=== PATIENT | male | born 1955 | race Caucasian/White ===

== ENCOUNTER → 2017-06-07 15:40 | Outpatient (CLI) | payer OTHER, SELFPAY ==
[2017-06-07 17:47] LABS: Absolute Lymphocyte Count 2.72 X10^3/ul (0.83-4.51); Absolute Neutrophil Count 3.9 X10^3/uL (2.0-7.7); Basophil# 0.05 X10^3/uL; Basophil% 0.7 % (0-1); Eosinophil# 0.15 X10^3/uL; Hemoglobin 14.8 g/dl (13.0-16.5); Lymphocyte # 2.72 X10^3/ul (4.0); Lymphocyte % 36.7 % (19-41); Mean Corp Hgb Conc 35.2 g/gl (32-36); Mean Corpuscular Hgb 32.8 pg (27.0-32.0); Mean Corpuscular Volume 93.1 fL (80-94); Mean Platelet Vol. 10.8 fl (6.2-12.0); Monocyte# 0.61 X10^3/uL; Monocyte% 8.2 % (0-10); Neutrophil # 3.88 X10^3/uL (2.7-7.7); Neutrophil % 52.3 % (47-70); POSITIVE COUNT NO; POSITIVE DIFFERENTIAL NO; POSITIVE MORPHOLOGY NO; Platelet Count 234 K/mm3 (150-450); RBC Distribution Width CV 12.1 % (11.6-14.6); RBC Distribution Width SD 40.3 fl (35.1-43.9); Red Blood Count 4.51 M/mm3 (4.6-6.2); White Blood Count 7.4 K/mm3 (4.4-11.0)
[2017-06-07 18:27] LABS: CRP < 2.90 mg/L (0.0-3.0)
== END ==
PROVIDERS: Family Provider Family Medicine Geriatric Medicine; PCP Family Medicine Geriatric Medicine; Visit Provider Internal Medicine Gastroenterology
DX: R10.9 Unspecified abdominal pain (principal)
CPT/HCPCS: 36415; 85025; 86140

== ENCOUNTER → 2017-06-25 11:41 | Outpatient (CLI) | payer OTHER, SELFPAY ==
--- NOTE | 2017-06-25 11:49 | CT_ITS ---
STUDY: CT ABDOMEN AND PELVIS WITH CONTRAST REASON FOR EXAM: Male, 62 years old. Chronic epigastric pain. RADIATION DOSAGE (If Supplied By Facility): CTDIvol = ( 13.48 ) mGy, DLP = ( 874.89 ) mGycm TECHNIQUE: Transaxial images were obtained from the dome of the diaphragm to the symphysis pubis with oral contrast. 100 ml of Isovue 300 contrast was administered. Sagittal and coronal images were reconstructed. Individualized dose optimization techniques were used for this CT. COMPARISON: Comparison is made with prior examination of January 09, 2017. FINDINGS: The visualized lung bases are unremarkable. The visualized portions of the heart are within normal limits. There is decreased attenuation of the liver consistent with steatosis. Normal gallbladder and extrahepatic biliary system. Normal spleen. Normal pancreas. Normal bilateral adrenal glands. Normal right kidney. Normal left kidney. There is a small hiatal hernia. Normal small intestine. There are multiple colonic diverticula consistent with diverticulosis. The appendix is visualized and appears normal. Normal abdominal aorta. Normal inferior vena cava. Normal retroperitoneum. Normal urinary bladder. There is a right-sided inguinal hernia containing adipose tissue. There are diffuse degenerative changes of the visualized lumbar spine. CT/Abdomen/Pelvis WITH Contrast IMPRESSION: Sigmoid diverticulosis. Fatty infiltration of the liver. Electronically Signed: Anderson Graham MD at 14:40 EST Tel [phone], Service support ,
[2017-06-25 13:16] LABS: Absolute Lymphocyte Count 2.56 X10^3/ul (0.83-4.51); Absolute Neutrophil Count 3.5 X10^3/uL (2.0-7.7); Basophil# 0.03 X10^3/uL; Basophil% 0.5 % (0-1); Eosinophil# 0.14 X10^3/uL; Eosinophils% 2.1 % (0-5); Hematocrit 46.3 % (40-54); Hemoglobin 15.8 g/dl (13.0-16.5); Lymphocyte # 2.56 X10^3/ul (4.0); Lymphocyte % 38.6 % (19-41); Mean Corp Hgb Conc 34.1 g/gl (32-36); Mean Corpuscular Hgb 32.2 pg (27.0-32.0); Mean Corpuscular Volume 94.3 fL (80-94); Mean Platelet Vol. 10.7 fl (6.2-12.0); Monocyte# 0.44 X10^3/uL; Monocyte% 6.6 % (0-10); Neutrophil # 3.46 X10^3/uL (2.7-7.7); Neutrophil % 52.2 % (47-70); Platelet Count 257 K/mm3 (150-450); RBC Distribution Width CV 12.4 % (11.6-14.6); RBC Distribution Width SD 42.5 fl (35.1-43.9); Red Blood Count 4.91 M/mm3 (4.6-6.2); White Blood Count 6.6 K/mm3 (4.4-11.0)
[2017-06-25 13:17] LABS: POSITIVE COUNT NO; POSITIVE DIFFERENTIAL NO; POSITIVE MORPHOLOGY NO
[2017-06-25 13:41] LABS: ALB/GLOB Ratio 1.2 RATIO (0.9-2.4); AST(SGOT) 23 U/L (15-37); Alanine Aminotransfer ALT/SGPT 33 U/L (16-61); Albumin, Serum 4.3 g/dL (3.2-5.0); Alkaline Phosphatase 51 U/L (45-117); Anion Gap 8 (5-15); BUN 6 mg/dL (7-18); BUN/Creat Ratio 6.7 RATIO (10-20); Calcium,Total 9.1 mg/dL (8.5-10.1); Chloride 101 mmol/L (98-107); Creatinine, Serum 0.89 mg/dL (0.70-1.30); EST Glomerular Filtration Rate 92 mL/min (>60); Est Glom Filt Rate - Afr Amer 111 mL/min (>60); Globulin 3.7 g/dL (2.2-4.2); Glucose 74 mg/dL (74-106); Sodium Level 138 mmol/L (136-145); Thyroid Stim Hormone (TSH) 2.19 uIU/mL (0.358-3.74)
== END ==
PROVIDERS: Family Provider Family Medicine Geriatric Medicine; PCP Family Medicine Geriatric Medicine; Visit Provider Family Medicine Geriatric Medicine
DX: R10.9 Unspecified abdominal pain (principal); I10 Essential (primary) hypertension
CPT/HCPCS: 36415; 74177; 80053; 84443; 85025; Q9967

== ENCOUNTER 2017-10-03 13:00 | Outpatient (RCR) | payer OTHER, SELFPAY ==
--- NOTE | 2017-06-03 13:52 | HP.PTEVAL_ITS ---
Patient's Visit Information RITCHIE ECHEVERRIA is a 62 year old M referred to Physical Therapy by Sixto CHUA with a diagnosis of cervical DJD, disc herniation, shoulder pain. Date of Evaluation: 05/31/17 Physical Therapist: Matt Leyva - Visit Plan Frequency: 2x /Week Duration: 4-6 Weeks Plan: Start with manual techniques, DN to bilateral UT/levator scapulea, mechanical traction. Postural education, postural strengthening/strengthening. - Subjective Subjective: Pt. is here today for his initial evaluation with diagnosis of cervical DJD, shoulder pain and cervical disc herniation, with recommendation for dry needling and traction. He is a plesant 62 y.o. male who reports having neck and bilateral shoulder pain for many years. He had a L SAD with minimal relief. He reprots pain into shoulders, and bilateral hands. He is also noticing increased pain in joints of fingers with work activities. 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 He reports occassional numbness (did not know exact locations), but mostly pain throughout shoulders and neck. Pt. reports doing most physical activities increase bilateral arm pain and pain in his neck. He reports having minimal relief with OTC pain medications. Pt. has had an MRI: Multilevel degenerative disc disease with posterior disc osteophyte complex formation, with cord compression or spinal canal stenosis at C3-4, C4-5 and C5-6 , associated with focal area of myelomalacia at C3-4. Pt. has trialed PT previously with DN with mild success and has done postural/shoulder strengthening with mild success. he reports increased pain with sleeping and all ADls. 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 Pt. is hopeful to get back to all recreational activities without issues. - Pain B shoulders Pain Intensity (Out of 10): 4 Pain Intensity Range: 2, 6 Cervical spine Pain Intensity (Out of 10): 5 Pain Intensity Range: 2, 8 - Objective POSTURE: PT. has FH postioning, rounded shoulders. Pt. is able to correct with Vcing, but difficult to maintain. Pt. has increased pain with cervical retraction. PALPATION: Pt. has increased tenderness with palpation of bilateral levator scapulea, bilateral UT, bilateral cervical erector spinea and sub occipitals bilaterally. No pain at clavical bilaterally, bilaterally SCM. Pt. did also report soreness at CT junction. NEUROLOGICAL: Pt. has normal sensation to light and sharp touch bilaterally. Pt. has 2+ biceps and triceps bilaterally. Pt. has mild increase in symptoms with median nerve tension testing. ROM: CERVICAL SPINE: flexion min/nil loss tight, ext mod loss increase NW, SB min loss bilat increase NW, rotation min loss bilat increase NW. Pt. has full shoulder ROM, but has increased pain with last 20-30deg of overhead mobility. MMT: RUE- wrist 5/5 throughout mild increase in wrist pain; elbow- 5/5 throughout NE, shoulder- flexion 4/5, abd 4+/5, ext 5/5, ER 4+/5, IR 5/5. LUE- wrist 5/5 throughout; elbow- 5/5 throughout NE; shoulder- flexion 4+/ 5, abd 4/5, ext 5/5, ER 4+/5, IR 5/5. Pt. has 5/5 cervical isometrics, but has increased pain with all motions of testing. - Special Tests C/S Radiculapathy - Left Spurlings: Negative C/S Radiculapathy - Right Spurlings: Negative C/S Radiculapathy - Left Cervical distraction: Negative C/S Radiculapathy - Right Cervical distraction: Negative C/S Radiculapathy - Left Relief test: Positive C/S Radiculapathy - Right Relief test: Positive Sharp Emanuel: Negative Vertebral Artery Test: Negative Alar Ligament Test: Negative Cervical Sitting: Protrusion - Mechanical Response: No effect Cervical Sitting: Protrusion - Symptoms During Testing: No effect Cervical Sitting: Protrusion - Symptoms After Testing: No effect Cervical Sitting: Retraction - Mechanical Response: No effect Cervical Sitting: Retraction - Symptoms During Testing: Increases Cervical Sitting: Retraction - Symptoms After Testing: No worse Cervical Sitting: Retraction-Extension - Mechanical Response: No effect Cerv Sitting: Retraction-Extension - Symptoms During Testing: Increases Cerv Sitting: Retraction-Extension - Symptoms After Testing: No worse Cervical Sitting: Sidebend Right - Mechanical Response: No effect Cervical Sitting: Sidebend Right - Symptoms During Testing: Increases Cervical Sitting: Sidebend Right - Symptoms After Testing: No worse Cervical Sitting: Sidebend Left - Mechanical Response: No effect Cervical Sitting: Sidebend Left - Symptoms During Testing: Increases Cervical Sitting: Sidebend Left - Symptoms After Testing: No worse Cervical Sitting: Rotation Right - Mechanical Response: No effect Cervical Sitting: Rotation Right - Symptoms During Testing: Increases Cervical Sitting: Rotation Right - Symptoms After Testing: No worse Cervical Sitting: Rotation Left - Mechanical Response: No effect Cervical Sitting: Rotation Left - Symptoms During Testing: Increases Cervical Sitting: Rotation Left - Symptoms After Testing: No worse Cervical Sitting: Flexion - Mechanical Response: No effect Cervical Sitting: Flexion - Symptoms During Testing: Increases Cervical Sitting: Flexion - Symptoms After Testing: No worse Cervical Lying: Retraction - Mechanical Response: No effect Cervical Lying: Retraction - Symptoms During Testing: No effect Cervical Lying: Retraction - Symptoms After Testing: No effect - Goals Goal 1:: Pt. to be I with HEP. Goal Time Frame: 4-6 Weeks Goal 2:: Pt. to have increased cervical ROM in all directions by 25% allowing increased tolerance to all functional activities. Goal Time Frame: 4-6 Weeks Goal 3:: Pt. to have sleep throughout the night without increase in symptoms allowing for increased quality of life. Goal Time Frame: 4-6 Weeks Goal 4:: Pt. to have increased BUE strength by 1/2 grade of all effected musculature allowing pt. to maintain improved posture. Goal Time Frame: 4-6 Weeks Goal 5:: Pt. to be able to complete all work related activties with 2-3/10 pain in neck and bilateral shoulders. Goal Time Frame: 4-6 Weeks - Rehabilitation Potential Physical Therapy Diagnosis: Pt. has signs and symptoms consistent with neck pain and shoulder pain. He did not have positive testing with radiculopathy testing this date, but has marked weakness in bilatearl shoulders. Pt. has increased pain with retraction, but did not radiate into either uE. Pt. has cervical hypombility, cervical muscle tension and increased pain and would benefit from Pt at address above limitations. Rehabilitation Potential: Good - Anticipated Interventions Patient/Client Instruction: Educate patient on: Condition, Plan of Care, Risk Factors, Benefits of Fitness Program For the Purpose of:: To improve safety, To improve health and function, To foster healthy habits, To improve decision making, To facilitate caregiver knowledge, To improve self management, To prevent re-injury, To improve ability to perform tasks related to life management, To improve tolerance to ADL's Therapeutic Exercise to Include: Strength training, Power training, Endurance training, Postural training, Passive ROM, Active ROM For the Purpose of:: To decrease pain, To increase ROM, To improve nutrient delivery to tissue, To increase oxygenation perfusion, To improve muscle performance and motor function, To improve ability to perform ADL's, To improve ability of physical actions for home/community/work/leisure, To decrease soft tissue restriction, To increase flexibility/ROM Manual Therapy Techniques to Include: Mobilization, Passive ROM, Functional dry needling, Soft tissue mobilization For the Purpose of:: To decrease pain, To increase ROM, To improve nutrient delivery to tissue, To increase oxygenation perfusion, To improve muscle performance and motor function, To improve ability to perform ADL's, To improve health of tissue, To decrease soft tissue restriction, To increase flexibility/ ROM Intermittent cervical traction: Yes For the Purpose of:: To decrease pain, To decrease swelling/inflammation, To increase ROM Thank you for the opportunity to evaluate your patient. For Medicare and Medicare HMO plans, please review the plan of care and approve it. It will need to be FAXED BACK to us at [phone] for Medicare purposes. Please let me know if there are questions or concerns regarding this plan of care. Physician Signature: Date:
--- NOTE | 2017-10-09 10:26 | HP.PTDCSUM_ITS ---
HP - PT D/C Summary It has been my pleasure to treat RITCHIE ECHEVERRIA under orders from Sixto Griffin , for the diagnosis of cervical DJD, disc herniation, shoulder pain for a total of 27 visit(s). Discharge Date: 10/03/17 Please see the following information for a summary of their discharge status. - Subjective Subjective: Pt. reports I really think this has kept my symptoms at bay. Pt. reports being 50% better overall. Pt. reports no muscle spasming, but continues to have neck and shoulder pain that increases with activities, especially lifting and overhead. - Pain B shoulders Pain Intensity (Out of 10): 2 Cervical spine Pain Intensity (Out of 10): 2 - Overall Improvement % Improvement: 50 - Objective Objective/Function: Pt. tolerated all PT without adverse reaction. Pt. has progressed with PT, but has hit a platuea over the last few weeks. Pt. has close to full cervcal spine with mild increase in symptoms with ext and retraction. Pt. has no pain with shoulder motions, but has radiating symptoms into B UT R worse than L. Pt. is able to complete all work activities, but does continue to have increased symptoms. - Goals Goal 1:: Pt. to be I with HEP. Goal Progress: Goal Met Goal 2:: Pt. to have increased cervical ROM in all directions by 25% allowing increased tolerance to all functional activities. Goal Progress: Goal Met Goal 3:: Pt. to have sleep throughout the night without increase in symptoms allowing for increased quality of life. Goal Progress: Progressing Goal 4:: Pt. to have increased BUE strength by 1/2 grade of all effected musculature allowing pt. to maintain improved posture. Goal Progress: Goal Met Goal 5:: Pt. to be able to complete all work related activties with 2-3/10 pain in neck and bilateral shoulders. Goal Progress: Goal Met - Plan Plan: Pt. to be DC to HEP at this point in time. - D/C Information Discharge Comments: Pt. was treated for his neck and shoulder pain with tranction, manual ther ext, strengthening and dry needling. Pt. made decent progress, but was recommended to have surgery by spinal specialist. Pt. reported having positive effect with PT. He continues to have symptoms, but they have improved. He will be DC to HEP at this point in time. If there are questions or concerns regarding this patient's physical therapy, please feel free to call me at [phone]. Thank you for the referral of this patient. Sincerely, Matt Leyva
== END 2017-10-03 19:00 | disposition home or self-care (01) ==
LOC: PT 13:00
PROVIDERS: Family Provider Family Medicine Geriatric Medicine; PCP Family Medicine Geriatric Medicine; Visit Provider Anesthesiology
DX: M54.2 Cervicalgia (principal); M48.02 Spinal stenosis, cervical region; M47.9 Spondylosis, unspecified
CPT/HCPCS: 97012; 97014; 97140; 97162; G0283

== ENCOUNTER → 2018-02-12 07:26 | Outpatient (CLI) | payer OTHER, SELFPAY ==
[2018-02-12 08:27] LABS: Cholesterol 171 mg/dL (200); High Density Lipoprotein 83 mg/dL; PSA,Total - Annual Screen 0.54 ng/mL (0.00-4.00); Triglycerides 54 mg/dL; Very Low Density Lipoprotein 11 mg/dL (5-40)
== END ==
PROVIDERS: Family Provider Family Medicine; PCP Family Medicine; Referring Provider Family Medicine; Visit Provider Family Medicine
DX: Z00.00 Encounter for general adult medical examination without abnormal findings (principal); Z12.5 Encounter for screening for malignant neoplasm of prostate
CPT/HCPCS: 36415; 80061; 84153; G0103

== ENCOUNTER 2018-02-27 12:00 | Outpatient (RCR) | payer OTHER, SELFPAY ==
--- NOTE | 2018-02-27 12:08 | HP.PTEVAL ---
Patient's Visit Information RITCHIE ECHEVERRIA is a 62 year old M referred to Physical Therapy by Gloria Puente, with a diagnosis of S/P cervical spinal fusion. Date of Evaluation: 01/07/18 Physical Therapist: Matt Leyva - Visit Plan Frequency: 2x /Week Duration: 4 Weeks Plan: Begin with isometric exercises then progress strengthening as tolerated. - Subjective Subjective: pt reported to physical therapy following cervical spinal fusion. prior to surgery, pt reported feeling numbness, tingling, and bilaterally down to fingers. following surgery, pt's reports no pain through arms but pain in shoulders has remained. pt reports having good and bad days where pain is either more or less than normal but pt reports on normal days there is a constant 6/10 throughout the day. Greatest complaint of pain is in the shoulders, especially the right with pain along the posterior neck as well. 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 pt reports slight sleep disturbance especially when turning on side. pt hopes to be able to return to work. - Pain Neck Pain Intensity (Out of 10): 0 Right Shoulder Pain Intensity (Out of 10): 3 Left Shoulder Pain Intensity (Out of 10): 3 - Objective POSTURE: up right posture with limited cervical range of motion, guarded posture. NEURO: normal sensation and reflexes. no numbness or tingling. ROM: Shoulder bilat: flexion - 50% limited, abduction - 50% limited; cervical: flexion -75% limited, extension - 100% limited, lateral flexion bilat - 75% limited, rotation right - 75% limited, rotation left - 50% limited. limited shoulder motion was limited due to pain. MMT: UE: right shoulder: abduction - 4/5, flexion - 4/5; left shoulder: abduction - 3/5, flexino 4-/5; cervical: 5/5. limited moitions were limited due to pain - Goals Goal 1:: pt reports 2/10 shoulder pain in active flexion and abduction Goal Time Frame: 4-6 Weeks Goal 2:: pt reports 0/10 cervical pain at rest Goal Time Frame: 4-6 Weeks Goal 3:: pt is able to obtain 75% of full cervical ROM in all directions. Goal Time Frame: 4-6 Weeks Goal 4:: pt is able to obtain full shoulder range of motion in all directions. Goal Time Frame: 4-6 Weeks Goal 5:: pt reports being able to sleep undisturbed Goal Time Frame: 4-6 Weeks Goal 6:: pt is able to return to work Goal Time Frame: 2-4 Weeks - Rehabilitation Potential Physical Therapy Diagnosis: pt resents with symptoms assocaited with s/p cervical spinal fusion. pt presents with limited cervical range of motion and cervical and bilat shoulder pain. pt would benefit from physical therapy in order to promot increased cervical range of motion and decreased cervical and shoulder pain. Rehabilitation Potential: Excellent - Anticipated Interventions Patient/Client Instruction: Educate patient on: Condition, Plan of Care, Risk Factors, Benefits of Fitness Program For the Purpose of:: To decrease pain, To increase ROM, To improve muscle performance and motor function, To increase tolerance to activity/condition/position Therapeutic Exercise to Include: Strength training, Power training, Postural training, Passive ROM, Active ROM For the Purpose of:: To decrease pain, To increase ROM, To improve muscle performance and motor function, To increase tolerance to activity/condition/position, To improve ability of physical actions for home/community/work/leisure, To increase flexibility/ROM Functional electric stimulation: Yes Cryotherapy (ice pack, ice massage): Yes Thermo therapy (hot pack): Yes Ultrasound (thermal/non thermal): Yes For the Purpose of:: To decrease pain, To increase ROM, To increase flexibility/ROM Thank you for the opportunity to evaluate your patient. For Medicare and Medicare HMO plans, please review the plan of care and approve it. It will need to be FAXED BACK to us at [phone] for Medicare purposes. Please let me know if there are questions or concerns regarding this plan of care. Physician Signature: Date:
--- NOTE | 2018-07-25 09:08 | HP.PT.NRP ---
HP - Discharge Summary (1) - Patient Information RITCHIE ECHEVERRIA was seen in my office for initial evaluation on 01/07/18. The following Plan of Care was established for this patient: Initial Frequency: 2x /Week Initial Duration: 4 Weeks - Anticipated Interventions Patient/Client Instruction: Educate patient on: Condition, Plan of Care, Risk Factors, Benefits of Fitness Program For the Purpose of:: To decrease pain, To increase ROM, To improve muscle performance and motor function, To increase tolerance to activity/condition/position Therapeutic Exercise to Include: Strength training, Power training, Postural training, Passive ROM, Active ROM For the Purpose of:: To decrease pain, To increase ROM, To improve muscle performance and motor function, To increase tolerance to activity/condition/position, To improve ability of physical actions for home/community/work/leisure, To increase flexibility/ROM Functional electric stimulation: Yes Cryotherapy (ice pack, ice massage): Yes Thermo therapy (hot pack): Yes Ultrasound (thermal/non thermal): Yes For the Purpose of:: To decrease pain, To increase ROM, To increase flexibility/ROM This patient was last seen in our office 02/27/18. Pertinent comments regarding their Physical therapy will appear below: Pt. was seen for her his cervical spineal fusion. Pt. was treated with postural strengthening, ROM and functional exercises. Pt. was doing well, but was still having pain in his shoulder. Pt. did not attend his last few visits and has not been seen in several months. Pt. will be DC from PT at this point in time. At this point I will be discontinuing this patient from physical therapy. I would be happy to see this patient again in the future if found appropriate by the physician. Thank you! Matt Leyva, ANYI
== END 2018-02-27 19:00 | disposition home or self-care (01) ==
LOC: PT 12:00
PROVIDERS: Family Provider Family Medicine Geriatric Medicine; PCP Family Medicine Geriatric Medicine; Visit Provider Nurse Practitioner Acute Care
DX: Z98.1 Arthrodesis status (principal)
CPT/HCPCS: 97110; 97140; 97162

== ENCOUNTER → 2018-02-27 14:52 | Outpatient (CLI) | payer OTHER, SELFPAY ==
--- NOTE | 2018-02-27 14:54 | RAD_ITS ---
STUDY: X-RAY - RIGHT HAND, ATTENTION THIRD FINGER REASON FOR EXAM: Male, 62 years old. Pain. No known injury. TECHNIQUE: 3 view(s) of the finger were obtained. COMPARISON: None. FINDINGS: Normal metacarpal head. Normal metacarpophalangeal joint. Normal proximal phalanx. Normal middle phalanx. Normal distal phalanx. Normal proximal interphalangeal joint. Normal distal interphalangeal joint. RAD/Finger(s) Min 2 Views IMPRESSION: Normal x-ray examination of the finger. Electronically Signed: Anderson Graham MD at 14:42 EST Tel [phone], Service support ,
== END ==
PROVIDERS: Family Provider Family Medicine; PCP Family Medicine; Referring Provider Physician Assistant; Visit Provider Physician Assistant
DX: M79.646 Pain in unspecified finger(s) (principal)
CPT/HCPCS: 73140

== ENCOUNTER → 2018-06-02 11:00 | Outpatient (CLI) | payer OTHER, SELFPAY ==
--- NOTE | 2018-06-02 11:08 | RAD_ITS ---
STUDY: X-RAY - LEFT SHOULDER REASON FOR EXAM: Male, 63 years old. Pain. TECHNIQUE: 4 view(s) of the shoulder. COMPARISON: 03/28/2017 FINDINGS: There is a 1 x 0.4 cm crescentic calcification adjacent to the inferior-posterior rim of the glenoid fossa, with a corresponding defect in the glenoid rim. This can also be seen retrospectively 2017 exam. It may represent nonunion of an old avulsion fracture. Otherwise normal glenohumeral articulation. Normal acromioclavicular joint. Normal acromion. Normal humeral head and visualized proximal humerus. The soft tissue structures are unremarkable. Normal visualized pulmonary apex. 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 Otherwise, normal exam. Electronically Signed: Lionel Becker MD at 3:31 EST , Service support ,
--- NOTE | 2018-06-02 11:08 | RAD_ITS ---
STUDY: X-RAY - RIGHT SHOULDER REASON FOR EXAM: Male, 63 years old. Pain TECHNIQUE: 4 view(s) of the shoulder. COMPARISON: February 11, 2017 right shoulder x-ray FINDINGS: Normal glenohumeral articulation. As seen on the prior study there is a angulated mildly foreshortened possibly resected or eroded appearance of the right distal clavicle. There is no evidence of an acute fracture. Normal acromion. Normal humeral head and visualized proximal humerus. The soft tissue structures are unremarkable. Normal visualized pulmonary apex. RAD/Shoulder min 2 Views IMPRESSION: Recommend correlation with musculoskeletal surgical history. There is a widened appearance of the right side acromioclavicular joint most consistent with probable prior resection of the distal right clavicle however erosive changes of the distal clavicle can be associated with rheumatoid arthritis. Electronically Signed: Ester Gregory MD at 17:13 EST Tel , Service support ,
== END ==
PROVIDERS: Family Provider Family Medicine; PCP Family Medicine; Visit Provider Anesthesiology Pain Medicine
DX: M25.511 Pain in right shoulder (principal); M25.512 Pain in left shoulder
CPT/HCPCS: 73030

== ENCOUNTER → 2018-07-15 11:42 | Outpatient (CLI) | payer OTHER, SELFPAY ==
[2018-07-15 13:57] LABS: CRP < 2.90 mg/L (0.0-3.0); Rheumatoid Factor < 10.0 IU/mL (<15); Uric Acid 5.2 mg/dL (3.5-7.2)
[2018-07-15 14:16] LABS: Erythrocyte Sedimentation Rate 2 mm/hr (0-20)
[2018-07-15 14:17] LABS: Absolute Lymphocyte Count 2.27 X10^3/ul (0.83-4.51); Absolute Neutrophil Count 3.6 X10^3/uL (2.0-7.7); Basophil# 0.06 X10^3/uL; Basophil% 0.9 % (0-1); Eosinophil# 0.19 X10^3/uL; Eosinophils% 2.9 % (0-5); Hematocrit 43.8 % (40-54); Hemoglobin 14.6 g/dl (13.0-16.5); Lymphocyte # 2.27 X10^3/ul (4.0); Lymphocyte % 34.9 % (19-41); Mean Corp Hgb Conc 33.3 g/gl (32-36); Mean Corpuscular Volume 96.1 fL (80-94); Mean Platelet Vol. 11.1 fl (6.2-12.0); Monocyte% 6.2 % (0-10); Neutrophil # 3.57 X10^3/uL (2.7-7.7); Neutrophil % 54.9 % (47-70); POSITIVE COUNT NO; POSITIVE DIFFERENTIAL NO; POSITIVE MORPHOLOGY NO; Platelet Count 276 K/mm3 (150-450); RBC Distribution Width CV 12.3 % (11.6-14.6); RBC Distribution Width SD 42.3 fl (35.1-43.9); Red Blood Count 4.56 M/mm3 (4.6-6.2); White Blood Count 6.5 K/mm3 (4.4-11.0)
[2018-07-18 17:24] LABS: ANTINUCLEAR ANTIBODIES DIRECT Negative (Negative)
== END ==
PROVIDERS: Family Provider Family Medicine; PCP Family Medicine; Referring Provider Orthopaedic Surgery; Visit Provider Orthopaedic Surgery
DX: M75.52 Bursitis of left shoulder (principal); M75.51 Bursitis of right shoulder
CPT/HCPCS: 36415; 84550; 85025; 85652; 86038; 86140; 86431

== ENCOUNTER 2018-11-22 16:14 | Emergency (ER) | payer OTHER, SELFPAY ==
[2018-11-22 16:15] VITALS: BP 137/96; PULSE 115; RESP 18; TEMP 36.8; O2SAT 96; BMI 25.2
--- NOTE | 2018-11-22 18:31 | ED.VISSUMM ---
- ER Visit Summary Date of Service: 11/22/18 Chief Complaint: Headache History of Present Illness: The patient is a 63 M presenting with headache. He states this started yesterday. It was gradual in onset. Feels similar to his previous headaches. He sees Dr. García, pain management for his neck. He states Dr. Giraldo feels that his headaches are related to his neck. He tried Excedrin this morning. He has nausea with no vomiting. He denies trauma. Denies fever. Denies other complaints. Physical Examination: Vitals are stable. Patient is afebrile. Alert no acute distress. HEENT exam is unremarkable. Neck is supple. No meningismus Lungs are clear and equal bilaterally. Heart is regular rate and rhythm. Abdomen is soft nontender nondistended. Extremities are unremarkable. Skin is warm and dry. No focal neurologic deficit. Remainder of exam is unremarkable. Emergency Department Course and Treatment: Patient was given Reglan, Benadryl with improvement. He was then given morphine Zofran and is resting comfortably. Repeat blood pressure is 161/99. He is advised to monitor his blood pressure at home and follow-up with his primary care physician. Advised to return to the ED for worsening complaints. Disposition: Discharge home Impression: Headache This note was generated with [employer] dictation software. It may contain incorrect words, spelling, and punctuation that were not noted in review of the chart prior to signing ED Disposition - Plan for ED Patient: Referrals: Valeria Parkinson MD [Primary Care Provider] -
[2018-11-22 18:40] VITALS: BP 172/123; PULSE 82; RESP 16; O2SAT 95
[2018-11-22] MEDS: Metoclopramide 10 MG/2 ML Vial 5 MG IV (18:43)
[2018-11-22] MEDS: DiphenhydrAMINE 50 MG/ML Syringe 25 MG IV (18:44)
[2018-11-22] MEDS: Morphine 4 MG/ML Syringe IV (20:10)
[2018-11-22 20:11] VITALS: BP 161/99; PULSE 98; RESP 17; O2SAT 94
[2018-11-22] MEDS: Ondansetron 4 MG/2 ML Vial IV (20:11)
--- NOTE | 2018-11-22 20:59 | ED.DEP ---
ED Disposition - Plan for ED Patient: Instructions: HEADACHE, Unspecified Referrals: Valeria Parkinson MD [Primary Care Provider] -
[2018-11-22 21:15] VITALS: BP 168/98; PULSE 75; RESP 16; O2SAT 97
== END 2018-11-22 21:16 | disposition home or self-care (01) ==
LOC: ED 18:53
PROVIDERS: Emergency Provider Emergency Medicine; Family Provider Family Medicine; PCP Family Medicine
DX: R51 Headache (principal); I10 Essential (primary) hypertension; Z79.899 Other long term (current) drug therapy
CPT/HCPCS: 96374; 96375; 99283; A4216; J2405

== ENCOUNTER → 2018-12-09 | Outpatient (CLI) | payer OTHER, SELFPAY ==
[2018-11-22 16:15] VITALS: BMI 25.2
[2018-12-09 10:56] LABS: Bacteria 0 SEEN /hpf (None Seen); Mucous, Urine 0 SEEN /hpf (<or=2+); Red Blood Cells-Urine 0 SEEN /hpf (0-5); White Blood Cells 0 SEEN /hpf (0-5)
[2018-12-09 12:40] LABS: Color, Urine Yellow (Yellow); Glucose, Dipstick Normal (Normal); Ketone-Dipstick Negative (Negative); Leukocyte Esterase-Dipstick Negative /ul (Negative); Nitrite-Dipstick Negative (Negative); Occult Blood-Urine Negative /ul (Negative); Protein-Dipstick Negative (Negative); Specific Gravity, Urine 1.005 (1.002-1.030); Urine Bilirubin Dipstick Negative (Negative); Urine Clarity Sl. Cloudy (Clear); Urine Urobilinogen Normal (Normal)
[2018-12-09 12:42] LABS: Absolute Lymphocyte Count 3.89 X10^3/uL (0.83-4.51); Absolute Neutrophil Count 5.3 X10^3/uL (2.0-7.7); Basophil# 0.05 X10^3/uL; Basophil% 0.5 % (0-1); Eosinophil# 0.01 X10^3/uL; Eosinophils% 0.1 % (0-5); Hematocrit 43.8 % (40-54); Hemoglobin 14.7 g/dL (13.0-16.5); Lymphocyte # 3.89 X10^3/ul (4.0); Lymphocyte % 38.6 % (19-41); Mean Corp Hgb Conc 33.6 g/dL (32-36); Mean Corpuscular Hgb 32.1 pg (27.0-32.0); Mean Corpuscular Volume 95.6 fL (80-94); Mean Platelet Vol. 10.5 fl (6.2-12.0); Monocyte# 0.82 X10^3/uL; Monocyte% 8.1 % (0-10); NRBC Flagged by Analyzer 0 % (0-5); Neutrophil # 5.28 X10^3/uL (2.7-7.7); Neutrophil % 52.4 % (47-70); Platelet Count 251 K/mm3 (150-450); RBC Distribution Width SD 45.3 fl (35.1-43.9); Red Blood Count 4.58 M/mm3 (4.6-6.2); White Blood Count 10.1 K/mm3 (4.4-11.0)
[2018-12-09 12:50] LABS: Squamous Epithelial Cells - UA 0-5 SEEN /hpf (0-5)
[2018-12-09 13:01] LABS: ALB/GLOB Ratio 1.1 RATIO (0.9-2.4); AST(SGOT) 17 U/L (15-37); Alanine Aminotransfer ALT/SGPT 36 U/L (16-61); Albumin, Serum 3.9 g/dL (3.2-5.0); Alkaline Phosphatase 48 U/L (45-117); Anion Gap 6 (5-15); BUN 15 mg/dL (7-18); BUN/Creat Ratio 15.1 RATIO (10-20); Calcium,Total 9.3 mg/dL (8.5-10.1); Chloride 103 mmol/L (98-107); EST Glomerular Filtration Rate 81 mL/min (>60); Est Glom Filt Rate - Afr Amer 98 mL/min (>60); Globulin 3.7 g/dL (2.2-4.2); Glucose 77 mg/dL (74-106); Potassium 3.3 mmol/L (3.5-5.1); Protein, Total 7.6 g/dL (6.4-8.2); Sodium Level 140 mmol/L (136-145)
== END | disposition home or self-care (01) ==
LOC: BFHLAB 10:54
PROVIDERS: Family Provider Family Medicine; PCP Family Medicine; Visit Provider Family Medicine
DX: I10 Essential (primary) hypertension (principal)
CPT/HCPCS: 36415; 80053; 81001; 85025

== ENCOUNTER → 2019-01-26 | Outpatient (CLI) | payer OTHER, SELFPAY ==
--- NOTE | 2019-01-26 09:21 | MRI_ITS ---
STUDY: MRI BRAIN WITH AND WITHOUT CONTRAST REASON FOR EXAM: Male, 63 years old. Headache TECHNIQUE: Standardized multiplanar fat and water weighted pulse sequences were obtained. IV Dotarem 15 was administered for the contrast portion of the examination. COMPARISON: 01/21/2015 FINDINGS: Normal size of the ventricles and extra-axial spaces for the patient's age. Normal white matter tracts of the supratentorial brain. There is no evidence for recent intracranial ischemia or other cause of cytotoxic edema on diffusion weighted imaging (DWI). Normal T2* images of the brain without demonstrated susceptibility artifact. There is no demonstrated hemosiderin stain. Normal bilateral basal ganglia. Normal thalami. There is no extra-axial fluid accumulation. Normal flow voids within the major intracranial circulation suggesting patency by spin echo criteria. Normal venous enhancement. There is no enhancing intra-axial or extra-axial abnormality. Normal sella turcica, pituitary gland, infundibular stalk, optic chiasm and hypothalamus. Normal tectal plate and pineal gland. Normal midbrain, donte and medulla. Normal cerebellum. Normal basal cisterns. Normal bilateral temporal bones. Normal bilateral internal auditory canals. No demonstrated orbital abnormality, within the constraints of a routine brain study. Normal visualized paranasal sinuses. Normal calvarium and skull base. Normal visualized soft tissue structures. Normal visualized upper cervical spine. MRI/Brain W/WO Contrast IMPRESSION: Normal unenhanced and enhanced MRI of the brain. Electronically Signed: Kyle Begum MD at 16:11 EDT Tel , Service support ,
[2019-01-26 09:38] LABS: Creatinine, Serum 0.98 mg/dL (0.70-1.30); EST Glomerular Filtration Rate 82 mL/min (>60); Est Glom Filt Rate - Afr Amer 100 mL/min (>60)
== END | disposition home or self-care (01) ==
LOC: MRI 09:09
PROVIDERS: Family Provider Family Medicine; PCP Family Medicine; Referring Provider Family Medicine; Visit Provider Family Medicine
DX: Z01.812 Encounter for preprocedural laboratory examination (principal); G44.009 Cluster headache syndrome, unspecified, not intractable
CPT/HCPCS: 36415; 70553; 82565; A9575

== ENCOUNTER → 2019-02-24 | Outpatient (CLI) | payer OTHER, SELFPAY ==
[2019-02-24 09:55] LABS: Erythrocyte Sedimentation Rate < 1 mm/hr (0-20)
== END | disposition home or self-care (01) ==
PROVIDERS: Family Provider Family Medicine; PCP Family Medicine; Referring Provider Psychiatry & Neurology Neurology; Visit Provider Psychiatry & Neurology Neurology
DX: G43.909 Migraine, unspecified, not intractable, without status migrainosus (principal)
CPT/HCPCS: 36415; 85652

== ENCOUNTER → 2019-06-29 | Outpatient (CLI) | payer OTHER, SELFPAY ==
[2019-06-29 09:14] VITALS: BMI 25.2
--- NOTE | 2019-06-29 09:20 | RAD_ITS ---
STUDY: X-RAY - RIGHT HAND REASON FOR EXAM: Male, 64 years old. Dog bite to the posterior hand surface, red and swollen TECHNIQUE: 3 view(s) of the hand. COMPARISON: None. FINDINGS: Normal radiocarpal articulation. Normal distal radioulnar joint. Normal visualized carpal bones. Normal carpal articulations Normal carpometacarpal articulation of the thumb. Normal second through fifth carpometacarpal joints. Normal metacarpi. Normal metacarpophalangeal joint of the thumb. Normal interphalangeal joint of the thumb. Normal proximal and distal phalanges of the thumb. Normal metacarpophalangeal joints of the second through fifth fingers. Normal proximal and distal interphalangeal joints of the second through fifth fingers. Normal phalanges of the second through fifth fingers. The soft tissue structures are unremarkable. RAD/Hand Min 3 Views IMPRESSION: Normal x-ray examination of the hand. Electronically Signed: Anderson Graham, at 10:14 EDT , Service support ,
== END | disposition home or self-care (01) ==
LOC: HPRAD 09:20
PROVIDERS: PCP Family Medicine; Referring Provider Physician Assistant; Visit Provider Physician Assistant
DX: S61.451A Open bite of right hand, initial encounter (principal); W54.0XXA Bitten by dog, initial encounter
CPT/HCPCS: 73130

== ENCOUNTER → 2019-10-15 | Outpatient (CLI) | payer OTHER, SELFPAY ==
[2019-08-28 14:58] VITALS: BMI 25.2
== END | disposition home or self-care (01) ==
LOC: LABSPEC 11:49
PROVIDERS: PCP Family Medicine; Referring Provider Internal Medicine Gastroenterology; Visit Provider Internal Medicine Gastroenterology
DX: Z11.59 Encounter for screening for other viral diseases (principal)
CPT/HCPCS: 87635; G2023; U0003

== ENCOUNTER → 2020-09-16 16:18 | Outpatient (CLI) | payer OTHER, SELFPAY ==
[2019-08-28 14:58] VITALS: BMI 25.2
[2020-09-16 17:40] LABS: Absolute Lymphocyte Count 2.02 X10^3/uL (0.83-4.51); Absolute Neutrophil Count 3.9 X10^3/uL (2.0-7.7); Basophil# 0.06 X10^3/uL; Basophil% 0.9 % (0-1); Eosinophil# 0.04 X10^3/uL; Eosinophils% 0.6 % (0-5); Hematocrit 41.2 % (40-54); Hemoglobin 13.8 g/dL (13.0-16.5); Lymphocyte # 2.02 X10^3/ul (0.83-4.51); Lymphocyte % 30.5 % (19-41); Mean Corp Hgb Conc 33.5 g/dL (32-36); Mean Corpuscular Hgb 33.3 pg (27.0-32.0); Mean Corpuscular Volume 99.3 fL (80-94); Mean Platelet Vol. 10.3 fl (6.2-12.0); Monocyte# 0.54 X10^3/uL; Monocyte% 8.2 % (0-10); NRBC Flagged by Analyzer 0 % (0-5); Neutrophil # 3.94 X10^3/uL (2.7-7.7); Neutrophil % 59.5 % (47-70); Platelet Count 270 K/mm3 (150-450); RBC Distribution Width CV 12.9 % (11.6-14.6); RBC Distribution Width SD 47.4 fl (35.1-43.9); Red Blood Count 4.15 M/mm3 (4.6-6.2); White Blood Count 6.6 K/mm3 (4.4-11.0)
[2020-09-16 17:48] LABS: ALB/GLOB Ratio 1.2 RATIO (0.9-2.4); AST(SGOT) 39 U/L (15-37); Alanine Aminotransfer ALT/SGPT 55 U/L (16-61); Albumin, Serum 4.3 g/dL (3.2-5.0); Alkaline Phosphatase 47 U/L (45-117); Anion Gap 5 (5-15); BUN 21 mg/dL (7-18); Calcium,Total 9.5 mg/dL (8.5-10.1); Chloride 102 mmol/L (98-107); Color, Urine Yellow (Yellow); EST Glomerular Filtration Rate 80 mL/min (>60); Est Glom Filt Rate - Afr Amer 97 mL/min (>60); Globulin 3.7 g/dL (2.2-4.2); Glucose 127 mg/dL (74-106); Glucose, Dipstick Normal (Normal); Ketone-Dipstick 15 mg/dl (Negative); Leukocyte Esterase-Dipstick Negative /ul (Negative); Nitrite-Dipstick Negative (Negative); Occult Blood-Urine Negative /ul (Negative); Potassium 4.2 mmol/L (3.5-5.1); Protein-Dipstick Negative (Negative); Sodium Level 138 mmol/L (136-145); Urine Bilirubin Dipstick Negative (Negative); Urine Clarity Clear (Clear); Urine Urobilinogen Normal (Normal)
== END ==
PROVIDERS: PCP Family Medicine; Referring Provider Family Medicine; Visit Provider Family Medicine
DX: I10 Essential (primary) hypertension (principal)
CPT/HCPCS: 36415; 80053; 81002; 85025

== ENCOUNTER 2020-12-03 10:23 | Emergency (ER) | payer OTHER, SELFPAY ==
[2019-08-28 14:58] VITALS: BMI 25.2
[2020-12-03 10:24] VITALS: BP 142/113; PULSE 107; RESP 18; TEMP 36.6; O2SAT 100; BMI 25.5
--- NOTE | 2020-12-03 11:00 | EDS_ITS ---
HPI History of Present Illness Chief Complaint: Lower Extremity Injury Informant: patient Onset/Context/Timing Onset: Yesterday Timing: Continuous Quality: Sharp Location: Lumbar, Buttock and Right Leg Worsened by: improves with Nothing Relieved by: Medications (Patient had mild relief with Tylenol) Associated Symptoms Associated Symptoms: Radiation to Right Leg; Negative for Numbness, Tingling, Radiation to Left Leg, Fever, Abdominal Pain, Dysuria, Unable to Ambulate, Unable to Transfer, Urinary Retention, Urinary Incontinence, Constipation and Fecal Incontinence Narrative Narrative: Patient presents with pain in his lower lumbar area that radiates down his right leg. Patient states this became worse last night. Patient has a history of sciatica. Patient states he was only recent long car ride was caused it to flareup. Patient denies any bowel or bladder changes. Patient denies any saddle anesthesia. Patient denies any trauma or injury. Patient states the pain radiates down his right lower leg. Patient denies any paresthesias or weakness. [facility] Medical History (Updated 12/03/20 @ 11:[address] Sixto Mcgowan DO) Diverticulosis Hypertension Leg fracture, right Home Medications hydrochlorothiazide 25 mg PO DAILY 01/12/14 [History Last Taken 01/24/14] amlodipine 5 mg PO DAILY 12/30/16 [History Last Taken Unknown] pantoprazole 40 mg PO DAILY 12/30/16 [History Last Taken Unknown] losartan 25 mg tablet 100 mg PO DAILY tab 03/28/17 [History Last Taken Unknown] multivitamin 1 tab PO QAM 03/28/17 [History Last Taken Unknown] omega-3 fatty acids 1,000 mg capsule 1,000 mg PO QDAY 03/28/17 [History Last Taken Unknown] cyclobenzaprine 10 mg PO QHS PRN PRN #20 tablet 12/03/20 [Rx Last Taken Unknown] oxycodone-acetaminophen 1 tab PO Q6H PRN PRN 3 Days #12 tablet 12/03/20 [Rx Last Taken Unknown] Allergy/AdvReac Type Severity Reaction Status Date / Time tramadol Allergy Mild flushed Verified 12/03/20 10:24 Family History Mother Brain cancer Surgical History History of knee replacement procedure of left knee Social History Smoking Status: Never smoker alcohol intake: current details: 3-4 per week ROS ROS ED Constitutional Constitutional ED: Denies chills or fever(s) Eyes Eyes: Denies blurry vision or change in vision ENT ENT ED: Denies rhinorrhea or sore throat Cardiovascular Cardiovascular: Denies chest pain or palpitations Respiratory/Chest Respiratory/Chest: Denies cough or dyspnea Gastrointestinal Gastrointestinal: Denies nausea or vomiting Genitourinary Genitourinary ED: Denies dysuria or hematuria Musculoskeletal Musculoskeletal: Reports back pain and neck pain Integumentary Denies abscess or rash Neurologic Neurologic: Denies headache(s) or weakness Allergic/Immunologic Allergic/Immunologic ED: Denies mouth swelling or urticaria EXAM Physical Exam Const Vital Signs: 12/03/20 10:24 Temperature 97.8 F Temperature Source Temporal Pulse Rate 107 H Respiratory Rate 18 Blood Pressure 142/113 H Blood Pressure Mean 122 Pulse Ox 100 Positive well nourished HEENT Reports moist mucous membranes Neck supple and no JVD Back/Spine Back/Spine Narrative: There is tenderness and spasm over the right lower lumbar paraspinal muscles. There is no midline tenderness. There is no bony crepitance or step-off. Range of motion was limited in all motions of the lumbar spine secondary to pain. There is also tenderness over the sciatic notch. This did reproduce his pain down his right leg. Strength is 5/5 bilaterally. There are no sensory deficits. Deep tendon reflexes are 2/4 bilaterally. Extremity General Extremety ED: Negative for edema or tenderness General Extremity: Negative for edema Neuro oriented x3 and no sensory deficits noted Sensorium / Orientation: alert Motor Exam: strength 5/5 throughout Deep Tendon Reflexes: Rt Patellar (L4): 2+, Lt Patellar (L4): 2+, Rt Ankle (S1): 2+ and Lt Ankle (S1): 2+ Deep Tendon Reflexes Back: Rt Patellar (L4): 2+, Lt Patellar (L4): 2+, Rt Ankle (S1): 2+ and Lt Ankle (S1): 2+ Psych mental status grossly normal MDM MDM MDM Narrative Medical decision making narrative: Patient was given injections of morphine and Norflex here. Patient was given a prescription for Percocet and Norflex. Patient was instructed to use ice to the area. Patient was instructed to follow-up with his primary care physician in 3 to 5 days. Patient was also instructed to follow-up with his pain management physician in 3 to 5 days. Patient understood and was agreeable with the plan. All questions were answered. Discharge Plan Triage Chief Complaint: Lower Extremity Injury ED Provider: Sixto Mcgowan Dx/Rx/DC Orders Clinical Impression: Sciatica of right side Instructions: ED Sciatica Prescriptions: New cyclobenzaprine [cyclobenzaprine] 10 MG tablet 10 mg PO QHS PRN PRN (Reason: Muscle Spasm) Qty: 20 RF: 0 oxycodone-acetaminophen [oxycodone-acetaminophen] 1 TABLET tablet 1 tab PO Q6H PRN PRN (Reason: Pain) 3 Days Qty: 12 RF: 0 No Action multivitamin tablet 1 tab PO QAM RF: 0 omega-3 fatty acids [Fish Oil Concentrate] 1,000 mg capsule 1,000 mg PO QDAY RF: 0 hydrochlorothiazide 25 MG tablet 25 mg PO DAILY RF: 0 losartan 25 MG tablet 100 mg PO DAILY RF: 0 amlodipine 5 MG tablet 5 mg PO DAILY RF: 0 pantoprazole 40 MG tablet 40 mg PO DAILY RF: 0 Primary Care Provider: Valeria Parkinson Referrals: Valeria Parkinson MD [Primary Care Provider] -
[2020-12-03] MEDS: Orphenadrine 60 MG/2 ML Ampul IM (11:10)
[2020-12-03] MEDS: Morphine 4 MG/ML Syringe IM (11:10)
== END 2020-12-03 11:51 | disposition home or self-care (01) ==
LOC: ED 11:40
PROVIDERS: Emergency Provider Emergency Medicine; PCP Family Medicine
DX: M54.41 Lumbago with sciatica, right side (principal); I10 Essential (primary) hypertension; Z79.899 Other long term (current) drug therapy
CPT/HCPCS: 96372; 99282

== ENCOUNTER 2021-05-18 17:00 | Outpatient (RCR) | payer OTHER, SELFPAY ==
--- NOTE | 2021-04-07 07:30 | HP.PTEVAL ---
Patient's Visit Information RITCHIE ECHEVERRIA is a 66 year old M referred to Physical Therapy by LIV Antonio with a diagnosis of B shoulder pain and LBP. Date of Evaluation: 04/06/21 Physical Therapist: Daniel Gerardo, PT, ATC - Visit Plan Frequency: 2-3x /Week Duration: 4-6 Weeks Plan: B shoulders: rot cuff strengthening, scap stab ex's, UBE, and HEP. L/S: SKTC/DKTC, L/S stab ex's, nustep, and HEP - Subjective Pt reports he has had LBP for decades. Pt reports his pain used to be intermittent by nature, but now is constant. Pt reports he just had xrays a few hours ago, so he doesnt have the results at this time. Pt notes he has no surgical history in his L/S. Pt reports no tingling or numbness in his LE's at this time, but reports intermittent R LE radiculopathy which will extend to his foot. 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 Pt also notes that prolonged ambulation and driving in a car also increases his pain. Pt reports sleep difficulty at this time secondary to shoulder pain. Pt is R hand dominant. 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 Pt also notes he has had B shoulder pain for 5-6 years. Pt notes he has had surgery on his R shoulder in 2014 to remove spurs. Pt is R hand dominant. Occasional UE tingling and numbness. Pt reports he had C/S surgery 3 years ago because the doctor believed the pain was coming from his neck. Pt reports the pain did not subside following the surgery. Pt notes he is limited with all overhead activity secondary to pain. 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 Pt reports his goal is to get ex's which will allow his LB and shoulder to tolerate him returning to work without so much limitation - Pain LBP Pain Intensity (Out of 10): 2 Pain Intensity Range: 9 B shoulder pain Pain Intensity (Out of 10): 6 Pain Intensity Range: 9 - Objective Neuro: L L5 dermatone is hyposensitive to light touch. All other B UE/LE sensation is WNL. B UE/LE reflexes 1/3 throughout. MMT: B UE's 3+/5 throughout. B LE's are grossly 4+/5 throughout. Shoulder ROM: R shoulder flex= 110, abd= 65, ER= 35, IR= ; L shoulder flex= 75, abd= 90, ER= 50. L/S ROM: severely limited with ext. Special tests: Pos empty can, HK tests - Balance/Special Test Scores Oswestry Low Back Score: 26 - Goals Goal 1:: Decrease B shoulder and LBP x 50% to aid with sleep Goal Time Frame: 4-6 Weeks Goal 2:: Increase B shoulder flex and abd x 30 degrees to aid with overhead lifting Goal Time Frame: 4-6 Weeks Goal 3:: Decrease the frequency and intensity of R LE radiculopathy x 50% to aid with ambulation Goal Time Frame: 4-6 Weeks Goal 4:: Increase B shoulder strength x 1 grade to aid with work tolerance Goal Time Frame: 4-6 Weeks Goal 5:: I with HEP - Rehabilitation Potential Physical Therapy Diagnosis: Pt has LBP and B shoulder pain secondary to degenerative changes in both regions Rehabilitation Potential: Good - Anticipated Interventions Patient/Client Instruction: Educate patient on: Condition, Plan of Care For the Purpose of:: To facilitate caregiver knowledge Therapeutic Exercise to Include: Strength training, Endurance training, Gait and locomotor training, Active ROM, Dynamic Lumbar Stabilization, Scapular Strength/Stabilization For the Purpose of:: To decrease pain, To increase ROM, To improve muscle performance and motor function Cryotherapy (ice pack, ice massage): Yes For the Purpose of:: To decrease pain Thank you for the opportunity to evaluate your patient. For Medicare and Medicare HMO plans, please review the plan of care and approve it. It will need to be FAXED BACK to us at [phone] for Medicare purposes. For Medicare only, by signing this I certify the plan of care. Please let me know if there are questions or concerns regarding this plan of care. Physician Signature: Date:
--- NOTE | 2021-09-20 10:57 | HP.PT.NRP ---
RITCHIE ECHEVERRIA was seen in my office for initial evaluation on 04/06/21. The following Plan of Care was established for this patient: Initial Frequency: 2-3x /Week Initial Duration: 4-6 Weeks Patient/Client Instruction: Educate patient on: Condition, Plan of Care For the Purpose of:: To facilitate caregiver knowledge Therapeutic Exercise to Include: Strength training, Endurance training, Gait and locomotor training, Active ROM, Dynamic Lumbar Stabilization, Scapular Strength/Stabilization For the Purpose of:: To decrease pain, To increase ROM, To improve muscle performance and motor function Cryotherapy (ice pack, ice massage): Yes For the Purpose of:: To decrease pain This patient was last seen in our office . Pertinent comments regarding their Physical therapy will appear below: Pt was treated for 8 physical therapy visits for a B shoulder and LBP through the date of 05/18/21. Pt has not returned through this date and discontinued at this time. At this point I will be discontinuing this patient from physical therapy. I would be happy to see this patient again in the future if found appropriate by the physician. Thank you! Daniel Gerardo, PT, ATC Balance/Gait/Functional tests - Balance/Special Test Scores Oswestry Low Back Score: 26
== END 2021-05-18 19:00 | disposition home or self-care (01) ==
LOC: PT 17:00
PROVIDERS: PCP Family Medicine; Referring Provider Nurse Practitioner Family; Visit Provider Nurse Practitioner Family
DX: M25.511 Pain in right shoulder (principal); M25.512 Pain in left shoulder
CPT/HCPCS: 97110; 97161

== ENCOUNTER 2021-06-16 08:45 | Outpatient (CLI) | payer OTHER, SELFPAY ==
--- NOTE | 2021-06-16 08:54 | US_ITS ---
STUDY: ABDOMINAL ULTRASOUND - RIGHT UPPER QUADRANT REASON FOR VISIT: Male, 66 years old RUQ PAIN/NAUSEA TECHNIQUE: Ultrasound evaluation of the right upper quadrant was performed with real-time and static grey-scale imaging. TECHNICAL QUALITY: Adequate. COMPARISON: None. FINDINGS: Liver: The liver measures 17.4 cm. There is increased echogenicity consistent with fatty infiltration. The bile ducts are within normal limits. There is hepatic color flow. The direction of portal flow is hepatopetal. There is no demonstrated mass lesion. Gallbladder: Normal distended gallbladder. The gallbladder wall measures 2.1 mm. There is a negative sonographic Khan''s sign. There is no pericholecystic fluid. There are no gallstones. Common Bile Duct (C.B.D.): The common bile duct measures 3.3 mm. Pancreas: Normal size of the head, body and tail of the pancreas. There is normal echogenicity of the pancreas. There is no demonstrated pancreatic mass or cyst. Right Kidney: Normal size of the right kidney. The right kidney measures 10.9 cm x 5.3 cm x 5.3 cm. Normal renal cortex. The right cortex measures 1.3 cm. There is no demonstrated renal mass or cyst. There is no right hydronephrosis. US/Abdomen Limited IMPRESSION: Fatty infiltration of the liver. Electronically Signed: Anderson Graham MD at 11:00 EST ,
== END 2021-06-16 23:59 | disposition home or self-care (01) ==
PROVIDERS: PCP Family Medicine; Visit Provider Internal Medicine Gastroenterology
DX: R10.11 Right upper quadrant pain (principal); R11.0 Nausea
CPT/HCPCS: 76705

== ENCOUNTER 2021-12-09 13:58 | Emergency (ER) | payer OTHER, SELFPAY ==
[2021-12-09 14:00] VITALS: PULSE 93; RESP 16; TEMP 37.2; O2SAT 95; BMI 28.0
--- NOTE | 2021-12-09 14:03 | EX.ED.DYSGE1 ---
HPI History of Present Illness Chief Complaint: Allergic Reaction Detail of Chief Complaint: Allergic reaction to bee sting Informant: patient Narrative Narrative: Patient presents to the emergency department with allergic reaction to a bee sting. Patient states that he was stung on the right foot approximately an hour ago. Patient's given Benadryl followed by a second dose of Benadryl. He still complaining of feeling itchy and some throat swelling. and friend brought him to the emergency department for evaluation. Patient has not had a problem with allergic reactions in the past. Patient has history of hypertension. Prior similar symptoms: No [facility] Medical History (Updated 12/09/21 @ 15:[address] Nelson Lorenzo, DO) Diverticulosis Hypertension Leg fracture, right Home Medications hydrochlorothiazide 25 mg tablet 25 mg PO DAILY 01/12/14 [History Last Taken 01/24/14] amlodipine 5 mg tablet 5 mg PO DAILY 12/30/16 [History Last Taken Unknown] pantoprazole 40 mg tablet,delayed release 40 mg PO DAILY 12/30/16 [History Last Taken Unknown] losartan 25 mg tablet 100 mg PO DAILY 03/28/17 [History Last Taken Unknown] multivitamin 1 tab PO QAM 03/28/17 [History Last Taken Unknown] omega-3 fatty acids 1,000 mg capsule (Fish Oil Concentrate) 1,000 mg PO QDAY 03/28/17 [History Last Taken Unknown] cyclobenzaprine 10 mg tablet 10 mg PO QHS PRN PRN Muscle Spasm #20 TABLETS 12/03/20 [Rx Last Taken Unknown] oxycodone-acetaminophen 5 mg-325 mg tablet 1 tab PO Q6H PRN PRN Pain 3 days #12 TABLETS 12/03/20 [Rx Last Taken Unknown] epinephrine 0.3 mg/0.3 mL injection, auto-injector (EpiPen 2-Vincenzo) 0.3 mg (0.3 mL) IM Q4H PRN anaphylaxis #2 ea 12/09/21 [Rx Last Taken Unknown] prednisone 20 mg tablet 20 mg PO BID #6 tabs 12/09/21 [Rx Last Taken Unknown] Allergy/AdvReac Type Severity Reaction Status Date / Time tramadol Allergy Mild flushed Verified 12/03/20 10:24 Family History Mother Brain cancer Surgical History History of knee replacement procedure of left knee Social History Smoking Status: Never smoker alcohol intake: current details: 3-4 per week ROS ROS ED ROS Narrative Itching Review of Systems ROS Unobtainable: other Constitutional Constitutional ED: Reports lethargy; Denies chills, fever(s), sweats or weight loss Eyes Eyes: Denies blurry vision, change in vision or diplopia ENT ENT ED: Reports other Details: Throat tightness ; Denies rhinorrhea or sore throat Cardiovascular Cardiovascular: Reports chest pain and racing heartbeat; Denies orthopnea Respiratory/Chest Respiratory/Chest: Reports dyspnea and dyspnea on exertion; Denies cough, orthopnea or sputum Gastrointestinal Gastrointestinal: Denies abdominal pain, diarrhea, nausea or vomiting Genitourinary Genitourinary ED: Denies dysuria, hematuria or urinary frequency Musculoskeletal Musculoskeletal: Denies arthralgias, back pain, myalgias or neck pain Integumentary Denies abscess, Abrasions or rash Neurologic Neurologic: Denies headache(s) or weakness Psychiatric Psychiatric: Denies anxiety, depression or suicidal thoughts Endocrine Endocrinology: Denies polydipsia, polyphagia or polyuria Hematologic/Lymphatic Hematologic/Lymphatic: Denies easy bleeding, easy bruising or lymphadenopathy Allergic/Immunologic Allergic/Immunologic ED: Reports urticaria; Denies mouth swelling or tongue swelling EXAM Physical Exam Const Vital Signs: 12/09/21 14:00 Temperature 98.9 F Temperature Source Temporal Pulse Rate 93 Respiratory Rate 16 Pulse Ox 95 Oxygen Delivery Method Room Air Positive well nourished and well developed General Appearance ED: well developed and NAD HEENT Reports TM's clear and moist mucous membranes HEENT Narrative: No significant tongue angioedema or angioedema of the oropharynx noted. normocephalic and atraumatic; Negative for trauma or tenderness Tympanic Membrane ED: Yes TM's clear Eyes PERRL and EOMs intact bilaterally General Eye ED: Negative for pale conjunctiva or scleral icterus Neck no lymphadenopathy, supple and no JVD General: Negative for tenderness Chest Wall inspection of chest normal and palpation of chest normal Chest: Negative for tenderness Resp normal respiratory effort and clear to auscultation bilaterally Effort and Inspection: Negative for respiratory distress or pain with movement Auscultation: Negative for rhonchi, wheezes or diminished lung sounds Cardio regular rate, regular rhythm, S1 normal heart sound, S2 normal heart sound and no murmurs Peripheral Pulses: pulses 2+ throughout GI normal to inspection, nondistended, normoactive bowel sounds, soft to palpation, non-tender, non-distended and no masses Back/Spine no CVA tenderness and no thoracic nor lumbar tenderness Extremity normal to inspection General Extremety ED: Negative for edema General Extremity: Negative for edema Neuro oriented x3, CN's II-XII intact bilaterally, no sensory deficits noted and gait normal Sensorium / Orientation: awake, alert, oriented to person, oriented to place and oriented to time Motor Exam: strength 5/5 throughout and strength abnormal Psych mental status grossly normal Skin no rashes or lesions noted and no wounds Skin Narrative: Patient has a fine erythematous rash that is diffuse. MDM MDM MDM Narrative Medical decision making narrative: IV line established on arrival. Patient was given EpiPen IM 0.3 mg of epi. Patient was started on Solu-Medrol 125 mg IV and given 50 mg of Benadryl and 20 mg of Pepcid IV. Patient had good resolution of symptoms. His rash mostly resolved. Patient will be observed for 4 hours and will be discharged if symptoms do not recur. Patient will be given a prescription for an EpiPen. Patient advised to return if increased difficulty breathing or condition should worsen anyway. Discharge Plan Triage Chief Complaint: Allergic Reaction ED Provider: Nelson Lorenzo Dx/Rx/DC Orders Clinical Impression: Allergic reaction to bee sting Instructions: ED BEE STING General Allergic Rxn Prescriptions: New epinephrine [EpiPen 2-Vincenzo] 0.3 mg/0.3 mL auto-injector 0.3 mg IM Q4H PRN (Reason: anaphylaxis) Qty: 2 0RF prednisone 20 mg tablet 20 mg PO BID Qty: 6 0RF No Action multivitamin tablet 1 tab PO QAM omega-3 fatty acids [Fish Oil Concentrate] 1,000 mg capsule 1,000 mg PO QDAY hydrochlorothiazide 25 MG tablet 25 mg PO DAILY Label Comments: BLOOD PRESSURE losartan 25 MG tablet 100 mg PO DAILY Label Comments: BLOOD PRESSURE amlodipine 5 MG tablet 5 mg PO DAILY pantoprazole 40 MG tablet 40 mg PO DAILY cyclobenzaprine [cyclobenzaprine] 10 MG tablet 10 mg PO QHS PRN PRN (Reason: Muscle Spasm) Qty: 20 0RF oxycodone-acetaminophen [oxycodone-acetaminophen] 1 TABLET tablet 1 tab PO Q6H PRN PRN (Reason: Pain) 3 Days Qty: 12 0RF Primary Care Provider: Valeria Parkinson Referrals: Valeria Parkinson MD [Primary Care Provider] - 3-5 Days Disposition Disposition: Home, Self Care
[2021-12-09] MEDS: Epi Pen (EQUIV) 0.3 MG Syringe IM (14:04)
[2021-12-09] MEDS: MethylPREDNISolone 125 MG/2 ML Vial IV (14:06)
[2021-12-09] MEDS: DiphenhydrAMINE 50 MG/ML Syringe IV (14:06)
[2021-12-09] MEDS: Famotidine 200 MG/20 ML MDV 20 MG in 0.9% Normal Saline (Pres. free 8 ML 300 MG IV (14:13)
[2021-12-09] MEDS: Ondansetron 4 MG/2 ML Vial IV (14:13)
[2021-12-09 15:00] VITALS: BP 145/65; PULSE 85; RESP 16; O2SAT 95
[2021-12-09 16:00] VITALS: BP 145/79; PULSE 97; RESP 14; O2SAT 98
[2021-12-09 17:00] VITALS: BP 158/69; PULSE 94; RESP 14; O2SAT 96
[2021-12-09 18:04] VITALS: BP 140/85; RESP 16; O2SAT 98
== END 2021-12-09 18:05 | disposition home or self-care (01) ==
PROVIDERS: Emergency Provider Emergency Medicine; PCP Family Medicine; Visit Provider Emergency Medicine
DX: T63.441A Toxic effect of venom of bees, accidental (unintentional), initial encounter (principal); I10 Essential (primary) hypertension; Z79.899 Other long term (current) drug therapy
CPT/HCPCS: 96374; 96375; 99283; J7030; J2405; J3490

== ENCOUNTER → 2022-02-20 | Outpatient (CLI) | payer OTHER, SELFPAY ==
[2022-02-20 11:53] LABS: Absolute Lymphocyte Count 2.28 X10^3/uL (0.83-4.51); Absolute Neutrophil Count 1.9 X10^3/uL (2.0-7.7); Basophil# 0.07 X10^3/uL; Basophil% 1.4 % (0-1); Eosinophil# 0.17 X10^3/uL; Eosinophils% 3.4 % (0-5); Hematocrit 34.2 % (40-54); Hemoglobin 11.9 g/dL (13.0-16.5); Lymphocyte # 2.28 X10^3/ul (0.83-4.51); Lymphocyte % 46.1 % (19-41); Mean Corp Hgb Conc 34.8 g/dL (32-36); Mean Corpuscular Hgb 34.5 pg (27.0-32.0); Mean Corpuscular Volume 99.1 fL (80-94); Mean Platelet Vol. 9.6 fl (6.2-12.0); Monocyte# 0.48 X10^3/uL; Monocyte% 9.7 % (0-10); NRBC Flagged by Analyzer 0 % (0-5); Neutrophil # 1.94 X10^3/uL (2.7-7.7); Neutrophil % 39.2 % (47-70); Platelet Count 240 K/mm3 (150-450); RBC Distribution Width CV 13.7 % (11.6-14.6); RBC Distribution Width SD 49.7 fl (35.1-43.9); Red Blood Count 3.45 M/mm3 (4.6-6.2)
[2022-02-20 12:22] LABS: AST(SGOT) 53 U/L (15-37); Alanine Aminotransfer ALT/SGPT 67 U/L (16-61); Albumin, Serum 3.6 g/dL (3.2-5.0); Alkaline Phosphatase 65 U/L (45-117); Anion Gap 7 (5-15); BUN 24 mg/dL (7-18); BUN/Creat Ratio 12.9 RATIO (10-20); Chloride 109 mmol/L (98-107); Cholesterol 202 mg/dL (200); Creatinine, Serum 1.86 mg/dL (0.70-1.30); EST Glomerular Filtration Rate 39 mL/min (>60); Est Glom Filt Rate - Afr Amer 47 mL/min (>60); Globulin 3.7 g/dL (2.2-4.2); Glucose 72 mg/dL (74-106); High Density Lipoprotein 109 mg/dL; Potassium 4.4 mmol/L (3.5-5.1); Protein, Total 7.3 g/dL (6.4-8.2); Sodium Level 141 mmol/L (136-145); Triglycerides 94 mg/dL; Very Low Density Lipoprotein 19 mg/dL (5-40)
== END | disposition home or self-care (01) ==
LOC: LAB 11:17
PROVIDERS: PCP Family Medicine; Referring Provider Family Medicine; Visit Provider Family Medicine
DX: Z00.00 Encounter for general adult medical examination without abnormal findings (principal); I10 Essential (primary) hypertension; K76.0 Fatty (change of) liver, not elsewhere classified
CPT/HCPCS: 36415; 80053; 80061; 85025

== ENCOUNTER → 2022-06-21 | Outpatient (CLI) | payer OTHER, SELFPAY ==
[2022-06-21 17:51] LABS: Absolute Lymphocyte Count 2.51 X10^3/uL (0.83-4.51); Absolute Neutrophil Count 2.7 X10^3/uL (2.0-7.7); Basophil# 0.06 X10^3/uL; Eosinophil# 0.14 X10^3/uL; Eosinophils% 2.4 % (0-5); Hematocrit 40.4 % (40-54); Hemoglobin 13.2 g/dL (13.0-16.5); Lymphocyte # 2.51 X10^3/ul (0.83-4.51); Lymphocyte % 42.3 % (19-41); Mean Corp Hgb Conc 32.7 g/dL (32-36); Mean Corpuscular Hgb 32.6 pg (27.0-32.0); Mean Corpuscular Volume 99.8 fL (80-94); Mean Platelet Vol. 10.7 fl (6.2-12.0); Monocyte% 8.4 % (0-10); NRBC Flagged by Analyzer 0 % (0-5); Neutrophil # 2.72 X10^3/uL (2.7-7.7); Neutrophil % 45.7 % (47-70); Platelet Count 278 K/mm3 (150-450); RBC Distribution Width CV 13.9 % (11.6-14.6); RBC Distribution Width SD 50.8 fl (35.1-43.9); Red Blood Count 4.05 M/mm3 (4.6-6.2); White Blood Count 5.9 K/mm3 (4.4-11.0)
[2022-06-21 18:03] LABS: Ferritin 526 ng/mL (26-388); Iron 141 ug/dL (65-175); Iron Binding Capacity,Total 323 ug/dL (250-450); PERCENT IRON SATURATION 43.7 % (15.0-55.0)
[2022-06-21 18:10] LABS: Vitamin B12 > 2000 pg/mL (211-911); Vitamin D,25 Hydroxy 28.2 ng/mL
== END | disposition home or self-care (01) ==
LOC: BFHLAB 14:13
PROVIDERS: PCP Family Medicine; Visit Provider Family Medicine
DX: R74.8 Abnormal levels of other serum enzymes (principal); D64.9 Anemia, unspecified; U09.9 Post COVID-19 condition, unspecified; K76.0 Fatty (change of) liver, not elsewhere classified
CPT/HCPCS: 36415; 82306; 82607; 82728; 83540; 83550; 85025

== ENCOUNTER → 2022-07-05 | Outpatient (CLI) | payer OTHER, SELFPAY ==
--- NOTE | 2022-07-05 15:24 | PFTCOMP_ITS ---
COMPLETE PULMONARY FUNCTION TEST INTERPRETATION Brief HPI: Patient is a 67-year-old male, currently under the care of Dr. Parkinson, who presents to [facility] for complete pulmonary function tests secondary to diagnosis of dyspnea. Respiratory therapist reports good effort and reproducible results. Interpretation: Forced expiration spirometry shows no large airways obstructive ventilatory defect with an FEV1 of 101% predicted. There is no significant bronchodilator response by strict ATS criteria. Spirograms are of good quality and plateau normally. The respiratory flow volume loop shows a normal pattern. Lung volumes by body plethysmography show a normal total lung capacity at 6.52 L, 99% predicted. All other lung volumes are within normal limits. Diffusion capacity by carbon monoxide is normal at 93% predicted. The airway resistance is slightly elevated. No previous pulmonary function tests were available for review. Impression: Grossly normal pulmonary function tests
== END | disposition home or self-care (01) ==
PROVIDERS: PCP Family Medicine; Visit Provider Family Medicine
DX: U09.9 Post COVID-19 condition, unspecified (principal)
CPT/HCPCS: 94060; 94726; 94729

== ENCOUNTER → 2022-08-09 | Outpatient (CLI) | payer OTHER, SELFPAY ==
[2022-08-09 14:31] LABS: Hematocrit 42.5 % (40-54); Hemoglobin 14.2 g/dL (13.0-16.5); Mean Corp Hgb Conc 33.4 g/dL (32-36); Mean Corpuscular Volume 98.8 fL (80-94); Mean Platelet Vol. 10.1 fl (6.2-12.0); Platelet Count 267 K/mm3 (150-450); RBC Distribution Width CV 13.8 % (11.6-14.6); RBC Distribution Width SD 49.9 fl (35.1-43.9); White Blood Count 7.2 K/mm3 (4.4-11.0)
[2022-08-09 15:18] LABS: Vitamin B12 > 2000 pg/mL (211-911); Vitamin D,25 Hydroxy 49.8 ng/mL
[2022-08-09 15:26] LABS: AST(SGOT) 81 U/L (15-37); Alanine Aminotransfer ALT/SGPT 81 U/L (16-61); Albumin, Serum 4.3 g/dL (3.2-5.0); Alkaline Phosphatase 72 U/L (45-117); Anion Gap 6 (5-15); BUN 29 mg/dL (7-18); BUN/Creat Ratio 16.5 RATIO (10-20); Calcium,Total 10.2 mg/dL (8.5-10.1); Chloride 100 mmol/L (98-107); Creatinine, Serum 1.76 mg/dL (0.70-1.30); EST Glomerular Filtration Rate 41 mL/min (>60); Est Glom Filt Rate - Afr Amer 50 mL/min (>60); Globulin 4.3 g/dL (2.2-4.2); Glucose 104 mg/dL (74-106); Potassium 4.1 mmol/L (3.5-5.1); Protein, Total 8.6 g/dL (6.4-8.2); Sodium Level 133 mmol/L (136-145); Thyroid Stim Hormone (TSH) 3.19 uIU/mL (0.358-3.74)
== END | disposition home or self-care (01) ==
LOC: LAB 13:49
PROVIDERS: PCP Family Medicine; Referring Provider Nurse Practitioner Family; Visit Provider Nurse Practitioner Family
DX: R25.1 Tremor, unspecified (principal)
CPT/HCPCS: 36415; 80053; 82175; 82306; 82390; 82607; 83655; 83825; 84207; 84425; 84443; 85027

== ENCOUNTER → 2022-08-21 | Outpatient (CLI) | payer OTHER, SELFPAY ==
--- NOTE | 2022-08-21 17:11 | MRI_ITS ---
STUDY: MRI BRAIN WITH AND WITHOUT CONTRAST REASON FOR EXAM: Male, 67 years old. TREMORS TECHNIQUE: Multiplanar multisequence imaging of the brain was performed without and following the administration of intravenous contrast. COMPARISON: 01/26/2019 FINDINGS: The ventricles, cisterns, and sulci are within normal limits for patients age. There is no restricted diffusion to suggest acute ischemia or infarction. No succeptibility artifict to suggest intracranial hemorrhage or mineralization. Major intracranial signal voids are preserved. There is no midline shift, mass effect, or extra axial fluid collections are seen. No CP angle or IAC mass is seen. The orbits are unremarkable. The sella turcica and craniovertebral junction are within normal limits. Mild mucoperiosteal thickening left maxillary sinus. The mastoid air cells are clear. No abnormal enhancement is seen. MRI/Brain W/WO Contrast IMPRESSION: No intracranial hemorrhage, acute infarct, or space occupying lesion seen. Electronically Signed: Roger Kennedy MD at 0:10 EDT ,
== END | disposition home or self-care (01) ==
LOC: MRI 17:08
PROVIDERS: PCP Family Medicine; Referring Provider Nurse Practitioner Family; Visit Provider Nurse Practitioner Family
DX: R25.1 Tremor, unspecified (principal)
CPT/HCPCS: 70553; A9575

== ENCOUNTER → 2022-08-30 | Outpatient (CLI) | payer OTHER, SELFPAY ==
[2022-09-06 07:08] LABS: Arsenic 7245 2 ug/L (0-9); Lead, Blood 3.8 ug/dL (0.0-3.4); Mercury, Blood 85324 1.5 ug/L (0.0-14.9)
== END | disposition home or self-care (01) ==
LOC: LAB 10:20
PROVIDERS: PCP Family Medicine; Referring Provider Nurse Practitioner Family; Visit Provider Nurse Practitioner Family
DX: R25.1 Tremor, unspecified (principal)
CPT/HCPCS: 82175; 83655; 83825

== ENCOUNTER → 2022-09-14 | Outpatient (CLI) | payer OTHER, SELFPAY ==
[2022-09-14 17:33] LABS: Absolute Lymphocyte Count 2.37 X10^3/uL (0.83-4.51); Absolute Neutrophil Count 3.6 X10^3/uL (2.0-7.7); Basophil# 0.08 X10^3/uL; Basophil% 1.2 % (0-1); Eosinophils% 2.9 % (0-5); Hematocrit 38.4 % (40-54); Hemoglobin 12.6 g/dL (13.0-16.5); Lymphocyte # 2.37 X10^3/ul (0.83-4.51); Lymphocyte % 34.3 % (19-41); Mean Corp Hgb Conc 32.8 g/dL (32-36); Mean Corpuscular Hgb 33.1 pg (27.0-32.0); Mean Corpuscular Volume 100.8 fL (80-94); Mean Platelet Vol. 10.6 fl (6.2-12.0); Monocyte# 0.63 X10^3/uL; Monocyte% 9.1 % (0-10); NRBC Flagged by Analyzer 0 % (0-5); Neutrophil # 3.61 X10^3/uL (2.7-7.7); Neutrophil % 52.2 % (47-70); Platelet Count 295 K/mm3 (150-450); RBC Distribution Width CV 12.6 % (11.6-14.6); RBC Distribution Width SD 47.3 fl (35.1-43.9); Red Blood Count 3.81 M/mm3 (4.6-6.2); White Blood Count 6.9 K/mm3 (4.4-11.0)
[2022-09-14 17:52] LABS: Protein:Creat Ratio 78 mg/g CRE (0-200)
[2022-09-14 17:59] LABS: ALB/GLOB Ratio 0.9 RATIO (0.9-2.4); AST(SGOT) 62 U/L (15-37); Alanine Aminotransfer ALT/SGPT 62 U/L (16-61); Albumin, Serum 3.8 g/dL (3.2-5.0); Alkaline Phosphatase 62 U/L (45-117); Anion Gap 7 (5-15); BUN 16 mg/dL (7-18); BUN/Creat Ratio 11.9 RATIO (10-20); Calcium,Total 9.1 mg/dL (8.5-10.1); Chloride 105 mmol/L (98-107); Creatinine, Serum 1.35 mg/dL (0.70-1.30); EST Glomerular Filtration Rate 56 mL/min (>60); Est Glom Filt Rate - Afr Amer 68 mL/min (>60); Globulin 4.4 g/dL (2.2-4.2); Glucose 106 mg/dL (74-106); Potassium 3.9 mmol/L (3.5-5.1); Protein, Total 8.2 g/dL (6.4-8.2); Sodium Level 139 mmol/L (136-145)
[2022-09-20 15:09] LABS: Ceruloplasmin 28.5 mg/dL (16.0-31.0); Immunoglobulin A 268 mg/dL (61-437); Immunoglobulin G 1028 mg/dL (603-1613); Immunoglobulin M 63 mg/dL (20-172); PROEL- A/G Ratio 1.3 (0.7-1.7); PROEL- Alpha-1 Globulin 0.3 g/dL (0.0-0.4); PROEL- Alpha-2 Globulin 0.9 g/dL (0.4-1.0); PROEL- Globulin, Total 3.1 g/dL (2.2-3.9); PROEL- TOTAL PROTEIN 7.1 g/dL (6.0-8.5); PROELU- Albumin, Urine 26.1 % (.); PROELU- Alpha-1-Globulin,Ur 2.6 % (.); PROELU- Alpha-2-Globulin,Ur 17.9 % (.); PROELU- Gamma Globulin, Ur 23.5 % (.); Total Protein, Ur 5.5 mg/dL (Not Estab.)
== END | disposition home or self-care (01) ==
LOC: BFHLAB 14:48
PROVIDERS: PCP Family Medicine; Referring Provider Family Medicine; Visit Provider Family Medicine
DX: M89.9 Disorder of bone, unspecified (principal); N17.9 Acute kidney failure, unspecified; K76.0 Fatty (change of) liver, not elsewhere classified
CPT/HCPCS: 36415; 80053; 82232; 82390; 82570; 82784; 84156; 84165; 84166; 85025; 86334

== ENCOUNTER 2022-09-20 15:30 | Outpatient (RCR) | payer OTHER, SELFPAY ==
--- NOTE | 2022-08-28 16:30 | HP.PTEVAL_ITS ---
Patient's Visit Information RITCHIE ECHEVERRIA is a 67 year old M referred to Physical Therapy by JAYJAY EMMANUEL with a diagnosis of Lumbar degenerative disc disease.. Date of Evaluation: 08/28/22 Physical Therapist: Sixto Nuñez, DPT, OCS, CSCS - Visit Plan Frequency: 2x /Week Duration: 4-6 Weeks Plan: 2x/week x 4-6 weeks for aquatic therapy for LB ROM with NS emphasis, HS and quad and psoas stretches, core adn postural strength. - Subjective LBP is chronic since HS. Now worse and almost collapses with pain getting out of truck. Standing up is hard. Sitting is OK, getting up hurts. Walking too far is a problem. Can't walk full length with one mile, has to stop after half mile. R leg hurts down to knee. Numby at times. Treatments help including injections but none in [address] dobbs. Will see Dr. Mora for MRI. 09/04 is MRI. H/o neck pain also. Extension seems to help. Remodels kitchen for living and trim. Has to limit and it takes a lot longer. Worse after work. NOt much trouble sleeping, hips hurt at night. Basic ADLS are getting done slowly. - Pain LBP Pain Intensity (Out of 10): 0 Pain Intensity Range: 0, 8 Comment: ok sitting. - Objective Walks hunched over and slow and painful transitions. Painful R LB when goes to stand and keeps weight off of it in sitting leaning L. Haard to get last bit of extension standing. can stand tall if given time though and walks well. stiff in LE. flexibility is poor in HS and psoas and quads. pain with hip extension R until post pelvic tilt held. LB AROM ext poor, flexion poor, R SB painful, L SB OK. hips, knees and ankles WFL. strength LE 4/5 without pain. core strength 3+ abs and ext. reflexes 2/3 patella and achilles. Sensation WNL to gross light touch in LE. - SLR, + slump R. - Balance/Special Test Scores Oswestry Low Back Score: 17 - Goals Goal 1:: stand from chair without evidence of pain Goal Time Frame: 4-6 Weeks Goal 2:: oswestry score 10 or better Goal Time Frame: 4-6 Weeks Goal 3:: I appropr HEP to minimize future problems Goal Time Frame: 4-6 Weeks Goal 4:: Pain 0-2/10 at allt imes and 50% improved. Goal Time Frame: 4-6 Weeks - Rehabilitation Potential Physical Therapy Diagnosis: degeneration lumbar spine. Rehabilitation Potential: Good - Anticipated Interventions Patient/Client Instruction: Educate patient on: Condition, Plan of Care For the Purpose of:: To decrease pain, To decrease swelling/inflammation, To increase ROM, To improve muscle performance and motor function, To increase tolerance to activity/condition/position, To improve gait and locomotor functions Therapeutic Exercise to Include: Strength training, Postural training, Flexibilty training, Passive ROM, Active ROM, Dynamic Lumbar Stabilization For the Purpose of:: To decrease pain, To increase ROM, To improve nutrient delivery to tissue, To improve muscle performance and motor function, To increase tolerance to activity/condition/position, To improve ability of physical actions for home/community/work/leisure, To improve gait and locomotor functions Cryotherapy (ice pack, ice massage): Yes For the Purpose of:: To decrease pain, To increase ROM, To improve nutrient delivery to tissue Thank you for the opportunity to evaluate your patient. For Medicare and Medicare HMO plans, please review the plan of care and approve it. It will need to be FAXED BACK to us at [phone] for Medicare purposes. For Medicare only, by signing this I certify the plan of care. Please let me know if there are questions or concerns regarding this plan of care. Physician Signature: Date:
--- NOTE | 2022-09-20 15:40 | HP.PTDCSUM ---
It has been my pleasure to treat RITCHIE ECHEVERRIA referred by JAYJAY EMMANUEL, with the diagnosis of Lumbar degenerative disc disease. for a total of 8 visit(s). Discharge Date: 09/20/22 Please see the following information for a summary of their discharge status. Subjective: Will have surgery on 10/15, lots of degeneration in lumbar region. Gets relief for the day of therapy but right back to painful after that. Will have a clean out procedure and possible laminectomy to help with pain 50% in LB and leg pain. No better overall. LBP Pain Intensity (Out of 10): 8 RUE Pain Intensity (Out of 10): 9 % Improvement: 0 Objective/Function: oswestry is worse. AROM lumbar is painful to attempt ext, stiff in flexiona dn SB. ext causes leg pain L. Walks very stiff and antalgic L. Hard time getting up out of chair needing to use arms and extens slowly. No better overall than day one. Goal 1:: stand from chair without evidence of pain Goal Progress: Not Progressing Goal 2:: oswestry score 10 or better Goal Progress: Not Progressing Goal 3:: I appropr HEP to minimize future problems Goal Progress: frustrated Goal 4:: Pain 0-2/10 at allt imes and 50% improved. Goal Progress: Not Progressing Plan: d/c, pt to have surgery later in month Discharge Comments: Pt to have surgery on 10/15 If there are questions or concerns regarding this patient's physical therapy, please feel free to call me at [phone]. Thank you for the referral of this patient. Sincerely, Sixto Nuñez, DPT, OCS, CSCS Balance/Gait/Functional tests - Balance/Special Test Scores Oswestry Low Back Score: 20
== END 2022-09-20 19:00 | disposition home or self-care (01) ==
LOC: PT 15:30
PROVIDERS: PCP Family Medicine
DX: M51.36 Other intervertebral disc degeneration, lumbar region (principal)
CPT/HCPCS: 97113; 97161; 97164

== ENCOUNTER → 2022-09-21 | Outpatient (CLI) | payer OTHER, SELFPAY ==
--- NOTE | 2022-09-21 15:15 | US_ITS ---
INDICATION: ACUTE KIDNEY FAILURE EXAMINATION: Ultrasound US Kidney(s) complete (eg, kidneys and bladder) TECHNIQUE: Ren scale and color doppler images were obtained of the kidneys. COMPARISON: None. FINDINGS: RIGHT KIDNEY: 9.3 x 5.8 x 5.8 cm. There is no hydronephrosis. No shadowing calculus, focal lesion or perinephric collection is demonstrated. LEFT KIDNEY: 9.5 x 5.6 x 5.2 cm. There is no hydronephrosis. No shadowing calculus, focal lesion or perinephric collection is demonstrated. URINARY BLADDER: No acute abnormality. US/Kidney and Bladder IMPRESSION: No hydronephrosis. Electronically Signed: Roger Kenndey MD at 18:26 EDT ,
== END | disposition home or self-care (01) ==
PROVIDERS: PCP Family Medicine; Referring Provider Family Medicine; Visit Provider Family Medicine
DX: K76.0 Fatty (change of) liver, not elsewhere classified (principal); N17.9 Acute kidney failure, unspecified
CPT/HCPCS: 76770

== ENCOUNTER → 2022-10-12 | Outpatient (CLI) | payer OTHER, SELFPAY ==
--- NOTE | 2022-10-12 10:12 | US_ITS ---
STUDY: ABDOMINAL ULTRASOUND - RIGHT UPPER QUADRANT; ELASTOGRAPHY REASON FOR VISIT: Male, 67 years old. Fatty infiltration of the liver. Elevated liver function tests. TECHNIQUE: Ultrasound evaluation of the right upper quadrant was performed with real-time and static grey-scale imaging. Point quantification shear wave elastography was performed ([employer]). TECHNICAL QUALITY: Adequate. COMPARISON: Comparison is made with prior study dated June 16, 2021. FINDINGS: Liver: The liver measures 17.3 cm. There is increased echogenicity consistent with fatty infiltration. The bile ducts are within normal limits. There is hepatic color flow. The direction of portal flow is hepatopetal. There is no demonstrated mass lesion. Median liver stiffness measured 6.5 kPa. Gallbladder: Normal distended gallbladder. The gallbladder wall measures 2.5 mm. There is a negative sonographic Khan''s sign. There is no pericholecystic fluid. There are no gallstones. Common Bile Duct (C.B.D.): The common bile duct measures 3.5 mm. Pancreas: There is normal echogenicity of the visualized pancreas. There is no demonstrated pancreatic mass or cyst. Right Kidney: Normal size of the right kidney. The right kidney measures 10.8 cm x 5 cm x 5.9 cm. Normal renal cortex. The right cortex measures 2.0 cm. There is no demonstrated renal mass or cyst. There is no right hydronephrosis. US/Abdomen Limited IMPRESSION: 1. Liver stiffness measures 6.5 kPa compatible with F2-F3 (Mild to moderate liver fibrosis) Metavir score. Electronically Signed: Anderson Graham MD at 8:22 EDT ,
== END | disposition home or self-care (01) ==
PROVIDERS: PCP Family Medicine; Referring Provider Family Medicine; Visit Provider Family Medicine
DX: N17.9 Acute kidney failure, unspecified (principal)
CPT/HCPCS: 76705; 76981

== ENCOUNTER 2022-10-20 23:35 | Emergency (ER) | payer OTHER, SELFPAY ==
[2022-10-20 23:36] VITALS: BP 116/88; PULSE 89; RESP 18; TEMP 36.8; O2SAT 97; BMI 28.8
--- NOTE | 2022-10-21 00:54 | EDS_ITS ---
HPI History of Present Illness Chief Complaint: Syncope Informant: patient, spouse/S.O. and family Onset/Context/Timing Onset: Today Context: Sudden Onset Timing: Intermittent and Lasts (4-5 minutes) Quality: Altered mental status Location: Generalized Worsened by: Nothing Relieved by: Nothing Narrative Narrative: Patient presents with a syncopal episode that occurred today. Family states that the patient had an unwitnessed fall. When the family was just able to ch diane on him, family states that he was out of it. Family states she was not really responsive. Family states the patient had some incontinence of urine. Family states patient was confused for a few minutes after this episode. Family states this lasted approximately 4 to 5 minutes. Patient had back surgery 6 days ago. Patient did stop drinking alcohol prior to his back surgery. Patient started drinking alcohol again today. Patient states he is a daily alcohol drinker. [facility] Medical History (Updated 10/21/22 @ 04:[address] Sixto Mcgowan, DO) Diverticulosis Hypertension Leg fracture, right Home Medications hydrochlorothiazide 25 mg tablet 25 mg PO DAILY 01/12/14 [History Last Taken 01/24/14] amlodipine 5 mg tablet 5 mg PO DAILY 12/30/16 [History Last Taken Unknown] pantoprazole 40 mg tablet,delayed release 40 mg PO DAILY 12/30/16 [History Last Taken Unknown] losartan 25 mg tablet 100 mg PO DAILY 03/28/17 [History Last Taken Unknown] multivitamin 1 tab PO QAM 03/28/17 [History Last Taken Unknown] omega-3 fatty acids 1,000 mg capsule (Fish Oil Concentrate) 1,000 mg PO QDAY 03/28/17 [History Last Taken Unknown] cyclobenzaprine 10 mg tablet 10 mg PO QHS PRN PRN Muscle Spasm #20 TABLETS 12/03/20 [Rx Last Taken Unknown] oxycodone-acetaminophen 5 mg-325 mg tablet 1 tab PO Q6H PRN PRN Pain 3 days #12 TABLETS 12/03/20 [Rx Last Taken Unknown] epinephrine 0.3 mg/0.3 mL injection, auto-injector (EpiPen 2-Vincenzo) 0.3 mg (0.3 mL) IM Q4H PRN anaphylaxis #2 ea 12/09/21 [Rx Last Taken Unknown] prednisone 20 mg tablet 20 mg PO BID #6 tabs 12/09/21 [Rx Last Taken Unknown] docusate sodium 100 mg capsule 100 mg PO DAILY 10/20/22 [History Last Taken Unknown] duloxetine 60 mg capsule,delayed release 60 mg PO DAILY 10/20/22 [History Last Taken Unknown] gabapentin 300 mg capsule 300 mg PO Q12H 10/20/22 [History Last Taken Unknown] losartan 100 mg tablet 100 mg PO DAILY 10/20/22 [History Last Taken Unknown] metoprolol succinate 50 mg tablet,extended release 24 hr 50 mg PO DAILY 10/20/22 [History Last Taken Unknown] oxycodone 5 mg tablet 5 mg PO Q6H PRN pain 10/20/22 [History Last Taken Unknown] primidone 50 mg tablet 100 mg PO DAILY 10/20/22 [History Last Taken Unknown] Allergy/AdvReac Type Severity Reaction Status Date / Time tramadol Allergy Mild flushed Verified 10/20/22 23:36 Family History Mother Brain cancer Surgical History (Updated 10/21/22 @ 00:[address] Sixto Mcgowan DO) History of knee replacement procedure of left knee S/P cervical spinal fusion S/P ORIF (open reduction internal fixation) fracture Status post lumbar surgery Social History Smoking Status: Never smoker alcohol intake: current details: 3-4 per week ROS ROS ED Constitutional Constitutional ED: Denies chills or fever(s) Eyes Eyes: Denies blurry vision or change in vision ENT ENT ED: Denies rhinorrhea or sore throat Cardiovascular Cardiovascular: Denies chest pain or palpitations Respiratory/Chest Respiratory/Chest: Denies cough or dyspnea Gastrointestinal Gastrointestinal: Denies nausea or vomiting Genitourinary Genitourinary ED: Reports urinary frequency; Denies dysuria or hematuria Musculoskeletal Musculoskeletal: Reports back pain; Denies neck pain Integumentary Denies abscess or rash Neurologic Neurologic: Denies headache(s) or weakness Allergic/Immunologic Allergic/Immunologic ED: Denies mouth swelling or urticaria EXAM Physical Exam Const Vital Signs: 10/20/22 23:36 10/20/22 23:36 10/21/22 01:58 Temperature 98.2 F Temperature Source Temporal Pulse Rate 89 74 Respiratory Rate 18 18 Respiratory Effort Normal Respiratory Pattern Normal Blood Pressure 116/88 H 138/88 H Blood Pressure Mean 97 104 Pulse Ox 97 99 Positive well nourished and well developed General Appearance ED: well developed and NAD HEENT Reports moist mucous membranes Neck supple and no JVD Resp normal respiratory effort and clear to auscultation bilaterally Cardio regular rate, regular rhythm and no murmurs GI normal to inspection, nondistended, normoactive bowel sounds and non-tender Palpation: soft Extremity normal to inspection General Extremety ED: Negative for edema or tenderness General Extremity: Negative for edema Neuro oriented x3, CN's II-XII intact bilaterally and no sensory deficits noted Sensorium / Orientation: alert Motor Exam: strength 5/5 throughout Psych mental status grossly normal Skin no rashes or lesions noted MDM MDM MDM Narrative Medical decision making narrative: Differential diagnosis includes syncope, cardiac dysrhythmia, cardiac ischemia, electrolyte abnormality, alcohol withdrawal seizure, new onset seizure, and intracranial bleeding. EKG will be obtained to assess for cardiac dysrhythmia and cardiac ischemia. CT scan of the brain will be obtained to assess for intracranial bleeding. CBC will be obtained to assess for anemia and leukocytosis. Comprehensive metabolic profile will be obtained to assess for hepatic function, renal function, and electrolyte abnormality. High-sensitivity troponin will be obtained to assess for cardiac ischemia. 2-hour repeat high- sensitivity troponin will be obtained to assess for ongoing cardiac ischemia. Lab Data Attestation: I reviewed the patient's lab results. Lab results narrative: CBC was reviewed. There is a mild anemia with a hemoglobin of 10.9 hematocrit 33.4. Comprehensive metabolic profile was reviewed. Creatinine was slightly elevated at 1.41. BUN was normal. PT with INR and PTT were reviewed and were within normal limits. High-sensitivity troponin was reviewed and was normal at 4. 2-hour repeat high-sensitivity troponin was reviewed and was normal at 3. Labs: Laboratory Results - last 24 hr 10/21/22 10/21/22 00:35 02:58 WBC 9.7 RBC 3.25 L Hgb 10.9 L Hct 33.4 L MCV 102.8 H MCH 33.5 H MCHC 32.6 RDW Std Deviation 46.5 H RDW Coeff of Lary 12.2 Plt Count 244 MPV 10.7 Immature Gran % (Auto) 0.300 Neut % (Auto) 45.1 L Lymph % (Auto) 39.4 [place] % (Auto) 12.4 H Eos % (Auto) 2.3 Baso % (Auto) 0.5 Absolute Neuts (auto) 4.4 Absolute Lymphs (auto) 3.81 Nucleated RBC % 0 PT 13.6 INR 1.0 APTT 32.8 Sodium 138 Potassium 3.8 Chloride 107 Carbon Dioxide 23.0 Anion Gap 8 BUN 18 Creatinine 1.41 H Estim Creat Clear Calc 53.21 Est GFR (MDRD) Af Amer 65 Est GFR (MDRD) Non-Af 53 L BUN/Creatinine Ratio 12.8 Glucose 79 Calcium 8.6 Total Bilirubin 0.30 AST 30 ALT 41 Alkaline Phosphatase 49 Troponin I High Sens 4 3 Total Protein 6.8 Albumin 3.2 Globulin 3.6 Albumin/Globulin Ratio 0.9 Radiography Diagnostic Testing: Clinical Impression(s) from Imaging Studies Brain CT 10/21/22 01:09 IMPRESSION: Negative Brain CT without contrast. Electronically Signed: Cedric Rosales MD at 2:03 EDT Reading Location ID and State: [facility] / [place] Tel , Service support , CT scan of the brain was obtained. There is no acute intracranial abnormality. This was interpreted by the radiologist and was also independently reviewed by myself. EKG Initial EKG: Attestation: I personally reviewed and interpreted this EKG as follows: Interpretation: Sinus Rhythm (81) and No Acute Injury Pattern Comments: EKG was obtained. On my independent interpretation, it showed a normal sinus rhythm with a rate of 81. NE interval, QRS interval, and QTc intervals were all normal. [place] was normal. There are no acute ST or T wave changes. Prior EKG tracings: available for review Prior: Unchanged (05/04/2016) Treatment and Re-Evaluation :: Patient was advised of his findings. Patient was advised that this could have been a seizure. Patient was instructed to follow-up with his primary care physician in 5 to 7 days for reevaluation. Patient was advised that further testing may not need to be done in order to determine the cause of his syncope. Patient was instructed to return if worse in any way. Patient and family u nderstood and were agreeable with the plan. All questions were answered. Discharge Plan Triage Chief Complaint: Syncope ED Provider: Sixto Mcgowan Dx/Rx/DC Orders Clinical Impression: Syncope and collapse Instructions: ED Fainting, Uncertain Cause Prescriptions: No Action multivitamin tablet 1 tab PO QAM omega-3 fatty acids [Fish Oil Concentrate] 1,000 mg capsule 1,000 mg PO QDAY hydrochlorothiazide 25 MG tablet 25 mg PO DAILY Patient Comments: BLOOD PRESSURE losartan 25 MG tablet 100 mg PO DAILY Patient Comments: BLOOD PRESSURE amlodipine 5 MG tablet 5 mg PO DAILY pantoprazole 40 MG tablet 40 mg PO DAILY cyclobenzaprine [cyclobenzaprine] 10 MG tablet 10 mg PO QHS PRN PRN (Reason: Muscle Spasm) Qty: 20 0RF oxycodone-acetaminophen [oxycodone-acetaminophen] 1 TABLET tablet 1 tab PO Q6H PRN PRN (Reason: Pain) 3 Days Qty: 12 0RF epinephrine [EpiPen 2-Vincenzo] 0.3 mg/0.3 mL auto-injector 0.3 mg IM Q4H PRN (Reason: anaphylaxis) Qty: 2 0RF prednisone 20 mg tablet 20 mg PO BID Qty: 6 0RF primidone 50 mg tablet 100 mg PO DAILY Patient Comments: take 2 tablets by mouth once daily metoprolol succinate 50 mg tablet extended release 24 hr 50 mg PO DAILY docusate sodium 100 mg capsule 100 mg PO DAILY Patient Comments: take 1 capsule by mouth twice a day if needed for constipation gabapentin 300 mg capsule 300 mg PO Q12H Patient Comments: take 1 capsule by mouth twice a day losartan 100 mg tablet 100 mg PO DAILY oxycodone 5 mg tablet 5 mg PO Q6H PRN (Reason: pain) Patient Comments: take 1 tablet by mouth every 6 hours NEEDED FOR PAIN for 7 days duloxetine 60 mg capsule,delayed release(DR/EC) 60 mg PO DAILY Primary Care Provider: Valeria Parkinson Referrals: Valeria Parkinson MD [Primary Care Provider] - 5-7 Days Disposition Disposition: Home, Self Care
--- NOTE | 2022-10-21 01:09 | CT_ITS ---
INDICATION: Syncope EXAMINATION: CT BRAIN - CT Head or Brain W/O Contrast Injection TECHNIQUE: Multiple axial images were obtained of the head without intravenous contrast. A radiation dose optimization technique was used for this scan. IV Contrast dosage and agent: None. COMPARISON: MRI brain August 21, 2022 FINDINGS: BRAIN PARENCHYMA: No intra- or extra-axial hemorrhage. No evidence of acute infarct. No intracranial mass or mass effect. Unremarkable white matter for age. There is preservation of the grey/white matter interface. Posterior fossa structures are unremarkable. Mild carotid atherosclerosis. CSF SPACES: Cerebral volume appropriate for age. No hydrocephalus. Basal cisterns are patent. CALVARIUM, SKULL BASE, PARANASAL SINUSES AND MASTOID AIR CELLS: No acute osseous finding. [place]al sinuses are clear. Mastoid air cells are clear. ORBITS: Both globes, extraocular muscles, optic nerves and retrobulbar fat appear unremarkable. ASPECTS Score for Acute Strokes: 10 CT/Brain/Head without Contrast IMPRESSION: Negative Brain CT without contrast. Electronically Signed: Cedric Rosales MD at 2:03 EDT ,
--- NOTE | 2022-10-21 01:09 | EKG12_ITS ---
Test Reason : DYSRHYTHMIA Blood Pressure : / mmHG Vent. Rate : 081 BPM Atrial Rate : 081 BPM P-R Int : 178 ms QRS Dur : 086 ms QT Int : 364 ms P-R-T Axes : 047 025 018 degrees QTc Int : 422 ms Normal sinus rhythm Normal ECG Confirmed by BRIDGET NOEL, ANGELA ([id number]), brands editor VANGIE REICH ([id number]) on 10/22/2022 12:43:00 PM Referred By: Confirmed By:ANGELA GILL MD
[2022-10-21] MEDS: 0.9% Normal Saline 1,000 ML 1000 ML IV (01:27)
[2022-10-21 01:32] LABS: Absolute Lymphocyte Count 3.81 X10^3/uL (0.83-4.51); Absolute Neutrophil Count 4.4 X10^3/uL (2.0-7.7); Basophil# 0.05 X10^3/uL; Basophil% 0.5 % (0-1); Eosinophil# 0.22 X10^3/uL; Eosinophils% 2.3 % (0-5); Hematocrit 33.4 % (40-54); Hemoglobin 10.9 g/dL (13.0-16.5); Lymphocyte # 3.81 X10^3/ul (0.83-4.51); Lymphocyte % 39.4 % (19-41); Mean Corp Hgb Conc 32.6 g/dL (32-36); Mean Corpuscular Hgb 33.5 pg (27.0-32.0); Mean Corpuscular Volume 102.8 fL (80-94); Mean Platelet Vol. 10.7 fl (6.2-12.0); Monocyte% 12.4 % (0-10); NRBC Flagged by Analyzer 0 % (0-5); Neutrophil # 4.35 X10^3/uL (2.7-7.7); Neutrophil % 45.1 % (47-70); Platelet Count 244 K/mm3 (150-450); RBC Distribution Width CV 12.2 % (11.6-14.6); RBC Distribution Width SD 46.5 fl (35.1-43.9); Red Blood Count 3.25 M/mm3 (4.6-6.2); White Blood Count 9.7 K/mm3 (4.4-11.0)
[2022-10-21 01:40] LABS: Prothrombin Time (Protime)PT. 13.6 SECONDS (11.7-14.9)
[2022-10-21 01:41] LABS: Partial Thromboplast Time 32.8 Seconds (24.1-36.2)
[2022-10-21 01:51] LABS: ALB/GLOB Ratio 0.9 RATIO (0.9-2.4); AST(SGOT) 30 U/L (15-37); Alanine Aminotransfer ALT/SGPT 41 U/L (16-61); Albumin, Serum 3.2 g/dL (3.2-5.0); Alkaline Phosphatase 49 U/L (45-117); Anion Gap 8 (5-15); BUN 18 mg/dL (7-18); BUN/Creat Ratio 12.8 RATIO (10-20); Calcium,Total 8.6 mg/dL (8.5-10.1); Chloride 107 mmol/L (98-107); Creatinine, Serum 1.41 mg/dL (0.70-1.30); EST Glomerular Filtration Rate 53 mL/min (>60); Est Glom Filt Rate - Afr Amer 65 mL/min (>60); Estimated Creatinine Clearance 53.21 ml/min; Globulin 3.6 g/dL (2.2-4.2); Glucose 79 mg/dL (74-106); Potassium 3.8 mmol/L (3.5-5.1); Protein, Total 6.8 g/dL (6.4-8.2); Sodium Level 138 mmol/L (136-145); Troponin-I HS (w/2H Reflex) 4 pg/mL (3.0-78.0)
[2022-10-21 01:58] VITALS: BP 138/88; PULSE 74; RESP 18; O2SAT 99
[2022-10-21 03:00] VITALS: BP 132/79; PULSE 76; RESP 16; O2SAT 99
[2022-10-21 03:22] LABS: Reflex Troponin-HS? (from REC) Y
[2022-10-21 04:00] LABS: Troponin-I HS 3 pg/mL (3.0-78.0)
[2022-10-21 04:26] VITALS: BP 148/84; PULSE 76; RESP 16; O2SAT 100
== END 2022-10-21 04:26 | disposition home or self-care (01) ==
PROVIDERS: Emergency Provider Emergency Medicine; PCP Family Medicine; Visit Provider Emergency Medicine
DX: R55 Syncope and collapse (principal); I10 Essential (primary) hypertension; R41.82 Altered mental status, unspecified; Z98.890 Other specified postprocedural states; R35.0 Frequency of micturition
CPT/HCPCS: 70450; 80053; 84484; 85025; 85610; 85730; 93005; 96360; 99285; A4216

== ENCOUNTER 2022-12-17 15:30 | Outpatient (RCR) | payer OTHER, SELFPAY ==
--- NOTE | 2022-11-07 10:00 | HP.PTREVAL ---
Re-Evaluation Intro: KATHIE EMMANUEL, It has been my pleasure to treat RITCHIE ECHEVERRIA over the last 1 visits for lumbar discectomy of R L3-L4 and L4-L5. DOS: 10/15/22. Please see the progress note below for an update on the physical therapy plan of care! Plan Plan Plan: Start with neutral spine core strengthening and manual to B erector spinae to decrease muscle gaurding. Wean from brace and progress ROM in 3 weeks (starting week of November 19). Balance/Gait/Functional tests Balance/Special Test Scores Oswestry Low Back Score: 20 Goals Goals Goal 1:: LTG: Pt. to be I with HEP for neutral spine core stability. Goal Time Frame: 4-6 Weeks Goal 2:: STG: Pt. to sleep throughout the night without increase in symptoms. Goal Time Frame: 2-4 Weeks Goal 3:: STG: pt. to demonstrate good upright posture throughout PT session. Goal Time Frame: 2-4 Weeks Goal 4:: LTG: Pt. to have increased B hip and core strength to 5/5 throughout without increase in symptoms. Goal Time Frame: 4-6 Weeks Goal 5:: LTG: Pt. to have at least 80deg of HS length in 90/90 positioning. Goal 6:: LTG: pt. to be able to walk for 20 minutes with 0-1/10 low back pain. Goal Time Frame: 4-6 Weeks Anticipated Interventions Anticipated Interventions Patient/Client Instruction: Educate patient on: Condition, Plan of Care, Risk Factors and Benefits of Fitness Program For the Purpose of:: To foster healthy habits, To improve decision making, To facilitate caregiver knowledge, To improve self management, To prevent re-injury and To improve ability to perform tasks related to life management Therapeutic Exercise to Include: Strength training, Power training, Body mechanics, Postural training, Flexibilty training, Passive ROM and Active ROM For the Purpose of:: To decrease pain, To increase ROM, To improve nutrient delivery to tissue, To increase oxygenation perfusion, To improve muscle performance and motor function, To improve ability to perform ADL's, To increase tolerance to activity/condition/position and To improve performance and independence with ADL's Manual Therapy Techniques to Include: Soft tissue mobilization For the Purpose of:: To decrease pain, To increase ROM, To improve nutrient delivery to tissue, To improve health of tissue and To decrease soft tissue restriction Cryotherapy (ice pack, ice massage): Yes Thermo therapy (hot pack): Yes For the Purpose of:: To decrease pain, To increase ROM, To improve gait and locomotor functions, To improve health of tissue and To decrease soft tissue restriction Re-Evaluation Ending Re-evaluation ending: Please do not hesitate to contact me at [phone] by phone or if you have questions or concerns regarding this new plan of care! Sincerely, KIM RevelesT
--- NOTE | 2022-12-03 09:54 | HP.PTEVAL ---
Patient's Visit Information Visit Information Visit Information: RITCHIE ECHEVERRIA is a 67 year old M referred to Physical Therapy by KATHIE EMMANUEL with a diagnosis of lumbar discectomy of R L3-L4 and L4-L5. DOS: 10/15/22. Date of Evaluation: 11/06/22 Physical Therapist: Matt Leyva DPT Visit Plan Frequency: 2x /Week Duration: 6 Weeks Plan: I am recerting Refugio for another month x2 per week. Cont. to work on ROM of B hips and lumbar spine as tolerated. Add in progressive walking program and core stability. Subjective Subjective: Pt. is here today for his initial evaluation with diagnosis of lumbar discectomy of R L3-L4 and L4-L5. DOS: 10/15/22. Pt: reports having high levels of leg pain prior to surgery, but is doing much better now. He is still having pain in his lumbar spine, but no leg pain. Pt. denies N/T in either LE. Pt. reports walking ~250feet x2 per day and icing for pain control. Pt. is wearing his brace as prescribed. Pt. reports overall doing better, but is still having soreness in his back. pt. does feel better with walking. Pt. has not tried any exercises yet. 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 He is hopeful to increase his strength, improve his ROM and get back to all work and recreational activities without limitations. Pain Lumbar spine: Pain Intensity (Out of 10): 3 Pain Intensity Range: 2 and 6 Comment: more sore and tight Objective Objective: POSTURE: pt. has a slight general flexed posture in stance. Pt. is able to correct with VCing. PALPATION: Pt. has well healing incision without signs of infection. Pt. has mild redness near incision, but minimal. Pt. has tenderness along lumbar erector spinae. NEURO: Normal throughout BLEs. ROM: Pt has. tight HS and hip flexors noted. Normal B hip ROM. Pt. has limited trunk mobility into all directions mod loss throughout, did not stress pushing through pain. MMT: 5/5 strength throughout distal BLEs. Pt. has 4/5 throughout B hips. Poor core strength. Difficulty with TA contraction. Needs VCing to properly complete. GAIT: Pt. has minimal arm swing with gait. Pt. has slight flexed posture with gait. Pt. reports no increase in symptoms. Erect posture improves with increased walking. STAIRS: BHR with reciprocal, but tends to pull him self up. Balance/Special Test Scores Oswestry Low Back Score: 17 Goals Goal 1:: LTG: Pt. to be I with HEP for neutral spine core stability. Goal Time Frame: 4-6 Weeks Goal 2:: STG: Pt. to sleep throughout the night without increase in symptoms. Goal Time Frame: 2-4 Weeks Goal 3:: STG: pt. to demonstrate good upright posture throughout PT session. Goal Time Frame: 2-4 Weeks Goal 4:: LTG: Pt. to have increased B hip and core strength to 5/5 throughout without increase in symptoms. Goal Time Frame: 4-6 Weeks Goal 5:: LTG: Pt. to have at least 80deg of HS length in 90/90 positioning. Goal 6:: LTG: pt. to be able to walk for 20 minutes with 0-1/10 low back pain. Goal Time Frame: 4-6 Weeks Rehabilitation Potential Physical Therapy Diagnosis: Pt. has signs and symptoms consistent with lumbar discectomy of R L3-L4 and L4-L5. DOS: 10/15/22. Pt. has marked hypomobility, weakness, increased pain and difficulty with ADLs. Pt. would benefit from PT to increase his ROM of lumbar spine, wean from his brace and increase core stability in neutral spine positioning. Rehabilitation Potential: Excellent Anticipated Interventions Patient/Client Instruction: Educate patient on: Condition, Plan of Care, Risk Factors and Benefits of Fitness Program For the Purpose of:: To foster healthy habits, To improve decision making, To facilitate caregiver knowledge, To improve self management, To prevent re-injury and To improve ability to perform tasks related to life management Therapeutic Exercise to Include: Strength training, Power training, Body mechanics, Postural training, Flexibilty training, Passive ROM and Active ROM For the Purpose of:: To decrease pain, To increase ROM, To improve nutrient delivery to tissue, To increase oxygenation perfusion, To improve muscle performance and motor function, To improve ability to perform ADL's, To increase tolerance to activity/condition/position and To improve performance and independence with ADL's Manual Therapy Techniques to Include: Soft tissue mobilization For the Purpose of:: To decrease pain, To increase ROM, To improve nutrient delivery to tissue, To improve health of tissue and To decrease soft tissue restriction Cryotherapy (ice pack, ice massage): Yes Thermo therapy (hot pack): Yes For the Purpose of:: To decrease pain, To increase ROM, To improve gait and locomotor functions, To improve health of tissue and To decrease soft tissue restriction Text: Thank you for the opportunity to evaluate your patient. For Medicare and Medicare HMO plans, please review the plan of care and approve it. It will need to be FAXED BACK to us at [phone] for Medicare purposes. For Medicare only, by signing this I certify the plan of care. Please let me know if there are questions or concerns regarding this plan of care. Physician Signature: Date:
== END 2022-12-17 19:00 | disposition home or self-care (01) ==
LOC: PT 15:30
PROVIDERS: PCP Family Medicine
DX: M51.36 Other intervertebral disc degeneration, lumbar region (principal)
CPT/HCPCS: 97110; 97140; 97161; 97164

== ENCOUNTER → 2023-01-21 | Outpatient (CLI) | payer OTHER, SELFPAY ==
[2023-01-21 15:21] LABS: Absolute Lymphocyte Count 2.27 X10^3/uL (0.83-4.51); Absolute Neutrophil Count 6.9 X10^3/uL (2.0-7.7); Basophil# 0.06 X10^3/uL; Basophil% 0.6 % (0-1); Eosinophil# 0.08 X10^3/uL; Eosinophils% 0.8 % (0-5); Hematocrit 46.5 % (40-54); Hemoglobin 14.8 g/dL (13.0-16.5); Lymphocyte # 2.27 X10^3/ul (0.83-4.51); Lymphocyte % 21.9 % (19-41); Mean Corp Hgb Conc 31.8 g/dL (32-36); Mean Corpuscular Hgb 31.8 pg (27.0-32.0); Mean Corpuscular Volume 99.8 fL (80-94); Mean Platelet Vol. 10.9 fl (6.2-12.0); Monocyte# 0.97 X10^3/uL; Monocyte% 9.4 % (0-10); NRBC Flagged by Analyzer 0 % (0-5); Neutrophil # 6.93 X10^3/uL (2.7-7.7); Neutrophil % 66.7 % (47-70); Platelet Count 363 K/mm3 (150-450); RBC Distribution Width CV 13.1 % (11.6-14.6); RBC Distribution Width SD 48.4 fl (35.1-43.9); Red Blood Count 4.66 M/mm3 (4.6-6.2); White Blood Count 10.4 K/mm3 (4.4-11.0)
[2023-01-21 15:34] LABS: Internal QC Validated? YES +Cl - CLEAR BKGD; Record Kit Lot#, Mono 13231163
[2023-01-21 15:35] LABS: Monotest Negative (Negative)
[2023-01-21 15:41] LABS: ALB/GLOB Ratio 0.8 RATIO (0.9-2.4); AST(SGOT) 20 U/L (15-37); Alanine Aminotransfer ALT/SGPT 23 U/L (16-61); Albumin, Serum 3.9 g/dL (3.2-5.0); Alkaline Phosphatase 79 U/L (45-117); Anion Gap 11 (5-15); BUN 18 mg/dL (7-18); BUN/Creat Ratio 13.2 RATIO (10-20); Calcium,Total 9.8 mg/dL (8.5-10.1); Chloride 100 mmol/L (98-107); Cholesterol 154 mg/dL (200); Creatinine, Serum 1.36 mg/dL (0.70-1.30); EST Glomerular Filtration Rate 56 mL/min (>60); Est Glom Filt Rate - Afr Amer 67 mL/min (>60); Globulin 4.9 g/dL (2.2-4.2); Glucose 61 mg/dL (74-106); High Density Lipoprotein 51 mg/dL; Lipase 35 U/L (13-75); Potassium 4.4 mmol/L (3.5-5.1); Protein, Total 8.8 g/dL (6.4-8.2); Sodium Level 135 mmol/L (136-145); Thyroid Stim Hormone (TSH) 1.98 uIU/mL (0.358-3.74); Triglycerides 83 mg/dL; Very Low Density Lipoprotein 17 mg/dL (5-40)
[2023-01-21 15:42] LABS: Erythrocyte Sedimentation Rate 23 mm/hr (0-20); Vitamin B12 1657 pg/mL (211-911); Vitamin D,25 Hydroxy 38.9 ng/mL
== END | disposition home or self-care (01) ==
LOC: BFHLAB 11:39
PROVIDERS: PCP Nurse Practitioner Family; Referring Provider Nurse Practitioner Family; Visit Provider Nurse Practitioner Family
DX: R53.83 Other fatigue (principal); E78.5 Hyperlipidemia, unspecified; I10 Essential (primary) hypertension; K76.0 Fatty (change of) liver, not elsewhere classified
CPT/HCPCS: 36415; 80053; 80061; 82306; 82607; 83690; 84403; 84443; 85025; 85652; 86140; 86308; 87633; 87635

== ENCOUNTER 2023-02-25 08:26 | Day surgery (SDC) | payer OTHER, SELFPAY ==
[2023-02-25 09:02] VITALS: BP 130/84; PULSE 88; RESP 18; TEMP 36.1; O2SAT 100; BMI 26.5
--- NOTE | 2023-02-25 09:26 | RAD_ITS ---
PROCEDURE: Right hip injection. DATE OF EXAMINATION: February 25, 2023 INDICATION: Male, 67 years old. Chronic right hip pain. FLUOROSCOPY TIME (if supplied): (2 seconds) minutes/seconds. 0.49 mGy. One image was submitted. RAD/Fluoro Guided Needle Placement IMPRESSION: Fluoroscopic services provided for right hip injection. Electronically Signed: Anderson Graham MD at 11:01 EST ,
[2023-02-25] MEDS: MethylPREDNISolone Acetate 80 MG/ML Vial (09:31)
[2023-02-25] MEDS: Lidocaine 1% (5 ml sdv) 5 ML Vial (09:32)
--- NOTE | 2023-02-25 09:34 | PCM.OPRPT ---
Report of Operation Date of Procedure: 02/25/23 Description of Surgical Findings:: PREOPERATIVE DIAGNOSIS: Osteoarthritis of the right hip POSTOPERATIVE DIAGNOSIS: Osteoarthritis of the right hip PROCEDURE PERFORMED: Right hip intraarticular steroid injection under fluoroscopy guidance. ANESTHESIA: MAC. BLOOD LOSS: Minimal. COMPLICATIONS: None. DESCRIPTION OF PROCEDURE: History and physical of today was reviewed. Risks and benefits of the procedure were explained. The patient understood and agreed to proceed. Informed consent was obtained. IV inserted per routine protocol. The patient was taken to the operating room and placed in the supine position. The right hip area was prepped and draped in a sterile fashion using iodine x3. Under fluoroscopy guidance on AP view, the right hip joint was visualized. The skin and subcutaneous tissue was anesthetized with approximately 3 mL of 1% lidocaine using a 25-gauge regular needle approximately 3 cm cephalad to the right greater trochanter. Under direct visualization with fluoroscopy on an AP view, using a 22-gauge 5-inch spinal needle, the needle was advanced via the skin using the lateral approach. The tip of the needle was maneuvered and directed towards the superiormost aspect of the hip joint. Once the tip of the needle was at the vicinity of the joint, after negative aspiration for blood and positive aspiration of synovial fluid, a total of 1 mL of contrast was injected to confirm correct placement of the needle as well as halo spread around the hip joint. After repeated negative aspiration for blood and confirmation on AP as well as oblique view, a total of 10 mL of preservative-free 0.25% Marcaine with 80 mg of Depo-Medrol was injected easily. The needle was then removed intact. The patient experienced no sign or symptoms of intrathecal or intravascular injection. The patient experienced no paresthesia. The procedure was completed without any apparent difficulty or any complications. The patient appeared to tolerate it well. ASSESSMENT AND PLAN: This is a 67-year-old male with osteoarthritis of the right hip status post right hip intra-articular steroid injection under fluoroscopic guidance, patient will continue his current medications, patient will follow approximately 2 weeks for reevaluation.
[2023-02-25 09:46] VITALS: BP 123/85; BP 130/84; PULSE 85; RESP 16; TEMP 36.4; O2SAT 100
== END 2023-02-25 09:49 | disposition home or self-care (01) ==
LOC: SDC 08:29 → AC 08:32
PROVIDERS: PCP Family Medicine; Referring Provider Anesthesiology Pain Medicine; Visit Provider Anesthesiology Pain Medicine
PROC: 3E0U3GC Introduction of Other Therapeutic Substance into Joints, Percutaneous Approach (ICD-10-PCS; CPT 20610; principal; 2023-02-25 09:55)
DX: M16.11 Unilateral primary osteoarthritis, right hip (principal); I10 Essential (primary) hypertension; M47.812 Spondylosis without myelopathy or radiculopathy, cervical region; M50.30 Other cervical disc degeneration, unspecified cervical region; M96.1 Postlaminectomy syndrome, not elsewhere classified; M48.02 Spinal stenosis, cervical region; M54.50 Low back pain, unspecified; M25.511 Pain in right shoulder; M25.512 Pain in left shoulder; K21.9 Gastro-esophageal reflux disease without esophagitis; Z79.891 Long term (current) use of opiate analgesic; Z79.899 Other long term (current) drug therapy; Z96.652 Presence of left artificial knee joint
CPT/HCPCS: 20610; 01991; 76000; 77002; J7120

== ENCOUNTER → 2023-03-19 | Outpatient (CLI) | payer OTHER, SELFPAY ==
--- NOTE | 2023-03-19 13:15 | RAD_ITS ---
STUDY: X-RAY - LEFT SHOULDER REASON FOR EXAM: Male, 68 years old. Pain. TECHNIQUE: 4 view(s) of the shoulder. COMPARISON: None. FINDINGS: Osteopenia. Mild arthrosis of the glenohumeral joint. Mild arthrosis of the AC joint. Normal acromion. Sclerosis of the greater tuberosity. Normal soft tissues. Normal visualized pulmonary apex. RAD/Shoulder min 2 Views IMPRESSION: Osteopenia with osteoarthritic changes as described. No acute abnormality or erosive changes. Electronically Signed: Sumit Davison MD at 12:06 EST ,
--- NOTE | 2023-03-19 13:15 | RAD_ITS ---
STUDY: X-RAY - CERVICAL SPINE REASON FOR EXAM: Male, 68 years old. Follow-up of ORIF of cervical spine. TECHNIQUE: 5 view(s) of the cervical spine were obtained on 6 images. COMPARISON: March 2017. FINDINGS: Osteopenia. Normal anterior atlantoaxial articulation. Normal odontoid process. Normal cervical lordosis. Diffuse moderate uncovertebral and facet sclerosis. Anterior fusion from C3-4 to C5-6 with intervertebral disc prostheses at C3-4, C4-5 and C5-6, new since the prior study. Anterior bony neural foraminal encroachment at C3-4 through C5-6 bilaterally. Normal soft tissues. RAD/Cerv Spine 4 or 5 Views IMPRESSION: Osteopenia with new anterior fusion from C3-4 to C5-6 as described. No complications. Bony neural foraminal encroachment at C3-4 through C5-6 bilaterally. Electronically Signed: Sumit Davison MD at 9:45 EST ,
--- NOTE | 2023-03-19 13:15 | RAD_ITS ---
STUDY: X-RAY - RIGHT SHOULDER REASON FOR EXAM: Male, 68 years old. OSTEOARTHRITIS TECHNIQUE: 4 view(s) of the shoulder. COMPARISON: None. FINDINGS: Mildly narrowed glenohumeral articulation. Normal acromioclavicular joint. Normal acromion. Normal humeral head and visualized proximal humerus. The soft tissue structures are unremarkable. Normal visualized pulmonary apex. RAD/Shoulder min 2 Views IMPRESSION: Degenerative osteoarthritic changes. No acute fracture or other significant bony pathology. Electronically Signed: Mynor Petersen MD at 22:49 EST ,
== END | disposition home or self-care (01) ==
PROVIDERS: PCP Family Medicine; Visit Provider Clinical Nurse Specialist Adult Health
DX: M19.011 Primary osteoarthritis, right shoulder (principal); M19.012 Primary osteoarthritis, left shoulder; M50.30 Other cervical disc degeneration, unspecified cervical region; M47.812 Spondylosis without myelopathy or radiculopathy, cervical region
CPT/HCPCS: 72050; 73030

== ENCOUNTER → 2023-05-17 | Outpatient (CLI) | payer OTHER, SELFPAY ==
--- NOTE | 2023-05-17 15:00 | LES_PTH ---
PATHOLOGY RESULTS PATIENT: RITCHIE ECHEVERRIA LOC: [facility] U#:[id number] AGE/SX: 68/M ROOM: RE05/17/[address]: Dr. Valeria Parkinson MD : [id number] BED: DIS: 05/17/2023 SPEC #: [id number] RECD: 05/20/23 10:12 STATUS: LAURO YOSEF #: [id number] PAMELA: 05/17/23 15:[address]: Valeria Parkinson DEPT: SURGICAL PATHOLOGY RECD BY: Miriam Silva ENTERED: 05/20/23 10:12 SP TYPE: Lesion Tissues: Skin of upper extremity and shoulder Procedures: Surgery Specimen Level IV HEADER OPERATION: 4 mm punch biopsy PRE-OP DIAGNOSIS: Changing lesion TISSUE SUBMITTED: Left shoulder MICROSCOPIC DIAGNOSIS Left shoulder lesion, punch/shave biopsy: Actinic keratosis with severe atypia. See comment. KIMBER:suzanne 05/21/2023 COMMENT Clinical correlation and appropriate follow up are necessary. Complete excision of the lesion is suggested if clinically indicated. Case has been reviewed in consultation with Dr. Martinez who concurs with the above diagnosis. IDC:AM MICROSCOPIC DESCRIPTION Slides are reviewed. GROSS DESCRIPTION Received is one container labeled with the patient's name and not further designated. The specimen consists of a shave biopsy of roberts-white skin measuring 0.4 x 0.1 x 0.1 cm. The specimen is totally submitted in one cassette. / KIMBER:suzanne 05/20/2023 TC:5 CPT: 57093
--- OUTSIDE RECORDS SUMMARY | 2023-05-17 18:36 | XMS RPT_ITS | CCD ---
Author Name Unknown Address [id number] [place] [address] Organization [facility] Care Team Providers Care Assistant To The Ceo Name Role Phone Steven Altamirano PA-C Unavailable [phone] RUTHY RAMIREZ Attending Unavailable JAMESRUTHY VIVEROS Primary Care Unavailable RUTHY RAMIREZ Admitting Unavailable RUTHY RAMIREZ Attending Unavailable RUTHY RAMIREZ Primary Care Unavailable JAMESRUTHY VIVEROS Admitting Unavailable TU GRADY Attending Unavailable TUCKER LÓPEZ Referring Unavailable TU GRADY Attending Unavailable Medications Completed/Discontinued Medications Medication Drug Class(es) Dates Sig (Normalized) Sig (Original) amoxicillin 500 mg oral tablet (2 sources) Penicillin-class Antibacterial Start: 09-16-19 17 End: 09-26-19 17 AMOXICILLIN 500 MG TABS Take one tab every 12 hours AMOXICILLIN [id number] Steven Altamirano PA-C budesonide 3 mg delayed release oral capsule (2 sources) Corticosteroid Start: 09-16-19 17 BUDESONIDE 3 MG CPEP BUDESONIDE [id number] Steven Altamirano PA-C hydroCHLOROthiazide 25 mg oral tablet (2 sources) Thiazide Diuretic Start: 09-16-19 17 HYDROCHLOROTHIAZIDE 25 MG TABS as directed HYDROCHLOROTHIAZIDE [id number] Steven Altamirano PA-C losartan potassium 100 mg oral tablet (2 sources) Angiotensin 2 Receptor Josh Start: 09-16-19 17 LOSARTAN POTASSIUM 100 MG TABS as directed LOSARTAN POTASSIUM [id number] Steven Altamirano PA-C nadolol 40 mg oral tablet (2 sources) beta-Adrenergic Josh Start: 09-16-19 17 NADOLOL 40 MG TABS as directed NADOLOL [id number] Steven Altamirano YAKELIN omeprazole 20 mg delayed release oral tablet (2 sources) Proton Pump Inhibitor Start: 09-16-19 17 OMEPRAZOLE 20 MG TBEC as directed OMEPRAZOLE [id number] Steven Altamirano YAKELIN sertraline 100 mg oral tablet (2 sources) Serotonin Reuptake Inhibitor Start: 09-16-19 17 SERTRALINE HCL 100 MG TABS as directed SERTRALINE HCL [id number] Steven Cervantes Adarsh HAMLIN Problems Problem Classification Problem Date Documented Da te Episodic/Chronic Other upper respiratory disease (2 sources) Pain in throat; Translations: [Acute pharyngitis, unspecified] Onset: 09-15-2016 09-15-2016 Episodic Results Test Name Value Interpretation Reference Range Facil ity Vital Signs Date Time Vital Sign Value Performing Clinician Faci lity 09-15-2016 08:45-0400 BMI (Body Mass Index) 27.12 kg/m2 Steven Altamirano PA-C [facility] Work Phone: 09-15-2016 08:45-0400 Body Temperature 98.7 [degF] Steven Altamirano PA-C [facility] Work Phone: 09-15-2016 08:45-0400 BP Diastolic 76 mm[Hg] Steven Altamirano PA-C [facility] Work Phone: 09-15-2016 08:45-0400 BP Systolic 128 mm[Hg] Steven Altamirano PA-C [facility] Work Phone: 09-15-2016 08:45-0400 Height 177.8 cm Steven Altamirano PA-C [facility] Work Phone: 09-15-2016 08:45-0400 Pulse (Heart Rate) 74 /min Steven Altamirano PA-C [facility] Work Phone: 09-15-2016 08:45-0400 Pulse Oximetry 97 % Steven Altamirano PA-C [facility] Work Phone: 09-15-2016 08:45-0400 Respiratory Rate 17 /min Steven Altamirano PA-C [facility] Work Phone: 09-15-2016 08:45-0400 Weight 85.73 kg Steven Altamirano PA-C [facility] Work Phone: Encounters Encounter Date Encounter Type Care Provider Facility Start: 04-01-2023 End: 04-01-2023 ambulatory T[facility] GRADY Not Available Start: 03-21-2023 End: 03-21-2023 ambulatory T[facility] GRAD[facility] Not Available Start: 07-21-2020 End: 07-21-2020 Patient encounter procedure [facility] Start: 07-21-2020 End: 07-21-2020 Patient encounter procedure [facility] Plan of Treatment Date Care Activity Detail Author Start: 09-15-2016 End: 09-15-2016 Appointment Appointment [facility] Work Phone: [facility] Work Phone: Payers Date Payer Category Payer Unknown [id number] 1955 Unknown [id number] 1955 Unknown [id number] 1955 Unknown [id number] 1955 Unknown [id number] Summary Purpose Family History No Family History Records FoundNo Family History Records Found Advance Directives No Advanced Directives Records FoundNo Advanced Directives Records Found Additional Source Comments (unrecognized sect ion and content) No Status Records FoundNo Status Records Found INFORMATION SOURCE (unrecogn ized section and content) DATE CREATED AUTHOR AUTHOR'S RON ISNGLETON 04/02/2023 [facility] EPIC FOR RECORDS PERTAINING TO PATIENTS WHO ARE OR HAVE BEEN ENROLLED IN A CHEMICAL DEPENDENCY/SUBSTANCEABUSE PROGRAM, SOME INFORMATION MAY BE OMITTED. This clinical summary was aggregated from multiple sources. Caution should be exercised in using it in the provision of clinical care. This summary normalizes information from multiple sources, and as a consequence, information in this document may materially change the coding, format and clinical context of patient data. In addition, data may be omitted in some cases. CLINICAL DECISIONS SHOULD BE BASED ON THE PRIMARY CLINICAL RECORDS. [facility]. provides no warranty or guarantee of the accuracy or completeness of information in this document.
== END | disposition home or self-care (01) ==
LOC: LABSPEC 18:22
PROVIDERS: PCP Family Medicine; Visit Provider Family Medicine
DX: L57.0 Actinic keratosis (principal)
CPT/HCPCS: 88305

== ENCOUNTER → 2023-09-18 | Outpatient (CLI) | payer OTHER, MEDICARE, SELFPAY ==
--- NOTE | 2023-09-18 09:39 | US_ITS ---
STUDY: ABDOMINAL ULTRASOUND - RIGHT UPPER QUADRANT; ELASTOGRAPHY REASON FOR VISIT: Male, 68 years old. Fatty infiltration of the liver. Cirrhosis. TECHNIQUE: Ultrasound evaluation of the right upper quadrant was performed with real-time and static grey-scale imaging. Point quantification shear wave elastography was performed ([employer] in [employer]). TECHNICAL QUALITY: Adequate. COMPARISON: Comparison is made with prior study October 12, 2022. FINDINGS: Liver: The liver measures 16.1 cm. There is increased echogenicity consistent with fatty infiltration. The bile ducts are within normal limits. There is hepatic color flow. The direction of portal flow is hepatopetal. There is no demonstrated mass lesion. Median liver stiffness measured 9.8 kPa. Gallbladder: Normal distended gallbladder. The gallbladder wall measures 1.5 mm. There is a negative sonographic Khan''s sign. There is no pericholecystic fluid. There are no gallstones. Common Bile Duct (C.B.D.): The common bile duct measures 3.3 mm. Pancreas: There is increased echogenicity of the pancreas. There is no demonstrated pancreatic mass or cyst. Right Kidney: Normal size of the right kidney. The right kidney measures 10.7 cm x 4.7 cm x 5.5 cm. Normal renal cortex. The right cortex measures 1.4 cm. There is no demonstrated renal mass or cyst. There is no right hydronephrosis. US/ABD Limited w/ Elastography IMPRESSION: 1. Liver stiffness measures 9.8 kPa compatible with F2-F3 (Mild to moderate liver fibrosis) Metavir score. Electronically Signed: Anderson Graham MD at 13:32 EDT ,
== END | disposition home or self-care (01) ==
PROVIDERS: PCP Family Medicine; Referring Provider Family Medicine; Visit Provider Family Medicine
DX: K76.0 Fatty (change of) liver, not elsewhere classified (principal)
CPT/HCPCS: 76705; 76981

== ENCOUNTER → 2023-10-18 | Outpatient (CLI) | payer MEDICARE, SELFPAY ==
[2023-10-18 12:55] LABS: Absolute Lymphocyte Count 1.97 X10^3/uL (0.83-4.51); Absolute Neutrophil Count 3.7 X10^3/uL (2.0-7.7); Basophil# 0.05 X10^3/uL; Basophil% 0.8 % (0-1); Eosinophil# 0.08 X10^3/uL; Eosinophils% 1.2 % (0-5); Hematocrit 41.9 % (40-54); Hemoglobin 14.4 g/dL (13.0-16.5); Lymphocyte # 1.97 X10^3/ul (0.83-4.51); Mean Corp Hgb Conc 34.4 g/dL (32-36); Mean Corpuscular Hgb 32.4 pg (27.0-32.0); Mean Corpuscular Volume 94.2 fL (80-94); Mean Platelet Vol. 8.8 fl (6.2-12.0); Monocyte# 0.69 X10^3/uL; Monocyte% 10.5 % (0-10); NRBC Flagged by Analyzer 0 % (0-5); Neutrophil # 3.73 X10^3/uL (2.7-7.7); Neutrophil % 56.9 % (47-70); Platelet Count 273 K/mm3 (150-450); RBC Distribution Width CV 13.2 % (11.6-14.6); RBC Distribution Width SD 45.3 fl (35.1-43.9); Red Blood Count 4.45 M/mm3 (4.6-6.2); White Blood Count 6.6 K/mm3 (4.4-11.0)
[2023-10-18 13:22] LABS: ALB/GLOB Ratio 0.9 RATIO (0.9-2.4); AST(SGOT) 28 U/L (15-37); Alanine Aminotransfer ALT/SGPT 27 U/L (16-61); Albumin, Serum 3.8 g/dL (3.2-5.0); Alkaline Phosphatase 89 U/L (45-117); Anion Gap 8 (5-15); BUN 9 mg/dL (7-18); BUN/Creat Ratio 7.9 RATIO (10-20); Calcium,Total 9.2 mg/dL (8.5-10.1); Chloride 97 mmol/L (98-107); Creatinine, Serum 1.14 mg/dL (0.70-1.30); EST Glomerular Filtration Rate 68 mL/min (>60); Est Glom Filt Rate - Afr Amer 82 mL/min (>60); Globulin 4.2 g/dL (2.2-4.2); Glucose 118 mg/dL (74-106); Potassium 4.1 mmol/L (3.5-5.1); Sodium Level 132 mmol/L (136-145)
== END | disposition home or self-care (01) ==
LOC: LAB 12:40
PROVIDERS: PCP Family Medicine; Referring Provider Family Medicine; Visit Provider Family Medicine
DX: K76.0 Fatty (change of) liver, not elsewhere classified (principal); I10 Essential (primary) hypertension
CPT/HCPCS: 36415; 80053; 85025

== ENCOUNTER 2023-12-04 13:30 | Outpatient (RCR) | payer OTHER, SELFPAY ==
--- NOTE | 2023-10-10 12:21 | HP.PTEVAL_ITS ---
Patient's Visit Information Visit Information Visit Information: RITCHIE ECHEVERRIA is a 68 year old M referred to Physical Therapy by Dr. Teodoro White MD with a diagnosis of Pain in the L shoulder and R shoulder too. Date of Evaluation: 10/10/23 Physical Therapist: DENILSON Dave Visit Plan Frequency: 2x /Week Duration: 2 Months Plan: 2X/ week for 8 weeks for postural and scapular strength, PROM/AAROM to end range stretching, RC strength with HEP HEP: supine wand flexion Subjective Subjective: Pt has had pain in his shoulders for a long time. He saw Dr at [facility] and had a neck fusion but it did nothing for the shoulder pain. He put cortisone in both shoulders about 6 weeks ago and it worked but he can tell the pain is starting to come back. His L shoulder is slightly worse than the R. The Dr said he needs to build strength. He does not have arthritis in his shoulders that he knows about. He is R handed. He can lay on his shoulders at night. He has pain with overhead activities or other activities around the house. He has some tingling in the L hand prior to cortisone but it is fine now. Pain L shoulder pain: Pain Intensity (Out of 10): 7 R shoulder pain: Pain Intensity (Out of 10): 7 Objective Objective: R handed R 64# and L 50# Shoulder AROM: R shoulder flexion 102 and L 100 R shoulder abd 103 and L 93 R IR T12 and L T8 R ER 34 and L 31 Shoulder MMT: R shoulder flex 7.1 and L 5.4 R shoulder ABD 5.8 and L 4.3 R shoulder ER 11 and L 10.2 R shoulder IR 9.1 and L 8.9 Bicep reflex: 1+/3 B PROM Able to get to almost full ROM in all planes but some pain at end range but pt describes it as good hurt Posture: rounded shoulders Balance/Special Test Scores Quick DASH Score: 50.0000 Goals Goal 1:: I HEP Goal Time Frame: 6-8 Weeks Goal 2:: Increase B shoulder AROM (at the time of the eval: R shoulder flexion 102 and L 100 R shoulder abd 103 and L 93 R IR T12 and L T8 R ER 34 and L 31) Goal Time Frame: 6-8 Weeks Goal 3:: Increase B shoulder strength (at the time of eval: R shoulder flex 7.1 and L 5.4 R shoulder ABD 5.8 and L 4.3 R shoulder ER 11 and L 10.2 R shoulder IR 9.1 and L 8.9) Goal Time Frame: 6-8 Weeks Goal 4:: Decrease overall shoulder pain by 50% Goal Time Frame: 6-8 Weeks Goal 5:: Be able to sit with upright posture in waiting room, at home, and during PT Goal Time Frame: 6-8 Weeks Rehabilitation Potential Rehabilitation Potential: Good Anticipated Interventions Patient/Client Instruction: Educate patient on: Condition and Plan of Care For the Purpose of:: To decrease pain, To increase ROM, To improve nutrient delivery to tissue, To improve muscle performance and motor function, To improve ability to perform ADL's, To increase tolerance to activity/condition/position, To improve performance and independence with ADL's, To improve health of tissue, To decrease soft tissue restriction and To increase flexibility/ROM Therapeutic Exercise to Include: Strength training, Postural training, Flexibilty training, Neuromotor development, Passive ROM, Active ROM and Scapular Strength/Stabilization For the Purpose of:: To decrease pain, To increase ROM, To improve nutrient delivery to tissue, To increase oxygenation perfusion, To improve muscle performance and motor function, To improve ability of physical actions for home/community/work/leisure, To decrease soft tissue restriction and To increase flexibility/ROM Manual Therapy Techniques to Include: Mobilization, Passive ROM and Soft tissue mobilization For the Purpose of:: To decrease pain, To increase ROM, To improve nutrient delivery to tissue, To improve muscle performance and motor function, To improve health of tissue, To decrease soft tissue restriction and To increase flexibility/ROM Cryotherapy (ice pack, ice massage): Yes Thermo therapy (hot pack): Yes For the Purpose of:: To decrease pain, To decrease swelling/inflammation, To increase ROM and To improve nutrient delivery to tissue Text: Thank you for the opportunity to evaluate your patient. For Medicare and Medicare HMO plans, please review the plan of care and approve it. It will need to be FAXED BACK to us at [phone] for Medicare purposes. For Medicare only, by signing this I certify the plan of care. Please let me know if there are questions or concerns regarding this plan of care. Physician Signature: Date:
--- NOTE | 2023-11-06 14:05 | HP.PTREVAL ---
Re-Evaluation Intro: Dr. Teodoro White MD, It has been my pleasure to treat RITCHIE ECHEVERRIA over the last 8 visits for Pain in the L shoulder and R shoulder too. Please see the progress note below for an update on the physical therapy plan of care! Subjective Subjective: He reports that he is sore but he feels that he is getting somewhere with his strength. He would like to continue PT as he feels that it is helping Objective Objective/Function: R shoulder flexion 126 and L 124 R shoulder abd 135 and L 142 R IR T8 and L T8 R ER 56 and L 50 R shoulder flex 8.7 and L 12.5 R shoulder ABD 9.3and L 9 R shoulder ER 12.7 and L 12.8 R shoulder IR 9.1 and L 8.9) Plan Plan Plan: 2X/ week for 8 weeks for postural and scapular strength, PROM/AAROM to end range stretching, RC strength with HEP HEP: supine wand flexion Balance/Gait/Functional tests Balance/Special Test Scores Quick DASH Score: 40.0000 Goals Goals Goal 1:: I HEP Goal Time Frame: 6-8 Weeks Goal Progress: Progressing Goal 2:: Increase B shoulder AROM (at the time of the eval: R shoulder flexion 102 and L 100 R shoulder abd 103 and L 93 R IR T12 and L T8 R ER 34 and L 31) Goal Time Frame: 6-8 Weeks Goal Progress: Progressing Goal 3:: Increase B shoulder strength (at the time of eval: R shoulder flex 7.1 and L 5.4 R shoulder ABD 5.8 and L 4.3 R shoulder ER 11 and L 10.2 R shoulder IR 9.1 and L 8.9) Goal Time Frame: 6-8 Weeks Goal Progress: Progressing Goal 4:: Decrease overall shoulder pain by 50% Goal Time Frame: 6-8 Weeks Goal Progress: Progressing Goal 5:: Be able to sit with upright posture in waiting room, at home, and during PT Goal Time Frame: 6-8 Weeks Goal Progress: Progressing Anticipated Interventions Anticipated Interventions Patient/Client Instruction: Educate patient on: Condition and Plan of Care For the Purpose of:: To decrease pain, To increase ROM, To improve nutrient delivery to tissue, To improve muscle performance and motor function, To improve ability to perform ADL's, To increase tolerance to activity/condition/position, To improve performance and independence with ADL's, To improve health of tissue, To decrease soft tissue restriction and To increase flexibility/ROM Therapeutic Exercise to Include: Strength training, Postural training, Flexibilty training, Neuromotor development, Passive ROM, Active ROM and Scapular Strength/Stabilization For the Purpose of:: To decrease pain, To increase ROM, To improve nutrient delivery to tissue, To increase oxygenation perfusion, To improve muscle performance and motor function, To improve ability of physical actions for home/community/work/leisure, To decrease soft tissue restriction and To increase flexibility/ROM Manual Therapy Techniques to Include: Mobilization, Passive ROM and Soft tissue mobilization For the Purpose of:: To decrease pain, To increase ROM, To improve nutrient delivery to tissue, To improve muscle performance and motor function, To improve health of tissue, To decrease soft tissue restriction and To increase flexibility/ROM Cryotherapy (ice pack, ice massage): Yes Thermo therapy (hot pack): Yes For the Purpose of:: To decrease pain, To decrease swelling/inflammation, To increase ROM and To improve nutrient delivery to tissue Re-Evaluation Ending Re-evaluation ending: Please do not hesitate to contact me at [phone] by phone or if you have questions or concerns regarding this new plan of care! Sincerely, DENILSON Dave
--- NOTE | 2023-12-04 13:59 | HP.PTDCSUM ---
Discharge Summary D/C summary: It has been my pleasure to treat RITCHIE ECHEVERRIA referred by Dr. Teodoro White MD, with the diagnosis of Pain in the L shoulder and R shoulder too for a total of 12 visit(s). Discharge Date: 12/04/23 Please see the following information for a summary of their discharge status. Subjective Subjective: Pt feels that the injections helped a lot. His ROM is better but the pain is still there. He has a sharp burning pain in both shoulders. He will make an appt with his Dr to look at possible MRI Pain L shoulder pain: Pain Intensity (Out of 10): 8 R shoulder pain: Pain Intensity (Out of 10): 7 Overall Improvement % Improvement: 60 Objective Objective/Function: R shoulder flex 10.4 and L 10.7 R shoulder ABD 8.4 and L 8.5 R shoulder ER 12.8 and L 12.1 R shoulder IR 12.6 and L 13.8 R shoulder flexion 131 and L 140 R shoulder abd 145 and L 146 R IR T12 and L T8 R ER 62 and L 64 Goals Goal 1:: I HEP Goal Progress: Goal Met Goal 2:: Increase B shoulder AROM (at the time of the eval: R shoulder flexion 102 and L 100 R shoulder abd 103 and L 93 R IR T12 and L T8 R ER 34 and L 31) Goal Progress: Goal Met Goal 3:: Increase B shoulder strength (at the time of eval: R shoulder flex 7.1 and L 5.4 R shoulder ABD 5.8 and L 4.3 R shoulder ER 11 and L 10.2 R shoulder IR 9.1 and L 8.9) Goal Progress: Goal Met Goal 4:: Decrease overall shoulder pain by 50% Goal Progress: Progressing Goal 5:: Be able to sit with upright posture in waiting room, at home, and during PT Goal Progress: Progressing Plan Plan: 2X/ week for 8 weeks for postural and scapular strength, PROM/AAROM to end range stretching, RC strength with HEP HEP: supine wand flexion D/C Information Discharge Comments: DC PT back to Dr d/c sentence: If there are questions or concerns regarding this patient's physical therapy, please feel free to call me at [phone]. Thank you for the referral of this patient. Sincerely, Eleanor Driscoll, MPT Balance/Gait/Functional tests Balance/Special Test Scores Quick DASH Score: 43.1800 Improvement % Improvement: 60
== END 2023-12-04 14:52 | disposition home or self-care (01) ==
LOC: PT 13:30
PROVIDERS: PCP Family Medicine; Referring Provider Orthopaedic Surgery; Visit Provider Orthopaedic Surgery
DX: M25.512 Pain in left shoulder (principal)
CPT/HCPCS: 97110; 97161; 97530

== ENCOUNTER → 2024-05-08 | Outpatient (CLI) | payer MEDICARE, SELFPAY ==
--- NOTE | 2024-05-08 09:19 | RAD_ITS ---
HISTORY: HIP PAIN. TECHNIQUE: XR Hips Bilateral with Pelvis when performed; 2 Views. COMPARISON: 08/10/2020. FINDINGS: OSSEOUS STRUCTURES: No acute displaced fracture identified. Note that overlapping bowel shadows may obscure osseous detail. Mineralization unremarkable. JOINT SPACES: No dislocation. Mild degenerative changes of both hips. RAD/Hips B/L min 2 views w/ Pelvis IMPRESSION: No acute displaced fracture or dislocation identified. Electronically Signed: Thao Walker MD at 9:28 EST ,
[2024-05-08 10:30] LABS: Absolute Lymphocyte Count 2.95 X10^3/uL (0.83-4.51); Absolute Neutrophil Count 4.1 X10^3/uL (2.0-7.7); Basophil# 0.06 X10^3/uL; Basophil% 0.7 % (0-1); Eosinophil# 0.35 X10^3/uL; Eosinophils% 4.3 % (0-5); Hematocrit 36.3 % (40-54); Lymphocyte # 2.95 X10^3/ul (0.83-4.51); Mean Corp Hgb Conc 33.1 g/dL (32-36); Mean Corpuscular Hgb 32.3 pg (27.0-32.0); Mean Corpuscular Volume 97.8 fL (80-94); Mean Platelet Vol. 10.6 fl (6.2-12.0); Monocyte% 8.5 % (0-10); NRBC Flagged by Analyzer 0 % (0-5); Neutrophil # 4.11 X10^3/uL (2.7-7.7); Neutrophil % 50.1 % (47-70); Platelet Count 316 K/mm3 (150-450); RBC Distribution Width SD 46.6 fl (35.1-43.9); Red Blood Count 3.71 M/mm3 (4.6-6.2); White Blood Count 8.2 K/mm3 (4.4-11.0)
[2024-05-08 11:28] LABS: ALB/GLOB Ratio 0.9 RATIO (0.9-2.4); AST(SGOT) 14 U/L (15-37); Alanine Aminotransfer ALT/SGPT 14 U/L (16-61); Albumin, Serum 3.4 g/dL (3.2-5.0); Alkaline Phosphatase 69 U/L (45-117); Anion Gap 7 (5-15); BUN 16 mg/dL (7-18); BUN/Creat Ratio 16.8 RATIO (10-20); Calcium,Total 9.3 mg/dL (8.5-10.1); Chloride 108 mmol/L (98-107); Cholesterol 183 mg/dL (200); Creatinine, Serum 0.95 mg/dL (0.70-1.30); EST Glomerular Filtration Rate 84 mL/min (>60); Est Glom Filt Rate - Afr Amer 101 mL/min (>60); Globulin 3.8 g/dL (2.2-4.2); Glucose 86 mg/dL (74-106); High Density Lipoprotein 74 mg/dL; Potassium 4.1 mmol/L (3.5-5.1); Protein, Total 7.2 g/dL (6.4-8.2); Sodium Level 139 mmol/L (136-145); Triglycerides 86 mg/dL; Very Low Density Lipoprotein 17 mg/dL (5-40)
== END | disposition home or self-care (01) ==
LOC: MTLAB 09:16
PROVIDERS: PCP Family Medicine; Referring Provider Family Medicine; Visit Provider Family Medicine
DX: M25.551 Pain in right hip (principal); M25.552 Pain in left hip; K76.0 Fatty (change of) liver, not elsewhere classified; I10 Essential (primary) hypertension
CPT/HCPCS: 36415; 73521; 80053; 80061; 85025

== ENCOUNTER → 2024-09-03 | Outpatient (CLI) | payer MEDICARE, SELFPAY | END | disposition home or self-care (01) | LOC: SL 12:37 | PROVIDERS: PCP Family Medicine; Referring Provider Family Medicine; Visit Provider Family Medicine | DX: G47.33 Obstructive sleep apnea (adult) (pediatric) (principal) | CPT/HCPCS: 95806 ==

== ENCOUNTER → 2024-10-20 | Outpatient (CLI) | payer MEDICARE, SELFPAY ==
[2024-10-20 15:51] LABS: Hematocrit 38.0 % (40-54); Hemoglobin 12.3 g/dL (13.0-16.5); Immature Granulocytes Count 0.020 X10^3/uL (0.0-0.0); Mean Corp Hgb Conc 32.4 g/dL (32-36); Mean Corpuscular Volume 90.5 fL (80-94); Mean Platelet Vol. 10.7 fl (6.2-12.0); NRBC Flagged by Analyzer 0 % (0-5); Platelet Count 305 K/mm3 (150-450); RBC Distribution Width CV 15.8 % (11.6-14.6); RBC Distribution Width SD 51.6 fl (35.1-43.9); Red Blood Count 4.20 M/mm3 (4.6-6.2); White Blood Count 7.6 K/mm3 (4.4-11.0)
[2024-10-20 16:58] LABS: AST(SGOT) 21 U/L (<=37); Alanine Aminotransfer ALT/SGPT 15 U/L (<=46); Albumin, Serum 4.6 g/dL (3.4-4.8); Alkaline Phosphatase 71 U/L (40-129); Anion Gap 13 (5-15); BUN 12 mg/dL (4-19); BUN/Creat Ratio 10.8 RATIO (10-20); Calcium,Total 9.6 mg/dL (7.6-11.0); Carbon Dioxide 22.3 mmol/L (21.0-32.0); Chloride 101 mmol/L (98-108); Globulin 3.1 g/dL (2.2-4.2); Glucose 75 mg/dL (70-99); Potassium 5.8 mmol/L (3.3-5.1)
[2024-10-20 17:01] LABS: PSA,Total - Annual Screen 0.53 ng/mL (0.02-4.00)
== END | disposition home or self-care (01) ==
PROVIDERS: PCP Family Medicine; Visit Provider Family Medicine
DX: K76.0 Fatty (change of) liver, not elsewhere classified (principal); I10 Essential (primary) hypertension; N40.0 Benign prostatic hyperplasia without lower urinary tract symptoms; Z12.5 Encounter for screening for malignant neoplasm of prostate
CPT/HCPCS: 36415; 80053; 84153; 85025; G0103

== ENCOUNTER 2024-10-28 12:30 | Outpatient (RCR) | payer MEDICARE, SELFPAY ==
--- NOTE | 2024-05-14 17:03 | HP.PTEVAL ---
Patient's Visit Information Visit Information Visit Information: RITCHIE ECHEVERRIA is a 69 year old M referred to Physical Therapy by Dr. Valeria Parkinson MD with a diagnosis of BILATERAL HIP PAIN. Date of Evaluation: 05/14/24 Physical Therapist: Morales De Santiago, PT, Cert MDT, OCS Visit Plan Frequency: 1-2x /Week Plan: PT INTERVENTIONS MODALITIES , MANUAL THERAPY IT BAND/HIP FLEXOR (STICK), STRENGTHENING QUADS/HAMS/HIP,CORE STRENGTHENING AND FLEXABILITY Subjective Subjective: This 69 y/o male presents to physical therapy with with bilateral hip pain right worse left. Patient has had many years but last 10 weeks pain has worse and past 3 weeks really bad. Seen DR recommended PT and had x-rays mild DJD. Prescribed celebrex. Pain located lateral to groin right and left . Aggravating squatting ,kneeling ,stairs ,extended walking/Standing . Alleviating factors sitting. Pain affects sleeps . Denies paresthesia/tingling. Coughing /sneezing-. No orthopedic consult. No injections. Patient condition affects QOL and function/ housework. SOCIAL: VOCATION: retired Pain Bilateral Hip: Pain Intensity (Out of 10): 9 Pain Intensity Range: 10 Objective Objective: POSTURE: mild forward posture NEURO: denies paresthesia/tingling ,reflexes L3-4,L4-5,L5-S1 1/3 PALAPTION: TTP greater trochanter ,IT band ,hip flexor GAIT: reciprocal pattern antalgic gait left right side PROM:right Hip flexion 100 flexion pain ,hip IR 10 degrees pain in right groin ,hip abduction 35 pain MMT: quads /hamstrings 4/5 ( peak force) hip flexion right 18.2 ,left 29.9,hip abd 10.7,ankle 4/5 FLEXABILITY: hamstrings min/mod tight ,piriformis min right LUMBAR ROM: flexion min loss ,extension min loss,side glides min loss Special Tests L/S Slump test left side: Negative L/S Slump test right side: Negative L/S Left Straight Leg Raise: Negative L/S Right Straight Leg Raise: Negative Lumbar Standing: Flexion - Mechanical Response: No effect Lumbar Standing: Flexion - Symptoms During Testing: No effect Lumbar Standing: Flexion - Symptoms After Testing: No effect Lumbar Standing: Extension - Mechanical Response: No effect Lumbar Standing: Extension - Symptoms During Testing: No effect Lumbar Standing: Extension - Symptoms After Testing: No effect Lumbar Standing: Right Side Glides - Mechanical Response: No effect Lumbar Standing: Right Side [place] - Symptoms During Testing: No effect Lumbar Standing: Right Side [place] - Symptoms After Testing: No effect Lumbar Standing: Left Side [place] - Mechanical Response: No effect Lumbar Standing: Left Side [place] - Symptoms During Testing: No effect Lumbar Standing: Left Side [place] - Symptoms After Testing: No effect R Hip Scour: Negative R Hip CHARLIE - Intraarticular Pathology: Positive R Hip FADDIR - Labrum: Positive R Hip Impingement Provocation - Labrum: Positive R Hip Trendelenberg - Glut Medius: Positive Balance/Special Test Scores Lower Extremity Functional Score: 30 Goals Goal 1:: Patient to be I with HEP for hip Goal Time Frame: 4-6 Weeks Goal 2:: Patient normalize gait pattern Goal Time Frame: 4-6 Weeks Goal 3:: Patient to demonstrate 50% improvement with less pain and improved function Goal Time Frame: 4-6 Weeks Goal 4:: Patient to peak force hip by 5-10 # to improve function with gait Goal Time Frame: 4-6 Weeks Goal 5:: Patient to improve LFES score by 5 points to improve function and QOL Rehabilitation Potential Physical Therapy Diagnosis: This patient has hip pain worse right > left with pain with motion ,TTP lateral hip ,weakness hip impairs walking and stranding and housework tasks thus benefit from skilled PT Rehabilitation Potential: Good Anticipated Interventions Patient/Client Instruction: Educate patient on: Condition and Plan of Care For the Purpose of:: To decrease pain, To increase ROM, To improve muscle performance and motor function, To increase tolerance to activity/condition/position, To improve ability of physical actions for home/community/work/leisure, To improve gait and locomotor functions, To improve health of tissue, To decrease soft tissue restriction, To increase flexibility/ROM, To reduce risk of recurrence, To prevent re-injury and To improve tolerance to ADL's Therapeutic Exercise to Include: Strength training, Endurance training, Postural training, Active ROM and Dynamic Lumbar Stabilization Comment: HIP For the Purpose of:: To decrease pain, To increase ROM, To improve muscle performance and motor function, To improve ability to perform ADL's, To increase tolerance to activity/condition/position, To improve ability of physical actions for home/community/work/leisure, To improve gait and locomotor functions, To improve health of tissue, To decrease soft tissue restriction, To increase flexibility/ROM and To improve endurance Manual Therapy Techniques to Include: Soft tissue mobilization Comment: STICK IT BAND For the Purpose of:: To decrease pain, To increase ROM, To improve muscle performance and motor function, To improve ability to perform ADL's, To increase tolerance to activity/condition/position, To improve ability of physical actions for home/community/work/leisure, To improve health of tissue, To decrease soft tissue restriction, To increase flexibility/ROM, To reduce risk of recurrence and To improve tolerance to ADL's TENS: Yes IF ES: Yes Cryotherapy (ice pack, ice massage): Yes Thermo therapy (hot pack): Yes Ultrasound (thermal/non thermal): Yes For the Purpose of:: To decrease pain, To improve nutrient delivery to tissue, To increase oxygenation perfusion, To improve health of tissue and To decrease soft tissue restriction Text: Thank you for the opportunity to evaluate your patient. For Medicare and Medicare HMO plans, please review the plan of care and approve it. It will need to be FAXED BACK to us at [phone] for Medicare purposes. For Medicare only, by signing this I certify the plan of care. Please let me know if there are questions or concerns regarding this plan of care. Physician Signature: Date:
--- NOTE | 2024-06-12 14:31 | HP.PTREVAL ---
Re-Evaluation Intro: Dr. Valeria Parkinson MD, It has been my pleasure to treat RITCHIE ECHEEVRRIA over the last 7 visits for BILATERAL HIP PAIN. Please see the progress note below for an update on the physical therapy plan of care! Subjective Subjective: Doing better ,doing alot better ascending/descending stairs Objective Objective/Function: Patient will benefit from skilled PT with progressing towards goals with increasing strength and decreasing thus goals appropriate POSTURE: mild forward posture NEURO: denies paresthesia/tingling ,reflexes L3-4,L4-5,L5-S1 1/3 PALAPTION: mild greater trochanter ,IT band ,hip flexor GAIT: reciprocal pattern mild forward posture PROM:right Hip flexion 110 flexion pain ,hip IR 10 degrees pain in right groin ,hip abduction 40 degrees MMT: quads /hamstrings 4/5 ( peak force) hip flexion right 37.5 ,left 29.9,hip abd 27.5,ankle 4/5 FLEXABILITY: hamstrings min/mod tight ,piriformis min right LUMBAR ROM: flexion min loss ,extension min loss,side glides min loss Plan Plan Plan: PT INTERVENTIONS MODALITIES, MANUAL THERAPY IT BAND/HIP FLEXOR (STICK), STRENGTHENING QUADS/HAMS/HIP,CORE STRENGTHENING AND FLEXABILITY Balance/Gait/Functional tests Balance/Special Test Scores Lower Extremity Functional Score: 30 Goals Goals Goal 1:: Patient to be I with HEP for hip Goal Time Frame: 4-6 Weeks Goal Progress: Progressing Goal 2:: Patient normalize gait pattern Goal Time Frame: 4-6 Weeks Goal Progress: Progressing Goal 3:: Patient to demonstrate 80% improvement with less pain and improved function( new goal) Goal Time Frame: 4-6 Weeks Goal Progress: Progressing Goal 4:: Patient to peak force hip by 5-10 # to improve function with gait ( new goal) Goal Time Frame: 4-6 Weeks Goal Progress: Progressing Goal 5:: Patient to improve LFES score by 5 points to improve function and QOL Anticipated Interventions Anticipated Interventions Patient/Client Instruction: Educate patient on: Condition and Plan of Care For the Purpose of:: To decrease pain, To increase ROM, To improve muscle performance and motor function, To increase tolerance to activity/condition/position, To improve ability of physical actions for home/community/work/leisure, To improve gait and locomotor functions, To improve health of tissue, To decrease soft tissue restriction, To increase flexibility/ROM, To reduce risk of recurrence, To prevent re-injury and To improve tolerance to ADL's Therapeutic Exercise to Include: Strength training, Endurance training, Postural training, Active ROM and Dynamic Lumbar Stabilization Comment: HIP For the Purpose of:: To decrease pain, To increase ROM, To improve muscle performance and motor function, To improve ability to perform ADL's, To increase tolerance to activity/condition/position, To improve ability of physical actions for home/community/work/leisure, To improve gait and locomotor functions, To improve health of tissue, To decrease soft tissue restriction, To increase flexibility/ROM and To improve endurance Manual Therapy Techniques to Include: Soft tissue mobilization Comment: STICK IT BAND For the Purpose of:: To decrease pain, To increase ROM, To improve muscle performance and motor function, To improve ability to perform ADL's, To increase tolerance to activity/condition/position, To improve ability of physical actions for home/community/work/leisure, To improve health of tissue, To decrease soft tissue restriction, To increase flexibility/ROM, To reduce risk of recurrence and To improve tolerance to ADL's TENS: Yes IF ES: Yes Cryotherapy (ice pack, ice massage): Yes Thermo therapy (hot pack): Yes Ultrasound (thermal/non thermal): Yes For the Purpose of:: To decrease pain, To improve nutrient delivery to tissue, To increase oxygenation perfusion, To improve health of tissue and To decrease soft tissue restriction Re-Evaluation Ending Re-evaluation ending: Please do not hesitate to contact me at [phone] by phone or if you have questions or concerns regarding this new plan of care! Sincerely, Morales De Santiago, PT, Cert MDT, OCS
--- NOTE | 2024-09-02 14:01 | HP.PTREVAL ---
Re-Evaluation Intro: Dr. Valeria Parkinson MD, It has been my pleasure to treat RITCHIE ECHEVERRIA over the last 19 visits for BILATERAL HIP PAIN. Please see the progress note below for an update on the physical therapy plan of care! Subjective Subjective: Pt. reports cleaning out his gutters and haivng increased R lateral and medial hip pain. Pt. did PT prior to this and is feeling better. Objective Objective/Function: ROM: R hip: flexion 100deg increase NW, abd 405deg increase NW, IR 30deg increase NW, ER 45deg increase NW. Pt. has increased groin pain with all R hip movements. MMT: R hip fleion 8# increase NW, abd 14# NE, ext 10#, ER 12#, IR 8#. GAIT: pt. has a general flexed posture. Pt. lacks hip extension with gait on R side, resulting in decreased L step length. He does flex fwrd to compensate for this. Pt. had been doing better, but have increased pain for the past few days after working out side. He reports that he is now back to where he started. He had been having relief with PT. I would suggest going back to some of the manual and stretching activities to calm his symptoms. Once calmed add back in the strengthening activities as tolerated. He had a little set back with his R hip. I would like to get him back to minimal pain. Plan Plan Plan: I would suggest going back to some of the manual and stretching activities to calm his symptoms. Once calmed add back in the strengthening activities as tolerated. x1 visits per week for 4 weeks. Balance/Gait/Functional tests Balance/Special Test Scores Lower Extremity Functional Score: 31 Goals Goals Goal 1:: Patient to be I with HEP for hip Goal Time Frame: 4-6 Weeks Goal Progress: Progressing Goal 2:: Patient normalize gait pattern Goal Time Frame: 4-6 Weeks Goal Progress: Progressing Goal 3:: Patient to demonstrate 80% improvement with less pain and improved function( new goal) Goal Time Frame: 4-6 Weeks Goal Progress: Progressing Goal 4:: Patient to peak force hip by 5-10 # to improve function with gait ( new goal) Goal Time Frame: 4-6 Weeks Goal Progress: Progressing Goal 5:: Patient to improve LFES score by 5 points to improve function and QOL Goal Progress: Progressing Anticipated Interventions Anticipated Interventions Patient/Client Instruction: Educate patient on: Condition and Plan of Care For the Purpose of:: To decrease pain, To increase ROM, To improve muscle performance and motor function, To increase tolerance to activity/condition/position, To improve ability of physical actions for home/community/work/leisure, To improve gait and locomotor functions, To improve health of tissue, To decrease soft tissue restriction, To increase flexibility/ROM, To reduce risk of recurrence, To prevent re-injury and To improve tolerance to ADL's Therapeutic Exercise to Include: Strength training, Endurance training, Postural training, Active ROM and Dynamic Lumbar Stabilization Comment: HIP For the Purpose of:: To decrease pain, To increase ROM, To improve muscle performance and motor function, To improve ability to perform ADL's, To increase tolerance to activity/condition/position, To improve ability of physical actions for home/community/work/leisure, To improve gait and locomotor functions, To improve health of tissue, To decrease soft tissue restriction, To increase flexibility/ROM and To improve endurance Manual Therapy Techniques to Include: Soft tissue mobilization Comment: STICK IT BAND For the Purpose of:: To decrease pain, To increase ROM, To improve muscle performance and motor function, To improve ability to perform ADL's, To increase tolerance to activity/condition/position, To improve ability of physical actions for home/community/work/leisure, To improve health of tissue, To decrease soft tissue restriction, To increase flexibility/ROM, To reduce risk of recurrence and To improve tolerance to ADL's TENS: Yes IF ES: Yes Cryotherapy (ice pack, ice massage): Yes Thermo therapy (hot pack): Yes Ultrasound (thermal/non thermal): Yes For the Purpose of:: To decrease pain, To improve nutrient delivery to tissue, To increase oxygenation perfusion, To improve health of tissue and To decrease soft tissue restriction Re-Evaluation Ending Re-evaluation ending: Please do not hesitate to contact me at [phone] by phone or if you have questions or concerns regarding this new plan of care! Sincerely, Matt Leyva DPT
--- NOTE | 2024-09-30 13:57 | HP.PTREVAL ---
Re-Evaluation Intro: Dr. Valeria Parkinson MD, It has been my pleasure to treat RITCHIE ECHEVERRIA over the last 24 visits for BILATERAL HIP PAIN. Please see the progress note below for an update on the physical therapy plan of care! Subjective Subjective: Patient states walking makes symptoms worse Symptoms worse om side Objective Objective/Function: Patient will benefit from skilled PT with progressing towards goals with increasing strength and decreasing thus goals appropriate POSTURE: mild forward posture NEURO: denies paresthesia/tingling ,reflexes L3-4,L4-5,L5-S1 1/3 PALAPTION: mild greater trochanter ,IT band ,hip flexor GAIT: reciprocal pattern mild forward posture antalgic gait PROM:right Hip flexion 110 flexion pain ,hip IR 10 degrees pain in right groin ,hip abduction 40 degrees MMT: quads /hamstrings 4/5 ( peak force) hip flexion right 42.9 ,left 48.9 ,hip abd 22.5 left ,right 21.8 ,ankle 4/5 FLEXABILITY: hamstrings min/mod tight ,piriformis min right LUMBAR ROM: flexion min loss ,extension mod loss,side glides min loss Plan Plan Plan: 1 visits per week for 4 weeks. PT INTERVENTIONS MODALITIES, MANUAL THERAPY IT BAND/HIP FLEXOR (STICK), STRENGTHENING QUADS/HAMS/HIP, CORE STRENGTHENING AND FLEXABILITY Balance/Gait/Functional tests Balance/Special Test Scores Lower Extremity Functional Score: 31 Goals Goals Goal 1:: Patient to be I with HEP for hip Goal Time Frame: 4-6 Weeks Goal Progress: Progressing Goal 2:: Patient normalize gait pattern Goal Time Frame: 4-6 Weeks Goal Progress: Progressing Goal 3:: Patient to demonstrate 80% improvement with less pain and improved function( new goal) Goal Time Frame: 4-6 Weeks Goal Progress: Progressing Goal 4:: Patient to peak force hip by 5-10 # to improve function with gait ( new goal) Goal Time Frame: 4-6 Weeks Goal Progress: Progressing Goal 5:: Patient to improve LFES score by 5 points to improve function and QOL Goal Progress: Progressing Anticipated Interventions Anticipated Interventions Patient/Client Instruction: Educate patient on: Condition and Plan of Care For the Purpose of:: To decrease pain, To increase ROM, To improve muscle performance and motor function, To increase tolerance to activity/condition/position, To improve ability of physical actions for home/community/work/leisure, To improve gait and locomotor functions, To improve health of tissue, To decrease soft tissue restriction, To increase flexibility/ROM, To reduce risk of recurrence, To prevent re-injury and To improve tolerance to ADL's Therapeutic Exercise to Include: Strength training, Endurance training, Postural training, Active ROM and Dynamic Lumbar Stabilization Comment: HIP For the Purpose of:: To decrease pain, To increase ROM, To improve muscle performance and motor function, To improve ability to perform ADL's, To increase tolerance to activity/condition/position, To improve ability of physical actions for home/community/work/leisure, To improve gait and locomotor functions, To improve health of tissue, To decrease soft tissue restriction, To increase flexibility/ROM and To improve endurance Manual Therapy Techniques to Include: Soft tissue mobilization Comment: STICK IT BAND For the Purpose of:: To decrease pain, To increase ROM, To improve muscle performance and motor function, To improve ability to perform ADL's, To increase tolerance to activity/condition/position, To improve ability of physical actions for home/community/work/leisure, To improve health of tissue, To decrease soft tissue restriction, To increase flexibility/ROM, To reduce risk of recurrence and To improve tolerance to ADL's TENS: Yes IF ES: Yes Cryotherapy (ice pack, ice massage): Yes Thermo therapy (hot pack): Yes Ultrasound (thermal/non thermal): Yes For the Purpose of:: To decrease pain, To improve nutrient delivery to tissue, To increase oxygenation perfusion, To improve health of tissue and To decrease soft tissue restriction Re-Evaluation Ending Re-evaluation ending: Please do not hesitate to contact me at [phone] by phone or if you have questions or concerns regarding this new plan of care! Sincerely, Morales De Santiago, PT, Cert MDT, OCS
--- NOTE | 2024-10-28 13:18 | HP.PTDCSUM ---
Discharge Summary D/C summary: It has been my pleasure to treat RITCHIE ECHEVERRIA referred by Dr. Valeria Parkinson MD, with the diagnosis of BILATERAL HIP PAIN for a total of 27 visit(s). Discharge Date: 10/28/24 Please see the following information for a summary of their discharge status. Subjective Subjective: Doing well ,no walking good Seen DR Pain Bilateral Hip: Pain Intensity (Out of 10): 0 Overall Improvement % Improvement: 100 Objective Objective/Function: POSTURE: mild forward posture NEURO: denies paresthesia/tingling ,reflexes L3-4,L4-5,L5-S1 1/3 PALAPTION: mild greater trochanter ,IT band ,hip flexor GAIT: reciprocal pattern mild forward posture antalgic gait PROM:right Hip flexion 150 flexion pain ,hip IR 20 degrees ,hip abduction 40 degrees MMT: quads /hamstrings 4/5 ( peak force) hip flexion right 42.9 ,left 48.9 ,hip abd 22.5 left ,right 21.8 ,ankle 4/5 FLEXABILITY: hamstrings min/mod tight ,piriformis min right LUMBAR ROM: flexion min loss ,extension mod loss,side glides min loss Goals Goal 1:: Patient to be I with HEP for hip Goal Progress: Goal Met Goal 2:: Patient normalize gait pattern Goal Progress: Goal Met Goal 3:: Patient to demonstrate 80% improvement with less pain and improved function( new goal) Goal Progress: Goal Met Goal 4:: Patient to peak force hip by 5-10 # to improve function with gait ( new goal) Goal Progress: Goal Met Goal 5:: Patient to improve LFES score by 5 points to improve function and QOL Goal Progress: Goal Met Plan Plan: D/C D/C Information Discharge Comments: hep d/c sentence: If there are questions or concerns regarding this patient's physical therapy, please feel free to call me at [phone]. Thank you for the referral of this patient. Sincerely, Morales De Santiago, PT, Cert MDT, OCS Balance/Gait/Functional tests Balance/Special Test Scores Lower Extremity Functional Score: 53 Improvement % Improvement: 100
== END 2024-10-28 19:00 | disposition home or self-care (01) ==
LOC: PT 12:30
PROVIDERS: PCP Family Medicine; Referring Provider Family Medicine; Visit Provider Family Medicine
DX: M25.551 Pain in right hip (principal); M25.552 Pain in left hip
CPT/HCPCS: 97110; 97140; 97162; 97530

== ENCOUNTER → 2024-10-30 | Outpatient (CLI) | payer MEDICARE, SELFPAY | END | disposition home or self-care (01) | LOC: SL 14:15 | PROVIDERS: PCP Family Medicine; Referring Provider Family Medicine; Visit Provider Family Medicine | DX: Z46.89 Encounter for fitting and adjustment of other specified devices (principal) ==

== ENCOUNTER 2025-04-15 23:22 | Emergency (ER) | payer MEDICARE, SELFPAY ==
[2025-04-15 23:22] VITALS: BP 164/98; PULSE 103; RESP 18; TEMP 36.5; O2SAT 80; O2SAT 93; BMI 29.0
[2025-04-15 23:41] VITALS: O2SAT 93
[2025-04-15] MEDS: Lidocaine 1% /Epi 1:100 (20ml) 20 ML Vial INFILT (23:41)
--- NOTE | 2025-04-15 23:57 | EKG12_ITS ---
Test Reason : DYSRHYTHMIA Blood Pressure : */* mmHG Vent. Rate : 93 BPM Atrial Rate : 93 BPM P-R Int : 210 ms QRS Dur : 78 ms QT Int : 352 ms P-R-T Axes : 55 56 33 degrees QTcB Int : 437 ms Sinus rhythm with 1st degree A-V block Otherwise normal ECG Confirmed by Kunal Pederson ([id number]), news assignment editor VANGIE REICH ([id number]) on 04/16/2025 8:25:05 AM Referred By: Confirmed By: Kunal Pederson
[2025-04-16] VITALS (9 sets, daily range): BP systolic 96–133; BP diastolic 59–93; PULSE 95–110; RESP 17–18; TEMP 36.9; O2SAT 92–95
[2025-04-16] MEDS: 0.9% Normal Saline (1000mL) 1,000 ML 1000 ML IV (00:07)
--- OUTSIDE RECORDS SUMMARY | 2025-04-16 00:08 | XMS RPT_ITS | CCD ---
Author Organization [facility] Care Team Providers Care T[employer] Servicer Name Role Phone Adarsh HAMLIN, Steven Cervantes Unavailable [phone] JAMESRUTHY Attending Unavailable JAMESRUTHY Primary Care Unavailable JAMESRUTHY Admitting Unavailable JAMESRUTHY Attending Unavailable JAMESRUTHY BERGMAN Primary Care Unavailable JAMESRUTHY BERGMAN Admitting Unavailable Dr. Valeria Parkinson Primary Care Provider Dr. Valeria Parkinson Other Provider [phone] Dr. Tony Dye Attending Provider Dr. Tony Dye Referring Provider Valeria Parkinson MD Primary Care Provider WEYGANDT, VANDANA S Attending Unavailable OBDULIO STEARNS Referring Unavailable WEYGANDT, VANDANA S Attending Unavailable OBDULIO STEARNS Referring Unavailable WEYGNYT, VANDANA S Attending Unavailable VALERIA PARKINSON Referring Unavailable WEYGANDT, VANDANA S Attending Unavailable OBDULIO STEARNS Referring Unavailable WEYGANDT, VANDANA S Attending Unavailable OBDULIO STEARNS Referring Unavailable WEYGANDT, VANDANA S Attending Unavailable Unavailable Primary Care Provider UnavailDr. Valeria Aiken MD Primary Care Provider Dr. Valeria Parkinson MD Attending Provider Dr. Valeria Parkinson MD Referring Provider Dany Echeverria Attending Provider Dr. Valeria Parkinson MD Primary Care Provider Dr. Valeria Parkinson MD Referring Provider [phone] Dr. Valeria Parkinson MD Attending Provider Valeria Parkinson MD [place] Primary Care Provider Migustavo, Valeria Attending Unavailable Miedel, Valeria Referring Unavailable Miedel, Valeria Primary Care Unavailable Miedel, Valeria Attending Unavailable Miedel, Valeria Primary Care Unavailable Miedel, Valeria Attending Unavailable Miedel, Valeria Referring Unavailable Miedel, [place] Primary Care Unavailable Miedel, Valeria Attending Unavailable Miedel, Valeria Referring Unavailable Miedel, [place] Primary Care Unavailable Dany Echeverria Attending Unavailable Miedel, Valeria Referring Unavailable Miedel, Valeria Primary Care Unavailable Okedel, Valeria Primary Care Unavailable Teodoro White Attending Unavailable Teodoro White Referring Unavailable Miedel, Valeria Attending Unavailable Miedel, Valeria Referring Unavailable Miedel, Valeria Primary Care Unavailable WEYGANDT, VANDANA S Attending Unavailable WEYGANDT, VANDANA S Referring Unavailable [facility], [facility] Primary Care Unavailabl e WEYGANDT, VANDANA S Attending Unavailable WEYGANDT, VANDANA S Referring Unavailable [facility], [facility] Primary Care Unavailabl e WEYGANDT, VANDANA S Attending Unavailable [facility], [facility] Primary Care Unavailabl e WEYGANDT, VANDANA S Referring Unavailable DIANE DE JESUS L Attending Unavailable LIZAROSALIODIANE L Attending Unavailable LIZA DIANE L Referring Unavailable WEYGANDT, VANDANA S Attending Unavailable [facility] Primary Care Unavailabl e WEYGANDT, VANDANA S Referring Unavailable Allergies Allergy Classification Reported Allergen(s) Allergy Type Date of Onset Reaction(s) Facility (20 sources) traMADol; Translations: [TRAMADOL] Drug Allergy 12-03-2020 Dizziness [facility] (9 sources) bee venom protein (honey bee) Allergy to substance 02-25-2023 Anaphylaxis [facility] (1 source) traMADol Drug Allergy 09-02-2024 [facility] (1 source) bee venom protein (honey bee) Drug allergy (disorder) 09-02-2024 [facility] Medications Current Medications Medication Drug Class(es) Dates Sig (Normalized) Sig (Original) acetaminophen 325 mg / HYDROcodone bitartrate 5 mg oral tablet (20 sources) Opioid Agonist Start: 09-13-2022 take 1-2 tablets by mouth twice daily as needed HYDROcodone-aceta minophen ([place]) 5-325 MG tablet Take 1-2 tablets by mouth 2 (two) times a day as needed. 09/13/2022 Active Start: 12-30-2016 End: 03-28-2017 Hydrocodone-Acetaminophen 1 TABLET tablet Discontinued 1 - 2 {tbl} PO EVERY 4 HOURS NEEDED as needed for Pain 8 0 December 30, 2016 12:00am March 28, 2017 2:11pm Start: 12-30-2016 End: 03-28-2017 take 1 tablet by mouth every four hours as needed Hydrocodone-Acetaminophen Discontinued 1 - 2 TABLET PO EVERY 4 HOURS NEEDED 8 December 29, 2016 11:00pm March 28, 2017 1:11pm Start: 01-12-2014 End: 01-27-2014 Hydrocodone-Acetaminophen 1 TABLET tablet Discontinued 1 {tbl} PO EVERY 6 HOURS NEEDED as needed for Pain January 12, 2014 12:00am January 27, 2014 1:46pm Start: 01-12-2014 End: 01-27-2014 take 1 tablet by mouth every six hours as needed Hydrocodone-Acetaminophen Discontinued 1 TABLET PO EVERY 6 HOURS NEEDED January 11, 2014 11:00pm January 27, 2014 12:46pm acetaminophen 325 mg / oxyCODONE hydrochloride 5 mg oral tablet (20 sources) Opioid Agonist Start: 12-03-2020 take 1 tablet by mouth every six hours as needed Oxycodone-Acetaminophen Active 1 TABLET PO EVERY 6 HOURS NEEDED 03 24December 03, 2020 Start: 01-27-2014 End: 03-28-2017 Oxycodone-Acetaminophen 1 TA BLET tablet Discontinued 1 - 2 {tbl} PO EVERY 6 HOURS NEEDED as needed for PAIN 90 0 January 27, 2014 12:00am March 28, 2017 2:11pm Start: 01-27-2014 End: 03-28-2017 take 1 tablet by mouth every six hours as needed Oxycodone-Acetaminophen Discontinued 1 - 2 TABLET PO EVERY 6 HOURS NEEDED 90 January 26, 2014 11:00pm March 28, 2017 1:11pm amLODIPine 5 mg oral tablet (13 sources) Dihydropyridine Calcium Channel Josh Start: 12-30-2016 take 5 mg by mouth once daily Amlodipine Active 5 MG PO DAILY December 30, 2016 12:00am onabotulinumtoxina 100 unt injection (19 sources) Acetylcholine Release Inhibitor Start: 12-31-2024 End: 12-31-2024 onabotulinumtoxinA (Botox) injection 155 Units Start: 12-31-2024 End: 12-31-2024 inject 155 [IU] by intramuscular injection once 155 Units, intramuscular, Once, On Sat12/31/24 at 1215, For 1 dose Start: 10-08-2024 End: 10-08-2024 onabotulinumtoxinA (Botox) i njection 155 Units Start: 10-08-2024 End: 10-08-2024 inject 155 [IU] by intramuscular injection once 155 Units, intramuscular, Once, On Sat10/08/24 at 1145, For 1 dose Start: 07-08-2024 End: 07-08-2024 onabotulinumtoxinA (Botox) i njection 155 Units Start: 07-08-2024 End: 07-08-2024 inject 155 [IU] by intramuscular injection once 155 Units, intramuscular, Once, On Sat07/08/24 at 1415, For 1 dose Start: 03-03-2024 End: 03-03-2024 onabotulinumtoxinA (Botox) i njection 155 Units Start: 03-03-2024 End: 03-03-2024 inject 155 [IU] by intramuscular injection once 155 Units, Intramuscular, Once, On Sat03/03/24 at 1330, For 1 dose, Charging context for this clinic-administered medication: Medically Necessary/Insurance onabotulinumtoxi nA (Botox) 200 unit injection Inject 200 Units into the muscle every 3 months. Active celecoxib 100 mg oral capsule (4 sources) Nonsteroidal Anti-inflammatory Drug Start: 07-09-2024 celecoxib (CeleBREX) 100 mg capsule 07/09/2024 Active cyclobenzaprine hydrochloride 10 mg oral tablet (20 sources) Muscle Relaxant Start: 12-03-2020 take 1 tablet by mouth at bedtime as needed for muscle spasms Cyclobenzaprine 10 MG tablet Active 10 mg PO AT BEDTIME NEEDED as needed for Muscle Spasm 20 0 December 03, 2020 11:06am [place] 0-Lyr-Vxq-Fish Oil (5 sources) Start: 09-02-2024 [place] 4-Kzk-Zry-Fish Oil (Fish Oil) 300-1,000 mg capsule Active 1 NMA PO daily September 02, 2024 12:00am DULoxetine 60 mg delayed release oral capsule (14 sources) Serotonin and Norepinephrine Reuptake Inhibitor Start: 11-24-2024 End: 12-09-2025 take 1 capsule by mouth once daily DULoxetine (Cymbalta) [address] capsule Indications: Intractable chronic migraine with aura with status migrainosus Take 1 capsule (60 mg) by mouth once daily. Do not crush or chew. 90 capsule 3 12/14/2024 12/09/2025 Active Start: 05-24-2023 End: 04-02-2024 DULoxetine (Cymbalta) [address] capsule Indications: Anxiety TAKE 1 CAPSULE DAILY 90 capsule 08/16/2023 04/02/2024 Discontinued [id number] 0.3 ml EPINEPHrine 1 mg/ml auto-injector (19 sources) alpha-Adrenergic Agonist, beta-Adrenergic Agonist, Catecholamine Start: 12-09-2021 Epinephrine (Epipen 2-Vincenzo) 0.3 mg/0.3 mL auto-injector Active 0.3 mg IM Q4H as needed for anaphylaxis 2 0 December 09, 2021 12:00am fluorouracil 50 mg/ml topical cream (4 sources) Nucleoside Metabolic Inhibitor Start: 03-12-2024 fluorouracil (Efudex) 5 % cream cream 03/12/2024 Active hydroCHLOROthiazide 25 mg oral tablet (20 sources) Thiazide Diuretic Start: 01-12-2014 take 1 tablet by mouth once daily Hydrochlorothiazide 25 MG tablet Active 25 mg PO DAILY January 12, 2014 12:00am losartan potassium 100 mg oral tablet (20 sources) Angiotensin 2 Receptor Josh Start: 03-28-2017 take 100 mg by mouth once daily Losartan Active 100 MG PO DAILY March 28, 2017 1:44pm Start: 09-15-2016 take 1 tablet by kristofer once daily Losartan 100 mg tablet Active 100 mg PO DAILY October 20, 2022 12:00am Start: 01-25-2014 End: 03-28-2017 take 1 tablet by mouth once daily Losartan 25 MG tablet Discontinued 25 mg PO DAILY January 25, 2014 12:00am March 28, 2017 1:45pm Magnesium (5 sources) Start: 09-02-2024 take 1 tablet by mouth once daily Magnesium 200 mg tablet Active 200 mg PO daily September 02, 2024 12:00am 24 hr metoprolol succinate 50 mg extended release oral tablet (6 sources) beta-Adrenergic Josh Start: 04-20-2024 metoprolol succinate XL (Toprol-XL) 50 mg 24 hr tablet 04/20/2024 Active Multiple Vitamin (Multi Vitamin) tablet (5 sources) take 1 tablet by mouth once daily Multiple Vitamin (Multi Vitamin) tablet Take 1 tablet by mouth 1 (one) time each day at the same time. Active Multivitamin preparation (13 sources) Start: 03-28-2017 take 1 tablet by mouth once daily in the morning Multivitamin Active 1 TABLET PO EVERY MORNING March 28, 2017 1:46pm Start: 03-28-2017 take 1 tablet by kristofer th once daily in the morning Multivitamin Active 1 TABLET PO EVERY MORNING March 28, 2017 12:00am Start: 03-28-2017 take 1 tablet by kristofer th once daily in the morning Multivitamin Active 1 TABLET PO EVERY MORNING March 28, 2017 1:00am nattokinase 100 mg oral capsule (5 sources) take 1 capsule by mouth in the morning Nattokinase 100 MG capsule Take 100 mg by mouth in the morning. Active [place]-3 Fatty Acids (Fish Oil Concentrate) 1,000 mg capsule (13 sources) Start: 03-28-2017 take 1 capsule by mouth once daily [place]-3 Fatty Acids (Fish Oil Concentrate) 1,000 mg capsule Active 1000 MG PO daily March 28, 2017 1:46pm Start: 03-28-2017 take 1 capsule by mo uth once daily [place]-3 Fatty Acids (Fish Oil Concentrate) 1,000 mg capsule Active 1000 MG PO daily March 28, 2017 12:00am Start: 03-28-2017 take 1 capsule by mo uth once daily [place]-3 Fatty Acids (Fish Oil Concentrate) 1,000 mg capsule Active 1000 MG PO daily March 28, 2017 1:00am pantoprazole 40 mg delayed release oral tablet (20 sources) Proton Pump Inhibitor Start: 08-28-2019 End: 09-27-2019 take 1 tablet by mouth twice daily Pantoprazole (Protonix) 20 mg tablet,delayed release (DR/EC) Discontinued 20 mg PO TWICE A DAY 60 30 0 August 28, 2019 12:00am September 26, 2019 12:00am September 27, 2019 12:02am Start: 12-30-2016 pantoprazole ( ProtoNix) 40 mg EC tablet 04/20/2024 Active predniSONE 20 mg oral tablet (10 sources) Start: 12-09-2021 take 20 mg by mouth twice daily Prednisone Active 20 MG PO TWICE A DAY December 09, 2021 12:00am primidone 50 mg oral tablet (12 sources) Anti-epileptic Agent Start: 11-24-2024 End: 02-23-2025 primidone (Mysoline) 50 mg tablet Indications: Tremor Take 3 tablets in the morning and 1 tablet in the afternoon 360 tablet 3 12/14/2024 Active Start: 10-17-2023 End: 10-11-2024 take 3 tablets by mouth once daily primidone (Mysoline) 50 mg tablet Take 3 tablets (150 mg) by mouth once daily. 10/17/2023 10/11/2024 Active rimegepant 75 mg disintegrating oral tablet (13 sources) Start: 10-30-2021 End: 05-02-2024 take 1 tablet by mouth once daily as needed, then take 1 tablet by mouth once daily as needed, then take 1 tablet by mouth every twenty-four hours as needed Rimegepant Sulfate (Nurtec) 75 MG tablet dispersible Indications: Chronic migraine without aura, intractable, without status migrainosus (CMS/HCC) Take 1 tablet by mouth Daily as needed (Take 1 tablet daily as needed for onset of migraine. Max 1 dose in 24 hours) 8 tablet 1 04/02/2024 05/02/2024 Active take 1 tablet by kristofer th every other day rimegepant (Nurtec ODT) 75 mg tablet,disintegrating Dissolve 1 tablet (75 mg) in the mouth every other day. Active ubrogepant 100 mg oral tablet (5 sources) Start: 09-10-2024 take 1 tablet by kristofer th once daily as needed, then take 1 tablet by mouth every two hours as needed, then take 2 tablets by mouth every twenty-four hours as needed ubrogepant (Ubrelvy) 100 mg tablet Indications: migraine Take 1 tablet (100 mg) by mouth once daily as needed (for migraine, may repeat dose in 2 hours if needed, no more than 2 doses in 24 hours). 16 tablet 11 12/12/2024 8:45 AM EDT 09/10/2024 Active Start: 07-08-2024 take 1 tablet by kristofer th once daily as needed, then take 1 tablet by mouth every two hours as needed, then take 2 tablets by mouth every twenty-four hours as needed ubrogepant (Ubrelvy) 100 mg tablet tablet Indications: migraine Take 1 tablet (100 mg) by mouth once daily as needed (for migraine, may repeat dose in 2 hours if needed, no more than 2 doses in 24 hours). 16 tablet 11 07/08/2024 Active vitamin e 100 unt oral capsule (5 sources) Start: 09-02-2024 take 1 capsule by mouth once daily Vitamin E (Dl, Acetate) 45 mg (100 unit) capsule Active 45 mg PO daily September 02, 2024 12:00am Completed/Discontinued Medications Medication Drug Class(es) Dates Sig (Normalized) Sig (Original) amoxicillin 500 mg oral tablet (2 sources) Penicillin-class Antibacterial Start: 09-15-2016 End: 09-25-2016 AMOXICILLIN 500 MG TABS Take one tab every 12 hours AMOXICILLIN [id number] Steven Altamirano PA-C amoxicillin 875 mg / clavulanate 125 mg oral tablet (20 sources) Penicillin-class Antibacterial Start: 06-29-2019 End: 08-28-2019 Amoxicillin-Pot Clavulanate 875-125 mg tablet Discontinued 1 {tbl} PO TWICE A DAY June 29, 2019 12:00am August 28, 2019 2:58pm Start: 06-29-2019 End: 08-28-2019 take 1 tablet by mouth twice daily Amoxicillin-Pot Clavulanate Discontinued 1 TABLET PO TWICE A DAY June 28, 2019 11:00pm August 28, 2019 1:58pm budesonide 3 mg delayed release oral capsule (2 sources) Corticosteroid Start: 09-15-2016 BUDESONIDE 3 M G CPEP BUDESONIDE [id number] Steven Altamirano PA-C dicyclomine hydrochloride 10 mg oral capsule (20 sources) Anticholinergic Start: 12-30-2016 End: 03-28-2017 take 2 capsules by mouth three times daily before mealtime Dicyclomine 10 MG capsule Discontinued 20 mg PO THREE TIMES DAILY BEFORE MEALS 20 0 December 30, 2016 12:00am March 28, 2017 2:12pm Start: 12-30-2016 End: 03-28-2017 take 20 mg by mouth three times daily before mealtime Dicyclomine Discontinued 20 MG PO THREE TIMES DAILY BEFORE MEALS December 29, 2016 11:00pm March 28, 2017 1:12pm Immune Glob-Plasma Fra Bovine (17 sources) Start: 12-30-2016 End: 03-28-2017 take 5 g by mouth twice daily Immune Glob-Plasma Fra Bovine Discontinued 5 GM PO TWICE A DAY December 30, 2016 9:39pm March 28, 2017 1:45pm Start: 12-30-2016 End: 03-28-2017 take 5 g by mouth twice daily Immune Glob-Plasma Fra B ovine Discontinued 5 GM PO TWICE A DAY December 29, 2016 11:00pm March 28, 2017 12:45pm Start: 12-30-2016 End: 03-28-2017 take 5 g by mouth twice daily Immune Glob-Plasma Fra B ovine Discontinued 5 GM PO TWICE A DAY December 30, 2016 12:00am March 28, 2017 1:45pm Immune Glob-Plasma Fra Bovine 5 GM powder in packet (5 sources) Start: 12-30-2016 End: 03-28-2017 take 5 g by mouth twice daily Immune Glob-Plasma Fra Bovine 5 GM powder in packet Discontinued 5 g PO TWICE A DAY December 30, 2016 12:00am March 28, 2017 1:45pm nadolol 40 mg oral tablet (2 sources) beta-Adrenergic Josh Start: 09-15-2016 NADOLOL 40 MG TABS as directed NADOLOL [id number] Steven Altamirano PA-C omeprazole 20 mg delayed release oral tablet (2 sources) Proton Pump Inhibitor Start: 09-15-2016 OMEPRAZOLE 20 MG TBEC as directed OMEPRAZOLE [id number] Steven Altamirano PA-C sertraline 100 mg oral tablet (2 sources) Serotonin Reuptake Inhibitor Start: 09-15-2016 SERTRALINE HCL 100 MG TABS as directed SERTRALINE HCL [id number] Steven Altamirano PA-C triamcinolone acetonide 40 mg/ml injectable suspension (2 sources) Corticosteroid Start: 02-27-2018 End: 02-27-2018 inject 20 mg by intramuscular injection once Kenalog (triamcinolone acetonide) 40 mg/mL suspension for injection Discontinued 20 MG IM ONCE 0.5 February 27, 2018 3:27pm February 27, 2018 4:50pm Problems Active Problems Problem Classification Problem Date Documented Da te Episodic/Chronic Gastritis and duodenitis (20 sources) Bile-induced gastritis; Translations: [Other gastritis without bleeding] 08-28-2019 Episodic Headache; including migraine (16 sources) Chronic intractable migraine without aura; Translations: [Chronic migraine without aura, intractable, without status migrainosus] 03-03-2024 Chronic Open wounds of extremities (20 sources) Dog bite of hand; Translations: [Open bite of right hand, initial encounter] 06-29-2019 Episodic Other ear and sense organ disorders (10 sources) Impacted cerumen; Translations: [Impacted cerumen, bilateral] 09-02-2024 Episodic Other liver diseases (1 source) Fatty (change of) liver, not elsewhere classified; Translations: [Fatty (change of) liver, not elsewhere classified] Onset: 10-26-2024 Chronic Other nervous system disorders (4 sources) Tremor; Translations: [Tremor, unspecified] 04-02-2024 Episodic Other nervous system disorders (2 sources) Tremor, unspecified; Translations: [Tremor, unspecified] Onset: 12-07-2024 Episodic Other non-traumatic joint disorders (20 sources) Shoulder pain; Translations: [Pain in right shoulder] 03-28-2017 Episodic Poisoning by nonmedicinal substances (19 sources) Allergic reaction to bee sting; Translations: [Toxic effect of venom of bees, accidental (unintentional), initial encounter] 12-17-2021 Episodic Rehabilitation care; fitting of prostheses; and adjustment of devices (1 source) Encounter for fitting and adjustment of other specified devices; Translations: [Encounter for fitting and adjustment of other specified devices] Onset: 11-04-2024 Chronic Residual codes; unclassified (1 source) Obstructive sleep apnea (adult) (pediatric); Translations: [Obstructive sleep apnea (adult) (pediatric)] Onset: 09-08-2024 Chronic Residual codes; unclassified (2 sources) Obstructive sleep apnea syndrome; Translations: [Obstructive sleep apnea (adult) (pediatric)] 12-08-2024 Chronic Spondylosis; intervertebral disc disorders; other back problems (20 sources) Cervical spondylosis; Translations: [Spondylosis without myelopathy or radiculopathy, cervical region] 03-28-2017 Chronic Spondylosis; intervertebral disc disorders; other back problems (20 sources) Sciatica; Translations: [Sciatica, right side] 12-03-2020 Episodic Syncope (9 sources) Syncope and collapse; Translations: [Syncope and collapse] 10-29-2022 Episodic Unclassified (2 sources) Chronic migraine with aura, intractable, with status migrainosus; Translations: [Chronic migraine with aura, intractable, with status migrainosus] Onset: 12-07-2024 Past or Other Problems Problem Classification Problem Date Documented Da te Episodic/Chronic Other non-traumatic joint disorders (1 source) Pain in right hip; Translations: [Pain in right hip] Onset: 05-28-2024 Episodic Other upper respiratory disease (2 sources) Pain in throat; Translations: [Acute pharyngitis, unspecified] Onset: 09-15-2016 09-15-2016 Episodic Unclassified (4 sources) Onset: 10-08-2024 10-08-2024 Unclassified (2 sources) Chronic migraine with aura, intractable, with status migrainosus; Translations: [Chronic migraine with aura, intractable, with status migrainosus] Onset: 12-07-2024 Results Test Name Value Interpretation Reference Range Facility Head/Face/Jaw Botulinum Inje ctionon 12-31-2024 CHIQUI Richmond 12/31/2024 12:00 PM Head/Face/Jaw Botulinum Injection Date/Time: 12/31/2024 11:43 AM Performed by: CHIQUI Richmond Authorized by: CHIQUI Richmond Consent: Consent obtained: Verbal (Verified patient has not received Botox from any other healthcare provider or 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 Alternatives discussed: No treatment [place] protocol: Relevant documents present and verified: Yes Site/side verified: Yes Immediately prior to procedure a time out was called: Yes Patient identity confirmed: Verbally with patient Procedure details: EMG used? No Electrical stimulation used? No Diluted by: Preservative free saline Total units available: 200 Right frontalis: 10 units divided amongst 2 site(s) Left frontalis: 10 units divided amongst 2 site(s) Right energy audit advisor: 5 units divided amongst 1 site(s) Left energy audit advisor: 5 units divided amongst 1 site(s) Procerus (midline): 5 units divided amongst 1 site(s) Right occipitalis: 15 units divided amongst 3 site(s) Left occipitalis: 15 units divided amongst 3 site(s) Right cervical paraspinal: 10 units divided amongst 2 site(s) Left cervical paraspinal: 10 units divided amongst 2 site(s) Right trapezius: 15 units divided amongst 3 site(s) Left trapezius: 15 units divided amongst 3 site(s) Right temporalis: 20 units divided amongst 4 site(s) Left temporalis: 20 units divided amongst 4 site(s) Total units injected: 155 Total units wasted: 45 Post-procedure details: Patient tolerance of procedure: Tolerated well, no immediate complications Comments: You had Botox injections for migraine prevention today: Please do not rub injection sites for 24 hours. Avoid pressure above eyebrows for 24 hours, including massage; use of helmets, headlamps, headbands, or goggles. If there is discomfort, ice for 20 minutes at a time for the first 24 hours. After 24 hours, you many use heat for discomfort (please limit to 15-20 minutes). Headaches may worsen, or you may experience neck stiffness. If this occurs use your usual headache medication or a mild anti inflammatory such as Advil or Aleve. Please call if you have difficulty swallowing. [facility] Work Phone: [facility] Work Phone: PT D/C Summary (1)on 025 PT D/C Summary (1) [facility] Physical Therapy Health[address] [place] [address] / REHABILITATION SERVICES DISCHARGE SUMMARY MR#: [id number] Acct: [id number] Name: BIMAL ECHEVERRIA Rep #: [id number] : [id number] From: [facility] De Santiago PT, Cert. T, [facility] Referring Dr.: Dr. Valeria Parkinson MD Status: RE G RCR Insurance: [facility] SELF PAY INSURANCE Discharge Summary D/C summary: It has been my pleasure to treat BIMAL ECHEVERRIA referred by Dr. Valeria Parkinson MD, with the diagnosis of BILATERAL HIP PAIN for a total of 27 visit(s). Discharge Date: 10/28/24 Please see the following information for a summary of their discharge status. Subjective Subjective: Doing well ,no walking good Seen DR Pain Bilateral Hip: Pain Intensity (Out of 10): 0 Overall Improvement % Improvement: 100 Objective Objective/Function: POSTURE: mild forward posture NEURO: denies paresthesia/tingling ,reflexes L3-4,L4-5,L5-S1 1/3 PALAPTION: mild greater trochanter ,IT band ,hip flexor GAIT: reciprocal pattern mild forward posture antalgic gait PROM:right Hip flexion 150 flexion pain ,hip IR 20 degrees ,hip abduction 40 degrees MMT: quads /hamstrings 4/5 ( peak force) hip flexion right 42.9 ,left 48.9 ,hip abd 22.5 left ,right 21.8 ,ankle 4/5 FLEXABILITY: hamstrings min/mod tight ,piriformis min right LUMBAR ROM: flexion min loss ,extension mod loss,side glides min loss Goals Goal 1:: Patient to be I with HEP for hip Goal Progress: Goal Met Goal 2:: Patient normalize gait pattern Goal Progress: Goal Met Goal 3:: Patient to demonstrate 80% improvement with less pain and improved function( new goal) Goal Progress: Goal Met Goal 4:: Patient to peak force hip by 5-10 # to improve function with gait ( new goal) Goal Progress: Goal Met Goal 5:: Patient to improve LFES score by 5 points to improve function and QOL Goal Progress: Goal Met Plan Plan: D/C D/C Information Discharge Comments: hep d/c sentence: If there are questions or concerns regarding this patient's physical therapy, please feel free to call me at [phone]. Thank you for the referral of this patient. Sincerely, Morales De Santiago, PT, Cert MDT, OCS Balance/Gait/Functional tests Balance/Special Test Scores Lower Extremity Functional Score: 53 Improvement % Improvement: 100 10/28/24 1522 CC: Dr. Valeria Parkinson MD DEBRA Signed Normal [facility] Absolute lymphocyte countOrd ered By: Valeria Parkinson on 10-20-2024 Lymphocytes Auto (Unsp spec) [#/Vol] 3.32 10*3/uL 0.83-4.51 [facility] Absolute neutrophil countOrd ered By: Valeria Parkinson on 10-20-2024 Neutrophils (Bld) [#/Vol] 3.2 10*3/uL 2.0-7.7 [facility] Anion gap in Serum or Plasma Ordered By: Valeria Parkinson on 10-20-2024 Anion gap [Moles/Vol] 13 mmol/L 5-15 [facility] Automated lymphocyte count a s percentage of total leukocytesOrdered By: Valeria Parkinson on 10-20-2024 Lymphocytes/100 WBC Auto (Unsp spec) 43.8 % High 19-41 [facility] BUN/creatinine ratioOrdered By: Valeria Parkinson on 10-20-2024 Urea nitrogen/Creatinine [Mass ratio] 10.8 mg/mg 10-20 [facility] Basophil percentageOrdered B y: Valeria Parkinson on 10-20-2024 Basophils/100 WBC (Bld) 1.1 % High 0-1 [facility] Bilirubin, totalOrdered By: Valeria Parkinson on 10-20-2024 Bilirubin [Mass/Vol] 0.19 mg/dL 0.00-1.30 [facility] CBC W/Diff, Automatedon Absolute Lymph 3.32 X10 3/uL Normal 0.83-4.51 [facility] Comment on above: Performed By: #### L 500.4050, L501.9910, L100.0100 #### [facility] [address] [place], [place], [id number] Absolute Neut 3.2 X10 3/uL Normal 2.0-7.7 [facility] Comment on above: Performed By: #### L 500.4050, L501.9910, L100.0100 #### [facility] [address] [place], [address] Basophils/100 WBC (Bld) 1.1 % High 0-1 [facility] Comment on above: Performed By: #### L 500.4050, L501.9910, L100.0100 #### [facility] [address] [place], [address] Eosinophils/100 WBC (Bld) 6.1 % High 0-5 [facility] Comment on above: Performed By: #### L 500.4050, L501.9910, L100.0100 #### [facility] [address] [place], [address] Erythrocyte distribution width (RBC) [Ratio] 15.8 % High 11.6-14.6 [facility] Comment on above: Performed By: #### L 500.4050, L501.9910, L100.0100 #### [facility] [address] [place], [address] Hematocrit (Bld) [Volume fraction] 38.0 % Low 40-54 [facility] Comment on above: Performed By: #### L 500.4050, L501.9910, L100.0100 #### [facility] [address] [place], [address] Hemoglobin (Bld) [Mass/Vol] 12.3 g/dL Low 13.0-16.5 [facility] Comment on above: Performed By: #### L 500.4050, L501.9910, L100.0100 #### [facility] [address] [place], [address] IG% 0.300 Normal 0.0-0.9 [facility] Comment on above: Result Comment: IG% - Immature Granulocytes (promyelocytes, myelocytes and metamyelocytes) > 1% indicates that a LEFT SHIFT is Present. Performed By: #### L 500.4050, L501.9910, L100.0100 #### [facility] [address] [place], [address] Lymphocytes/100 WBC (Bld) 43.8 % High 19-41 [facility] Comment on above: Performed By: #### L 500.4050, L501.9910, L100.0100 #### [facility] [address] [place], [address] MCH (RBC) [Entitic mass] 29.3 pg Normal 27.0-32.0 [facility] Comment on above: Performed By: #### L 500.4050, L501.9910, L100.0100 #### [facility] [address] [place], [address] MCHC (RBC) [Mass/Vol] 32.4 g/dL Normal 32-36 [facility] Comment on above: Performed By: #### L 500.4050, L501.9910, L100.0100 #### [facility] [address] [place], [address] MCV (RBC) [Entitic vol] 90.5 fL Normal 80-94 [facility] Comment on above: Performed By: #### L 500.4050, L501.9910, L100.0100 #### [facility] [address] [place], [address] Monocytes/100 WBC (Bld) 6.6 % Normal 0-10 [facility] Comment on above: Performed By: #### L 500.4050, L501.9910, L100.0100 #### [facility] [address] [place], [address] Neutrophils/100 WBC (Bld) 42.1 % Low 47-70 [facility] Comment on above: Performed By: #### L 500.4050, L501.9910, L100.0100 #### [facility] [address] [place], [address] Nucleated RBC (Bld) [#/Vol] 0 10*3/uL Normal 0-5 [facility] Comment on above: Performed By: #### L 500.4050, L501.9910, L100.0100 #### [facility] [address] [place], [address] Platelet mean volume (Bld) [Entitic vol] 10.7 fL Normal 6.2-12.0 [facility] Comment on above: Performed By: #### L 500.4050, L501.9910, L100.0100 #### [facility] [address] [place], [address] Platelets (Bld) [#/Vol] 305 10*3/uL Normal 150-450 [facility] Comment on above: Performed By: #### L 500.4050, L501.9910, L100.0100 #### [facility] [address] [place], [address] RBC (Bld) [#/Vol] 4.20 10*6/uL Low 4.6-6.2 [facility] Comment on above: Performed By: #### L 500.4050, L501.9910, L100.0100 #### [facility] [address] [place], [address] RDW SD 51.6 fl High 35.1-43.9 [facility] Comment on above: Performed By: #### L 500.4050, L501.9910, L100.0100 #### [facility] [address] [place], [address] WBC (Bld) [#/Vol] 7.6 10*3/uL Normal 4.4-11.0 [facility] Comment on above: Performed By: #### L 500.4050, L501.9910, L100.0100 #### [facility] [address] [place], [address] Carbon dioxide, total [Moles /volume] in Central venous bloodOrdered By: Valeria Parkinson on 10-20-2024 CO2 [Moles/Vol] 22.3 mmol/L 21.0-32.0 [facility] Chloride assayOrdered By: Arden Parkinson on 10-20-2024 Chloride [Moles/Vol] 101 mmol/L 98-108 [facility] Comprehensive Metabolic Prof ilon 10-20-2024 Albumin [Mass/Vol] 4.6 g/dL Normal 3.4-4.8 [facility] Comment on above: Performed By: #### L 500.4050, L501.9910, L100.0100 #### [facility] [address] [place], [address] Albumin/Globulin [Mass ratio] 1.5 {ratio} Normal 0.9-2.4 [facility] Comment on above: Performed By: #### L 500.4050, L501.9910, L100.0100 #### [facility] [address] [place], [address] ALK PHOS 71 U/L Normal 40-129 [facility] Comment on above: Performed By: #### L 500.4050, L501.9910, L100.0100 #### [facility] [address] [place], [address] ALT [Catalytic activity/Vol] 15 U/L Normal <=46 [facility] Comment on above: Performed By: #### L 500.4050, L501.9910, L100.0100 #### [facility] [address] [place], [address] AST [Catalytic activity/Vol] 21 U/L Normal <=37 [facility] Comment on above: Performed By: #### L 500.4050, L501.9910, L100.0100 #### [facility] [address] [place], [address] Bilirubin [Mass/Vol] 0.19 mg/dL Normal 0.00-1.30 [facility] Comment on above: Performed By: #### L 500.4050, L501.9910, L100.0100 #### [facility] [address] [place], [address] BUN/CRE 10.8 RATIO Normal 10-20 [facility] Comment on above: Performed By: #### L 500.4050, L501.9910, L100.0100 #### [facility] [address] [place], [address] Calcium [Mass/Vol] 9.6 mg/dL Normal 7.6-11.0 [facility] Comment on above: Performed By: #### L 500.4050, L501.9910, L100.0100 #### [facility] [address] [place], [address] Chloride [Moles/Vol] 101 mmol/L Normal 98-108 [facility] Comment on above: Performed By: #### L 500.4050, L501.9910, L100.0100 #### [facility] [address] [place], [address] CO2 [Moles/Vol] 22.3 mmol/L Normal 21.0-32.0 [facility] Comment on above: Performed By: #### L 500.4050, L501.9910, L100.0100 #### [facility] [address] [place], [address] Creatinine [Mass/Vol] 1.06 mg/dL Normal 0.70-1.20 [facility] Comment on above: Performed By: #### L 500.4050, L501.9910, L100.0100 #### [facility] [address] [place], [address] GAP 13 Normal 5-15 [facility] Comment on above: Performed By: #### L 500.4050, L501.9910, L100.0100 #### [facility] [address] [place], [address] GFR/1.73 sq M.predicted among non-blacks MDRD (S/P/Bld) [Vol rate/Area] 76 mL/min/{1.73_m2} Normal >60 [facility] Comment on above: Result Comment: mL/m in/1.73m2 CKD-EPI Creatinine Equation (2020) Performed By: #### L 500.4050, L501.9910, L100.0100 #### [facility] [address] [place], [address] Globulin (S) [Mass/Vol] 3.1 g/dL Normal 2.2-4.2 [facility] Comment on above: Performed By: #### L 500.4050, L501.9910, L100.0100 #### [facility] [address] [place], [address] Glucose [Mass/Vol] 75 mg/dL Normal 70-99 [facility] Comment on above: Performed By: #### L 500.4050, L501.9910, L100.0100 #### [facility] [address] [place], [address] Potassium [Moles/Vol] 5.8 mmol/L High 3.3-5.1 [facility] Comment on above: Performed By: #### L 500.4050, L501.9910, L100.0100 #### [facility] [address] [place], [address] Sodium [Moles/Vol] 136 mmol/L Normal 133-145 [facility] Comment on above: Performed By: #### L 500.4050, L501.9910, L100.0100 #### [facility] [address] [place], [address] T PROT 7.7 g/dL Normal 5.9-8.4 [facility] Comment on above: Performed By: #### L 500.4050, L501.9910, L100.0100 #### [facility] [address] [place], [address] Urea nitrogen [Mass/Vol] 12 mg/dL Normal 4-19 [facility] Comment on above: Performed By: #### L 500.4050, L501.9910, L100.0100 #### [facility] [address] [place], [address] Eosinophil percentageOrdered By: Valeria Parkinson on 10-20-2024 Eosinophils/100 WBC (Bld) 6.1 % High 0-5 [facility] Erythrocyte distribution wid th ratioOrdered By: Valeria Parkinson on 10-20-2024 Erythrocyte distribution width (RBC) [Ratio] 15.8 % High 11.6-14.6 [facility] Erythrocyte distribution wid th standard deviationOrdered By: Valeria Parkinson on 10-20-2024 Erythrocyte distribution width (RBC) [Ratio] 51.6 fl High 35.1-43.9 [facility] Glomerular filtration rate ( GFR) estimation/1.73 sq m using serum, plasma, or whole bOrdered By: Valeria Parkinson on 10-20-2024 GFR/1.73 sq M.predicted among non-blacks MDRD (S/P/Bld) [Vol rate/Area] 76 mL/min/{1.73_m2} >60 [facility] Comment on above: mL/min/1.73m2 CKD-EP I Creatinine Equation (2020) Hematocrit Auto (Bld) [Volum e fraction]Ordered By: Valeria Parkinson on 10-20-2024 Hematocrit (Bld) [Volume fraction] 38.0 % Low 40-54 [facility] Hemoglobin measurementOrdere d By: Valeria Parkinson on 10-20-2024 Hemoglobin (Bld) [Mass/Vol] 12.3 g/dL Low 13.0-16.5 [facility] Immature granulocytes/100 WB C Auto (Bld)Ordered By: Valeria Parkinson on 10-20-2024 Immature granulocytes/100 WBC (Bld) 0.300 % 0.0-0.9 [facility] Comment on above: IG% - Immature Granu locytes (promyelocytes, myelocytes and metamyelocytes) > 1% indicates that a LEFT SHIFT is Present. Laboratory - Chemistry and C hemistry - challengeOrdered By: Valeria Parkinson on 10-20-2024 AST [Catalytic activity/Vol] 21 U/L <38 [facility] MCV (mean corpuscular volume ) determinationOrdered By: Valeria Parkinson on 10-20-2024 MCV (RBC) [Entitic vol] 90.5 fL 80-94 [facility] Mean corpuscular hemoglobin (MCH) determinationOrdered By: Valeria Parkinson on 10-20-2024 MCH (RBC) [Entitic mass] 29.3 pg 27.0-32.0 [facility] Mean corpuscular hemoglobin concentration (MCHC) determinationOrdered By: Valeria Parkinson on 10-20-2024 MCHC (RBC) [Mass/Vol] 32.4 g/dL 32-36 [facility] Mean platelet volume determi nationOrdered By: Valeria Parkinson on 10-20-2024 Platelet mean volume (Bld) [Entitic vol] 10.7 fL 6.2-12.0 [facility] Monocyte percentageOrdered B y: Valeria Parkinson on 10-20-2024 Monocytes/100 WBC (Bld) 6.6 % 0-10 [facility] Neutrophil percentageOrdered By: Valeria Parkinson on 10-20-2024 Neutrophils/100 WBC (Bld) 42.1 % Low 47-70 [facility] Nucleated red blood cell per centageOrdered By: Valeria Parkinson on 10-20-2024 Nucleated RBC/100 WBC (Bld) [Ratio] 0 % 0-5 [facility] PSA,Total - Annual Screenon 10-20-2024 PSA,TOT SCREEN 0.53 ng/mL Normal 0.02-4.00 [facility] Comment on above: Result Comment: This test was performed using the [employer] tPSA method. Measured values of a patient??sample can vary depending on the testing procedure used. PSA values determined on patient samples by different testing procedures cannot be used interchangeably. If there is a change in PSA assays while monitoring therapy, sequential testing should be performed to confirm baseline values. Performed By: #### L 500.4050, L501.9910, L100.0100 #### [facility] [address] [place], [address] Platelet countOrdered By: Arden Parkinson on 10-20-2024 Platelets (Bld) [#/Vol] 305 10*3/uL 150-450 [facility] Potassium measurement (mass/ volume)Ordered By: Valeria Parkinson on 10-20-2024 Potassium (Unsp spec) [Mass/Vol] 5.8 mmol/L High 3.3-5.1 [facility] RBC Auto (Bld) [#/Vol]Ordere d By: Valeria Parkinson on 10-20-2024 RBC (Bld) [#/Vol] 4.20 10*6/uL Low 4.6-6.2 [facility] Serum creatinine measurement (mass/volume)Ordered By: Valeria Parkinson on 10-20-2024 Creatinine [Mass/Vol] 1.06 mg/dL 0.70-1.20 [facility] Serum globulin measurementOr dered By: Valeria Parkinson on 10-20-2024 Globulin (S) [Mass/Vol] 3.1 g/dL 2.2-4.2 [facility] Serum glucose measurement (m ass/volume)Ordered By: Valeria Parkinson on 10-20-2024 Glucose [Mass/Vol] 75 mg/dL 70-99 [facility] Serum or plasma alanine aguilar otransferase (ALT) measurementOrdered By: Valeria Parkinson on 10-20-2024 ALT [Catalytic activity/Vol] 15 U/L <47 [facility] Serum or plasma albumin is[place] urement (mass/volume)Ordered By: Valeria Parkinson on 10-20-2024 Albumin [Mass/Vol] 4.6 g/dL 3.4-4.8 [facility] Serum or plasma albumin/glob ulin mass ratioOrdered By: Valeria Parkinson on 10-20-2024 Albumin/Globulin [Mass ratio] 1.5 {ratio} 0.9-2.4 [facility] Serum or plasma alkaline [place] sphatase measurementOrdered By: Valeria Parkinson on 10-20-2024 ALP [Catalytic activity/Vol] 71 U/L 40-129 [facility] Serum or plasma calcium israel urement (mass/volume)Ordered By: Valeria Parkinson on 10-20-2024 Calcium [Mass/Vol] 9.6 mg/dL 7.6-11.0 [facility] Serum or plasma urea nitroge n measurement (mass/volume)Ordered By: Valeria Parkinson on 10-20-2024 Urea nitrogen [Mass/Vol] 12 mg/dL 4-19 [facility] Sodium levelOrdered By: Yuly Parkinson on 10-20-2024 Sodium [Moles/Vol] 136 mmol/L 133-145 [facility] Total proteinOrdered By: Amadou Parkinson on 10-20-2024 Protein [Mass/Vol] 7.7 g/dL 5.9-8.4 [facility] White blood cell (WBC) count Ordered By: Valeria Parkinson on 10-20-2024 WBC (Bld) [#/Vol] 7.6 10*3/uL 4.4-11.0 [facility] Botulinum Injection - Head/F joan/Jawon 10-08-2024 CHIQUI Richmond 10/08/2024 11:29 AM Botulinum Injection - Head/Face/Jaw Date/Time: 10/08/2024 11:26 AM Performed by: CHIQUI Richmond Authorized by: CHIQUI Richmond Consent: Consent obtained: Verbal (Verified patient has not received Botox from any other healthcare provider or 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 Alternatives discussed: No treatment [place] protocol: Relevant documents present and verified: Yes Site/side verified: Yes Immediately prior to procedure a time out was called: Yes Patient identity confirmed: Verbally with patient Procedure details: EMG used? No Electrical stimulation used? No Diluted by: Preservative free saline Total units available: 200 Right frontalis: 10 units divided amongst 2 site(s) Left frontalis: 10 units divided amongst 2 site(s) Right energy audit advisor: 5 units divided amongst 1 site(s) Left energy audit advisor: 5 units divided amongst 1 site(s) Procerus (midline): 5 units divided amongst 1 site(s) Right occipitalis: 15 units divided amongst 3 site(s) Left occipitalis: 15 units divided amongst 3 site(s) Right cervical paraspinal: 10 units divided amongst 2 site(s) Left cervical paraspinal: 10 units divided amongst 2 site(s) Right trapezius: 15 units divided amongst 3 site(s) Left trapezius: 15 units divided amongst 3 site(s) Right temporalis: 20 units divided amongst 4 site(s) Left temporalis: 20 units divided amongst 4 site(s) Total units injected: 155 Total units wasted: 45 Post-procedure details: Patient tolerance of procedure: Tolerated well, no immediate complications Comments: You had Botox injections for migraine prevention today: Please do not rub injection sites for 24 hours. Avoid pressure above eyebrows for 24 hours, including massage; use of helmets, headlamps, headbands, or goggles. If there is discomfort, ice for 20 minutes at a time for the first 24 hours. After 24 hours, you many use heat for discomfort (please limit to 15-20 minutes). Headaches may worsen, or you may experience neck stiffness. If this occurs use your usual headache medication or a mild anti inflammatory such as Advil or Aleve. Please call if you have difficulty swallowing. [facility] Work Phone: [facility] Work Phone: Re-Evaluation - PT (1)on Re-Evaluation - PT (1) [facility] [address] [place] [address] / REEVALUATION / MEDICARE RECERTIFICATION PHYSICAL THERAPY MR#: [id number] Acct: [id number] Name: BIMAL ECHEVERRIA Rep #: [id number] : [id number] 69 From: Morales De Santiago PT, Cert. T, OCS Referring Dr.: Dr. Valeria Parkinson MD Status:REG RCR Insurance: [facility] SELF PAY INSURANCE Re-Evaluation Intro: Dr. Valeria Parkinson MD, It has been my pleasure to treat BIMAL ECHEVERRIA over the last 24 visits for BILATERAL HIP PAIN. Please see the progress note below for an update on the physical therapy plan of care! Subjective Subjective: Patient states walking makes symptoms worse Symptoms worse om side Objective Objective/Function: Patient will benefit from skilled PT with progressing towards goals with increasing strength and decreasing thus goals appropriate POSTURE: mild forward posture NEURO: denies paresthesia/tingling ,reflexes L3-4,L4-5,L5-S1 1/3 PALAPTION: mild greater trochanter ,IT band ,hip flexor GAIT: reciprocal pattern mild forward posture antalgic gait PROM:right Hip flexion 110 flexion pain ,hip IR 10 degrees pain in right groin ,hip abduction 40 degrees MMT: quads /hamstrings 4/5 ( peak force) hip flexion right 42.9 ,left 48.9 ,hip abd 22.5 left ,right 21.8 ,ankle 4/5 FLEXABILITY: hamstrings min/mod tight ,piriformis min right LUMBAR ROM: flexion min loss ,extension mod loss,side glides min loss Plan Plan Plan: 1 visits per week for 4 weeks. PT INTERVENTIONS MODALITIES, MANUAL THERAPY IT BAND/HIP FLEXOR (STICK), STRENGTHENING QUADS/HAMS/HIP, CORE STRENGTHENING AND FLEXABILITY Balance/Gait/Functional tests Balance/Special Test Scores Lower Extremity Functional Score: 31 Goals Goals Goal 1:: Patient to be I with HEP for hip Goal Time Frame: 4-6 Weeks Goal Progress: Progressing Goal 2:: Patient normalize gait pattern Goal Time Frame: 4-6 Weeks Goal Progress: Progressing Goal 3:: Patient to demonstrate 80% improvement with less pain and improved function( new goal) Goal Time Frame: 4-6 Weeks Goal Progress: Progressing Goal 4:: Patient to peak force hip by 5-10 # to improve function with gait ( new goal) Goal Time Frame: 4-6 Weeks Goal Progress: Progressing Goal 5:: Patient to improve LFES score by 5 points to improve function and QOL Goal Progress: Progressing Anticipated Interventions Anticipated Interventions Patient/Client Instruction: Educate patient on: Condition and Plan of Care For the Purpose of:: To decrease pain, To increase ROM, To improve muscle performance and motor function, To increase tolerance to activity/condition/positi on, To improve ability of physical actions for home/community/work/leisu re, To improve gait and locomotor functions, To improve health of tissue, To decrease soft tissue restriction, To increase flexibility/ROM, To reduce risk of recurrence, To prevent re-injury and To improve tolerance to ADL's Therapeutic Exercise to Include: Strength training, Endurance training, Postural training, Active ROM and Dynamic Lumbar Stabilization Comment: HIP For the Purpose of:: To decrease pain, To increase ROM, To improve muscle performance and motor function, To improve ability to perform ADL's, To increase tolerance to activity/condition/positi on, To improve ability of physical actions for home/community/work/leisu re, To improve gait and locomotor functions, To improve health of tissue, To decrease soft tissue restriction, To increase flexibility/ROM and To improve endurance Manual Therapy Techniques to Include: Soft tissue mobilization Comment: STICK IT BAND For the Purpose of:: To decrease pain, To increase ROM, To improve muscle performance and motor function, To improve ability to perform ADL's, To increase tolerance to activity/condition/positi on, To improve ability of physical actions for home/community/work/leisu re, To improve health of tissue, To decrease soft tissue restriction, To increase flexibility/ROM, To reduce risk of recurrence and To improve tolerance to ADL's TENS: Yes IF ES: Yes Cryotherapy (ice pack, ice massage): Yes Thermo therapy (hot pack): Yes Ultrasound (thermal/non thermal): Yes For the Purpose of:: To decrease pain, To improve nutrient delivery to tissue, To increase oxygenation perfusion, To improve health of tissue and To decrease soft tissue restriction Re-Evaluation Ending Re-evaluation ending: Please do not hesitate to contact me at [phone] by phone or if you have questions or concerns regarding this new plan of care! Sincerely, Morales De Santiago, PT, Cert MDT, OCS 09/30/24 1631 CC: Dr. Valeria Parkinson MD DEBRA Signed For Medicare only, by signing this I certify the plan of care. ___ (more content not included)... Normal [facility] Re-Evaluation - PT (1)on Re-Evaluation - PT (1) [facility] [address] [place] [id number] [address] [place] [address] / REEVALUATION / MEDICARE RECERTIFICATION PHYSICAL THERAPY MR#: [id number] Acct: [id number] Name: BIMAL ECHEVERRIA Rep #: [id number] : 1955 69 From: Matt Leyva DPT Referring Dr.: Dr. Valeria Parkinson MD Status:REG R Insurance: [facility] SELF PAY INSURANCE Re-Evaluation Intro: Dr. Valeria Parkinson MD, It has been my pleasure to treat BIMAL ECHEVERRIA over the last 19 visits for BILATERAL HIP PAIN. Please see the progress note below for an update on the physical therapy plan of care! Subjective Subjective: Pt. reports cleaning out his gutters and haivng increased R lateral and medial hip pain. Pt. did PT prior to this and is feeling better. Objective Objective/Function: ROM: R hip: flexion 100deg increase NW, abd 405deg increase NW, IR 30deg increase NW, ER 45deg increase NW. Pt. has increased groin pain with all R hip movements. MMT: R hip fleion 8# increase NW, abd 14# NE, ext 10#, ER 12#, IR 8#. GAIT: pt. has a general flexed posture. Pt. lacks hip extension with gait on R side, resulting in decreased L step length. He does flex fwrd to compensate for this. Pt. had been doing better, but have increased pain for the past few days after working out side. He reports that he is now back to where he started. He had been having relief with PT. I would suggest going back to some of the manual and stretching activities to calm his symptoms. Once calmed add back in the strengthening activities as tolerated. He had a little set back with his R hip. I would like to get him back to minimal pain. Plan Plan Plan: I would suggest going back to some of the manual and stretching activities to calm his symptoms. Once calmed add back in the strengthening activities as tolerated. x1 visits per week for 4 weeks. Balance/Gait/Functional tests Balance/Special Test Scores Lower Extremity Functional Score: 31 Goals Goals Goal 1:: Patient to be I with HEP for hip Goal Time Frame: 4-6 Weeks Goal Progress: Progressing Goal 2:: Patient normalize gait pattern Goal Time Frame: 4-6 Weeks Goal Progress: Progressing Goal 3:: Patient to demonstrate 80% improvement with less pain and improved function( new goal) Goal Time Frame: 4-6 Weeks Goal Progress: Progressing Goal 4:: Patient to peak force hip by 5-10 # to improve function with gait ( new goal) Goal Time Frame: 4-6 Weeks Goal Progress: Progressing Goal 5:: Patient to improve LFES score by 5 points to improve function and QOL Goal Progress: Progressing Anticipated Interventions Anticipated Interventions Patient/Client Instruction: Educate patient on: Condition and Plan of Care For the Purpose of:: To decrease pain, To increase ROM, To improve muscle performance and motor function, To increase tolerance to activity/condition/positi on, To improve ability of physical act ions for home/community/work/leisu re, To improve gait and locomotor functions, To improve health of tissue, To decrease soft tissue restriction, To increase flexibility/ROM, To reduce risk of recurrence, To prevent re-injury and To improve tolerance to ADL's Therapeutic Exercise to Include: Strength training, Endurance training, Postural training, Active ROM and Dynamic Lumbar Stabilization Comment: HIP For the Purpose of:: To decrease pain, To increase ROM, To improve muscle performance and motor function, To improve ability to perform ADL's, To increase tolerance to activity/condition/positi on, To improve ability of physical actions for home/community/work/leisu re, To improve gait and locomotor functions, To improve health of tissue, To decrease soft tissue restriction, To increase flexibility/ROM and To improve endurance Manual Therapy Techniques to Include: Soft tissue mobilization Comment: STICK IT BAND For the Purpose of:: To decrease pain, To increase ROM, To improve muscle performance and motor function, To improve ability to perform ADL's, To increase tolerance to activity/condition/positi on, To improve ability of physical actions for home/community/work/leisu re, To improve health of tissue, To decrease soft tissue restriction, To increase flexibility/ROM, To reduce risk of recurrence and To improve tolerance to ADL's TENS: Yes IF ES: Yes Cryotherapy (ice pack, ice massage): Yes Thermo therapy (hot pack): Yes Ultrasound (thermal/non thermal): Yes For the Purpose of:: To decrease pain, To improve nutrient delivery to tissue, To increase oxygenation perfusion, To improve health of tissue and To decrease soft tissue restriction Re-Evaluation Ending Re-evaluation ending: Please do not hesitate to contact me at [phone] by phone or if you have questions or concerns regarding this new plan of care! Sincerely, Matt Leyva DPT (more content not included)... Normal [facility] Urgent Care Visit Reporton 0 09-02-2024 Urgent Care Visit Report [facility] [address], [address] [place] [address] OFFICE VISIT Date of Service: 09/02/24 MR#: [id number] Acct: [id number] Name: BIMAL ECHEVERRIA Rep #: [id number] : 1955 Provider: FRANCIA Francis Age/Sex: 69/M Location: [facility] Status: Signed Intake Vital Signs 02/25/23 09:02 09/02/24 10:00 Height 5 ft 10 in 5 ft 10 in Weight: 185 lb 6 oz BMI 26.6 BP 120/86 H Position Sitting Pulse 82 Temp 98.1 F Temp Source Oral Pulse Oximetry (%) 100 Oxygen Delivery Method room air Intake Visit Reasons: BILAT EAR PLUGGED Accompanied by: Self Allergies tramadol Allergy (Mild, Verified 09/02/24 10:04) flushed bee venom protein (honey bee) Allergy (Verified 09/02/24 10:04) Anaphylaxis Medications ???Medication ???Instructions ???Recorded ???Confirmed ???Type hydrochlorothiazide 25 mg tablet 25 mg PO DAILY 01/12/14 09/02/24 H istory pantoprazole 40 mg tablet,delayed 40 mg PO DAILY 12/30/16 09/02/24 History release cyclobenzaprine 10 mg tablet 10 mg PO QHS PRN PRN Muscle Spasm 12/03/20 09/02/24 Rx #20 TABLETS epinephrine 0.3 mg/0.3 mL 0.3 mg (0.3 mL) IM Q4H PRN 2 09/02/24 Rx injection, auto-injector (EpiPen anaphylaxis #2 ea 2-Vincenzo) losartan 100 mg tablet 100 mg PO DAILY 10/20/22 09/02/24 History magnesium 200 mg tablet 200 mg PO QDAY 09/02/24 09/02/24 H istory omega 7-dtg-smi-fish oil 300 1 cap PO QDAY 09/02/24 09/02/24 Hi story mg-1,000 mg capsule (Fish Oil) vitamin E (dl, acetate) 45 mg (100 45 mg PO QDAY 09/02/24 09/02/24 History unit) capsule Have you fallen in the past year?: No Nurse's Note: Patient has Bilateral ear plugged. Patient is getting new hearing aides and he needs his ears flushed. [facility] Medical History (Updated 09/02/24 @ 10:24 by Dany FELDMAN, PA) Impacted cerumen of both ears Wears hearing aid Marijuana use Arthritis Migraine headache Back pain Gastric reflux Non-smoker Leg fracture, right Diverticulosis Hypertension Surgical History S/P ORIF (open reduction internal fixation) fracture Status post lumbar surgery S/P cervical spinal fusion History of knee replacement procedure of left knee Family History Mother Brain cancer Social History Smoking Status: Never smoker alcohol intake: current details: 3-4 per week HPI HPI Details: BIMAL ECHEVERRIA, is a 69 M who presents to the office today for cerumen impaction both ears, requesting have removed. No complaints of fever, chills, sweats, lightheadedness/dizziness , nausea/vomiting. PMH NC for history of chronic each ear hard of hearing and therefore each ear hearing aids. No other complaints at this time. ROS Const Constitutional: No other (As above) Exam Const General: cooperative, healthy appearing and no acute distress Nutritional Appearance: average body habitus Orientation: alert and awake HENMT Head: normal to inspection Ears: hearing grossly normal bilaterally, external ears normal, TM's normal bilaterally (After each ear cerumen impaction removed; see procedure) and EAC's normal Nose: external nose normal Eyes General: appearance normal, both eyes and all related structures Neck Neck: normal visual inspection and no meningeal signs Chest Chest palpation inspection: normal inspection of the chest Resp Effort Inspection: normal respiratory effort and able to speak in complete sentences Cardio Rate: regular rate Pulses: radial pulses present GI Inspection: normal to inspection Skin General: no rashes or lesions noted Neuro General: patient alert, patient awake and patient oriented x3 Cognition: normal cognition Speech: speech normal Psych Appearance: grossly normal Mental Status: mental status grossly normal Mood: congruent mood Affect: normal affect Speech and Movement: speech and movement normal Attitude: cooperative Office Procedures Cerumen Removal Procedure BMS Cerumen Removal Procedure Procedure performed by: Dany Christensen Method of removal: loop and irrigation From which ear canal was the cerumen removed: bilateral Amount of Cerumen: large Patient tolerated procedure: well Complications: none Coding Level of Care Code Attention Brady Diagnoses Impacted cerumen of both ears H61.23 Comment [id number], [id number] Assessment and Plan Assessment and Plan (1) Impacted cerumen of both ears: Status: Acute Plan: See procedure above. Educated on appropriate ear hygiene care. Follow-up with now clinic on an as-needed basis only. Patient states acknowledging understanding all the above. This note was (more content not included)... Normal [facility] Head/Face/Jaw Botulinum Inje ctionon 07-08-2024 Diane De Jesus, TEST DRIVER-SAMPLE BODY BUILDER 07/08/2024 2:00 PM Head/Face/Jaw Botulinum Injection Date/Time: 07/08/2024 1:51 PM Performed by: CHIQUI Allred Authorized by: CHIQUI Allred Consent: Consent obtained: Verbal (Verified patient has not received Botox from any other healthcare provider or 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 Alternatives discussed: No treatment [place] protocol: Relevant documents present and verified: Yes Site/side verified: Yes Immediately prior to procedure a time out was called: Yes Patient identity confirmed: Verbally with patient Procedure details: EMG used? No Electrical stimulation used? No Diluted by: Preservative free saline Total units available: 200 Right frontalis: 10 units divided amongst 2 site(s) Left frontalis: 10 units divided amongst 2 site(s) Right energy audit advisor: 5 units divided amongst 1 site(s) Left energy audit advisor: 5 units divided amongst 1 site(s) Procerus (midline): 5 units divided amongst 1 site(s) Right occipitalis: 15 units divided amongst 3 site(s) Left occipitalis: 15 units divided amongst 3 site(s) Right cervical paraspinal: 10 units divided amongst 2 site(s) Left cervical paraspinal: 10 units divided amongst 2 site(s) Right trapezius: 15 units divided amongst 3 site(s) Left trapezius: 15 units divided amongst 3 site(s) Right temporalis: 20 units divided amongst 4 site(s) Left temporalis: 20 units divided amongst 4 site(s) Total units injected: 155 Total units wasted: 45 Post-procedure details: Patient tolerance of procedure: Tolerated well, no immediate complications Comments: You had Botox injections for migraine prevention today: Please do not rub injection sites for 24 hours. Avoid pressure above eyebrows for 24 hours, including massage; use of helmets, headlamps, headbands, or goggles. If there is discomfort, ice for 20 minutes at a time for the first 24 hours. After 24 hours, you many use heat for discomfort (please limit to 15-20 minutes). Headaches may worsen, or you may experience neck stiffness. If this occurs use your usual headache medication or a mild anti inflammatory such as Advil or Aleve. Please call if you have difficulty swallowing. [facility] Work Phone: [facility] Work Phone: Re-Evaluation - PT (1)on Re-Evaluation - PT (1) [facility] Physical Therapy [facility] [address] [place] [address] / REEVALUATION / MEDICARE RECERTIFICATION PHYSICAL THERAPY MR#: [id number] Acct: [id number] Name: BIMAL ECHEVERRIA Rep #: [id number] : 1955 69 From: Morales De Santiago PT, Cert. T, OCS Referring Dr.: Dr. Valeria Parkinson MD Status:REG RCR Insurance: [facility] SELF PAY INSURANCE Re-Evaluation Intro: Dr. Valeria Parkinson MD, It has been my pleasure to treat BIMAL ECHEVERRIA over the last 7 visits for BILATERAL HIP PAIN. Please see the progress note below for an update on the physical therapy plan of care! Subjective Subjective: Doing better ,doing alot better ascending/descending stairs Objective Objective/Function: Patient will benefit from skilled PT with progressing towards goals with increasing strength and decreasing thus goals appropriate POSTURE: mild forward posture NEURO: denies paresthesia/tingling ,reflexes L3-4,L4-5,L5-S1 1/3 PALAPTION: mild greater trochanter ,IT band ,hip flexor GAIT: reciprocal pattern mild forward posture PROM:right Hip flexion 110 flexion pain ,hip IR 10 degrees pain in right groin ,hip abduction 40 degrees MMT: quads /hamstrings 4/5 ( peak force) hip flexion right 37.5 ,left 29.9,hip abd 27.5,ankle 4/5 FLEXABILITY: hamstrings min/mod tight ,piriformis min right LUMBAR ROM: flexion min loss ,extension min loss,side glides min loss Plan Plan Plan: PT INTERVENTIONS MODALITIES, MANUAL THERAPY IT BAND/HIP FLEXOR (STICK), STRENGTHENING QUADS/HAMS/HIP,CORE STRENGTHENING AND FLEXABILITY Balance/Gait/Functional tests Balance/Special Test Scores Lower Extremity Functional Score: 30 Goals Goals Goal 1:: Patient to be I with HEP for hip Goal Time Frame: 4-6 Weeks Goal Progress: Progressing Goal 2:: Patient normalize gait pattern Goal Time Frame: 4-6 Weeks Goal Progress: Progressing Goal 3:: Patient to demonstrate 80% improvement with less pain and improved function( new goal) Goal Time Frame: 4-6 Weeks Goal Progress: Progressing Goal 4:: Patient to peak force hip by 5-10 # to improve function with gait ( new goal) Goal Time Frame: 4-6 Weeks Goal Progress: Progressing Goal 5:: Patient to improve LFES score by 5 points to improve function and QOL Anticipated Interventions Anticipated Interventions Patient/Client Instruction: Educate patient on: Condition and Plan of Care For the Purpose of:: To decrease pain, To increase ROM, To improve muscle performance and motor function, To increase tolerance to activity/condition/positi on, To improve ability of physical actions for home/community/work/leisu re, To improve gait and locomotor functions, To improve health of tissue, To decrease soft tissue restriction, To increase flexibility/ROM, To reduce risk of recurrence, To prevent re-injury and To improve tolerance to ADL's Therapeutic Exercise to Include: Strength training, Endurance training, Postural training, Active ROM and Dynamic Lumbar Stabilization Comment: HIP For the Purpose of:: To decrease pain, To increase ROM, To improve muscle performance and motor function, To improve ability to perform ADL's, To increase tolerance to activity/condition/positi on, To improve ability of physical actions for home/community/work/leisu re, To improve gait and locomotor functions, To improve health of tissue, To decrease soft tissue restriction, To increase flexibility/ROM and To improve endurance Manual Therapy Techniques to Include: Soft tissue mobilization Comment: STICK IT BAND For the Purpose of:: To decrease pain, To increase ROM, To improve muscle performance and motor function, To improve ability to perform ADL's, To increase tolerance to activity/condition/positi on, To improve ability of physical actions for home/community/work/leisu re, To improve health of tissue, To decrease soft tissue restriction, To increase flexibility/ROM, To reduce risk of recurrence and To improve tolerance to ADL's TENS: Yes IF ES: Yes Cryotherapy (ice pack, ice massage): Yes Thermo therapy (hot pack): Yes Ultrasound (thermal/non thermal): Yes For the Purpose of:: To decrease pain, To improve nutrient delivery to tissue, To increase oxygenation perfusion, To improve health of tissue and To decrease soft tissue restriction Re-Evaluation Ending Re-evaluation ending: Please do not hesitate to contact me at [phone] by phone or if you have questions or concerns regarding this new plan of care! Sincerely, Morales De Santiago PT, Sekou JACQUES, OCS 06/12/24 [id number] CC: Dr. Valeria Parkinson MD MORENOBilly Signed For Medicare only, by signing this I certify the plan of care. ___ Physicians Signature Date Normal [facility] Inital Evaluation (1) - PTon 05-14-2024 Inital Evaluation (1) - PT [facility] Physical Therapy [facility] [address] [place] [address] / REHABILITATION SERVICES INITIAL EVALUATION MR#: [id number] Acct: [id number] Name: BIMAL ECHEVERRIA Rep #: [id number] : 1955 69 From: Sekou Tinajero PT. T, OCS Referring Dr.: Dr. Valeria Parkinson MD Status: RE [facility] Insurance: [facility] SELF PAY INSURANCE Patient's Visit Information Visit Information Visit Information: BIMAL ECHEVERRIA is a 69 year old M referred to Physical Therapy by Dr. Valeria Parkinson MD with a diagnosis of BILATERAL HIP PAIN. Date of Evaluation: 05/14/24 Physical Therapist: Morales De Santiago PT, Cert T, OCS Visit Plan Frequency: 1-2x /Week Plan: PT INTERVENTIONS MODALITIES , MANUAL THERAPY IT BAND/HIP FLEXOR (STICK), STRENGTHENING QUADS/HAMS/HIP,CORE STRENGTHENING AND FLEXABILITY Subjective Subjective: This 69 y/o male presents to physical therapy with with bilateral hip pain right worse left. Patient has had many years but last 10 weeks pain has worse and past 3 weeks really bad. Seen DR craven PT and had x-rays mild DJD. Prescribed celebrex. Pain located lateral to groin right and left . Aggravating squatting ,kneeling ,stairs ,extended walking/Standing . Alleviating factors sitting. Pain affects sleeps . Denies paresthesia/tingling. Coughing /sneezing-. No orthopedic consult. No injections. Patient condition affects QOL and function/ housework. SOCIAL: VOCATION: retired Pain Bilateral Hip: Pain Intensity (Out of 10): 9 Pain Intensity Range: 10 Objective Objective: POSTURE: mild forward posture NEURO: denies paresthesia/tingling ,reflexes L3-4,L4-5,L5-S1 1/3 PALAPTION: TTP greater trochanter ,IT band ,hip flexor GAIT: reciprocal pattern antalgic gait left right side PROM:right Hip flexion 100 flexion pain ,hip IR 10 degrees pain in right groin ,hip abduction 35 pain MMT: quads /hamstrings 4/5 ( peak force) hip flexion right 18.2 ,left 29.9,hip abd 10.7,ankle 4/5 FLEXABILITY: hamstrings min/mod tight ,piriformis min right LUMBAR ROM: flexion min loss ,extension min loss,side glides min loss Special Tests L/S Slump test left side: Negative L/S Slump test right side: Negative L/S Left Straight Leg Raise: Negative L/S Right Straight Leg Raise: Negative Lumbar Standing: Flexion - Mechanical Response: No effect Lumbar Standing: Flexion - Symptoms During Testing: No effect Lumbar Standing: Flexion - Symptoms After Testing: No effect Lumbar Standing: Extension - Mechanical Response: No effect Lumbar Standing: Extension - Symptoms During Testing: No effect Lumbar Standing: Extension - Symptoms After Testing: No effect Lumbar Standing: Right Side Glides - Mechanical Response: No effect Lumbar Standing: Right Side [place] - Symptoms During Testing: No effect Lumbar Standing: Right Side [place] - Symptoms After Testing: No effect Lumbar Standing: Left Side [place] - Mechanical Response: No effect Lumbar Standing: Left Side [place] - Symptoms During Testing: No effect Lumbar Standing: Left Side [place] - Symptoms After Testing: No effect R Hip Scour: Negative R Hip CHARLIE - Intraarticular Pathology: Positive R Hip FADDIR - Labrum: Positive R Hip Impingement Provocation - Labrum: Positive R Hip Trendelenberg - Glut Medius: Positive Balance/Special Test Scores Lower Extremity Functional Score: 30 Goals Goal 1:: Patient to be I with HEP for hip Goal Time Frame: 4-6 Weeks Goal 2:: Patient normalize gait pattern Goal Time Frame: 4-6 Weeks Goal 3:: Patient to demonstrate 50% improvement with less pain and improved function Goal Time Frame: 4-6 Weeks Goal 4:: Patient to peak force hip by 5-10 # to improve function with gait Goal Time Frame: 4-6 Weeks Goal 5:: Patient to improve LFES score by 5 points to improve function and QOL Rehabilitation Potential Physical Therapy Diagnosis: This patient has hip pain worse right > left with pain with motion ,TTP lateral hip ,weakness hip impairs walking and stranding and housework tasks thus benefit from skilled PT Rehabilitation Potential: Good Anticipated Interventions Patient/Client Instruction: Educate patient on: Condition and Plan of Care For the Purpose of:: To decrease pain, To increase ROM, To improve muscle performance and motor function, To increase tolerance to activity/condition/positi on, To improve ability of physical actions for home/community/work/leisu re, To improve gait and locomotor functions, To improve health of tissue, To decrease soft tissue restriction, To increase flexibility/ROM, To reduce risk of recurrence, To prevent re-injury and To improve tolerance to ADL's Therapeutic Exercise to Include: Strength training, Endurance training, Postural training, Active ROM and Dynamic Lumbar Stabilization Comment: HIP For the Purpose of:: To decrease pain, To increase ROM, To im (more content not included)... Normal [facility] Absolute lymphocyte countOrd ered By: Valeria Parkinson on 05-08-2024 Lymphocytes Auto (Unsp spec) [#/Vol] 2.95 10*3/uL 0.83-4.51 [facility] Absolute neutrophil countOrd ered By: Valeria Parkinson on 05-08-2024 Neutrophils (Bld) [#/Vol] 4.1 10*3/uL 2.0-7.7 [facility] Albumin to globulin ratioOrd ered By: Valeria Parkinson on 05-08-2024 Albumin/Globulin [Mass ratio] 0.9 {ratio} 0.9-2.4 [facility] Automated lymphocyte count a s percentage of total leukocytesOrdered By: Valeria Parkinson on 05-08-2024 Lymphocytes/100 WBC Auto (Unsp spec) 36.0 % 19-41 [facility] Basophil percentageOrdered B y: Valeria Iggy on 05-08-2024 Basophils/100 WBC (Bld) 0.7 % 0-1 [facility] Bilirubin, totalOrdered By: Valeria Newmangustavo on 05-08-2024 Bilirubin [Mass/Vol] 0.30 mg/dL 0.20-1.00 [facility] Comment on above: For patients on eltr ombopag therapy, use of Dimension [place] TBIL is not recommended. Blood urea nitrogen (BUN)/cr eatinine ratioOrdered By: Valeria Parkinson on 05-08-2024 Urea nitrogen/Creatinine [Mass ratio] 16.8 mg/mg 10-20 [facility] CBC W/Diff, Automatedon 04-22 Absolute Lymph 2.95 X10 3/uL Normal 0.83-4.51 [facility] Comment on above: Performed By: #### L 500.4100, L500.4050, L100.0100 #### [facility] [address] [place], [address] Absolute Neut 4.1 X10 3/uL Normal 2.0-7.7 [facility] Comment on above: Performed By: #### L 500.4100, L500.4050, L100.0100 #### [facility] [address] [place], [address] Basophils/100 WBC (Bld) 0.7 % Normal 0-1 [facility] Comment on above: Performed By: #### L 500.4100, L500.4050, L100.0100 #### [facility] [address] [place], [address] Eosinophils/100 WBC (Bld) 4.3 % Normal 0-5 [facility] Comment on above: Performed By: #### L 500.4100, L500.4050, L100.0100 #### [facility] [address] [place], [address] Erythrocyte distribution width (RBC) [Ratio] 13.0 % Normal 11.6-14.6 [facility] Comment on above: Performed By: #### L 500.4100, L500.4050, L100.0100 #### [facility] [address] [place], [address] Hematocrit (Bld) [Volume fraction] 36.3 % Low 40-54 [facility] Comment on above: Performed By: #### L 500.4100, L500.4050, L100.0100 #### [facility] [address] [place], [address] Hemoglobin (Bld) [Mass/Vol] 12.0 g/dL Low 13.0-16.5 [facility] Comment on above: Performed By: #### L 500.4100, L500.4050, L100.0100 #### [facility] [address] [place], [address] IG% 0.400 Normal 0.0-0.9 [facility] Comment on above: Result Comment: IG% - Immature Granulocytes (promyelocytes, myelocytes and metamyelocytes) > 1% indicates that a LEFT SHIFT is Present. Performed By: #### L 500.4100, L500.4050, L100.0100 #### [facility] [address] [place], [address] Lymphocytes/100 WBC (Bld) 36.0 % Normal 19-41 [facility] Comment on above: Performed By: #### L 500.4100, L500.4050, L100.0100 #### [facility] [address] [place], [address] MCH (RBC) [Entitic mass] 32.3 pg High 27.0-32.0 [facility] Comment on above: Performed By: #### L 500.4100, L500.4050, L100.0100 #### [facility] [address] [place], [address] MCHC (RBC) [Mass/Vol] 33.1 g/dL Normal 32-36 [facility] Comment on above: Performed By: #### L 500.4100, L500.4050, L100.0100 #### [facility] [address] [place], [address] MCV (RBC) [Entitic vol] 97.8 fL High 80-94 [facility] Comment on above: Performed By: #### L 500.4100, L500.4050, L100.0100 #### [facility] [address] [place], [address] Monocytes/100 WBC (Bld) 8.5 % Normal 0-10 [facility] Comment on above: Performed By: #### L 500.4100, L500.4050, L100.0100 #### [facility] [address] [place], [address] Neutrophils/100 WBC (Bld) 50.1 % Normal 47-70 [facility] Comment on above: Performed By: #### L 500.4100, L500.4050, L100.0100 #### [facility] [address] [place], [address] Nucleated RBC (Bld) [#/Vol] 0 10*3/uL Normal 0-5 [facility] Comment on above: Performed By: #### L 500.4100, L500.4050, L100.0100 #### [facility] [address] [place], [address] Platelet mean volume (Bld) [Entitic vol] 10.6 fL Normal 6.2-12.0 [facility] Comment on above: Performed By: #### L 500.4100, L500.4050, L100.0100 #### [facility] [address] [place], [address] Platelets (Bld) [#/Vol] 316 10*3/uL Normal 150-450 [facility] Comment on above: Performed By: #### L 500.4100, L500.4050, L100.0100 #### [facility] [address] [place], [address] RBC (Bld) [#/Vol] 3.71 10*6/uL Low 4.6-6.2 [facility] Comment on above: Performed By: #### L 500.4100, L500.4050, L100.0100 #### [facility] [address] [place], [address] RDW SD 46.6 fl High 35.1-43.9 [facility] Comment on above: Performed By: #### L 500.4100, L500.4050, L100.0100 #### [facility] [address] [place], [address] WBC (Bld) [#/Vol] 8.2 10*3/uL Normal 4.4-11.0 [facility] Comment on above: Performed By: #### L 500.4100, L500.4050, L100.0100 #### [facility] [address] [place], [address] Carbon dioxide measurementOr dered By: Valeria Parkinson on 05-08-2024 CO2 [Moles/Vol] 24.0 mmol/L 21.0-32.0 [facility] Chloride measurementOrdered By: Valeria Parkinson on 05-08-2024 Chloride [Moles/Vol] 108 mmol/L High 98-107 [facility] Comprehensive Metabolic Prof ilon 05-08-2024 Albumin [Mass/Vol] 3.4 g/dL Normal 3.2-5.0 [facility] Comment on above: Performed By: #### L 500.4100, L500.4050, L100.0100 #### [facility] [address] [place], [address] Albumin/Globulin [Mass ratio] 0.9 {ratio} Normal 0.9-2.4 [facility] Comment on above: Performed By: #### L 500.4100, L500.4050, L100.0100 #### [facility] [address] [place], [address] ALK P 69 U/L Normal 45-117 [facility] Comment on above: Performed By: #### L 500.4100, L500.4050, L100.0100 #### [facility] [address] [place], [address] ALT [Catalytic activity/Vol] 14 U/L Low 16-61 [facility] Comment on above: Performed By: #### L 500.4100, L500.4050, L100.0100 #### [facility] [address] [place], [address] AST [Catalytic activity/Vol] 14 U/L Low 15-37 [facility] Comment on above: Performed By: #### L 500.4100, L500.4050, L100.0100 #### [facility] [address] [place], [address] Bilirubin [Mass/Vol] 0.30 mg/dL Normal 0.20-1.00 [facility] Comment on above: Result Comment: For patients on eltrombopag therapy, use of Dimension [place] TBIL is not recommended. Performed By: #### L 500.4100, L500.4050, L100.0100 #### [facility] [address] [place], [address] BUN/CRE 16.8 RATIO Normal 10-20 [facility] Comment on above: Performed By: #### L 500.4100, L500.4050, L100.0100 #### [facility] [address] [place], [address] CA,Total 9.3 mg/dL Normal 8.5-10.1 [facility] Comment on above: Performed By: #### L 500.4100, L500.4050, L100.0100 #### [facility] [address] [place], [address] Chloride [Moles/Vol] 108 mmol/L High 98-107 [facility] Comment on above: Performed By: #### L 500.4100, L500.4050, L100.0100 #### [facility] [address] [place], [address] CO2 [Moles/Vol] 24.0 mmol/L Normal 21.0-32.0 [facility] Comment on above: Performed By: #### L 500.4100, L500.4050, L100.0100 #### [facility] [address] [place], [address] Creatinine [Mass/Vol] 0.95 mg/dL Normal 0.70-1.30 [facility] Comment on above: Result Comment: The validity of the calculated GFR GFRAA in patients over 70 years has not been determined. Clinical correlation is essential. Performed By: #### L 500.4100, L500.4050, L100.0100 #### [facility] [address] [place], [address] EST GFR - AA 101 mL/min Normal >60 [facility] Comment on above: Result Comment: Afri can Jordanian GFR Calc Performed By: #### L 500.4100, L500.4050, L100.0100 #### [facility] [address] [place], [address] GAP 7 Normal 5-15 [facility] Comment on above: Performed By: #### L 500.4100, L500.4050, L100.0100 #### [facility] [address] [place], [address] GFR/1.73 sq M.predicted among non-blacks MDRD (S/P/Bld) [Vol rate/Area] 84 mL/min/{1.73_m2} Normal >60 [facility] Comment on above: Result Comment: Non- GFR Calc Performed By: #### L 500.4100, L500.4050, L100.0100 #### [facility] [address] [place], [address] Globulin (S) [Mass/Vol] 3.8 g/dL Normal 2.2-4.2 [facility] Comment on above: Performed By: #### L 500.4100, L500.4050, L100.0100 #### [facility] [address] [place], [address] Glucose [Mass/Vol] 86 mg/dL Normal 74-106 [facility] Comment on above: Performed By: #### L 500.4100, L500.4050, L100.0100 #### [facility] [address] [place], [address] Potassium [Moles/Vol] 4.1 mmol/L Normal 3.5-5.1 [facility] Comment on above: Performed By: #### L 500.4100, L500.4050, L100.0100 #### [facility] [address] [place], [address] Sodium [Moles/Vol] 139 mmol/L Normal 136-145 [facility] Comment on above: Performed By: #### L 500.4100, L500.4050, L100.0100 #### [facility] [address] [place], [address] T PROT 7.2 g/dL Normal 6.4-8.2 [facility] Comment on above: Performed By: #### L 500.4100, L500.4050, L100.0100 #### [facility] [address] [place], [address] Urea nitrogen [Mass/Vol] 16 mg/dL Normal 7-18 [facility] Comment on above: Performed By: #### L 500.4100, L500.4050, L100.0100 #### [facility] [address] [place], [address] Eosinophil percentageOrdered By: Valeria Parkinson on 05-08-2024 Eosinophils/100 WBC (Bld) 4.3 % 0-5 [facility] Erythrocyte distribution wid th ratioOrdered By: Valeria Parkinson on 05-08-2024 Erythrocyte distribution width (RBC) [Ratio] 13.0 % 11.6-14.6 [facility] Erythrocyte distribution wid th standard deviationOrdered By: Valeria Parkinson on 05-08-2024 Erythrocyte distribution width (RBC) [Ratio] 46.6 fl High 35.1-43.9 [facility] Glomerular filtration rate ( GFR) estimationOrdered By: Valeria Parkinson on 05-08-2024 GFR/1.73 sq M.predicted among non-blacks MDRD (S/P/Bld) [Vol rate/Area] 84 mL/min/{1.73_m2} >60 [facility] Comment on above: Non- GFR Calc Glucose measurementOrdered B y: Valeria Parkinson on 05-08-2024 Glucose [Mass/Vol] 86 mg/dL 74-106 [facility] Hematocrit Auto (Bld) [Volum e fraction]Ordered By: Valeria Parkinson on 05-08-2024 Hematocrit (Bld) [Volume fraction] 36.3 % Low 40-54 [facility] Hemoglobin measurementOrdere d By: Valeria Parkinson on 05-08-2024 Hemoglobin (Bld) [Mass/Vol] 12.0 g/dL Low 13.0-16.5 [facility] High density lipoprotein (HD L) measurementOrdered By: Valeria Parkinson on 05-08-2024 Cholesterol in HDL [Mass/Vol] 74 mg/dL >40 [facility] Comment on above: The drugs N-Acetylcy steine and Metamizole may falsely depress this assay. Reference Range HDL <40 mg/dL Low HDL Cholesterol HDL >or= 60 mg/dL High HDL Cholesterol Hips B/L min 2 views w/ Pelv elsa 05-08-2024 Hips B/L min 2 views w/ Pelvis [facility] [address] [place], [place] [address] Hips B/L min 2 views w/ Pelvis MR#: [id number] Acct: [id number] Name: BIMAL ECHEVERRIA Rep #: [id number] : 1955 M 69 From: Thao hines MD PCP: Dr. Valeria Parkinson MD Status: REG CLI Study: Hips B/L min 2 views w/ Pelvis Date of Exam: 0 05/08/24 Exam# [id number] Ordering Dr: Valeria Parkinson MD [id number] HISTORY: HIP PAIN. TECHNIQUE: XR Hips Bilateral with Pelvis when performed; 2 Views. COMPARISON: 08/10/2020. FINDINGS: OSSEOUS STRUCTURES: No acute displaced fracture identified. Note that overlapping bowel shadows may obscure osseous detail. Mineralization unremarkable. JOINT SPACES: No dislocation. Mild degenerative changes of both hips. RAD/Hips B/L min 2 views w/ Pelvis IMPRESSION: No acute displaced fracture or dislocation identified. Electronically Signed: Thao Walker MD at 9:28 EST , CC: Dr. 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 Laboratory - Chemistry and C hemistry - challengeOrdered By: Valeria Parkinson on 05-08-2024 AST [Catalytic activity/Vol] 14 U/L Low 15-37 [facility] Lipid Profileon 05-08-2024 Cholesterol [Mass/Vol] 183 mg/dL Normal 200 [facility] Comment on above: Result Comment: <200 mg/dL Desirable 200-240 mg/dL Borderline >240 mg/dL High Risk Performed By: #### L 500.4100, L500.4050, L100.0100 #### [facility] [address] [place], [address] Cholesterol in HDL [Mass/Vol] 74 mg/dL Normal [facility] Comment on above: Result Comment: The drugs N-Acetylcysteine and Metamizole may falsely depress this assay. Reference Range HDL <40 mg/dL Low HDL Cholesterol HDL >or= 60 mg/dL High HDL Cholesterol Performed By: #### L 500.4100, L500.4050, L100.0100 #### [facility] [address] [place], [address] Cholesterol in LDL [Mass/Vol] 92 mg/dL Normal 0-130 [facility] Comment on above: Performed By: #### L 500.4100, L500.4050, L100.0100 #### [facility] [address] [place], [address] Cholesterol in VLDL [Mass/Vol] 17 mg/dL Normal 5-40 [facility] Comment on above: Performed By: #### L 500.4100, L500.4050, L100.0100 #### [facility] [address] [place], [address] Triglyceride [Mass/Vol] 86 mg/dL Normal [facility] Comment on above: Result Comment: The drugs N-Acetylcysteine and Metamizole may falsely depress this assay. Serum Triglycerides Reference Interval Normal <150 mg/dL Borderline high 150 - 199 mg/dL High 200 - 499 mg/dL Very High > or = 500 mg/dL Performed By: #### L 500.4100, L500.4050, L100.0100 #### [facility] [address] [place], [address] Low density lipoprotein (LDL ) cholesterol measurementOrdered By: Valeria Parkinson on 05-08-2024 Cholesterol in LDL [Mass/Vol] 92 mg/dL 0-130 [facility] MCV (mean corpuscular volume ) determinationOrdered By: Valeria Parkinson on 05-08-2024 MCV (RBC) [Entitic vol] 97.8 fL High 80-94 [facility] Mean corpuscular hemoglobin (MCH) determinationOrdered By: Valeria Parkinson on 05-08-2024 MCH (RBC) [Entitic mass] 32.3 pg High 27.0-32.0 [facility] Mean corpuscular hemoglobin concentration (MCHC) determinationOrdered By: Valeria Parkinson on 05-08-2024 MCHC (RBC) [Mass/Vol] 33.1 g/dL 32-36 [facility] Mean platelet volume determi nationOrdered By: Valeria Parkinson on 05-08-2024 Platelet mean volume (Bld) [Entitic vol] 10.6 fL 6.2-12.0 [facility] Monocyte percentageOrdered B y: Valeria Parkinson on 05-08-2024 Monocytes/100 WBC (Bld) 8.5 % 0-10 [facility] Neutrophil percentageOrdered By: Valeria Parkinson on 05-08-2024 Neutrophils/100 WBC (Bld) 50.1 % 47-70 [facility] Nucleated red blood cell per centageOrdered By: Valeria Parkinson on 05-08-2024 Nucleated RBC/100 WBC (Bld) [Ratio] 0 % 0-5 [facility] Platelet countOrdered By: Arden Parkinson on 05-08-2024 Platelets (Bld) [#/Vol] 316 10*3/uL 150-450 [facility] Potassium measurementOrdered By: Valeria Parkinson on 05-08-2024 Potassium [Moles/Vol] 4.1 mmol/L 3.5-5.1 [facility] RBC Auto (Bld) [#/Vol]Ordere d By: Valeria Parkinson on 05-08-2024 RBC (Bld) [#/Vol] 3.71 10*6/uL Low 4.6-6.2 [facility] Serum anion gap measurementO rdered By: Valeria Parkinson on 05-08-2024 Anion gap [Moles/Vol] 7 mmol/L 5-15 [facility] Serum globulin measurementOr dered By: Valeria Parkinson on 05-08-2024 Globulin (S) [Mass/Vol] 3.8 g/dL 2.2-4.2 [facility] Serum or plasma alanine aguilar otransferase (ALT) measurementOrdered By: Valeria Parkinson on 05-08-2024 ALT [Catalytic activity/Vol] 14 U/L Low 16-61 [facility] Serum or plasma albumin israel urement (mass/volume)Ordered By: Valeria Parkinson on 05-08-2024 Albumin [Mass/Vol] 3.4 g/dL 3.2-5.0 [facility] Serum or plasma alkaline [place] sphatase measurementOrdered By: Valeria Parkinson on 05-08-2024 ALP [Catalytic activity/Vol] 69 U/L 45-117 [facility] Serum or plasma calcium israel urement (mass/volume)Ordered By: Valeria Parkinson on 05-08-2024 Calcium [Mass/Vol] 9.3 mg/dL 8.5-10.1 [facility] Serum or plasma cholesterol measurement (mass/volume)Ordered By: Valeria Parkinson on 05-08-2024 Cholesterol [Mass/Vol] 183 mg/dL <200 [facility] Comment on above: <200 mg/dL Desirable 200-240 mg/dL Borderline >240 mg/dL High Risk Serum or plasma creatinine m easurement (mass/volume)Ordered By: Valeria Parkinson on 05-08-2024 Creatinine [Mass/Vol] 0.95 mg/dL 0.70-1.30 [facility] Comment on above: The validity of the calculated GFR & GFRAA in patients over 70 years has not been determined. Clinical correlation is essential. Serum or plasma urea nitroge n measurement (mass/volume)Ordered By: Valeria Parkinson on 05-08-2024 Urea nitrogen [Mass/Vol] 16 mg/dL 7-18 [facility] Sodium levelOrdered By: Yuly Parkinson on 05-08-2024 Sodium [Moles/Vol] 139 mmol/L 136-145 [facility] Total proteinOrdered By: Amadou Parkinson on 05-08-2024 Protein [Mass/Vol] 7.2 g/dL 6.4-8.2 [facility] Triglycerides measurementOrd ered By: Valeria Parkinson on 05-08-2024 Triglyceride [Mass/Vol] 86 mg/dL <199 [facility] Comment on above: The drugs N-Acetylcy steine and Metamizole may falsely depress this assay.Serum Triglycerides Reference Interval Normal <150 mg/dL Borderline high 150 - 199 mg/dL High 200 - 499 mg/dL Very High > or = 500 mg/dL Very low density lipoprotein (VLDL) cholesterol measurementOrdered By: Valeria Parkinson on 05-08-2024 Very low density lipoprotein (VLDL) cholesterol measurement 17 mg/dL 5-40 [facility] White blood cell (WBC) count Ordered By: Valeria Parkinson on 05-08-2024 WBC (Bld) [#/Vol] 8.2 10*3/uL 4.4-11.0 [facility] PT D/C Summary (1)on 024 PT D/C Summary (1) [facility] Physical Therapy [facility] [address] [place] [address] / REHABILITATION SERVICES DISCHARGE SUMMARY MR#: [id number] Acct: [id number] Name: BIMAL ECHEVERRIA Rep #: [id number] : 1955 68 From: Eleanor OREILLY Referring Dr.: Dr. Teodoro White MD Status: RE G RCR Insurance: [employer]ANCE Discharge Summary D/C summary: It has been my pleasure to treat BIMAL ECHEVERRIA referred by Dr. Teodoro White MD, with the diagnosis of Pain in the L shoulder and R shoulder too for a total of 12 visit(s). Discharge Date: 12/04/23 Please see the following information for a summary of their discharge status. Subjective Subjective: Pt feels that the injections helped a lot. His ROM is better but the pain is still there. He has a sharp burning pain in both shoulders. He will make an appt with his Dr to look at possible MRI Pain L shoulder pain: Pain Intensity (Out of 10): 8 R shoulder pain: Pain Intensity (Out of 10): 7 Overall Improvement % Improvement: 60 Objective Objective/Function: R shoulder flex 10.4 and L 10.7 R shoulder ABD 8.4 and L 8.5 R shoulder ER 12.8 and L 12.1 R shoulder IR 12.6 and L 13.8 R shoulder flexion 131 and L 140 R shoulder abd 145 and L 146 R IR T12 and L T8 R ER 62 and L 64 Goals Goal 1:: I HEP Goal Progress: Goal Met Goal 2:: Increase B shoulder AROM (at the time of the eval: R shoulder flexion 102 and L 100 R shoulder abd 103 and L 93 R IR T12 and L T8 R ER 34 and L 31) Goal Progress: Goal Met Goal 3:: Increase B shoulder strength (at the time of eval: R shoulder flex 7.1 and L 5.4 R shoulder ABD 5.8 and L 4.3 R shoulder ER 11 and L 10.2 R shoulder IR 9.1 and L 8.9) Goal Progress: Goal Met Goal 4:: Decrease overall shoulder pain by 50% Goal Progress: Progressing Goal 5:: Be able to sit with upright posture in waiting room, at home, and during PT Goal Progress: Progressing Plan Plan: 2X/ week for 8 weeks for postural and scapular strength, PROM/AAROM to end range stretching, RC strength with HEP HEP: supine wand flexion D/C Information Discharge Comments: DC PT back to d/c sentence: If there are questions or concerns regarding this patient's physical therapy, please feel free to call me at [phone]. Thank you for the referral of this patient. Sincerely, Eleanor Stoner, MPT Balance/Gait/Functional tests Balance/Special Test Scores Quick DASH Score: 43.1800 Improvement % Improvement: 60 12/04/23 1359 CC: Dr. Teodoro White MD; Dr. Valeria Parkinson MD Signed Normal [facility] Absolute lymphocyte countOrd ered By: Nancy Brennan on 01-21-2023 Lymphocytes Auto (Unsp spec) [#/Vol] 2.27 10*3/uL 0.83-4.51 [facility] Basophil percentageOrdered B y: Nancy Brennan on 01-21-2023 Basophils/100 WBC (Bld) 0.6 % 0-1 [facility] Bilirubin [Mass/Vol] 0.70 mg/dL 0.20-1.00 [facility] Comment on above: For patients on eltr ombopag therapy, use of Dimension [place] TBIL is not recommended. Chloride [Moles/Vol] 100 mmol/L 98-107 [facility] Cholesterol [Mass/Vol] 154 mg/dL <200 [facility] Comment on above: <200 mg/dL Desirable 200-240 mg/dL Borderline >240 mg/dL High Risk Eosinophils/100 WBC (Bld) 0.8 % 0-5 [facility] Glucose [Mass/Vol] 61 mg/dL 74-106 [facility] Neutrophils (Bld) [#/Vol] 6.9 10*3/uL 2.0-7.7 [facility] Neutrophils/100 WBC (Bld) 66.7 % 47-70 [facility] Potassium [Moles/Vol] 4.4 mmol/L 3.5-5.1 [facility] Protein [Mass/Vol] 8.8 g/dL 6.4-8.2 [facility] Sodium [Moles/Vol] 135 mmol/L 136-145 [facility] Testosterone [Mass/Vol] 383.32 ng/dL [facility] Comment on above: CENTRAL 90% REFERENC E RANGES MALE AGE <50 197.44 - 669.58 ng/dL MALE AGE > or = 50 187.72 - 684.19 ng/dL FEMALE AGE <50 8.38 - 35.01 ng/dL FEMALE AGE > or = 50 <7.00 - 35.92 ng/dL Effective as of 11/15/20 Triglyceride [Mass/Vol] 83 mg/dL <199 [facility] Comment on above: The drugs N-Acetylcy steine and Metamizole may falsely depress this assay.Serum Triglycerides Reference Interval Normal <150 mg/dL Borderline high 150 - 199 mg/dL High 200 - 499 mg/dL Very High > or = 500 mg/dL WBC (Bld) [#/Vol] 10.4 10*3/uL 4.4-11.0 [facility] Blood erythrocytes count (nu mber/volume)Ordered By: Nancy Brennan on 01-21-2023 RBC (Bld) [#/Vol] 4.66 10*6/uL 4.6-6.2 [facility] Blood hemoglobin measurement (mass/volume)Ordered By: Nancy Brennan on 01-21-2023 Hemoglobin (Bld) [Mass/Vol] 14.8 g/dL 13.0-16.5 [facility] Blood lymphocytes/100 leukoc ytesOrdered By: Nancy Brennan on 01-21-2023 Lymphocytes/100 WBC (Bld) 21.9 % 19-41 [facility] Blood monocytes/100 leukocyt esOrdered By: Nancy Brennan on 01-21-2023 Monocytes/100 WBC (Bld) 9.4 % 0-10 [facility] Blood platelet mean volumeOr dered By: Nancy Brennan on 01-21-2023 Platelet mean volume (Bld) [Entitic vol] 10.9 fL 6.2-12.0 [facility] Determination of erythrocyte mean corpuscular volume (MCV)Ordered By: Nancy Brennan on 01-21-2023 MCV (RBC) [Entitic vol] 99.8 fL 80-94 [facility] Erythrocyte sedimentation ra teOrdered By: Nancy Brennan on 01-21-2023 ESR (Bld) [Velocity] 23 mm/h 0-20 [facility] Hematocrit Auto (Bld) [Volum e fraction]Ordered By: Nancy Brennan on 01-21-2023 Hematocrit (Bld) [Volume fraction] 46.5 % 40-54 [facility] - Chemistry and C hemistry - challengeOrdered By: Nancy Brennan on 01-21-2023 ALP [Catalytic activity/Vol] 79 U/L 45-117 [facility] ALT [Catalytic activity/Vol] 23 U/L 16-61 [facility] CO2 [Moles/Vol] 24.0 mmol/L 21.0-32.0 [facility] Cobalamin (Vitamin B12) [Mass/Vol] 1657 pg/mL 211-911 [facility] Globulin (S) [Mass/Vol] 4.9 g/dL 2.2-4.2 [facility] Lipase [Catalytic activity/Vol] 35 U/L 13-75 [facility] Comment on above: Please note:LIPASE r evised reference range effective 22. New Lipase methodology. Expected to produce lower values than the previous assay method. NEW Reference Range: 13 - 75 U/L Urea nitrogen/Creatinine [Mass ratio] 13.2 mg/mg 10-20 [facility] - Hematology and Cell countsOrdered By: Nancy Brennan on 01-21-2023 Erythrocyte distribution width (RBC) [Entitic vol] 48.4 fL 35.1-43.9 [facility] Erythrocyte distribution width (RBC) [Ratio] 13.1 % 11.6-14.6 [facility] Immature granulocytes/100 WBC (Bld) 0.600 % 0.0-0.9 [facility] Comment on above: IG% - Immature Granu locytes (promyelocytes, myelocytes and metamyelocytes) > 1% indicates that a LEFT SHIFT is Present. MCH (RBC) [Entitic mass] 31.8 pg 27.0-32.0 [facility] Nucleated RBC/100 WBC (Bld) [Ratio] 0 % 0-5 [facility] Laboratory - Microbiology an d Antimicrobial susceptibilityOrdered By: Nancy Brennan on 01-21-2023 SARS-CoV-2 (COVID-19) RNA SHERIN+probe Ql (Unsp spec) [facility] MCHC Auto (RBC) [Mass/Vol]Or dered By: Nancy Brennan on 01-21-2023 MCHC (RBC) [Mass/Vol] 31.8 g/dL 32-36 [facility] No Panel InformationOrdered By: Nancy Brennan on 01-21-2023 Estimated GFR (MDRD) Amer 67 mL/min >60 [facility] Comment on above: GFR Calc Estimated GFR (MDRD) Non-Af Amer 56 mL/min >60 [facility] Comment on above: Non- GFR Calc Thyroid Stimulating Hormone (TSH) 1.98 uIU/mL 0.358-3.74 [facility] Vitamin D 25-Hydroxy 38.9 ng/mL [facility] Comment on above: Vitamin D 25(OH) Sta tus Range Deficiency <20 ng/mL (50nmol/L) Insufficiency 20 - 30 ng/mL (50 - 75 nmol/L) Sufficiency 30 - 100 ng/mL (75 - 250 nmol/L) Toxicity >100 ng/mL (>250 nmol/L) Platelets bldOrdered By: Yogesh Brennan on 01-21-2023 Platelets (Bld) [#/Vol] 363 10*3/uL 150-450 [facility] Respiratory pathogens detect ion panel by molecular detection methodOrdered By: Nancy Brennan on 01-21-2023 Respiratory pathogens DNA and RNA panel SHERIN+probe (Resp) [facility] Serum heterophile antibody d etectionOrdered By: Nancy Brennan on 01-21-2023 Heterophile Ab Ql (S) Negative Negative [facility] Serum or plasma C reactive p rotein measurement (mass/volume)Ordered By: Nancy Brennan on 01-21-2023 CRP [Mass/Vol] 104.00 mg/L 0.0-3.0 [facility] Comment on above: C-Reactive Protein ( CRP) provides useful information for thediagnosis, therapy and monitoring of inflammatory processesand associated diseases. For the evaluation of Relative Riskfor Cardiovascular Disease, a High Sensitivity CRP (HSCRP)should be ordered. Serum or plasma albumin israel urement (mass/volume)Ordered By: Nancy Brennan on 01-21-2023 Albumin [Mass/Vol] 3.9 g/dL 3.2-5.0 [facility] Serum or plasma albumin/glob ulin mass ratioOrdered By: Nancy Brennan on 01-21-2023 Albumin/Globulin [Mass ratio] 0.8 {ratio} 0.9-2.4 [facility] Serum or plasma calcium israel urement (mass/volume)Ordered By: Nancy Brennan on 01-21-2023 Calcium [Mass/Vol] 9.8 mg/dL 8.5-10.1 [facility] Serum or plasma cholesterol in HDL measurement (mass/volume)Ordered By: Nancy Brennan on 01-21-2023 Cholesterol in HDL [Mass/Vol] 51 mg/dL >40 [facility] Comment on above: The drugs N-Acetylcy steine and Metamizole may falsely depress this assay. Reference Range HDL <40 mg/dL Low HDL Cholesterol HDL >or= 60 mg/dL High HDL Cholesterol Serum or plasma cholesterol in VLDL measurement (mass/volume)Ordered By: Nancy Brennan on 01-21-2023 Cholesterol in VLDL [Mass/Vol] 17 mg/dL 5-40 [facility] Serum or plasma creatinine m easurement (mass/volume)Ordered By: Nancy Brennan on 01-21-2023 Creatinine [Mass/Vol] 1.36 mg/dL 0.70-1.30 [facility] Comment on above: The validity of the calculated GFR & GFRAA in patients over 70 years has not been determined. Clinical correlation is essential. Serum or plasma low density lipoprotein (LDL) cholesterol measurement (mass/volume)Ordered By: Nancy Brennan on 01-21-2023 Cholesterol in LDL [Mass/Vol] 86 mg/dL 0-130 [facility] Serum or plasma urea nitroge n measurement (mass/volume)Ordered By: Nancy Brennan on 01-21-2023 Urea nitrogen [Mass/Vol] 18 mg/dL 7-18 [facility] Thin prep Papanicolaou smear with manual screeningOrdered By: Nancy Brennan on 01-21-2023 Thin prep Papanicolaou smear with manual screening 20 U/L 15-37 [facility] Thin prep Papanicolaou smear with manual screening 11 5-15 [facility] 24 hour urine alpha 2 globul in/total protein ratio by electrophoresis (mass fraction)Ordered By: Dr. Parkinson on 09-14-2022 Alpha 2 globulin Elph (24H U) [Mass fraction] 17.9 % . [facility] 24 hour urine beta globulin/ total protein ratio by electrophoresis (mass fraction)Ordered By: Dr. Parkinson on 09-14-2022 Beta globulin Elph (24H U) [Mass fraction] 30.0 % . [facility] 24 hour urine gamma globulin /total protein ratio by electrophoresis (mass fraction)Ordered By: Dr. Parkinson on 09-14-2022 Gamma globulin Elph (24H U) [Mass fraction] 23.5 % . [facility] Absolute lymphocyte countOrd ered By: Dr. Parkinson on 09-14-2022 Lymphocytes Auto (Unsp spec) [#/Vol] 2.37 10*3/uL 0.83-4.51 [facility] Basophil percentageOrdered B y: Dr. Parkinson on 09-14-2022 Basophils/100 WBC (Bld) 1.2 % 0-1 [facility] Bilirubin [Mass/Vol] 0.40 mg/dL 0.20-1.00 [facility] Comment on above: For patients on eltr ombopag therapy, use of Dimension [place] TBIL is not recommended. Chloride [Moles/Vol] 105 mmol/L 98-107 [facility] Eosinophils/100 WBC (Bld) 2.9 % 0-5 [facility] Glucose [Mass/Vol] 106 mg/dL 74-106 [facility] Comment on above: Fasting Glucose resu lt from 100 to 125 mg/dL suggests IMPAIRED HOMEOSTASIS per A.D.A. criteria. Neutrophils (Bld) [#/Vol] 3.6 10*3/uL 2.0-7.7 [facility] Neutrophils/100 WBC (Bld) 52.2 % 47-70 [facility] Potassium [Moles/Vol] 3.9 mmol/L 3.5-5.1 [facility] Protein [Mass/Vol] 8.2 g/dL 6.4-8.2 [facility] Sodium [Moles/Vol] 139 mmol/L 136-145 [facility] WBC (Bld) [#/Vol] 6.9 10*3/uL 4.4-11.0 [facility] Blood erythrocytes count (nu mber/volume)Ordered By: Dr. Parkinson on 09-14-2022 RBC (Bld) [#/Vol] 3.81 10*6/uL 4.6-6.2 [facility] Blood hemoglobin measurement (mass/volume)Ordered By: Dr. Parkinson on 09-14-2022 Hemoglobin (Bld) [Mass/Vol] 12.6 g/dL 13.0-16.5 [facility] Blood lymphocytes/100 leukoc ytesOrdered By: Dr. Parkinson on 09-14-2022 Lymphocytes/100 WBC (Bld) 34.3 % 19-41 [facility] Blood monocytes/100 leukocyt esOrdered By: Dr. Parkinson on 09-14-2022 Monocytes/100 WBC (Bld) 9.1 % 0-10 [facility] Blood platelet mean volumeOr dered By: Dr. Parkinson on 09-14-2022 Platelet mean volume (Bld) [Entitic vol] 10.6 fL 6.2-12.0 [facility] Determination of erythrocyte mean corpuscular volume (MCV)Ordered By: Dr. Parkinson on 09-14-2022 MCV (RBC) [Entitic vol] 100.8 fL 80-94 [facility] Hematocrit Auto (Bld) [Volum e fraction]Ordered By: Dr. Parkinson on 09-14-2022 Hematocrit (Bld) [Volume fraction] 38.4 % 40-54 [facility] - Chemistry and C hemistry - challengeOrdered By: Dr. Parkinson on 09-14-2022 Albumin [Mass/Vol] 4.0 g/dL 2.9-4.4 [facility] ALP [Catalytic activity/Vol] 62 U/L 45-117 [facility] ALT [Catalytic activity/Vol] 62 U/L 16-61 [facility] CO2 [Moles/Vol] 27.0 mmol/L 21.0-32.0 [facility] Globulin (S) [Mass/Vol] 4.4 g/dL 2.2-4.2 [facility] Urea nitrogen/Creatinine [Mass ratio] 11.9 mg/mg 10-20 [facility] - Hematology and Cell countsOrdered By: Dr. Parkinson on 09-14-2022 Erythrocyte distribution width (RBC) [Entitic vol] 47.3 fL 35.1-43.9 [facility] Erythrocyte distribution width (RBC) [Ratio] 12.6 % 11.6-14.6 [facility] Immature granulocytes/100 WBC (Bld) 0.300 % 0.0-0.9 [facility] Comment on above: IG% - Immature Granu locytes (promyelocytes, myelocytes and metamyelocytes) > 1% indicates that a LEFT SHIFT is Present. MCH (RBC) [Entitic mass] 33.1 pg 27.0-32.0 [facility] Nucleated RBC/100 WBC (Bld) [Ratio] 0 % 0-5 [facility] MCHC Auto (RBC) [Mass/Vol]Or dered By: Dr. Parkinson on 09-14-2022 MCHC (RBC) [Mass/Vol] 32.8 g/dL 32-36 [facility] No Panel InformationOrdered By: Dr. Parkinson on 09-14-2022 Addendum Document Comment . [facility] Comment on above: The SPE pattern appe ars unremarkable. Evidence ofmonoclonal protein is not apparent. Fwoba-0-Uxkzetpok 0.3 g/dL 0.0-0.4 [facility] Nfspb-7-Jzlgdbsdk 0.9 g/dL 0.4-1.0 [facility] Ceruloplasmin 28.5 mg/dL 16.0-31.0 [facility] Comment on above: Performed at: [address] Director: Bimal Dawkins PhD, Phone: [phone] Estimated GFR (MDRD) Amer 68 mL/min >60 [facility] Comment on above: GFR Calc Estimated GFR (MDRD) Non-Af Amer 56 mL/min >60 [facility] Comment on above: Non- GFR Calc Gamma Globulins 1.0 g/dL 0.4-1.8 [facility] Serum Immunofixation Comment . [facility] Comment on above: No monoclonality det ected. Urine Immunofixation PEP Note Comment . [facility] Comment on above: Protein electrophore sis scan will follow via computer,mail, or sock examiner delivery. Platelets bldOrdered By: Dr. Parkinson on 09-14-2022 Platelets (Bld) [#/Vol] 295 10*3/uL 150-450 [facility] Protein Fractions Elph [Inte rp]Ordered By: Dr. Parkinson on 09-14-2022 Protein Fractions [Interp] Comment . [facility] Comment on above: Protein electrophore sis scan will follow via computer,mail, or sock examiner delivery. Serum albumin to globulin ra miriam by protein electrophoresisOrdered By: Dr. Parkinson on 09-14-2022 Albumin/Globulin Elph [Mass ratio] 1.3 0.7-1.7 [facility] Serum yrxo-6-gwuosalrcvzix m easurement (mass/volume)Ordered By: Dr. Parkinson on 09-14-2022 Bbfa-6-Tukpofddidokh [Mass/Vol] 3.0 ug/mL 0.6-2.4 [facility] Comment on above: Siemens In Ovoulite 200 0 Immunochemiluminometric assay (ICMA)Values obtained with different assay methods or kits cannotbe used interchangeably. Results cannot be interpreted asabsolute evidence of the presence or absence of malignantdisease. Serum globulin measurement ( mass/volume)Ordered By: Dr. Parkinson on 09-14-2022 Globulin (S) [Mass/Vol] 3.1 g/dL 2.2-3.9 [facility] Serum or plasma IgA measurem ent (mass/volume)Ordered By: Dr. Parkinson on 09-14-2022 IgA [Mass/Vol] 268 mg/dL 61-437 [facility] Serum or plasma IgG measurem ent (mass/volume)Ordered By: Dr. Parkinson on 09-14-2022 IgG [Mass/Vol] 1028 mg/dL 603-1613 [facility] Serum or plasma IgM measurem ent (mass/volume)Ordered By: Dr. Parkinson on 09-14-2022 IgM [Mass/Vol] 63 mg/dL 20-172 [facility] Serum or plasma albumin israel urement (mass/volume)Ordered By: Dr. Parkinson on 09-14-2022 Albumin [Mass/Vol] 3.8 g/dL 3.2-5.0 [facility] Serum or plasma albumin/glob ulin mass ratioOrdered By: Dr. Parkinson on 09-14-2022 Albumin/Globulin [Mass ratio] 0.9 {ratio} 0.9-2.4 [facility] Serum or plasma beta globuli n measurement by electrophoresis (mass/volume)Ordered By: Dr. Parkinson on 09-14-2022 Beta globulin Elph [Mass/Vol] 1.0 g/dL 0.7-1.3 [facility] Serum or plasma calcium israel urement (mass/volume)Ordered By: Dr. Parkinson on 09-14-2022 Calcium [Mass/Vol] 9.1 mg/dL 8.5-10.1 [facility] Serum or plasma creatinine m easurement (mass/volume)Ordered By: Dr. Parkinson on 09-14-2022 Creatinine [Mass/Vol] 1.35 mg/dL 0.70-1.30 [facility] Comment on above: The validity of the calculated GFR & GFRAA in patients over 70 years has not been determined. Clinical correlation is essential. Serum or plasma urea nitroge n measurement (mass/volume)Ordered By: Dr. Parkinson on 09-14-2022 Urea nitrogen [Mass/Vol] 16 mg/dL 7-18 [facility] Thin prep Papanicolaou smear with manual screeningOrdered By: Dr. Parkinson on 09-14-2022 Thin prep Papanicolaou smear with manual screening 62 U/L 15-37 [facility] Thin prep Papanicolaou smear with manual screening 7 5-15 [facility] Thin prep Papanicolaou smear with manual screening See comment [facility] Comment on above: Result: Not Observed Total protein bloodOrdered B y: Dr. Parkinson on 09-14-2022 Protein [Mass/Vol] 7.1 g/dL 6.0-8.5 [facility] Urine albumin/total protein mass ratio by electrophoresisOrdered By: Dr. Parkinson on 09-14-2022 Albumin Elph (U) [Mass fraction] 26.1 % . [facility] Urine alpha 1 globulin/total protein ratio by electrophoresis (mass fraction)Ordered By: Dr. Parkinson on 09-14-2022 Alpha 1 globulin Elph (U) [Mass fraction] 2.6 % . [facility] Urine creatinine measurement (mass/volume)Ordered By: Dr. Parkinson on 09-14-2022 Creatinine (U) [Mass/Vol] 115.00 mg/dL NO RANGE EST. [facility] Urine monoclonal protein/tot al protein mass ratio by electrophoresisOrdered By: Dr. Parkinson on 09-14-2022 Protein.monoclonal Elph (U) [Mass fraction] See comment [facility] Comment on above: Result: Not Observed Urine protein measurement (m ass/volume)Ordered By: Dr. Parkinson on 09-14-2022 Protein (U) [Mass/Vol] 9.0 mg/dL 0.0-11.8 [facility] Protein (U) [Mass/Vol] 5.5 mg/dL Not Estab. [facility] Urine protein/creatinine mas s ratioOrdered By: Dr. Parkinson on 09-14-2022 Protein/Creatinine (U) [Mass ratio] 78 mg/g CRE 0-200 [facility] Basophil percentageOrdered B y: Vandana Grady on 08-30-2022 Basophil percentage 2 ug/L 0-9 [facility] Comment on above: Detection Limit = 1 Blood mercury measurement (m ass/volume)Ordered By: Vandana Grady on 08-30-2022 Mercury (Bld) [Mass/Vol] 1.5 ug/L 0.0-14.9 [facility] Comment on above: Environmental Exposu re: <15.0 Occupational Exposure: [employer] - Inorganic Mercury: 15.0 Detection Limit = 1.0Performed at: [address] [id number] Director: Michael Peck MD, Phone: [phone] No Panel InformationOrdered By: Vandana Grady on 08-30-2022 Lead 3.8 ug/dL 0.0-3.4 [facility] Comment on above: Testing performed by Inductively coupled plasma/MassSpectrometry.Verified by repeat analysis Environmental Exposure: WHO Recommendation <20.0 Occupational Exposure: OSHA Lead Std 40.0 [place] 30.0 Detection Limit = 1.0 Basophil percentageOrdered B y: Vandana Grady on 08-09-2022 Bilirubin [Mass/Vol] 0.70 mg/dL 0.20-1.00 [facility] Comment on above: For patients on eltr ombopag therapy, use of Dimension [place] TBIL is not recommended. Chloride [Moles/Vol] 100 mmol/L 98-107 [facility] Glucose [Mass/Vol] 104 mg/dL 74-106 [facility] Comment on above: Fasting Glucose resu lt from 100 to 125 mg/dL suggests IMPAIRED HOMEOSTASIS per A.D.A. criteria. Potassium [Moles/Vol] 4.1 mmol/L 3.5-5.1 [facility] Protein [Mass/Vol] 8.6 g/dL 6.4-8.2 [facility] Sodium [Moles/Vol] 133 mmol/L 136-145 [facility] WBC (Bld) [#/Vol] 7.2 10*3/uL 4.4-11.0 [facility] Blood erythrocytes count (nu mber/volume)Ordered By: Vandana Grady on 08-09-2022 RBC (Bld) [#/Vol] 4.30 10*6/uL 4.6-6.2 [facility] Blood hemoglobin measurement (mass/volume)Ordered By: Vandana Grady on 08-09-2022 Hemoglobin (Bld) [Mass/Vol] 14.2 g/dL 13.0-16.5 [facility] Blood platelet mean volumeOr dered By: Vandana Grady on 08-09-2022 Platelet mean volume (Bld) [Entitic vol] 10.1 fL 6.2-12.0 [facility] Determination of erythrocyte mean corpuscular volume (MCV)Ordered By: Vandana Grady on 08-09-2022 MCV (RBC) [Entitic vol] 98.8 fL 80-94 [facility] Hematocrit Auto (Bld) [Volum e fraction]Ordered By: Vandana Grady on 08-09-2022 Hematocrit (Bld) [Volume fraction] 42.5 % 40-54 [facility] - Chemistry and C hemistry - challengeOrdered By: Vandana Grady on 08-09-2022 ALP [Catalytic activity/Vol] 72 U/L 45-117 [facility] ALT [Catalytic activity/Vol] 81 U/L 16-61 [facility] CO2 [Moles/Vol] 27.0 mmol/L 21.0-32.0 [facility] Globulin (S) [Mass/Vol] 4.3 g/dL 2.2-4.2 [facility] Urea nitrogen/Creatinine [Mass ratio] 16.5 mg/mg 10-20 [facility] - Hematology and Cell countsOrdered By: Vandana Grady on 08-09-2022 Erythrocyte distribution width (RBC) [Entitic vol] 49.9 fL 35.1-43.9 [facility] Erythrocyte distribution width (RBC) [Ratio] 13.8 % 11.6-14.6 [facility] MCH (RBC) [Entitic mass] 33.0 pg 27.0-32.0 [facility] MCHC Auto (RBC) [Mass/Vol]Or dered By: Vandana Grady on 08-09-2022 MCHC (RBC) [Mass/Vol] 33.4 g/dL 32-36 [facility] No Panel InformationOrdered By: Vandana Grady on 08-09-2022 Estimated GFR (MDRD) Amer 50 mL/min >60 [facility] Comment on above: GFR Calc Estimated GFR (MDRD) Non-Af Amer 41 mL/min >60 [facility] Comment on above: Non- GFR Calc Thyroid Stimulating Hormone (TSH) 3.19 uIU/mL 0.358-3.74 [facility] Vitamin B12 Level > 2000 pg/mL 211-911 [facility] Vitamin D 25-Hydroxy 49.8 ng/mL [facility] Comment on above: Vitamin D 25(OH) Sta tus Range Deficiency <20 ng/mL (50nmol/L) Insufficiency 20 - 30 ng/mL (50 - 75 nmol/L) Sufficiency 30 - 100 ng/mL (75 - 250 nmol/L) Toxicity >100 ng/mL (>250 nmol/L) Platelets bldOrdered By: Jyotsna Grady on 08-09-2022 Platelets (Bld) [#/Vol] 267 10*3/uL 150-450 [facility] Serum or plasma albumin israel urement (mass/volume)Ordered By: Vandana Grady on 08-09-2022 Albumin [Mass/Vol] 4.3 g/dL 3.2-5.0 [facility] Serum or plasma albumin/glob ulin mass ratioOrdered By: Vandana Grady on 08-09-2022 Albumin/Globulin [Mass ratio] 1.0 {ratio} 0.9-2.4 [facility] Serum or plasma calcium israel urement (mass/volume)Ordered By: Vandana Grady on 08-09-2022 Calcium [Mass/Vol] 10.2 mg/dL 8.5-10.1 [facility] Serum or plasma creatinine m easurement (mass/volume)Ordered By: Vandana Grady on 08-09-2022 Creatinine [Mass/Vol] 1.76 mg/dL 0.70-1.30 [facility] Comment on above: The validity of the calculated GFR & GFRAA in patients over 70 years has not been determined. Clinical correlation is essential. Serum or plasma urea nitroge n measurement (mass/volume)Ordered By: Vandana Grady on 08-09-2022 Urea nitrogen [Mass/Vol] 29 mg/dL 7-18 [facility] Thin prep Papanicolaou smear with manual screeningOrdered By: Vandanarosalva Grady on 08-09-2022 Thin prep Papanicolaou smear with manual screening 81 U/L 15-37 [facility] Thin prep Papanicolaou smear with manual screening 6 5-15 [facility] Absolute lymphocyte countOrd ered By: Dr. Parkinson on 06-21-2022 Lymphocytes Auto (Unsp spec) [#/Vol] 2.51 10*3/uL 0.83-4.51 [facility] Basophil percentageOrdered B y: Dr. Parkinson on 06-21-2022 Basophils/100 WBC (Bld) 1.0 % 0-1 [facility] Eosinophils/100 WBC (Bld) 2.4 % 0-5 [facility] Neutrophils (Bld) [#/Vol] 2.7 10*3/uL 2.0-7.7 [facility] Neutrophils/100 WBC (Bld) 45.7 % 47-70 [facility] WBC (Bld) [#/Vol] 5.9 10*3/uL 4.4-11.0 [facility] Blood erythrocytes count (nu mber/volume)Ordered By: Dr. Parkinson on 06-21-2022 RBC (Bld) [#/Vol] 4.05 10*6/uL 4.6-6.2 [facility] Blood hemoglobin measurement (mass/volume)Ordered By: Dr. Parkinson on 06-21-2022 Hemoglobin (Bld) [Mass/Vol] 13.2 g/dL 13.0-16.5 [facility] Blood lymphocytes/100 leukoc ytesOrdered By: Dr. Parkinson on 06-21-2022 Lymphocytes/100 WBC (Bld) 42.3 % 19-41 [facility] Blood monocytes/100 leukocyt esOrdered By: Dr. Parkinson on 06-21-2022 Monocytes/100 WBC (Bld) 8.4 % 0-10 [facility] Blood platelet mean volumeOr dered By: Dr. Parkinson on 06-21-2022 Platelet mean volume (Bld) [Entitic vol] 10.7 fL 6.2-12.0 [facility] Determination of erythrocyte mean corpuscular volume (MCV)Ordered By: Dr. Parkinson on 06-21-2022 MCV (RBC) [Entitic vol] 99.8 fL 80-94 [facility] Hematocrit Auto (Bld) [Volum e fraction]Ordered By: Dr. Parkinson on 06-21-2022 Hematocrit (Bld) [Volume fraction] 40.4 % 40-54 [facility] Iron measurement (mass/mass) Ordered By: Dr. Parkinson on 06-21-2022 Iron (Unsp spec) [Mass/Mass] 141 ug/dL 65-175 [facility] - Hematology and Cell countsOrdered By: Dr. Parkinson on 06-21-2022 Erythrocyte distribution width (RBC) [Entitic vol] 50.8 fL 35.1-43.9 [facility] Erythrocyte distribution width (RBC) [Ratio] 13.9 % 11.6-14.6 [facility] Immature granulocytes/100 WBC (Bld) 0.200 % 0.0-0.9 [facility] Comment on above: IG% - Immature Granu locytes (promyelocytes, myelocytes and metamyelocytes) > 1% indicates that a LEFT SHIFT is Present. MCH (RBC) [Entitic mass] 32.6 pg 27.0-32.0 [facility] Nucleated RBC/100 WBC (Bld) [Ratio] 0 % 0-5 [facility] MCHC Auto (RBC) [Mass/Vol]Or dered By: Dr. Parkinson on 06-21-2022 MCHC (RBC) [Mass/Vol] 32.7 g/dL 32-36 [facility] No Panel InformationOrdered By: Dr. Parkinson on 06-21-2022 Total Iron Binding Capacity 323 ug/dL 250-450 [facility] Vitamin B12 Level > 2000 pg/mL 211-911 [facility] Vitamin D 25-Hydroxy 28.2 ng/mL [facility] Comment on above: Vitamin D 25(OH) Sta tus Range Deficiency <20 ng/mL (50nmol/L) Insufficiency 20 - 30 ng/mL (50 - 75 nmol/L) Sufficiency 30 - 100 ng/mL (75 - 250 nmol/L) Toxicity >100 ng/mL (>250 nmol/L) Platelets bldOrdered By: Dr. Parkinson on 06-21-2022 Platelets (Bld) [#/Vol] 278 10*3/uL 150-450 [facility] Serum or plasma ferritin joseph surement (mass/volume)Ordered By: Dr. Parkinson on 06-21-2022 Ferritin [Mass/Vol] 526 ng/mL 26-388 [facility] Serum or plasma iron saturat ion measurement (mass fraction)Ordered By: Dr. Parkinson on 06-21-2022 Iron saturation [Mass fraction] 43.7 % 15.0-55.0 [facility] Absolute lymphocyte counton 02-20-2022 Lymphocytes Auto (Unsp spec) [#/Vol] 2.28 10*3/uL 0.83-4.51 [facility] Work Phone: Basophil percentageon 2021 Basophils/100 WBC (Bld) 1.4 % 0-1 [facility] Work Phone: [phone] Bilirubin [Mass/Vol] 0.40 mg/dL 0.20-1.00 [facility] Work Phone: Comment on above: For patients on eltr ombopag therapy, use of Dimension [place] TBIL is not recommended. Chloride [Moles/Vol] 109 mmol/L 98-107 [facility] Work Phone: Cholesterol [Mass/Vol] 202 mg/dL <200 [facility] Work Phone: [phone] Comment on above: <200 mg/dL Desirable 200-240 mg/dL Borderline >240 mg/dL High Risk Eosinophils/100 WBC (Bld) 3.4 % 0-5 [facility] Work Phone: Glucose [Mass/Vol] 72 mg/dL 74-106 [facility] Work Phone: Neutrophils (Bld) [#/Vol] 1.9 10*3/uL 2.0-7.7 [facility] Work Phone: Neutrophils/100 WBC (Bld) 39.2 % 47-70 [facility] Work Phone: Potassium [Moles/Vol] 4.4 mmol/L 3.5-5.1 [facility] Phone: [phone] Protein [Mass/Vol] 7.3 g/dL 6.4-8.2 [facility] Work Phone: Sodium [Moles/Vol] 141 mmol/L 136-145 [facility] Work Phone: Triglyceride [Mass/Vol] 94 mg/dL <199 [facility] Work Phone: Comment on above: The drugs N-Acetylcy steine and Metamizole may falsely depress this assay.Serum Triglycerides Reference Interval Normal <150 mg/dL Borderline high 150 - 199 mg/dL High 200 - 499 mg/dL Very High > or = 500 mg/dL WBC (Bld) [#/Vol] 5.0 10*3/uL 4.4-11.0 [facility] Work Phone: Blood erythrocytes count (nu mber/volume)on 02-20-2022 RBC (Bld) [#/Vol] 3.45 10*6/uL 4.6-6.2 [facility] Work Phone: Blood hemoglobin measurement (mass/volume)on 02-20-2022 Hemoglobin (Bld) [Mass/Vol] 11.9 g/dL 13.0-16.5 [facility] Work Phone: Blood lymphocytes/100 leukoc yteson 02-20-2022 Lymphocytes/100 WBC (Bld) 46.1 % 19-41 [facility] Work Phone: Blood monocytes/100 leukocyt eson 02-20-2022 Monocytes/100 WBC (Bld) 9.7 % 0-10 [facility] Work Phone: Blood platelet mean volumeon 02-20-2022 Platelet mean volume (Bld) [Entitic vol] 9.6 fL 6.2-12.0 [facility] Work Phone: Determination of erythrocyte mean corpuscular volume (MCV)on 02-20-2022 MCV (RBC) [Entitic vol] 99.1 fL 80-94 [facility] Work Phone: Hematocrit Auto (Bld) [Volum e fraction]on 02-20-2022 Hematocrit (Bld) [Volume fraction] 34.2 % 40-54 [facility] Work Phone: Laboratory - Chemistry and C hemistry - challengeon 02-20-2022 ALP [Catalytic activity/Vol] 65 U/L 45-117 [facility] Work Phone: ALT [Catalytic activity/Vol] 67 U/L 16-61 [facility] Work Phone: CO2 [Moles/Vol] 25.0 mmol/L 21.0-32.0 [facility] Work Phone: Globulin (S) [Mass/Vol] 3.7 g/dL 2.2-4.2 [facility] Work Phone: Urea nitrogen/Creatinine [Mass ratio] 12.9 mg/mg 10-20 [facility] Work Phone: Laboratory - Hematology and Cell countson 02-20-2022 Erythrocyte distribution width (RBC) [Entitic vol] 49.7 fL 35.1-43.9 [facility] Work Phone: Erythrocyte distribution width (RBC) [Ratio] 13.7 % 11.6-14.6 [facility] Work Phone: Immature granulocytes/100 WBC (Bld) 0.200 % 0.0-0.9 [facility] Work Phone: Comment on above: IG% - Immature Granu locytes (promyelocytes, myelocytes and metamyelocytes) > 1% indicates that a LEFT SHIFT is Present. MCH (RBC) [Entitic mass] 34.5 pg 27.0-32.0 [facility] Work Phone: Nucleated RBC/100 WBC (Bld) [Ratio] 0 % 0-5 [facility] Work Phone: MCHC Auto (RBC) [Mass/Vol]on 02-20-2022 MCHC (RBC) [Mass/Vol] 34.8 g/dL 32-36 [facility] Work Phone: No Panel Informationon 02-20 Estimated GFR (MDRD) Amer 47 mL/min >60 [facility] Work Phone: Comment on above: GFR Calc Estimated GFR (MDRD) Non-Af Amer 39 mL/min >60 [facility] Work Phone: Comment on above: Non- GFR Calc Platelets bldon 02-20-2022 Platelets (Bld) [#/Vol] 240 10*3/uL 150-450 [facility] Work Phone: Serum or plasma albumin israel urement (mass/volume)on 02-20-2022 Albumin [Mass/Vol] 3.6 g/dL 3.2-5.0 [facility] Work Phone: Serum or plasma albumin/glob ulin mass ratioon 02-20-2022 Albumin/Globulin [Mass ratio] 1.0 {ratio} 0.9-2.4 [facility] Work Phone: Serum or plasma calcium israel urement (mass/volume)on 02-20-2022 Calcium [Mass/Vol] 9.0 mg/dL 8.5-10.1 [facility] Work Phone: Serum or plasma cholesterol in HDL measurement (mass/volume)on 02-20-2022 Cholesterol in HDL [Mass/Vol] 109 mg/dL >40 [facility] Work Phone: Comment on above: The drugs N-Acetylcy steine and Metamizole may falsely depress this assay. Reference Range HDL <40 mg/dL Low HDL Cholesterol HDL >or= 60 mg/dL High HDL Cholesterol Serum or plasma cholesterol in VLDL measurement (mass/volume)on 02-20-2022 Cholesterol in VLDL [Mass/Vol] 19 mg/dL 5-40 [facility] Work Phone: Serum or plasma creatinine m easurement (mass/volume)on 02-20-2022 Creatinine [Mass/Vol] 1.86 mg/dL 0.70-1.30 [facility] Work Phone: Comment on above: The validity of the calculated GFR & GFRAA in patients over 70 years has not been determined. Clinical correlation is essential. Serum or plasma low density lipoprotein (LDL) cholesterol measurement (mass/volume)on 02-20-2022 Cholesterol in LDL [Mass/Vol] 74 mg/dL 0-130 [facility] Work Phone: Serum or plasma urea nitroge n measurement (mass/volume)on 02-20-2022 Urea nitrogen [Mass/Vol] 24 mg/dL 7-18 [facility] Work Phone: Thin prep Papanicolaou smear with manual screeningon 02-20-2022 Thin prep Papanicolaou smear with manual screening 53 U/L 15-37 [facility] Work Phone: Thin prep Papanicolaou smear with manual screening 7 5-15 [facility] Work Phone: Office Visit: Sore Throat on 09-15-2016 Alcoholism counseling (procedure) no Invalid Interpretation Code [facility] Work Phone: Documentation of current medications (procedure) Done Invalid Interpretation Code [facility] Work Phone: Fall risk assessment No Invalid Interpretation Code [facility] Work Phone: Tobacco smoking status NHIS Never Invalid Interpretation Code [facility] Work Phone: Tobacco use CPHS Never smoker Invalid Interpretation Code [facility] Work Phone: Vital Signs Date Time Vital Sign Value Performing Clinician Facility 12-14-2024 08:14-0400 Body mass index (BMI) [Ratio] 26.86 kg/m2 Vandana Weygandt TEST DRIVER-SAMPLE BODY BUILDER Work Phone: [facility] 12-14-2024 08:14-0400 Body weight 84.91 kg Vandana Weygandt TEST DRIVER-SAMPLE BODY BUILDER Work Phone: [facility] 12-14-2024 08:14-0400 Diastolic blood pressure 81 mm[Hg] Vandana Weygandt TEST DRIVER-SAMPLE BODY BUILDER Work Phone: [facility] 12-14-2024 08:14-0400 Heart rate 68 /min Vandana Weygandt TEST DRIVER-SAMPLE BODY BUILDER Work Phone: [facility] 12-14-2024 08:14-0400 Respiratory rate 18 /min Vandana Weygandt TEST DRIVER-SAMPLE BODY BUILDER Work Phone: [facility] 12-14-2024 08:14-0400 Systolic blood pressure 122 mm[Hg] Vandana Weygandt TEST DRIVER-SAMPLE BODY BUILDER Work Phone: [facility] 12-07-2024 11:29-0400 Body mass index (BMI) [Ratio] 26.75 kg/m2 Vandana Weygandt TEST DRIVER-SAMPLE BODY BUILDER Work Phone: [facility] 12-07-2024 11:29-0400 Body weight 84.55 kg Vandana Weygandt TEST DRIVER-SAMPLE BODY BUILDER Work Phone: [facility] 12-07-2024 11:29-0400 Diastolic blood pressure 99 mm[Hg] Vandana Smitht TEST DRIVER-SAMPLE BODY BUILDER Work Phone: [facility] 12-07-2024 11:29-0400 Heart rate 60 /min Vandana Milesandt TEST DRIVER-SAMPLE BODY BUILDER Work Phone: [facility] 12-07-2024 11:29-0400 Respiratory rate 18 /min Vandana Milesandt TEST DRIVER-SAMPLE BODY BUILDER Work Phone: [facility] 12-07-2024 11:29-0400 Systolic blood pressure 158 mm[Hg] Vandana Milesandt TEST DRIVER-SAMPLE BODY BUILDER Work Phone: [facility] 10-08-2024 11:09-0400 Body height 177.8 cm Vandana Milesandt TEST DRIVER-SAMPLE BODY BUILDER Work Phone: [facility] 10-08-2024 11:09-0400 Body mass index (BMI) [Ratio] 26.54 kg/m2 Vandana Milesandt TEST DRIVER-SAMPLE BODY BUILDER Work Phone: [facility] 10-08-2024 11:09-0400 Body temperature 96.1 [degF] Vandana Milesandt TEST DRIVER-SAMPLE BODY BUILDER Work Phone: [facility] 10-08-2024 11:09-0400 Body weight 83.92 kg Vandana Milesandt TEST DRIVER-SAMPLE BODY BUILDER Work Phone: [facility] 10-08-2024 11:09-0400 Diastolic blood pressure 80 mm[Hg] Vandana Milesandt TEST DRIVER-SAMPLE BODY BUILDER Work Phone: [facility] 10-08-2024 11:09-0400 Heart rate 72 /min Vandana Jdandt TEST DRIVER-SAMPLE BODY BUILDER Work Phone: [facility] 10-08-2024 11:09-0400 Respiratory rate 17 /min Vandana Jdandt TEST DRIVER-SAMPLE BODY BUILDER Work Phone: [facility] 10-08-2024 11:09-0400 Systolic blood pressure 126 mm[Hg] Vandana Grady TEST DRIVER-SAMPLE BODY BUILDER Work Phone: [facility] 09-02-2024 10:00-0400 Body height 177.[address] Valeria Parkinson MD Work Phone: [facility] 09-02-2024 10:00-0400 Body mass index (BMI) [Ratio] 26.6 kg/m2 Dr. Valeria Parkinson MD Work Phone: [facility] 09-02-2024 10:00-0400 Body temperature 98.1 [degF] Dr. Valeria Parkinson MD Work Phone: [facility] 09-02-2024 10:00-0400 Body weight 84.[address] Valeria Parkinson MD Work Phone: [facility] 09-02-2024 10:00-0400 Diastolic blood pressure 86 mm[Hg] Dr. Valeria Parkinson MD Work Phone: [facility] 09-02-2024 10:00-0400 Heart rate 82 /min Dr. Valeria Parkinson MD Work Phone: [facility] 09-02-2024 10:00-0400 SaO2% (BldA) [Mass fraction] 100 % Dr. Valeria Parkinson MD Work Phone: [facility] 09-02-2024 10:00-0400 Systolic blood pressure 120 mm[Hg] Dr. Valeria Parkinson MD Work Phone: [facility] 07-08-2024 13:22-0400 Body temperature 97.59 [degF] Diane De Jesus TEST DRIVER-SAMPLE BODY BUILDER Work Phone: [facility] 07-08-2024 13:22-0400 Diastolic blood pressure 96 mm[Hg] Diane De Jesus TEST DRIVER-SAMPLE BODY BUILDER Work Phone: [facility] 07-08-2024 13:22-0400 Heart rate 77 /min Diane De Jesus TEST DRIVER-SAMPLE BODY BUILDER Work Phone: [facility] Comment on above: 96% SPO2 07-08-2024 13:22-0400 Respiratory rate 18 /min Diane De Jesus TEST DRIVER-SAMPLE BODY BUILDER Work Phone: [facility] 07-08-2024 13:22-0400 Systolic blood pressure 150 mm[Hg] Diane De Jesus TEST DRIVER-SAMPLE BODY BUILDER Work Phone: [facility] 06-25-2024 14:32-0500 Body temperature 97.81 [degF] Diane De Jesus TEST DRIVER-SAMPLE BODY BUILDER Work Phone: [facility] 06-25-2024 14:32-0500 Diastolic blood pressure 84 mm[Hg] Diane De Jesus TEST DRIVER-SAMPLE BODY BUILDER Work Phone: [facility] 06-25-2024 14:32-0500 Heart rate 99 /min Diane De Jesus TEST DRIVER-SAMPLE BODY BUILDER Work Phone: [facility] 06-25-2024 14:32-0500 Respiratory rate 16 /min Diane De Jesus TEST DRIVER-SAMPLE BODY BUILDER Work Phone: [facility] 06-25-2024 14:32-0500 Systolic blood pressure 146 mm[Hg] Diane De Jesus TEST DRIVER-SAMPLE BODY BUILDER Work Phone: [facility] 02-25-2023 09:46-0500 Body temperature 97.6 [degF] [facility] 02-25-2023 09:46-0500 Diastolic blood pressure 85 mm[Hg] [facility] 02-25-2023 09:46-0500 Heart rate 85 /min [facility] 02-25-2023 09:46-0500 Respiratory rate 16 /min [facility] 02-25-2023 09:46-0500 SaO2% (BldA) [Mass fraction] 100 % [facility] 02-25-2023 09:46-0500 Systolic blood pressure 123 mm[Hg] [facility] 02-25-2023 09:02-0500 Body height 177.8 cm [facility] 02-25-2023 09:02-0500 Body mass index (BMI) [Ratio] 26.5 kg/m2 [facility] 02-25-2023 09:02-0500 Body weight 84 kg [facility] 12-09-2021 18:04-0400 Diastolic blood pressure 85 mm[Hg] [facility] Work Phone: 12-09-2021 18:04-0400 Respiratory rate 16 /min [facility] Work Phone: 12-09-2021 18:04-0400 SaO2% (BldA) [Mass fraction] 98 % [facility] Work Phone: 12-09-2021 18:04-0400 Systolic blood pressure 140 mm[Hg] [facility] Work Phone: 12-09-2021 17:00-0400 Heart rate 94 /min [facility] Work Phone: 12-09-2021 14:00-0400 Body height 177.8 cm [facility] Work Phone: 12-09-2021 14:00-0400 Body mass index (BMI) [Ratio] 28 kg/m2 [facility] Work Phone: 12-09-2021 14:00-0400 Body temperature 98.9 [degF] [facility] Work Phone: 12-09-2021 14:00-0400 Body weight 88.6 kg [facility] Work Phone: 09-15-2016 08:45-0400 BMI (Body Mass Index) 27.12 kg/m2 Steven Altamirano PA-C [facility] Work Phone: 09-15-2016 08:45-0400 Body Temperature 98.7 [degF] Steven Altamirano PA-C [facility] Work Phone: 09-15-2016 08:45-0400 BP Diastolic 76 mm[Hg] Steven Altamirano PA-C [facility] Work Phone: 09-15-2016 08:45-0400 BP Systolic 128 mm[Hg] Steven Altamirano PA-C [facility] Work Phone: 09-15-2016 08:45-0400 Height 177.8 cm Steven Altamirano PA-C [facility] Work Phone: 09-15-2016 08:45-0400 Pulse (Heart Rate) 74 /min Steven Altamirano PA-C [facility] Work Phone: 09-15-2016 08:45-0400 Pulse Oximetry 97 % Steven Altamirano PA-C [facility] Work Phone: 09-15-2016 08:45-0400 Respiratory Rate 17 /min Steven Altamirano PA-C [facility] Work Phone: 09-15-2016 08:45-0400 Weight 85.73 kg Steven Altamirano PA-C [facility] Work Phone: Encounters Encounter Date Encounter Type Care Provider Facility Start: 12-31-2024 End: 12-31-2024 Patient encounter procedure Vandana Grady TEST DRIVER-SAMPLE BODY BUILDER Work Phone: [facility] Comment on above: Intractable chronic migraine with aura with status migrainosus (Primary Dx) Start: 12-31-2024 End: 12-31-2024 ambulatory [facility] Start: 12-14-2024 End: 12-14-2024 ambulatory [facility] Start: 12-14-2024 End: 12-14-2024 Office outpatient visit 25 minutes Vandana Grady TEST DRIVER-SAMPLE BODY BUILDER Work Phone: [facility] Comment on above: KOJO (obstructive sle ep apnea) (Primary Dx); Intractable chronic migraine with aura with status migrainosus; Tremor Start: 12-07-2024 End: 12-07-2024 Office outpatient visit 25 minutes Vandana Grady TEST DRIVER-SAMPLE BODY BUILDER Work Phone: [facility] Comment on above: Intractable chronic migraine with aura with status migrainosus (Primary Dx); Tremor; KOJO (obstructive sleep apnea) Start: 12-07-2024 End: 12-07-2024 ambulatory [facility] Start: 10-30-2024 End: 10-30-[address] Valeria Parkinson MD Work Phone: -Sleep Lab Start: 10-30-2024 End: 10-30-[address] Valeria Parkinson MD -Sleep Lab Work Phone: Start: 10-30-2024 End: 10-30-2024 ambulatory Valeria Parkinson Facility:[facility] Start: 10-28-2024 End: 10-28-[address] Valeria Parkinson MD Work Phone: -Physical Therapy Start: 10-28-2024 End: 10-28-[address] Valeria Parkinson MD -Physical Therapy Work Phone: Start: 10-20-2024 End: 10-20-[address] Valeria Parkinson MD Work Phone: -Laboratory [facility]oz[facility] In[facility] Start: 10-20-2024 End: 10-20-[address] Valeria Parkinson MD -Laboratory [facility]oz[facility] Ingram [facility] Start: 10-20-2024 End: 10-20-2024 ambulatory Valeria Parkinson Facility:[facility] Start: 10-14-[address] Valeria may MD -Physical Therapy Work Phone: Start: 10-08-2024 End: 10-08-2024 ambulatory [facility] Start: 10-08-2024 End: 10-08-2024 Patient encounter procedure Vandana Grady TEST DRIVER-SAMPLE BODY BUILDER Work Phone: [facility] Comment on above: Intractable chronic migraine with aura with status migrainosus (Primary Dx) Start: 09-08-[address] Valeria may MD -Physical Therapy Work Phone: Start: 09-03-2024 End: 09-03-[address] Valeria Parkinson MD Work Phone: [facility] Work Phone: Start: 09-03-2024 End: 09-03-[address] Valeria Parkinson MD -Sleep Lab Work Phone: Start: 09-02-2024 End: 09-02-2024 Patient encounter procedure D[facility] Christensen [facility] Work Phone: Start: 09-02-2024 End: 09-03-[address] Valeria Parkinson MD Work Phone: [facility] Work Phone: Start: 08-26-[address] Valeria may MD -Physical Therapy Work Phone: Start: 07-08-2024 End: 07-08-2024 ambulatory [facility] Start: 07-08-2024 End: 07-08-2024 Patient encounter procedure Diane De Jesus TEST DRIVER-SAMPLE BODY BUILDER Work Phone: [facility] Comment on above: Intractable chronic migraine with aura with status migrainosus (Primary Dx) Start: 06-25-2024 End: 06-25-2024 Office outpatient new 45 minutes Diane De Jesus TEST DRIVER-SAMPLE BODY BUILDER Work Phone: [facility] Comment on above: Intractable chronic migraine with aura with status migrainosus (Primary Dx) Start: 06-25-2024 End: 06-25-2024 ambulatory [facility] Start: 05-08-2024 End: 05-08-[address] Valeria Parkinson MD -Laboratory, [place] Work Phone: Start: 05-08-2024 End: 05-08-2024 ambulatory Valeria Parkinson Facility:[facility] Start: 04-02-2024 End: 04-02-2024 ambulatory VANDANA S WEYGANDT Not Available Start: 04-02-2024 End: 04-02-2024 Office outpatient visit 15 minutes Vandana S Weygandt PLANT FACILITIES TECHNICIAN Work Phone: [facility] Comment on above: Chronic migraine wit hout aura, intractable, without status migrainosus (CMS/HCC) (Primary Dx); Tremor Start: 03-03-2024 End: 03-03-2024 Bamboo flowsheet Vandana S Weygandt PLANT FACILITIES TECHNICIAN Work Phone: [facility] Start: 03-03-2024 End: 03-03-2024 Bamboo flowsheet Vandana S Weygandt PLANT FACILITIES TECHNICIAN Work Phone: [facility] Start: 03-03-2024 End: 03-03-2024 Patient encounter procedure Vandana S Weygandt PLANT FACILITIES TECHNICIAN Work Phone: [facility] Comment on above: Chronic migraine wit hout aura, intractable, without status migrainosus (CMS/HCC) (Primary Dx) Start: 03-03-2024 End: 03-03-2024 ambulatory VANDANA S WEYGANDT Not Available Start: 02-06-2024 End: 02-06-2024 Refill Vandana S Weygandt PLANT FACILITIES TECHNICIAN Work Phone: [facility] Start: 12-09-2023 End: 12-09-2023 ambulatory VANDANA S WEYGANDT Not Available Start: 12-04-2023 End: 12-04-2023 ambulatory Valeria Parkinson Facility:[facility] Start: 10-03-2023 End: 10-03-2023 ambulatory VANDANA S WEYGANDT Not Available Start: 09-05-2023 End: 09-05-2023 ambulatory VANDANA S WEYGANDT Not Available Start: 06-13-2023 End: 06-13-2023 ambulatory VANDANA GRADY Not Available Start: 05-17-2023 End: 05-17-2023 ambulatory [facility] Work Phone: Start: 05-17-2023 End: 05-17-2023 Patient encounter procedure [facility]-Laboratory, Specimen Work Phone: Start: 03-19-2023 End: 03-19-2023 ambulatory [facility] Work Phone: Start: 03-19-2023 End: 03-19-2023 Patient encounter procedure [facility]-Radiology, [facility] Work Phone: Start: 02-25-2023 End: 02-25-2023 Admission to same day surgery center [facility] Start: 02-25-2023 End: 02-25-2023 ambulatory [facility] Work Phone: Start: 01-21-2023 End: 01-21-2023 Patient encounter procedure [facility]-Laboratory, [facility] Start: 12-17-2022 Registered Recurring [facility]-Physical Therapy Work Phone: Start: 10-12-2022 End: 10-12-[address] Valeria Parkinson Work Phone: [facility] Work Phone: Start: 10-12-2022 End: 10-12-[address] Valeria Parkinson Work Phone: [facility]-Ultrasound, [facility] Start: 09-21-2022 End: 09-21-[address] Valeria Parkinson Work Phone: [facility] Work Phone: Start: 09-21-2022 End: 09-21-[address] Valeria Parkinson Work Phone: [facility]-Ultrasound, [facility] Start: 09-20-2022 End: 09-20-[address] Valeria Parkinson Work Phone: [facility] Work Phone: Start: 09-20-2022 End: 09-20-[address] Valeria Parkinson Work Phone: [facility]-Physical Therapy Start: 09-20-[address] Kristina Parkinson Work Phone: [facility]-Physical Therapy Start: 09-14-2022 End: 09-14-[address] Valeria Parkinson Work Phone: [facility] Work Phone: Start: 09-14-2022 End: 09-14-[address] Valeria Parkinson Work Phone: [facility] Start: 09-03-[address] Kristina Parkinson Work Phone: [facility]-Physical Therapy Start: 08-30-2022 End: 08-30-[address] Valeria Pariknson Work Phone: [facility] Work Phone: Start: 08-30-2022 End: 08-30-[address] Valeria Parkinson Work Phone: [facility]-Laboratory Start: 08-21-2022 End: 08-21-[address] Valeria Parkinson Work Phone: [facility] Work Phone: Start: 08-21-2022 End: 08-21-[address] Valeria Parkinson Work Phone: [facility] Start: 08-09-2022 End: 08-09-[address] Valeria Parkinson Work Phone: [facility] Work Phone: Start: 08-09-2022 End: 08-09-[address] Valeria Parkinson Work Phone: [facility]-Laboratory Start: 07-05-2022 Non-patient / Non-visit Dr. Arden Parkinson Work Phone: [facility] Start: 07-05-2022 End: 07-05-[address] Valeria Parkinson Work Phone: [facility]-Pulmonary Services/Neurology Start: 06-21-2022 End: 06-21-2022 ambulatory [facility] Work Phone: Start: 06-21-2022 End: 06-21-2022 Patient encounter procedure [facility]-Laboratory, Rozina Ingram [facility] Start: 02-20-2022 End: 02-20-2022 ambulatory [facility] Work Phone: Start: 02-20-2022 End: 02-20-2022 Patient encounter procedure [facility]-Laboratory Start: 12-09-2021 End: 12-09-2021 Emergency department patient visit [facility]-Emergency Department Start: 06-16-2021 End: 06-16-2021 Patient encounter procedure [facility]Ultrasound, [facility] Start: 07-21-2020 End: 07-21-2020 Patient encounter procedure [facility] Start: 07-21-2020 End: 07-21-2020 Patient encounter procedure [facility] Procedures Date Procedure Procedure Detail Performing Clinician Start: 12-31-2024 Injection of botulinum toxin Vandana Grady TEST DRIVER-SAMPLE BODY BUILDER Work Phone: Start: 10-20-2024 Prostate specific an tigen measurement Dr. Valeria Parkinson MD Work Phone: Comment on above: This test was perfor med using the [employer] tPSA method. Measured values of a patient sample can vary depending on the testing procedure used. PSA values determined on patient samples by different testing procedures cannot be used interchangeably. If there is a change in PSA assays while monitoring therapy, sequential testing should be performed to confirm baseline values. Start: 10-08-2024 Injection of botulinum toxin Vandana Grady TEST DRIVER-SAMPLE BODY BUILDER Work Phone: Start: 07-08-2024 Injection of botulinum toxin Diane De Jesus TEST DRIVER-SAMPLE BODY BUILDER Work Phone: Start: 05-08-2024 Measurement of renal function Dr. Valeria Parkinson MD Work Phone: Comment on above: GFR Calc Start: 05-08-2024 Plain x-ray of pelvi s and lower extremity Dr. Valeria Parkinson MD Work Phone: Start: 03-19-2023 Plain X-ray of shoulder Start: 03-19-2023 X-ray of cervical spine Start: 02-25-2023 Procedure on hip Start: 02-25-2023 Fluoroscopic guidance Start: 01-21-2023 Coronavirus COVID-19 PCR Start: 01-21-2023 Nucleic acid assay Start: 10-12-[address] Valeria Parkinson Work Phone: Start: 10-12-[address] Valeria Parkinson Work Phone: Start: 09-21-[address] Arden Parkinson Work Phone: Start: 08-21-2022 MRI of brain with contrast Dr. Valeria Parkinson Work Phone: Start: 06-16-2021 Ultrasonography of abdomen Plan of Treatment Date Care Activity Detail Author Start: 10-21-2025 Medicare Annual Wellness Visit Medicare Annual Wellness Visit (AWV) [facility] Start: 06-16-2025 End: 06-16-2025 Patient encounter procedure 06/16/2025 1:30 PM EST Office Visit [facility] Medical [facility] Building [address] 1st [place] [address] Vandana Grady, TEST DRIVER-SAMPLE BODY BUILDER [address] [place] [address] [facility] Medical Office [facility] Start: 12-31-2024 End: 12-31-2024 Patient encounter procedure 12/31/2024 12:00 PM EDT Procedure Visit [facility] [address] [place] [phone] Vandana Grady, TEST DRIVER-SAMPLE BODY BUILDER [address] [place] [address] [facility] Start: 12-21-2024 COVID-19 Vaccine ( season) COVID-19 Vaccine () [facility] Start: 12-21-2024 Influenza vaccination [facility] Start: 12-14-2024 End: 12-14-2024 Patient encounter procedure 12/14/2024 8:00 AM EDT Office Visit [facility] [address] 1st [place] [address] Vandana Grady, TEST DRIVER-SAMPLE BODY BUILDER [address] [place] [address] [facility] Office [facility] Start: 10-07-2024 End: 10-07-2024 Patient encounter procedure 10/07/2024 1:00 PM EDT Procedure Visit [facility] [address] [place] [phone] Diane De Jesus, TEST DRIVER-SAMPLE BODY BUILDER [address] [place] [address] [facility] Start: 05-26-2024 End: 05-26-2024 Patient encounter procedure 05/26/2024 1:00 PM EST Procedure Visit [facility] [address] [place] [phone] Vandana Grady PLANT FACILITIES TECHNICIAN [address] [place], [place] [address] [facility] Start: 04-02-2024 End: 04-02-2024 Telemedicine consultation with patient 04/02/2024 1:00 PM EST Telemedicine [facility] [address] [place] [phone] Vandana Grady PLANT FACILITIES TECHNICIAN [address] [place], [place] [address] [facility] Start: 03-03-2024 End: 03-03-2024 Patient encounter procedure 03/03/2024 1:00 PM EST Procedure Visit [facility] [address] [place] [phone] Vandana Grady NP [address] [place] [address] [facility] Start: 12-22-2023 COVID-19 Vaccine ( season) COVID-19 Vaccine ( season) [facility] Start: 12-22-2023 Influenza vaccination Influenza Vaccine (#1) [facility] Start: 02-25-2023 Anes dx/ther nrv blk/njx oth/thn prone pos ANESTH NERVE BLOCK/INJ [facility] Start: 02-25-2023 Arthrocentesis aspir&/inj major jt/bursa w/o us DRAIN/INJ JOINT/BURSA W/O US [facility] Start: 02-25-2023 Fluoroscopic guidance [facility] Start: 02-25-2023 Patient discharge [facility] Start: 08-30-2022 Heavy metals measurement [facility] Start: 08-09-2022 Heavy metals measurement [facility] Start: 08-09-2022 Thiamine measurement [facility] Start: 08-09-2022 Vitamin B6 measurement [facility] Start: 09-15-2016 End: 09-15-2016 Appointment Appointment [facility] Work Phone: Start: 2016 Hepatitis B Vaccines (1 of 3 - Risk 3-dose series) Hepatitis B Vaccines (1 of 3 - Risk 3-dose series) [facility] Start: 2016 RSV High Risk: (Elderly (60+) or Population) (1 - Risk 60-74 years 1-dose series) RSV High Risk: (Elderly (60+) or Population) (1 - Risk 60-74 years 1-dose series) [facility] Start: 2006 Prostate specific antigen measurement PSA Prostate Cancer Screening [facility] Start: 1978 DTaP/Tdap/Td Vaccines (1 - Tdap) DTaP/Tdap/Td Vaccines (1 - Tdap) [facility] Start: 1975 Hepatitis A Vaccines (1 of 2 - Risk 2-dose series) Hepatitis A Vaccines (1 of 2 - Risk 2-dose series) [facility] Start: 1974 Diabetes mellitus screening Diabetes Screening [facility] Start: 1974 Hepatitis C screening Hepatitis C Screening [facility] Start: 1957 MMR Vaccines (1 of 1 - Standard series) MMR Vaccines (1 of 1 - Standard series) [facility] Start: 1955 Annual wellness visit Welcome to Medicare Visit [facility] Start: 1956 Lipid panel Lipid Panel [facility] Start: 1956 Medicare Annual Wellness Visit Medicare Annual Wellness Visit (AWV) [facility] Start: 1955 Screening for malignant neoplasm of colon [facility] Arsenic measurement [facility] Arsenic measurement [facility] Ceruloplasmin [Mass/volume] in Serum or Plasma [facility] Lead measurement [facility] Lead measurement [facility] Mercury measurement, blood [facility] Mercury measurement, blood [facility] Patient Education ED BEE STING G eneral Allergic Rxn [facility] Work Phone: Patient referral [facility] Work Phone: [facility] Work Phone: Immunizations Immunization Date Immunization Notes Care Provider Fa tobias 01-20-2019 influenza virus vaccine, unspecified formulation Vandana Grady PLANT FACILITIES TECHNICIAN Work Phone: [facility] 12-20-2016 influenza virus vaccine, unspecified formulation Diane De Jesus TEST DRIVER-SAMPLE BODY BUILDER Work Phone: [facility] Work Phone: Payers Date Payer Category Payer Self-pay [id number] 2023 Medicaid [employer] MEDICARE A DVANTAGE [id number] 2023 Medicare (Managed Care) [employer] PA [facility] [id number] 2023 Medicare [id number] 2023 Medicare [id number] 2012 Unknown [id number] 1956 Unknown [id number] 2.16.840.1.335211.3.579.2. 651 1956 Unknown [id number] 2.16.840.1.636572.3.579.2. 651 1956 Unknown [id number] 2.16.840.1.742994.3.579.2. 1259 1956 Unknown [id number] 2.16.840.1.095391.3.579.2. 1259 1956 Unknown [id number] 2.16.840.1.983147.3.579.2. 1258 1956 Unknown [id number] 2.16.840.1.876290.3.579.2. 1259 1956 Unknown [id number] 2.16.840.1.018809.3.579.2. 1259 1956 Unknown [id number] 2.16.840.1.724936.3.579.2. 1259 1956 Unknown [id number] 2.16.840.1.942486.3.579.2. 1243 1956 Unknown [id number] 2.16.840.1.438489.3.579.2. 1243 1956 Unknown [id number] 2.16.840.1.934503.3.579.2. 1244 1956 Unknown [id number] 2.16.840.1.946736.3.579.2. 1244 1956 Unknown [id number] 2.16.840.1.927757.3.579.2. 1244 1956 Unknown [id number] 2.16.840.1.494976.3.579.2. 1244 Unknown [id number] 2.16.840.1.250577.3.579.2. 462 Unknown [id number] 2.16.840.1.361739.3.579.2. 462 Unknown [id number] 2.16.840.1.320636.3.579.2. 462 Unknown [id number] 2.16.840.1.535719.3.579.2. 462 Unknown [id number] 2.16.840.1.145265.3.579.2. 462 Unknown [id number] 2.16.840.1.604034.3.579.2. 462 Unknown [id number] 2.16.840.1.812012.3.579.2. 462 Social History Date Type Detail Facility Start: 12-03-2020 End: 02-21-2023 Tobacco smoking status NHIS Unknown if ever smoked [facility] Start: 1955 Sex Assigned At Male [facility] Start: 09-28-2022 End: 02-21-2023 Tobacco smoking status NHIS Never smoked tobacco [facility] Start: 09-28-2022 Tobacco use and exposure Smokeless tobacco non-user [facility] Start: 06-13-2023 Alcoholic beverage intake Lifetime non-drinker (finding) [facility] Start: 06-13-2023 End: 12-07-2024 History of Social function [facility] Start: 06-13-2023 End: 12-07-2024 Tobacco use panel [facility] Start: 09-28-2022 Alcohol Comment Caffeine; coffee [facility] Start: 1955 Sex assigned at Not on file [facility] Start: 06-15-2024 End: 07-08-2024 Exposure to SARS-CoV-2 (event) Not sure [facility] Start: 03-16-2022 Sex Male [facility] Goals Date Patient Goal Desired Activity /State Functional Status Date Assessment Result Facility 12-07-2024 Patient Health Quest ionnaire 2 item (PHQ-2) [Reported] [facility] Work Phone: 12-07-2024 [place] - suicide s everity rating scale screener - recent [C-SSRS] [facility] Work Phone: 10-08-2024 Patient Health Quest ionnaire 2 item (PHQ-2) [Reported] [facility] Mental Status Date Assessment Result Facility 02-25-2023 Cognitive function Level Of Cons ciousness Awake;Alert;Appropriate;Follow s Commands [facility] Work Phone: Clinical Notes 09-20-2022 to 12-31-2024 CHIQUI Richmond - 12/31/2024 12:00 PM EDJANETT Carr CNP - 12/14/2024 8:00 AM CHIQUI Herrera - 12/07/2024 11:30 AM EDTPatient Instructions Note Date & Type Note Facility 12-31-2024 History of Presen t illness Narrative Associated Order(s): Head/Face/Jaw Botulinum Injection Patient ID: Bimal Echeverria is a 69 y.o. male. Head/Face/Jaw Botulinum Injection Date/Time: 12/31/2024 11:43 AM Performed by: CHIQUI Richmond Authorized by: CHIQUI Richmond Consent: Consent obtained: Verbal (Verified patient has not received Botox from any other healthcare provider or 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 Alternatives discussed: No treatment [place] protocol: Relevant documents present and verified: Yes Site/side verified: Yes Immediately prior to procedure a time out was called: Yes Patient identity confirmed: Verbally with patient Procedure details: EMG used? No Electrical stimulation used? No Diluted by: Preservative free saline Total units available: 200 Right frontalis: 10 units divided amongst 2 site(s) Left frontalis: 10 units divided amongst 2 site(s) Right energy audit advisor: 5 units divided amongst 1 site(s) Left energy audit advisor: 5 units divided amongst 1 site(s) Procerus (midline): 5 units divided amongst 1 site(s) Right occipitalis: 15 units divided amongst 3 site(s) Left occipitalis: 15 units divided amongst 3 site(s) Right cervical paraspinal: 10 units divided amongst 2 site(s) Left cervical paraspinal: 10 units divided amongst 2 site(s) Right trapezius: 15 units divided amongst 3 site(s) Left trapezius: 15 units divided amongst 3 site(s) Right temporalis: 20 units divided amongst 4 site(s) Left temporalis: 20 units divided amongst 4 site(s) Total units injected: 155 Total units wasted: 45 Post-procedure details: Patient tolerance of procedure: Tolerated well, no immediate complications Comments: You had Botox injections for migraine prevention today: Please do not rub injection sites for 24 hours. Avoid pressure above eyebrows for 24 hours, including massage; use of helmets, headlamps, headbands, or goggles. If there is discomfort, ice for 20 minutes at a time for the first 24 hours. After 24 hours, you many use heat for discomfort (please limit to 15-20 minutes). Headaches may worsen, or you may experience neck stiffness. If this occurs use your usual headache medication or a mild anti inflammatory such as Advil or Aleve. Please call if you have difficulty swallowing. documented in this encounter [facility] Work Phone: 12-14-2024 History of Presen t illness Narrative Images from the original note were not included. CHIEF COMPLAINT: Tremor migraine Kojo HISTORY OF PRESENT ILLNESS: 69 year old presented to office to follow up on tremor, migraines, kojo. Wearing pap nightly, feels sleeps ok at night with pap- did not receive hsat and or compliance report. Last visit increased primidone to afternoon dose- feels overall decrease in tremor and helpful. - Denies need to adjust medication. No change in migraines from last visit. All questions and concerns addressed. Last visit 12/07/2024 EDGE DYER: 69 year old presented to office to follow up on migraines and tremors. Currently on botox, recently increased cymbalta to 60 mg daily, notes improvement, may take ubrelvy at least 1x/week - dull the de jesus down, does not repeat 2nd dose. Can get a mild de jesus- but does not take ubrelvy- no need. Currently diagnosed with kojo, started wearing cpap nightly for the past 6 weeks. Had Home sleep study done at [facility]. Primidone works well with bilateral hand tremors, can occur daily right > left with eating and drinking, not always bothersome to patient. Able to complete without difficulty. All questions and concerns addressed. Current Outpatient Medications on File Prior to Visit Medication Sig Dispense Refill celecoxib (CeleBREX) 100 mg capsule fluorouracil (Efudex) 5 % cream cream losartan (Cozaar) 100 mg tablet Take 1 tablet (100 mg) by mouth once daily. metoprolol succinate XL (Toprol-XL) 50 mg 24 hr tablet onabotulinumtoxinA (Botox) 200 unit injection Inject 200 Units into the muscle every 3 months. pantoprazole (ProtoNix) 40 mg EC tablet rimegepant (Nurtec ODT) 75 mg tablet,disintegrating Dissolve 1 tablet (75 mg) in the mouth every other day. ubrogepant (Ubrelvy) 100 mg tablet Take 1 tablet (100 mg) by mouth once daily as needed (for migraine, may repeat dose in 2 hours if needed, no more than 2 doses in 24 hours). 16 tablet 11 [DISCONTINUED] DULoxetine (Cymbalta) [address] capsule Take 1 capsule (60 mg) by mouth once daily. Do not crush or chew. 90 capsule 0 [DISCONTINUED] primidone (Mysoline) 50 mg tablet Take 3 tablets (150 mg) by mouth once daily. 270 tablet 0 No current facility-administered medications on file prior to visit. No past medical history on file. No past surgical history on file. No family history on file. Social History Tobacco Use Smoking status: Not on file Smokeless tobacco: Not on file Substance Use Topics Alcohol use: Not on file ALLERGIES: Tramadol REVIEW OF SYSTEMS: General: Appetite change: denies. Chills: denies. Fever: denies. Allergy/Immunology: Unusual rection to medications, food, animals or insects reaction: denies. Ophthalmologic: Visual acuity change: denies. ENT: Decreased hearing: denies. Endocrine: Weight loss: denies. Respiratory: Cough: denies. Wheezing: denies. Cardiovascular: Chest pain: denies. Palpitations: denies. Gastrointestinal: Abdominal pain: denies. Difficulty swallowing: denies Hematology: Bleeding problems: denies. Genitourinary: Painful urination: denies. Musculoskeletal: Joint pain: denies. Joint edema: denies. Skin: Rash: denies. Neurologic: Ataxia: denies, Tremor: denies. Psychiatric: Suicidal thoughts: denies. Also see HPI for elements of ROS documented therein and for details of positive findings, which shall supersede the foregoing. OBJECTIVE: Objective Vitals: 12/14/24 0814 BP: 122/81 Pulse: 68 Resp: 18 Weight: 84.9 kg (187 lb 3.2 oz) Body mass index is 26.86 kg/m . EXAMINATION: General Exam: pleasant, well nourished, well developed, in no acute distress Head: normocephalic, atraumatic Eyes: extraocular movement intact (EOMI), pupils equal, round, reactive to light, upper eyelids normal , lower eyelids normal Ears: no obvious hearing deficit Nose: Nares patent Neck/Throat: neck supple, full range of motion Oral Cavity: mucosa moist Skin: warm and dry Lungs: speaks in full sentences Chest: normal shape and expansion Abdomen: bowel sounds present, soft, nontender, nondistended, no guarding or rigidity Extremities: no edema, no cyanosis Musculoskeletal: no swelling or deformity Neurologic: nonfocal, alert and oriented, cognitive exam grossly normal, cranial nerves 2-12 grossly intact, motor strength 5/5 bilateral symmetrically, no drift, coordination intact, sensory exam intact, gait normal Psych: pleasant, cooperative, good eye contact, speech clear, judgement and insight good ASSESSMENT/PLAN: 1. KOJO (obstructive sleep apnea) (Primary) Continue pap therapy at night, requested compliance report and hsat. Clean mask, tubing, and machine as directed, get at least 8 hrs of sleep at night, do not drive while drowsy 2. Intractable chronic migraine with aura with status migrainosus Stable, continue botox every 3 months, cymbalta 60 mg daily, ubrelvy prn Past tx: imitrex, maxalt, nurtec - DULoxetine (Cymbalta) [address] capsule; Take 1 capsule (60 mg) by mouth once daily. Do not crush or chew. Dispense: 90 capsule; Refill: 3 3. Tremor Improved, Continue primidone 150 mg in am, and 50 mg in afternoon - primidone (Mysoline) 50 mg tablet; Take 3 tablets in the morning and 1 tablet in the afternoon Dispense: 360 tablet; Refill: 3 Follow up for botox I personally spent today, exclusive of procedures, providing care for this patient, including preparation, face to face time, documentation and other services such as review of medical records, diagnostic result, patient education, counseling, coordination of care as specified in the encounter. CHIQUI Richmond documented in this encounter [facility] Work Phone: 12-07-2024 History of Presen t illness Narrative Images from the original note were not included. CHIEF COMPLAINT: Migraines tremors HISTORY OF PRESENT ILLNESS: 69 year old presented to office to follow up on migraines and tremors. Currently on botox, recently increased cymbalta to 60 mg daily, notes improvement, may take ubrelvy at least 1x/week - dull the de jesus down, does not repeat 2nd dose. Can get a mild de jesus- but does not take ubrelvy- no need. Currently diagnosed with kojo, started wearing cpap nightly for the past 6 weeks. Had Home sleep study done at [facility]. Primidone works well with bilateral hand tremors, can occur daily right > left with eating and drinking, not always bothersome to patient. Able to complete without difficulty. All questions and concerns addressed. Current Outpatient Medications on File Prior to Visit Medication Sig Dispense Refill celecoxib (CeleBREX) 100 mg capsule DULoxetine (Cymbalta) [address] capsule Take 1 capsule (60 mg) by mouth once daily. Do not crush or chew. 90 capsule 0 fluorouracil (Efudex) 5 % cream cream losartan (Cozaar) 100 mg tablet Take 1 tablet (100 mg) by mouth once daily. metoprolol succinate XL (Toprol-XL) 50 mg 24 hr tablet pantoprazole (ProtoNix) 40 mg EC tablet primidone (Mysoline) 50 mg tablet Take 3 tablets (150 mg) by mouth once daily. 270 tablet 0 rimegepant (Nurtec ODT) 75 mg tablet,disintegrating Dissolve 1 tablet (75 mg) in the mouth every other day. ubrogepant (Ubrelvy) 100 mg tablet Take 1 tablet (100 mg) by mouth once daily as needed (for migraine, may repeat dose in 2 hours if needed, no more than 2 doses in 24 hours). 16 tablet 11 onabotulinumtoxinA (Botox) 200 unit injection Inject 200 Units into the muscle every 3 months. No current facility-administered medications on file prior to visit. No past medical history on file. No past surgical history on file. No family history on file. Social History Tobacco Use Smoking status: Not on file Smokeless tobacco: Not on file Substance Use Topics Alcohol use: Not on file ALLERGIES: Tramadol REVIEW OF SYSTEMS: General: Appetite change: denies. Chills: denies. Fever: denies. Allergy/Immunology: Unusual rection to medications, food, animals or insects reaction: denies. Ophthalmologic: Visual acuity change: denies. ENT: Decreased hearing: denies. Endocrine: Weight loss: denies. Respiratory: Cough: denies. Wheezing: denies. Cardiovascular: Chest pain: denies. Palpitations: denies. Gastrointestinal: Abdominal pain: denies. Difficulty swallowing: denies Hematology: Bleeding problems: denies. Genitourinary: Painful urination: denies. Musculoskeletal: Joint pain: denies. Joint edema: denies. Skin: Rash: denies. Neurologic: Ataxia: denies Psychiatric: Suicidal thoughts: denies. Also see HPI for elements of ROS documented therein and for details of positive findings, which shall supersede the foregoing. OBJECTIVE: Objective Vitals: 12/07/24 1129 BP: (!) 158/99 Pulse: 60 Resp: 18 Weight: 84.6 kg (186 lb 6.4 oz) Body mass index is 26.75 kg/m . EXAMINATION: General Exam: pleasant, well nourished, well developed, in no acute distress Head: normocephalic, atraumatic Eyes: extraocular movement intact (EOMI), pupils equal, round, reactive to light, upper eyelids normal , lower eyelids normal Ears: no obvious hearing deficit Nose: Nares patent Neck/Throat: neck supple, full range of motion Oral Cavity: mucosa moist Skin: warm and dry Lungs: speaks in full sentences Chest: normal shape and expansion Abdomen: bowel sounds present, soft, nontender, nondistended, no guarding or rigidity Extremities: no edema, no cyanosis Musculoskeletal: no swelling or deformity Neurologic: nonfocal, alert and oriented, cognitive exam grossly normal, cranial nerves 2-12 grossly intact, motor strength 5/5 bilateral symmetrically, no drift, coordination intact, sensory exam intact, no tremor noted, gait normal Psych: pleasant, cooperative, good eye contact, speech clear, judgement and insight good ASSESSMENT/PLAN: 1. Intractable chronic migraine with aura with status migrainosus (Primary) Stable, continue botox every 3 months, cymbalta 60 mg daily, ubrelvy prn Past tx: imitrex, maxalt, nurtec 2. Tremor Continue primidone 150 mg in am, start 50 mg in afternoon 3. KOJO (obstructive sleep apnea) Currently on cpap - requested compliance and sleep study results Patient would like this office to resume care. Follow up in 1-2 weeks to evaluate kojo I personally spent today, exclusive of procedures, providing care for this patient, including preparation, face to face time, documentation and other services such as review of medical records, diagnostic result, patient education, counseling, coordination of care as specified in the encounter. CHIQUI Richmond documented in this encounter [facility] Work Phone: 12-07-2024 Instructions CHIQUI Richmond - 12/07/2024 11:30 AM EDT Take primidone 150 mg in the morning, take 1 tablet in afternoon Follow up in 1.5 weeks documented in this encounter [facility] Work Phone: 10-28-2024 Discharge summary Note Date/Time October 28, 2024 3:22p m [facility] Physical Therapy [facility] [address] [place] [address]. [address] [place] [address] / REHABILITATION SERVICES DISCHARGE SUMMARY MR#: [id number] Acct: [id number] Name: BIMAL ECHEVERRIA Rep #: [id number] : 1955 69 From: Cert. GEORGIE Bateman, [facility] Referring Dr.: Dr. Valeria Parkinson MD Status: REG RCR Insurance: [facility] SELF PAY INSURANCE Discharge Summary D/C summary: It has been my pleasure to treat BIMAL ECHEVERRIA referred by Dr. Valeria Parkinson MD, with the diagnosis of BILATERAL HIP PAIN for a total of 27 visit(s). Discharge Date: 10/28/24 Please see the following information for a summary of their discharge status. Subjective Subjective: Doing well ,no walking good Seen DR Pain Bilateral Hip: Pain Intensity (Out of 10): 0 Overall Improvement % Improvement: 100 Objective Objective/Function: POSTURE: mild forward posture NEURO: denies paresthesia/tingling ,reflexes L3-4,L4-5,L5-S1 1/3 PALAPTION: mild greater trochanter ,IT band ,hip flexor GAIT: reciprocal pattern mild forward posture antalgic gait PROM:right Hip flexion 150 flexion pain ,hip IR 20 degrees ,hip abduction 40 degrees MMT: quads /hamstrings 4/5 ( peak force) hip flexion right 42.9 ,left 48.9 ,hip abd 22.5 left ,right 21.8 ,ankle 4/5 FLEXABILITY: hamstrings min/mod tight ,piriformis min right LUMBAR ROM: flexion min loss ,extension mod loss,side glides min loss Goals Goal 1:: Patient to be I with HEP for hip Goal Progress: Goal Met Goal 2:: Patient normalize gait pattern Goal Progress: Goal Met Goal 3:: Patient to demonstrate 80% improvement with less pain and improved function( new goal) Goal Progress: Goal Met Goal 4:: Patient to peak force hip by 5-10 # to improve function with gait ( newgoal) Goal Progress: Goal Met Goal 5:: Patient to improve LFES score by 5 points to improve function and QOL Goal Progress: Goal Met Plan Plan: D/C D/C Information Discharge Comments: hep d/c sentence: If there are questions or concerns regarding this patient's physical therapy, please feel free to call me at [phone]. Thank you for the referral of thispatient. Sincerely, Morales De Santiago PT, Sekou JACQUES, OCS Balance/Gait/Functional tests Balance/Special Test Scores Lower Extremity Functional Score: 53 Improvement % Improvement: 100 <Electronically signed by Cert. GEORGIE Tinajero PT, OCS> 10/28/24 1522 CC: Dr. Valeria Parkinson MD ~ JLA Signed [facility] Work Phone: 1(300) 555-591907-09-2025 Discharge summary [facility] Physical Therapy [facility] [address] [place] [address] / REHABILITATION SERVICES DISCHARGE SUMMARY MR#: [id number] Acct: [id number] Name: BIMAL ECHEVERRIA Rep #: [id number] : 1955 69 From: Cert. GEORGIE Bateman, OCS Referring Dr.: Dr. Valeria Parkinson MD Status: [facility] Insurance: [facility] SELF PAY INSURANCE Discharge Summary D/C summary: It has been my pleasure to treat BIMAL ECHEVERRIA referred by Dr. Valeria Parkinson MD, with the diagnosis of BILATERAL HIP PAIN for a total of 27 visit(s). Discharge Date: 10/28/24 Please see the following information for a summary of their discharge status. Subjective Subjective: Doing well ,no walking good Seen DR Pain Bilateral Hip: Pain Intensity (Out of 10): 0 Overall Improvement % Improvement: 100 Objective Objective/Function: POSTURE: mild forward posture NEURO: denies paresthesia/tingling ,reflexes L3-4,L4-5,L5-S1 1/3 PALAPTION: mild greater trochanter ,IT band ,hip flexor GAIT: reciprocal pattern mild forward posture antalgic gait PROM:right Hip flexion 150 flexion pain ,hip IR 20 degrees ,hip abduction 40 degrees MMT: quads /hamstrings 4/5 ( peak force) hip flexion right 42.9 ,left 48.9 ,hip abd 22.5 left ,right 21.8 ,ankle 4/5 FLEXABILITY: hamstrings min/mod tight ,piriformis min right LUMBAR ROM: flexion min loss ,extension mod loss,side glides min loss Goals Goal 1:: Patient to be I with HEP for hip Goal Progress: Goal Met Goal 2:: Patient normalize gait pattern Goal Progress: Goal Met Goal 3:: Patient to demonstrate 80% improvement with less pain and improved function( new goal) Goal Progress: Goal Met Goal 4:: Patient to peak force hip by 5-10 # to improve function with gait ( newgoal) Goal Progress: Goal Met Goal 5:: Patient to improve LFES score by 5 points to improve function and QOL Goal Progress: Goal Met Plan Plan: D/C D/C Information Discharge Comments: hep d/c sentence: If there are questions or concerns regarding this patient's physical therapy, please feel free to call me at [phone]. Thank you for the referral of thispatient. Sincerely, Morales De Santiaog, PT, Cert MDT, OCS Balance/Gait/Functional tests Balance/Special Test Scores Lower Extremity Functional Score: 53 Improvement % Improvement: 100 10/28/24 1522 CC: Dr. Valeria Parkinson MD ~ JLBilly Signed [facility]06-19-2025 History of Present illness Narrative* CHIQUI Richmond - 10/08/2024 11:00 AM EDTAssociated Order(s): Botulinum Injection - Head/Face/Jaw Pre-Procedure Diagnose(s): Intractable chronic migraine with aura with status migrainosus Post-Procedure Diagnose(s): Intractable chronic migraine with aura with status migrainosus Patient ID: Bimal Echeverria is a 69 y.o. male. Botulinum Injection - Head/Face/Jaw Date/Time: 10/08/2024 11:26 AM Performed by: CHIQUI Richmond Authorized by: CHIQUI Richmond Consent: Consent obtained: Verbal (Verified patient has not received Botox from any other healthcare provider or 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 Alternatives discussed: No treatment [place] protocol: Relevant documents present and verified: Yes Site/side verified: Yes Immediately prior to procedure a time out was called: Yes Patient identity confirmed: Verbally with patient Procedure details: EMG used? No Electrical stimulation used? No Diluted by: Preservative free saline Total units available: 200 Right frontalis: 10 units divided amongst 2 site(s) Left frontalis: 10 units divided amongst 2 site(s) Right energy audit advisor: 5 units divided amongst 1 site(s) Left energy audit advisor: 5 units divided amongst 1 site(s) Procerus (midline): 5 units divided amongst 1 site(s) Right occipitalis: 15 units divided amongst 3 site(s) Left occipitalis: 15 units divided amongst 3 site(s) Right cervical paraspinal: 10 units divided amongst 2 site(s) Left cervical paraspinal: 10 units divided amongst 2 site(s) Right trapezius: 15 units divided amongst 3 site(s) Left trapezius: 15 units divided amongst 3 site(s) Right temporalis: 20 units divided amongst 4 site(s) Left temporalis: 20 units divided amongst 4 site(s) Total units injected: 155 Total units wasted: 45 Post-procedure details: Patient tolerance of procedure: Tolerated well, no immediate complications Comments: You had Botox injections for migraine prevention today: Please do not rub injection sites for 24 hours. Avoid pressure above eyebrows for 24 hours, including massage; use of helmets, headlamps, headbands, or goggles. If there is discomfort, ice for 20 minutes at a time for the first 24 hours. After 24 hours, you many use heat for discomfort (please limit to 15-20 minutes). Headaches may worsen, or you may experience neck stiffness. If this occurs use your usual headache medication or a mild anti inflammatory such as Advil or Aleve. Please call if you have difficulty swallowing. documented in this [facility] Work Phone: 1(723) 900-376005-14-2025 Evaluation note* Diagnosis Onset Date Resolution Status Admit Date Impacted cerumen of both ears acute September 02, 2024 9:57am [facility] Work Phone: 1(118) 245-888105-14-2025 Progress [facility] [address], [address] [place] [address] OFFICE VISIT Date of Service: 09/02/24 MR#: [id number] Acct: [id number] Name: BIMAL ECHEVERRIA Rep #: [id number] : 1955 Provider: FRANCIA Francis Age/Sex: 69/M Location: [facility] Status: Signed Intake Vital Signs 02/25/23 09:02 09/02/24 10:00 Height 5 ft 10 in 5 ft 10 in Weight: 185 lb 6 oz BMI 26.6 BP 120/86 H Position Sitting Pulse 82 Temp 98.1 F Temp Source Oral Pulse Oximetry (%) 100 Oxygen Delivery Method room air Intake Visit Reasons: BILAT EAR PLUGGED Accompanied by: Self Allergies tramadol Allergy (Mild, Verified 09/02/24 10:04) flushed bee venom protein (honey bee) Allergy (Verified 09/02/24 10:04) Anaphylaxis Medications ?Medication ?Instructions ?Recorded ?Confirmed ?Type hydrochlorothiazide 25 mg tablet 25 mg PO DAILY 09/02/24 History pantoprazole 40 mg tablet,delayed 40 mg PO DAILY 12/3009/02/24 History release cyclobenzaprine 10 mg tablet 10 mg PO QHS PRN PRN Musc le Spasm 12/03/20 09/02/24 Rx #20 TABLETS epinephrine 0.3 mg/0.3 mL 0.3 mg (0.3 mL) IM Q4H PRN 0 12/09/21 09/02/24 Rx injection, auto-injector (EpiPen anaphylaxis #2 ea 2-Vincenzo) losartan 100 mg tablet 100 mg PO DAILY 10/20/22 History magnesium 200 mg tablet 200 mg PO QDAY 09/02/2408/20 History omega 3-uns-hbp-fish oil 300 1 cap PO QDAY 09/02/24 History mg-1,000 mg capsule (Fish Oil) vitamin E (dl, acetate) 45 mg (100 45 mg PO QDAY 09/0209/02/24 History unit) capsule Have you fallen in the past year?: No Nurse's Note: Patient has Bilateral ear plugged. Patient is getting new hearing aides and he needs his ears flushed. [facility] Medical History (Updated 09/02/24 @ 10:24 by Dany FELDMAN, PA) Impacted cerumen of both ears Wears hearing aid Marijuana use Arthritis Migraine headache Back pain Gastric reflux Non-smoker Leg fracture, right Diverticulosis Hypertension Surgical History S/P ORIF (open reduction internal fixation) fracture Status post lumbar surgery S/P cervical spinal fusion History of knee replacement procedure of left knee Family History Mother Brain cancer Social History Smoking Status: Never smoker alcohol intake: current details: 3-4 per week HPI HPI Details: BIMAL ECHEVERRIA, is a 69 M who presents to the office today for cerumen impactionboth ears, requesting have removed. No complaints of fever, chills, sweats, lightheadedness/dizziness, nausea/vomiting.PMH NC for history of chronic each ear hard of hearing and therefore each ear hearing aids. No other complaints atthis time. ROS Const Constitutional: No other (As above) Exam Const General: cooperative, healthy appearing and no acute distress Nutritional Appearance: average body habitus Orientation: alert and awake HENNJ Head: normal to inspection Ears: hearing grossly normal bilaterally, external ears normal, TM's normal bilaterally (After eachear cerumen impaction removed; see procedure) and EAC's normal Nose: external nose normal Eyes General: appearance normal, both eyes and all related structures Neck Neck: normal visual inspection and no meningeal signs Chest Chest palpation & inspection: normal inspection of the chest Resp Effort & Inspection: normal respiratory effort and able to speak in complete sentences Cardio Rate: regular rate Pulses: radial pulses present GI Inspection: normal to inspection Skin General: no rashes or lesions noted Neuro General: patient alert, patient awake and patient oriented x3 Cognition: normal cognition Speech: speech normal Psych Appearance: grossly normal Mental Status: mental status grossly normal Mood: congruent mood Affect: normal affect Speech and Movement: speech and movement normal Attitude: cooperative Office Procedures Cerumen Removal Procedure BMS Cerumen Removal Procedure Procedure performed by: Dany Christensen Method of removal: loop and irrigation From which ear canal was the cerumen removed: bilateral Amount of Cerumen: large Patient tolerated procedure: well Complications: none Coding Level of Care Code Attention Brady Diagnoses Impacted cerumen of both ears H61.23 Comment 72387, 31143 Assessment and Plan Assessment and Plan (1) Impacted cerumen of both ears: Status: Acute Plan: See procedure above. Educated on appropriate ear hygiene care. Follow-up with now clinic on an as-needed basis only. Patient states acknowledging understanding all the above. This note was generated with [employer] dictation software. It may contain incorrectwords, spelling, and punctuation that were not noted in checking the note beforesigning. Clinical Quality Measures Falls Risk Screening/Assistive Devices Have you fallen in the past year?: No 09/02/24 1025 s FRANCIA FELDMAN> Date _ Dany FELDMAN Cosigner Signature: Date (if applicable) CC: ~ [facility]05-14-2025 Progress note Author Dany Christensen [facility] Note Date/Time September 02, 2024 10:25 am [facility] [address], [address] [place] [address] OFFICE VISIT Date of Service: 09/02/24 MR#: [id number] Acct: [id number] Name: BIMAL ECHEVERRIA Rep #: [id number] : 1955 Provider: FRANCIA Francis Age/Sex: 69/M Location: [facility] Status: Signed Intake Vital Signs 02/25/23 09:02 09/02/24 10:00 Height 5 ft 10 in 5 ft 10 in Weight: 185 lb 6 oz BMI 26.6 BP 120/86 H Position Sitting Pulse 82 Temp 98.1 F Temp Source Oral Pulse Oximetry (%) 100 Oxygen Delivery Method room air Intake Visit Reasons: BILAT EAR PLUGGED Accompanied by: Self Allergies tramadol Allergy (Mild, Verified 09/02/24 10:04) flushed bee venom protein (honey bee) Allergy (Verified 09/02/24 10:04) Anaphylaxis Medications ?Medication ?Instructions ?Recorded ?Confirmed ?Type hydrochlorothiazide 25 mg tablet 25 mg PO DAILY 09/02/24 History pantoprazole 40 mg tablet,delayed 40 mg PO DAILY 12/3009/02/24 History release cyclobenzaprine 10 mg tablet 10 mg PO QHS PRN PRN Musc le Spasm 12/03/20 09/02/24 Rx #20 TABLETS epinephrine 0.3 mg/0.3 mL 0.3 mg (0.3 mL) IM Q4H PRN 0 12/09/21 09/02/24 Rx injection, auto-injector (EpiPen anaphylaxis #2 ea 2-Vincenzo) losartan 100 mg tablet 100 mg PO DAILY 10/20/22 History magnesium 200 mg tablet 200 mg PO QDAY 09/02/2408/20 History omega 1-bte-qev-fish oil 300 1 cap PO QDAY 09/02/24 History mg-1,000 mg capsule (Fish Oil) vitamin E (dl, acetate) 45 mg (100 45 mg PO QDAY 09/0209/02/24 History unit) capsule Have you fallen in the past year?: No Nurse's Note: Patient has Bilateral ear plugged. Patient is getting new hearing aides and he needs his ears flushed. [facility] Medical History (Updated 09/02/24 @ 10:24 by Dany FELDMAN, PA) Impacted cerumen of both ears Wears hearing aid Marijuana use Arthritis Migraine headache Back pain Gastric reflux Non-smoker Leg fracture, right Diverticulosis Hypertension Surgical History S/P ORIF (open reduction internal fixation) fracture Status post lumbar surgery S/P cervical spinal fusion History of knee replacement procedure of left knee Family History Mother Brain cancer Social History Smoking Status: Never smoker alcohol intake: current details: 3-4 per week HPI HPI Details: BIMAL ECHEVERRIA, is a 69 M who presents to the office today for cerumen impactionboth ears, requesting have removed. No complaints of fever, chills, sweats, lightheadedness/dizziness, nausea/vomiting. PMH NC for history of chronic each ear hard of hearing and therefore each ear hearing aids. No other complaints atthis time. ROS Const Constitutional: No other (As above) Exam Const General: cooperative, healthy appearing and no acute distress Nutritional Appearance: average body habitus Orientation: alert and awake HENMT Head: normal to inspection Ears: hearing grossly normal bilaterally, external ears normal, TM's normal bilaterally (After each ear cerumen impaction removed; see procedure) and EAC's normal Nose: external nose normal Eyes General: appearance normal, both eyes and all related structures Neck Neck: normal visual inspection and no meningeal signs Chest Chest palpation & inspection: normal inspection of the chest Resp Effort & Inspection: normal respiratory effort and able to speak in complete sentences Cardio Rate: regular rate Pulses: radial pulses present GI Inspection: normal to inspection Skin General: no rashes or lesions noted Neuro General: patient alert, patient awake and patient oriented x3 Cognition: normal cognition Speech: speech normal Psych Appearance: grossly normal Mental Status: mental status grossly normal Mood: congruent mood Affect: normal affect Speech and Movement: speech and movement normal Attitude: cooperative Office Procedures Cerumen Removal Procedure BMS Cerumen Removal Procedure Procedure performed by: Dany Christensen Method of removal: loop and irrigation From which ear canal was the cerumen removed: bilateral Amount of Cerumen: large Patient tolerated procedure: well Complications: none Coding Level of Care Code Attention Punch Out Crew Member Diagnoses Impacted cerumen of both ears H61.23 Comment 96096, 20544 Assessment and Plan Assessment and Plan (1) Impacted cerumen of both ears: Status: Acute Plan: See procedure above. Educated on appropriate ear hygiene care. Follow-up with now clinic on an as-needed basis only. Patient states acknowledging understanding all the above. This note was generated with [employer] software. It may contain incorrectwords, spelling, and punctuation that were not noted in checking the note beforesigning. Clinical Quality Measures Falls Risk Screening/Assistive Devices Have you fallen in the past year?: No 09/02/24 1024 <Electronically signed by Dany FELDMAN> Date _ Dany FELDMAN Cosigner Signature: Date (if applicable) CC: ~ [employer] Work Phone: 1(778) 342-431503-19-2025 History of Present illness Narrative* CHIQUI Allred - 07/08/2024 1:00 PM EDTAssociated Order(s): Head/Face/Jaw Botulinum Injection Patient ID: Bimal Echeverria is a 69 y.o. male. Presents to [facility] for PREEMPT Botox for migraine. 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 Work Phone: Reason for visit Narrative* Clinic-Administered Medication (Routine) - Pending Review Specialty Diagnoses / Procedures Referred By Mir t Referred To Contact Diagnoses Intractable chronic migraine with aura with status migrainosus Vandana Grady, TEST DRIVER-SAMPLE BODY BUILDER [address] [place] [address] Phone: tel: fax: Referral ID Status Reason Start Date Expiration Date V isits Requested Visits Authorized [id number] Pending Review 12/31/2024 12/31/2025 1 1 [facility] Work Phone: Summary Purpose Family History No Family History Records Found Relationship Condition Age at Onset Recorded Date/T jake mother Malignant neoplasm of brain Unknown Advance Directives No Advanced Directives Records Found Advance Directive Response Recorded Date/ Time Advance Directives No January 28, 2014 9:35am Living Will No December 03 1 11:05am Power of Lap Runner No December 03, 021 11:05am Advance Directive Response Recorded Date/ Time Advance Directives No January 28, 2014 9:35am Living Will No December 09 2 2:02pm Power of Lap Runner No December 09 022 2:02pm Advance Directive Response Recorded Date/ Time Advance Directives No January 28, 2014 8:35am Living Will No December 09 2 1:02pm Power of Lap Runner No December 09 2 022 1:02pm Advance Directive Response Recorded Date/ Time Name of Medical Power of Lap Runner AND SON February 21, 2023 9:10am Advance Directives No January 28, 2014 8:35am Living Will Yes February 21 9:10am Power of Lap Runner Yes February 21, 2023 9:10am Advance Directive Response Recorded Date/ Time Advance Directives No January 28, 2014 9:35am Chief Complaint and Reason for Visit Chief Complaint ATTN LIVER RUQ PAIN Chief Complaint allergic reaction Chief Complaint DYSPNEA DYSPNEA Chief Complaint DYSPNEA DYSPNEA TREMOR Chief Complaint DYSPNEA DYSPNEA TREMOR REDRAW DDD RX HERE Chief Complaint DYSPNEA DYSPNEA TREMOR REDRAW DDD RX HERE ACUTE KIDNEY FAILURE Chief Complaint DYSPNEA DYSPNEA TREMOR REDRAW DDD RX HERE ACUTE KIDNEY FAILURE FATTY LIVER, ELEVATED LFT'S Chief Complaint LUMBAR DDD RX HERE Chief Complaint Admit Date FASTING- PAIN IN HIPS May 08, 2024 9:14am B HIP PAIN, RX HERE August 26, 2024 1:00pm BILAT EAR PLUGGED September 02, 2024 9:57a m Reason for Visit Admit Date Impacted cerumen of both ears September 02, 2024 9:57am Chief Complaint Admit Date BILAT EAR PLUGGED September 02, 2024 9:57a m KOJO September 03, 2024 12:37 pm B HIP PAIN, RX HERE September 08, 2024 1:00p m Chief Complaint Admit Date BILAT EAR PLUGGED September 02, 2024 9:57a m KOJO September 03, 2024 12:37 pm B HIP PAIN, RX HERE October 14, 2024 12:3 0pm Chief Complaint Admit Date BILAT EAR PLUGGED September 02, 2024 9:57a m KOJO September 03, 2024 12:37 pm B HIP PAIN, RX HERE October 28, 2024 12:30 pm Chief Complaint Admit Date BILAT EAR PLUGGED September 02, 2024 9:57a m KOJO September 03, 2024 12:37 pm B HIP PAIN, RX HERE October 28, 2024 12:30 pm KOJO October 30, 2024 2:15 pm Additional Source Comments (unrecognized sect ion and content) No Status Records FoundNo Status Records FoundNo Status Records FoundNo Status Records FoundNo Status Records Found INFORMATION SOURCE (unrecogn ized section and content) DATE CREATED AUTHOR 07/29/2020 Demario Caro [facility] DATE CREATED AUTHOR AUTHOR'S ORGANIZ ATION 04/05/2024 [facility] DATE CREATED AUTHOR AUTHOR'S ORGANIZ ATION 11/08/2024 [facility] DATE CREATED AUTHOR AUTHOR'S ORGANIZ ATION 12/18/2024 [facility] DATE CREATED AUTHOR AUTHOR'S ORGANIZ ATION 01/02/2025 [facility] Goals (unrecognized section and content) Goals may be documented in a n alternate sectionGoals may be documented in an alternate sectionGoals may be documented in an alternate sectionGoals may be documented in an alternate sectionGoals may be documented in an alternate sectionGoals may be documented in an alternate sectionGoals may be documented in an alternate sectionGoals may be documented in an alternate sectionGoals may be documented in an alternate sectionGoals may be documented in an alternate sectionGoals may be documented in an alternate sectionGoals may be documented in an alternate sectionGoals may be documented in an alternate sectionGoals may be documented in an alternate sectionGoals may be documented in an alternate sectionGoals may be documented in an alternate sectionGoals may be documented in an alternate sectionGoals may be documented in an alternate section Care Teams (unrecognized sec tion and content) Team Status: Active Member Role Status Dates Dr. Valeria Parkinson MD Family Provider Active Dr. Valeria Parkinson MD Primary Care Provider Active Team Status: Inactive Member Role Status Dates Dr. Valeria Parkinson MD Primary Care Provider, Attendin g Provider Active Team Status: Active Member Role Status Dates Dr. Valeria Parkinson MD Primary Care Provider, Other Pr ovider Active Dr. Tony Dye MD Attending Provider, Referring Pr ovider Active Team Status: Inactive Member Role Status Dates Dr. Valeria Parkinson MD Primary Care Provider Active Vandana Grady PLANT FACILITIES TECHNICIAN, PLANT FACILITIES TECHNICIAN-C Attending Provider, Referr ing Provider Active Team Status: Active Member Role Status Dates Dr. Valeria Parkinson MD Primary Care Provider Active JAYJAY, CORRIGALL Attending Provider, Referring Prov ider Active Team Status: Inactive Member Role Status Dates Dr. Valeria Parkinson MD Primary Care Prov ider, Attending Provider, Referring Provider Active Team Status: Active Member Role Status Dates Dr. Valeria Parkinson MD Primary Care Prov ider, Attending Provider, Referring Provider Active Team Status: Inactive Member Role Status Dates Dr. Valeria Parkinson MD Primary Care Provider Active JAYJAY, CORRIGALL Attending Provider, Referring Prov ider Active Team Status: Active Member Role Status Dates Dr. Valeria Parkinson MD Primary Care Provider Active MADILINE, CORRIGALL Attending Provider, Referring Prov ider Active Team Status: Inactive Member Role Status Dates Nancy Brennan NP-C Primary Care Provide r, Attending Provider, Referring Provider Active Team Status: Inactive Member Role Status Dates Dr. Mynor Velez MD Attending Provider, Referring Provider Active Dr. Valeria Parkinson MD Primary Care Provider Active Team Status: Inactive Member Role Status Dates Dr. Valeria Parkinson MD Primary Care Provider Active PLANT FACILITIES TECHNICIAN. Hilaria Ibanez Attending Provider Active Tire Servicer Relationship Specialty Start Date End Date Valeria Parkinson MD [address] [place] [id number] PCP - General 10/01/22 [employer] Servicer Relationship Specialty Start Date End Date Valeria Parkinson MD [address] [place] [address] PCP - General 10/01/22 [employer] Servicer Relationship Specialty Start Date End Date Valeria Parkinson MD [address] [place] [address] PCP - General 10/01/22 [employer] Servicer Relationship Specialty Start Date End Date Valeria Parkinson MD [address] [place] [address] PCP - General 10/01/22 Team Status: Active Member Role Status Dates Dr. Valeria Parkinson MD Primary Care Provider Active Team Status: Inactive Member Role Status Dates Dr. Valeria Parkinson MD Primary Care Provider Active Start: May 08, 2024 End: May 08, 2024 Dr. Valeria Parkinson MD Attending Provider Active Start: May 08, 2024 End: May 08, 2024 Dr. Valeria Parkinson MD Referring Provider Active Start: May 08, 2024 End: May 08, 2024 Team Status: Active Member Role Status Dates Dr. Valeria Parkinson MD Primary Care Provider Active Start: August 26, 2024 Dr. Valeria Parkinson MD Attending Provider Active Start: August 26, 2024 Dr. Valeria Parkinson MD Referring Provider Active Start: August 26, 2024 Team Status: Inactive Member Role Status Dates Dr. Valeria Parkinson MD Primary Care Provider Active Start: September 02, 2024 End: September 02, 2024 Dr. Valeria Parkinson MD Referring Provider Active Start: September 02, 2024 End: September 02, 2024 Dany FELDMAN PA Attending Provider Active Start: September 02, 2024 End: September 02, 2024 Team Status: Inactive Member Role Status Dates Dr. Valeria Parkinson MD Primary Care Provider Active Start: September 03, 2024 End: September 03, 2024 Dr. Valeria Parkinson MD Attending Provider Active Start: September 03, 2024 End: September 03, 2024 Dr. Valeria Parkinson MD Referring Provider Active Start: September 03, 2024 End: September 03, 2024 Team Status: Active Member Role Status Dates Dr. Valeria Parkinson MD Primary Care Provider Active Start: September 08, 2024 Dr. Valeria Parkinson MD Attending Provider Active Start: September 08, 2024 Dr. Valeria Parkinson MD Referring Provider Active Start: September 08, 2024 Tire Servicer Relationship Specialty Start Date End Date Valeria Parkinson MD [address] [place] [phone] PCP - General Family Medicine 07/15/24 Team Status: Active Member Role/Relationship Status Dates Dr. Valeria Parkinson MD Primary Care Provider Active Team Status: Inactive Member Role/Relationship Status Dates Dr. Valeria Parkinson MD Primary Care Provider Active Start: September 02, 2024 End: September 02, 2024 Dr. Valeria Parkinson MD Referring Provider Active Start: September 02, 2024 End: September 02, 2024 Dany FELDMAN PA Attending Provider Active Start: September 02, 2024 End: September 02, 2024 Team Status: Inactive Member Role/Relationship Status Dates Dr. Valeria Parkinson MD Primary Care Provider Active Start: September 03, 2024 End: September 03, 2024 Dr. Valeria Parkinson MD Attending Provider Active Start: September 03, 2024 End: September 03, 2024 Dr. Valeria Parkinson MD Referring Provider Active Start: September 03, 2024 End: September 03, 2024 Team Status: Active Member Role/Relationship Status Dates Dr. Valeria Parkinson MD Primary Care Provider Active Start: October 14, 2024 Dr. Valeria Parkinson MD Attending Provider Active Start: October 14, 2024 Dr. Valeria Parkinson MD Referring Provider Active Start: October 14, 2024 Team Status: Inactive Member Role/Relationship Status Dates Dr. Valeria Parkinson MD Primary Care Provider Active Start: October 20, 2024 End: October 20, 2024 Dr. Valeria Parkinson MD Attending Provider Active Start: October 20, 2024 End: October 20, 2024 Team Status: Inactive Member Role/Relationship Status Dates Dr. Valeria Parkinson MD Primary Care Provider Active Start: October 20, 2024 End: October 20, 2024 Dr. Valeria Parkinson MD Attending Provider Active Start: October 20, 2024 End: October 20, 2024 Team Status: Inactive Member Role/Relationship Status Dates Dr. Valeria Parkinson MD Primary Care Provider Active Start: October 28, 2024 End: October 28, 2024 Dr. Valeria Parkinson MD Attending Provider Active Start: October 28, 2024 End: October 28, 2024 Dr. Valeria Parkinson MD Referring Provider Active Start: October 28, 2024 End: October 28, 2024 Team Status: Inactive Member Role/Relationship Status Dates Dr. Valeria Parkinson MD Primary Care Provider Active Start: October 30, 2024 End: October 30, 2024 Dr. Valeria Parkinson MD Attending Provider Active Start: October 30, 2024 End: October 30, 2024 Dr. Valeria Parkinson MD Referring Provider Active Start: October 30, 2024 End: October 30, 2024 Tire Servicer Relationship Specialty Start Date End Date Valeria Parkinson MD [address] [place] [phone] PCP - General Family Medicine 07/15/24 Tire Servicer Relationship Specialty Start Date End Date Valeria Parkinson MD [address] [place] [phone] PCP - General Family Medicine 07/15/24 Tire Servicer Relationship Specialty Start Date End Date Valeria Parkinson MD [address] [place] [phone] PCP - General Family Medicine 07/15/24 Reason for Visit (unrecogniz ed section and content) Reason Comments New Med Request Reason Comments Botulinum Toxin Injection Specialty Diagnoses / Procedures Referred By Contac t Referred To Contact Neurology Diagnoses Chronic migraine without aura, intractable, without status migrainosus (CMS/HCC) Procedures CA INJECTION,ONABOTULINUMTOXINA CA CHEMODNRVTJ MUSC MUSC INNERVATED FACIAL NRV UNIL CA CHEMODENERVATION MUSCLE NECK UNILAT FOR DYSTONIA Obdulio Stearns MD [address] [place] [address] Phone: tel: fax: Obdulio Stearns MD [address] [place] [address] Phone: tel: fax: Referral ID Status Reason Start Date Expiration Date V isits Requested Visits Authorized [id number] Authorized Other 10/07/2023 10/06/2024 5 5 Reason Comments New Patient Visit Reason Comments Migraine Current migraine Specialty Diagnoses / Procedures Referred By Contac t Referred To Contact Diagnoses Intractable chronic migraine with aura with status migrainosus Diane De Jesus, TEST DRIVER-S[employer] B[employer] BUILDER [address] [address] Phone: tel: fax: Referral ID Status Reason Start Date Expiration Date V isits Requested Visits Authorized [id number] Pending Review 07/08/2024 07/08/2025 1 1 Reason Comments Botulinum Toxin Injection Specialty Diagnoses / Procedures Referred By Contac t Referred To Contact Diagnoses Intractable 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 [facility] [employer] [facility]. provides no warranty or guarantee of the accuracy or completeness of information in this document.
[2025-04-16 00:12] LABS: Hematocrit 40.7 % (40-54); Hemoglobin 13.6 g/dL (13.0-16.5); Immature Granulocytes Count 0.030 X10^3/uL (0.0-0.0); Mean Corp Hgb Conc 33.4 g/dL (32-36); Mean Corpuscular Volume 100.7 fL (80-94); Mean Platelet Vol. 9.6 fl (6.2-12.0); NRBC Flagged by Analyzer 0 % (0-5); Platelet Count 260 K/mm3 (150-450); RBC Distribution Width CV 13.2 % (11.6-14.6); RBC Distribution Width SD 48.8 fl (35.1-43.9); Red Blood Count 4.04 M/mm3 (4.6-6.2); White Blood Count 9.2 K/mm3 (4.4-11.0)
--- NOTE | 2025-04-16 00:20 | CT_ITS ---
PROCEDURE: ABDOMEN/PELVIS W IV CONT ONLY 04/16/2025 REASON FOR EXAM: FALL TECHNIQUE: Procedure Code: [id number] Modality: CT Procedure: ABDOMEN/PELVIS W IV CONT ONLY Coronal and Sagittal reconstruction series were provided. CONTRAST: OMNIPAQUE 350 VOLUME: 100 mL One or more dose reduction techniques were used (e.g., Automated exposure control, adjustment of the mA and/or kV according to patient size, use of iterative reconstruction technique. RADIATION DOSE SUMMARY: CTDlvol: 23.52 mGy DLP: 1335 mGycm COMPARISON: None. FINDINGS: Moderate osteopenia. Mild acute benign osteoporotic compression fracture of T12 vertebral body. No evidence of associated retropulsion or secondary canal stenosis. Diffuse spondylosis. Uncomplicated colonic diverticulosis. The visualized lung bases are unremarkable. Normal liver. Normal gallbladder and extrahepatic biliary system. Normal spleen. Normal pancreas. Normal bilateral adrenal glands. Normal size of the right kidney. There is no right renal mass. There are no right renal calculi. There is no right hydronephrosis. Normal visualized right ureter. Normal size of the left kidney. There is no left renal mass. There are no left renal calculi. There is no left hydronephrosis. Normal visualized left ureter. Normal visualized stomach. Normal small intestine. The appendix is visualized and appears normal. There is no demonstrated peritoneal fluid. Mild atheromatous plaques of the abdominal aorta. Normal inferior vena cava. Normal retroperitoneum. Normal urinary bladder. There is no pelvic mass lesion or lymphadenopathy. There is no pelvic fluid. Normal abdominal wall. CT/Abdomen/Pelvis W IV Cont ONLY IMPRESSION: Moderate osteopenia. Mild acute benign osteoporotic compression fracture of T12 vertebral body. No evidence of associated retropulsion or secondary canal stenosis. Diffuse spondylosis. Uncomplicated colonic diverticulosis. Reading Location: [id number]
--- NOTE | 2025-04-16 00:20 | CT_ITS ---
PROCEDURE: SPINE CERVICAL WITHOUT CONTRAS 04/16/2025 REASON FOR EXAM: FALL TECHNIQUE: Procedure Code: CTSPC Modality: CT Procedure: SPINE CERVICAL WITHOUT CONTRAS Coronal and Sagittal reconstruction series were provided. One or more dose reduction techniques were used (e.g., Automated exposure control, adjustment of the mA and/or kV according to patient size, use of iterative reconstruction technique. RADIATION DOSE SUMMARY: CTDI Vol 16.68 mGy DLP :323.70 mGycm COMPARISON: 19-Mar-2023 CR FINDINGS: Anterior fixation of C3 down to C6 vertebrae by plate and screws with disc spacers application and related bony bridging. No hardware break, loosening or osseous infection. Straightened cervical lordosis denoting myospasm. The examined vertebral bodies show no structural collapse or posterior neural elements fractures. Intact atlanto-axial interval. Degenerative changes of the atlanto-axial articulation with related capsular calcifications. Cervical spondylodegenerative changes evident by marginal osteophytic lipping and multilevel subchondral sclerosis of the examined vertebral end plates with multilevel disc spaces narrowing with vacuum phenomenon. Multilevel degenerative unco-vertebral arthropathy with osteophytes formation seen encroaching upon the corresponding neural exit foramina. Multilevel degenerative facet arthropathy with related capsular calcifications. Multilevel anterior longitudinal ligament calcifications. Multilevel diffuse disc bulges with posterior osteophytes and annular calcifications indenting the theca and encroaching upon the related neural exit foramina. No paraspinal masses. Vascular atheromatous calcifications CT/Spine Cervical without Contras IMPRESSION: Post operative changes as detailed. Straightened cervical curve denoting myospasm. No vertebral fractures, structural collapse or acute dislocation. Cervical spondylodegenerative changes with multilevel uncovertebral and facet a rthropathy along with diffuse disc bulges inducing spinal canal and neural exit pathway compromise. Reading Location: [facility]
--- NOTE | 2025-04-16 00:20 | CT_ITS ---
PROCEDURE: CTA CHEST W/WO CONTRAST 04/16/2025 REASON FOR EXAM: FALL TECHNIQUE: Procedure Code: [id number] Modality: CT Procedure: CTA CHEST W/WO CONTRAST Multiplanar Sagittal and Coronal images were obtained. CONTRAST: CONTRAST ISOVUE 370 VOLUME: VOLUME 100 ML mL One or more dose reduction techniques were used (e.g., Automated exposure control, adjustment of the mA and/or kV according to patient size, use of iterative reconstruction technique). RADIATION DOSE SUMMARY: CTDlvol: mGy DLP: DLP 3354.66 mGycm COMPARISON: # of known CTs in the past 12 months: NUMBER OF KNOWN CT SCANS 1 # of known Cardiac Nuclear Medicine Studies in the past 12 months: 0 FINDINGS: Thoracic Aorta: The aorta is unremarkable. Heart: Heart is normal in size. Pulmonary Vessels: Appear normal. Hardware: There is partial projection of well-seated plate and screw fixation orthopedic hardware at the ventral aspect of lower and mid cervical vertebral bodies. Lymph nodes: Within normal limits. Lungs and Airways: Mild dependent atelectasis. Pleura: Pleura unremarkable. Upper Abdomen: There is moderate distention of the stomach with liquid. Bones: There is a partially projected recent wedge compression fracture of the T12 vertebral body that is more completely depicted on the CT scan of the abdomen and pelvis done today. The superior aspect of the T12 vertebral body is comminuted and there is cupping of the superior endplate of T12 consistent with an insufficiency fracture. There is no evidence of retropulsion of T12 fragments. There is gas in the T11-T12 disc on a degenerative basis. CT/CTA Chest W/WO Contrast IMPRESSION: Partially projected recent insufficiency type compression fracture of T12. Thi s finding is more completely depicted on the CT scan of the abdomen and pelvis done today. Keyser Alert: Partially projected recent insufficiency type compression fractur e of T12. The critical findings in the findings and impression above were relayed directl y by me by telephone to Sandra Alvarez on 04/16/2025 at 3:50 am with readback verification. Reading Location: [id number]
--- NOTE | 2025-04-16 00:20 | CT_ITS ---
PROCEDURE: BRAIN/HEAD WITHOUT CONTRAST 04/16/2025 REASON FOR EXAM: HEAD INJURY TECHNIQUE: Procedure Code: CTBR Modality: CT Procedure: BRAIN/HEAD WITHOUT CONTRAST Coronal and Sagittal reconstruction series were provided. One or more dose reduction techniques were used (e.g., Automated exposure control, adjustment of the mA and/or kV according to patient size, use of iterative reconstruction technique. RADIATION DOSE SUMMARY: CTDI Vol 44.99 mGy DLP :846.73 mGycm COMPARISON: 21-Oct-2022 FINDINGS: Interval appearance of right frontal acute subdural hematoma measuring 4.2 mm in its maximum thickness without secondary significant mass effect or midline shift. Right frontal acute subgaleal soft tissue hematoma. Mild diffuse cortical atrophy, commensurate with the patient's age. Scattered hypodense foci in the periventricular and subcortical white matter suggestive of chronic ischemic white matter disease. Normal size of the ventricles and remaining extra-axial spaces for the patient's age. Normal basal ganglia and thalami. Normal brainstem. Normal cerebellum. There is no demonstrated intraparenchymal, or intraventricular hemorrhage. There are no findings of an acute ischemic infarction. Normal calvarium. There is no demonstrated fracture. Chronic mucosal inflammatory changes of the maxillary sinuses and ethmoid air cells. Secretions are noted in the right maxillary sinus. CT/Brain/Head without Contrast IMPRESSION: Interval appearance of right frontal acute subdural hematoma measuring 4.2 mm i n its maximum thickness without secondary significant mass effect or midline shift. Right frontal acute subgaleal soft tissue hematoma. I discussed the findings with Dr. Sandra Alvarez in the emergency department at 1:50 a.m. EST. Reading Location: [place] [address]
[2025-04-16 00:27] LABS: Troponin T High Sensitivity 9 ng/L (<=22)
[2025-04-16 00:29] LABS: Alcohol, Blood (Medical)-Serum 330.0 mg/dL (<=10.0)
[2025-04-16 01:08] LABS: AST(SGOT) 30 U/L (<=37); Alanine Aminotransfer ALT/SGPT 22 U/L (<=46); Albumin, Serum 4.5 g/dL (3.4-4.8); Alkaline Phosphatase 84 U/L (40-129); Anion Gap 12 (7-18); BUN 13 mg/dL (4-19); BUN/Creat Ratio 11.3 RATIO (10-20); Calcium,Total 9.3 mg/dL (7.6-11.0); Carbon Dioxide 21.5 mmol/L (20.0-29.0); Chloride 100 mmol/L (96-106); Estimated Creatinine Clearance 67.93 ml/min (50-250); Globulin 3.1 g/dL (2.2-4.2); Glucose 106 mg/dL (70-99); Potassium 4.2 mmol/L (3.5-5.1)
--- NOTE | 2025-04-16 02:17 | ED.RN ---
This RN went into the patient's room and the patient was undressed, sitting in the visitor chair, off the monitor and had taken out his own IV. This RN reinitiated the patient's IV in the patient's left AC and then another IV in his right AC. The patient continues to ask if he could leave and stating, this is fucking bullshit, this is fucking bullshit, I don't have a brain bleed, I don't need to go anywhere, I don't have a brain bleed and this is all bullshit. This RN educated the patient and reoriented the patient. The patient responded with this is fucking bullshit. This RN educated the patient's as well, the patient's is agreeable with plan of care and need for more interventions for the patient. notified.
[2025-04-16 02:41] LABS: Troponin T High Sens 2 HR 11 ng/L (<=22)
--- NOTE | 2025-04-16 02:48 | EDS_ITS ---
HPI History of Present Illness Chief Complaint: Fall Narrative Narrative: Patient was seen and examined after presenting to ED for fall after drinking alcohol he reportedly drank 2 bottles of wine and was inebriated walking in the kitchen and he fell hit his head was unconscious not on anticoagulation. [facility] Medical History Impacted cerumen of both ears Wears hearing aid Marijuana use Arthritis Migraine headache Back pain Gastric reflux Non-smoker Leg fracture, right Diverticulosis Hypertension Home Medications ?Medication ?Instructions ?Recorded ?Last Taken ?Type hydrochlorothiazide 25 mg tablet 25 mg PO DAILY 01/24/14 History pantoprazole 40 mg tablet,delayed 40 mg PO DAILY 12/30 Unknown History release cyclobenzaprine 10 mg tablet 10 mg PO QHS PRN PRN Musc le Spasm 12/03/20 Unknown Rx #20 TABLETS epinephrine 0.3 mg/0.3 mL 0.3 mg (0.3 mL) IM Q4H PRN 0 12/09/21 Unknown Rx injection, auto-injector (EpiPen anaphylaxis #2 ea 2-Vincenzo) losartan 100 mg tablet 100 mg PO DAILY 10/20/2210/12 History magnesium 200 mg tablet 200 mg PO QDAY 09/02/24 Unkn own History omega 5-zrd-ofs-fish oil 300 1 cap PO QDAY 09/02/24 Un known History mg-1,000 mg capsule (Fish Oil) vitamin E (dl, acetate) 45 mg (100 45 mg PO QDAY 09/02 Unknown History unit) capsule CPAP - Continuous Positive Airway 02/01/25 Unknown Hi story Pressure([facility] INFORMATIONAL USE ONLY) metoprolol succinate 50 mg 50 mg PO DAILY 04/15/25 Unk nown History tablet,extended release 24 hr Allergy/AdvReac Type Severity Reaction Status Date / Time tramadol Allergy Mild flushed Verified 04/15/25 23:26 bee venom protein (honey bee) Allergy Anaphylaxis Verified 04/15/25 23:26 Family History Mother Brain cancer Surgical History S/P ORIF (open reduction internal fixation) fracture Status post lumbar surgery S/P cervical spinal fusion History of knee replacement procedure of left knee Social History Smoking Status: Never smoker alcohol intake: current details: 3-4 per week ROS ROS ED ROS Narrative Acute care caveat applies EXAM Physical Exam Narrative Exam Narrative: Primary Survey: Airway: Intact Breathing: Bilateral breath sounds Circulation: +2 Radials and DPs bilaterally Disability: Intact MSPs bilateral upper and lower extremities GCS 15 Exposure: Patient was fully exposed Secondary Survey: Neurologic: Alert and oriented but inebriated. Moves all extremities Head: Has a right sided forehead hematoma with a V shaped laceration that is approximately a total of 5 cm in length and then he has a second laceration that is 2 cm in length by the right eyebrow Eyes: Pupils 3 mm equal round reactive to light, EOMI Ears: No hemotympanum Nose: No crepitus, no nasal septal hematoma Mouth/Throat: No blood in mouth, no dental malocclusion Neck: No cervical midline tenderness, no bony step-offs, trachea midline and without crepitus Chest: No obvious sign of trauma, no flail chest Abdomen: Soft, nontender, nondistended, no obvious traumatic injuries Pelvis/Genitourinary: Pelvis is stable. Left Lower Extremity: Nontender full range of motion Right Lower Extremity: Nontender full range of motion Left Upper Extremity: Nontender full range of motion Right Upper Extremity: Nontender full range of motion Back: No thoracolumbar spine tenderness. No bony step-off deformities Const Vital Signs: 04/15/25 23:22 04/15/25 23:22 04/15/25 23:22 Temperature 97.7 F L Temperature Source Oral Pulse Rate 103 H Respiratory Rate 18 Respiratory Effort Normal Non-Labored Respiratory Depth Normal Respiratory Pattern Normal Blood Pressure 164/98 H Blood Pressure Mean 120 Pulse Ox 93 80 80 Oxygen Delivery Method Nasal Cannula Room Air Room Air Oxygen Flow Rate (L/min) 4 04/15/25 23:41 04/16/25 00:11 04/16/25 01:00 Temperature Temperature Source Pulse Rate 101 H Respiratory Rate 18 Respiratory Effort Respiratory Depth Respiratory Pattern Blood Pressure 105/85 H Blood Pressure Mean 91 Pulse Ox 93 92 94 Oxygen Delivery Method Nasal Cannula Room Air Room Air Oxygen Flow Rate (L/min) 4 04/16/25 02:00 04/16/25 02:16 04/16/25 02:30 Temperature Temperature Source Pulse Rate 95 96 101 H Respiratory Rate 18 17 18 Respiratory Effort Respiratory Depth Respiratory Pattern Blood Pressure 119/81 H 130/93 H Blood Pressure Mean 93 106 Pulse Ox 92 94 Oxygen Delivery Method Room Air Oxygen Flow Rate (L/min) 04/16/25 02:49 04/16/25 03:00 Temperature Temperature Source Pulse Rate 100 104 H Respiratory Rate 18 18 Respiratory Effort Respiratory Depth Respiratory Pattern Blood Pressure 116/81 H 96/61 Blood Pressure Mean 92 72 Pulse Ox 92 Oxygen Delivery Method Room Air Oxygen Flow Rate (L/min) MDM MDM MDM Narrative Medical decision making narrative: Patient assessed per ATLS protocol. Please see Trauma Flow Sheet for further details. Interventions: Zofran Procedure: Laceration Repair Confirmed Correct: Patient, procedure, side, site Consent: Patient, Verbal Description Length: 5 cm and a second 1 that was 1 cm Location: Right forehead for the 5 cm laceration and right eyebrow for the 1 cm laceration Shape: V-shaped for the larger laceration and linear for the smaller 1 Depth: Superficial Anesthesia: 5 mL Preparation: Sterile field Skin Closure: 8 superficial sutures 5-0 Absorbable for the 5 cm laceration and 2 superficial 5-0 absorbable sutures for the 1 cm laceration Technique: Simple interrupted Complexity: Simple Post-procedure Examination: Normal circulation, motor, sensation. Bleeding Controlled. Procedure Complications: Arteriole bleeder that was repaired Patient Tolerated: Well Total Time: 15 minutes Tetanus: Updated in department Antibiotics: No indication Labs Reviewed: No leukocytosis leukopenia or anemia platelets are 260 no electrolyte abnormality or renal insufficiency or transaminitis troponin was 9 with delta troponin being 11 alcohol level was 330 Imaging Reviewed: [Personally reviewed and interpreted by me: E-FAST exam: Pericardial space, right and left upper quadrants, and pelvis were visualized. No obvious pericardial effusion or hemoperitoneum, no hypoechoic areas within the liver or splenic parenchyma were seen. No pneumothorax on POC US. Interpretation: Negative FAST exam. Images were not saved. CT of the head: I noticed a small subdural hematoma in the right frontal portion of the head radiologist called me and inform me that it is correct that there is a 4.2 mm without evidence of mass effect or midline shift CT angio of the chest: I do not see an obvious pneumothorax Official CT cervical spine without acute pathology but shows diffuse disc bulges inducing spinal canal and neural exit pathway compromise I did receive a call from radiology regarding the CT of the abdomen and pelvis which shows acute compression fracture of the T12 vertebral body no evidence of retropulsion or secondary canal stenosis EKG: Sinus rhythm rate of 93. No ST segment elevation. EKG interpretation is noted and agreed to in the EMR. The interpretation of this patient's EKG contributed directly to the care and management of this patient. Risk Stratification: Nexus Criteria 1. Posterior midline cervical spine tenderness: No 2. Evidence of intoxication: Yes 3. Normal level of alertness: No 4. Focal neurologic deficit: No 5. Distracting injuries: No CT cervical spine imaging indicated Previous Documentation Reviewed: None available or applicable at this time. Patient is inebriated he has been belligerent I informed him that if he were to continue moving around and trying to get up out of the bed or that he if he were to become detrimental to his own safety and care we will have to intubate the patient his is at the bedside she is agreeable. Patient will require transfer to a trauma center. 0323: CT angio of the chest official read is showing that compression fracture of T12 consistent with an insufficiency fracture I spoke with [facility] emergency physician Dr. Gimenez who is agreeable to transfer as ER to ER 46 minutes of critical care time utilized in managing the patient. This is due to high probability of and deterioration of the patient based on the patient's condition and excludes any separately billable procedures. This note was made utilizing voice recognition software. All attempts were made to correct spelling or other errors prior to note completion, however due to the fast-paced nature of emergency medicine some errors may still be present. Lab Data Labs: Laboratory Results - last 24 hr 04/15/25 04/15/25 04/16/25 00:00 23:56 02:13 WBC 9.2 RBC 4.04 L Hgb 13.6 Hct 40.7 MCV 100.7 H MCH 33.7 H MCHC 33.4 RDW Std Deviation 48.8 H RDW Coeff of Lary 13.2 Plt Count 260 MPV 9.6 Immature Gran % (Auto) 0.300 Neut % (Auto) 42.7 L Lymph % (Auto) 43.1 H [place] % (Auto) 10.4 H Eos % (Auto) 2.5 Baso % (Auto) 1.0 Absolute Neuts (auto) 3.9 Absolute Lymphs (auto) 3.97 Nucleated RBC % 0 Sodium 134 L Potassium 4.2 Chloride 100 Carbon Dioxide 21.5 Anion Gap 12 BUN 13 Creatinine 1.17 Estim Creat Clear Calc 67.93 Est GFR (MDRD) Non-Af 67 BUN/Creatinine Ratio 11.3 Glucose 106 H Calcium 9.3 Total Bilirubin 0.17 AST 30 ALT 22 Alkaline Phosphatase 84 Troponin T High Sens 9 Troponin T Hi Sens 2 Hr 11 Total Protein 7.6 Albumin 4.5 Globulin 3.1 Albumin/Globulin Ratio 1.5 Ethyl Alcohol 330.0 H* Radiography Diagnostic Testing: Clinical Impression(s) from Imaging Studies Abdomen/Pelvis CT 04/16/25 00:20 IMPRESSION: Moderate osteopenia. Mild acute benign osteoporotic compression fracture of T12 vertebral body. No evidence of associated retropulsion or secondary canal stenosis. Diffuse spondylosis. Uncomplicated colonic diverticulosis. Reading Location: [place] [address] 04/16/25 00:20 IMPRESSION: Interval appearance of right frontal acute subdural hematoma measuring 4.2 mm in its maximum thickness without secondary significant mass effect or midline shift. Right frontal acute subgaleal soft tissue hematoma. I discussed the findings with Dr. Sandra Alvarez in the emergency department at 1:50 a.m. EST. Reading Location: [place] [address] 04/16/25 00:20 IMPRESSION: Post operative changes as detailed. Straightened cervical curve denoting myospasm. No vertebral fractures, structural collapse or acute dislocation. Cervical spondylodegenerative changes with multilevel uncovertebral and facet arthropathy along with diffuse disc bulges inducing spinal canal and neural exit pathway compromise. Reading Location: [place] [address] Chest CTA 04/16/25 00:20 IMPRESSION: Partially projected recent insufficiency type compression fracture of T12. This finding is more completely depicted on the CT scan of the abdomen and pelvis done today. Cecil Alert: Partially projected recent insufficiency type compression fracture of T12. The critical findings in the findings and impression above were relayed directly by me by telephone to Sandra Alvarez on 04/16/2025 at 3:50 am with readback verification. Reading Location: [id number] Discharge Plan Triage Chief Complaint: Fall Other Complaint: Laceration ED Provider: Sandra Alvarez Dx/Rx/DC Orders Clinical Impression: Fall from standing, Acute subdural hematoma, Compression fracture of T12 vertebra, Alcohol intoxication Prescriptions: No Action magnesium 200 mg tablet 200 mg PO QDAY omega 9-lkp-cwp-fish oil [Fish Oil] 300-1,000 mg capsule 1 cap PO QDAY vitamin E (dl, acetate) 45 mg (100 unit) capsule 45 mg PO QDAY hydrochlorothiazide 25 MG tablet 25 mg PO DAILY Patient Comments: BLOOD PRESSURE pantoprazole 40 MG tablet 40 mg PO DAILY cyclobenzaprine [cyclobenzaprine] 10 MG tablet 10 mg PO QHS PRN PRN (Reason: Muscle Spasm) Qty: 20 0RF epinephrine [EpiPen 2-Vincenzo] 0.3 mg/0.3 mL auto-injector 0.3 mg IM Q4H PRN (Reason: anaphylaxis) Qty: 2 0RF losartan 100 mg tablet 100 mg PO DAILY (DME) CPAP - Continuous Positive Airway Pressure([facility] INFORMATIONAL USE ONLY) See Rx Instructions .ROUTE .MEDSUPPLY Rx Instructions: AUTOCPAP 5-15 DME- DASCO MASK- MEDIUM RESMED N30 NASAL MASK metoprolol succinate 50 mg tablet extended release 24 hr 50 mg PO DAILY Primary Care Provider: Valeria Parkinson Referrals: Valeria Parkinson MD [Primary Care Provider, Family Practice] Print Language: Kyrgyz Disposition Disposition: Acute Care Hospital Discharge Location: [facility]
== END 2025-04-16 04:27 | disposition short-term general hospital (02) ==
PROVIDERS: Emergency Provider Specialist/Technologist Athletic Trainer; PCP Family Medicine; Visit Provider Specialist/Technologist Athletic Trainer
DX: S06.5XAA Traumatic subdural hemorrhage with loss of consciousness status unknown, initial encounter (principal); S22.089A Unspecified fracture of T11-T12 vertebra, initial encounter for closed fracture; S01.81XA Laceration without foreign body of other part of head, initial encounter; F10.929 Alcohol use, unspecified with intoxication, unspecified; W19.XXXA Unspecified fall, initial encounter; I10 Essential (primary) hypertension; K21.9 Gastro-esophageal reflux disease without esophagitis; Z79.899 Other long term (current) drug therapy
CPT/HCPCS: 12014; 70450; 71275; 72125; 74177; 80053; 82077; 84484; 85025; 93005; 96361; 96374; 96376; 99285; Q9967; A4216; J2405